=== PATIENT | female | born 1975 | race Caucasian/White ===

== ENCOUNTER 2017-07-09 20:46 | Emergency (ER) | payer SELFPAY ==
--- NOTE | 2017-07-09 23:39 | ER ---
Nurse's Notes [facility] Name: Kaylen Benson Age: 42 yrs Sex: Female : 1975 Arrival Date: 07/09/2017 Time: 20:49 Bed 26 Private MD: Diagnosis: Encounter for screening for dental disorders Presentation: 07/09 21:36 Presenting complaint: Patient states: Patient reports she started having pain in her ea upper gums today. States " I have an appointment on the second of next month but it's hurting too bad". Transition of care: patient was not received from another setting of care. Onset of symptoms was July 09, 2017. Care prior to arrival: Medication(s) given: Tylenol, at 3 PM. 21:36 Method Of Arrival: Ambulatory ea 21:36 Acuity: DONNA 5 ea Triage Assessment: 21:41 Pain: Complains of pain in upper gums Pain radiates to head Pain currently is 8 out of ea 10 on a pain scale. Quality of pain is described as aching, throbbing, Pain began this morning. General: Appears in no apparent distress. Behavior is calm, cooperative, appropriate for age. EENT: right upper gums red and inflammed. Neuro: Level of Consciousness is awake, alert, obeys commands, Oriented to person, place, time, situation. Cardiovascular: Patient's skin is warm and dry. Respiratory: Airway is patent Respiratory effort is even, unlabored, Respiratory pattern is regular, symmetrical. 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 - Social history:: Smoking status: Patient uses tobacco products, smokes one-half pack cigarettes per day. Screenin:47 Abuse screen: Denies threats or abuse. Nutritional screening: No deficits noted. ea Tuberculosis screening: No symptoms or risk factors identified. Fall Risk None identified. Assessment: 23:15 General: Appears comfortable, obese, well groomed, well developed, well nourished, tl3 Behavior is calm, cooperative, appropriate for age. Pain: Complains of pain in upper gums on right side Pain currently is 3 out of 10 on a pain scale. Vital Signs: 21:45 BP 122 / 90; Pulse 78; Resp 18 S; Temp 98.5(O); Pulse Ox 100% ; Weight 113.4 kg; Height ea 5 ft. 8 in. (172.72 cm); Pain 7/10; 21:45 Body Mass Index 38.01 (113.40 kg, 172.72 cm) ea ED Course: 20:49 Patient arrived in ED. ds1 21:39 Triage completed. ea 21:47 Arm band placed on right wrist. ea 23:01 Andre Yeung MD is Attending Physician. gs 23:10 Dixie Wisdom, SOLITARIO is Primary Nurse. tl3 23:44 Primary Nurse role handed off by Dixie Wisdom RN gs Administered Medications: No medications were administered Outcome: 23:38 Patient left the ED. tl3 23:46 Discharge ordered by . gs 23:52 Patient left the ED. Signatures: Malgorzata Ohara ds1 Rupa Aguilar RN RN Andre Yeung MD MD Dixie Wisdom RN RN tl3
--- NOTE | 2017-07-09 23:46 | EDPHYS ---
Physician Documentation [facility] Name: Kaylen Benson Age: 42 yrs Sex: Female : 1975 Arrival Date: 07/09/2017 Time: 20:49 Bed 26 Private MD: ED Physician Andre Yeung HPI: 07/09 23:39 This 42 yrs old Female presents to ER via Ambulatory with complaints of Mouth gs Pain. 23:39 The patient presents with broken tooth/teeth, lost tooth/teeth, pain. The problem is gs located in the upper right cuspid and upper right central incisor. Onset: The symptoms/episode began/occurred chronic. Duration: The symptoms are chronic. Modifying factors: the symptoms are aggravated by chewing. Associated signs and symptoms: Pertinent negatives: chills, fever. Severity of symptoms: At their worst the symptoms were moderate, in the emergency department the symptoms are unchanged. The patient has experienced similar episodes in the past, chronically. 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 - Social history:: Smoking status: Patient uses tobacco products, smokes one-half pack cigarettes per day. ROS: 23:39 All other systems are negative. gs Exam: 23:39 Constitutional: The patient appears alert, awake. gs 23:39 ENT: Dental exam: avulsion, complete, diffusely, dental caries, that is severe, diffusely, fractured teeth are noted, diffusely, gum swelling, that is mild, diffusely. Vital Signs: 21:45 BP 122 / 90; Pulse 78; Resp 18 S; Temp 98.5(O); Pulse Ox 100% ; Weight 113.4 kg; Height ea 5 ft. 8 in. (172.72 cm); Pain 7/10; 21:45 Body Mass Index 38.01 (113.40 kg, 172.72 cm) ea MDM: 23:11 Patient medically screened. gs 23:39 Differential diagnosis: dental caries, gingivitis. Data reviewed: vital signs, nurses gs notes. Administered Medications: No medications were administered Disposition: 23:42 dental caries, periodontal disease, no abscess. Disposition: 07/09/17 23:46 Discharged to Home. Impression: Encounter for screening for dental disorders. - Condition is Stable. - Medication Reconciliation Form, Thank You Letter, Antibiotic Education, Prescription Opioid Use form. Signatures: Rupa Aguilar, RN RN Andre Mcqueen MD MD Dixie Wisdom RN RN tl3
== END 2017-07-09 23:52 | disposition home or self-care (01) ==
LOC: ER 20:46
DX: Z13.84 Encounter for screening for dental disorders; Z88.1 Allergy status to other antibiotic agents; Z88.3 Allergy status to other anti-infective agents; S02.5XXA Fracture of tooth (traumatic), initial encounter for closed fracture
CPT/HCPCS: 99281

== ENCOUNTER 2017-08-07 16:22 | Emergency (ER) | payer SELFPAY ==
[2017-08-07] MEDS ORDERED: KETOROLAC 30 MG/ML INJ ONE (17:43)
--- NOTE | 2017-08-07 18:39 | ER ---
Nurse's Notes [facility] Name: Kaylen Benson Age: 42 yrs Sex: Female : 1975 Arrival Date: 08/07/2017 Time: 16:25 Bed 15 Private MD: Diagnosis: Chest pain, unspecified;Costochondritis Presentation: 08/07 16:46 Presenting complaint: Patient states: Anterior chest pain with productive cough that aj started 6 days ago. Patient reports taking Tylenol this AM before going to work. Patient came to ER after work today. Transition of care: patient was not received from another setting of care. Onset of symptoms was August 01, 2017. Initial Sepsis Screen: Does the patient meet any 2 criteria? No. Patient's initial sepsis screen is negative. Does the patient have a suspected source of infection? No. Patient's initial sepsis screen is negative. Care prior to arrival: None. 16:46 Method Of Arrival: Ambulatory aj 16:46 Acuity: DONNA 3 aj Triage Assessment: 16:50 General: Appears in no apparent distress. comfortable, Behavior is calm, cooperative, aj appropriate for age. Pain: Complains of pain in chest Pain currently is 6 out of 10 on a pain scale. Neuro: Level of Consciousness is awake, alert, obeys commands, Oriented to person, place, time, situation. Cardiovascular: Capillary refill < 3 seconds in bilateral fingers Patient's skin is warm and dry. Cardiovascular: Reports chest pain. Respiratory: Reports cough that is pain with cough Airway is patent Respiratory effort is even, unlabored, Respiratory pattern is regular, symmetrical. Derm: Skin is intact, is healthy with good turgor, Skin is pink, warm \T\ dry. normal. 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 - Social history:: Smoking status: Patient uses tobacco products, smokes one-half pack cigarettes per day. Screenin:46 Abuse screen: Denies threats or abuse. Denies injuries from another. Nutritional aj screening: No deficits noted. Tuberculosis screening: No symptoms or risk factors identified. Fall Risk None identified. Assessment: 17:46 Reassessment: see triage. aj 18:45 Reassessment: Patient appears in no apparent distress at this time. No changes from aj previously documented assessment. Patient and/or family updated on plan of care and expected duration. Pain level reassessed. Patient is alert, oriented x 3, equal unlabored respirations, skin warm/dry/pink. Patient states feeling better. Patient states symptoms have improved. 18:49 Pain: Pain does not radiate. Pain began 2-3 days ago. aj Vital Signs: 16:50 BP 118 / 76; Pulse 75; Resp 16; Temp 98.1; Pulse Ox 98% on R/A; Weight 113.4 kg; Height aj 5 ft. 8 in. (172.72 cm); Pain 6/10; 17:46 BP 118 / 60; Pulse 71; Resp 16; Pulse Ox 100% on R/A; aj 16:50 Body Mass Index 38.01 (113.40 kg, 172.72 cm) aj ED Course: 16:25 Patient arrived in ED. sb2 16:45 Jericho Salomon MD is Attending Physician. kdr 16:46 Miri Chávez, RN is Primary Nurse. aj 16:49 Triage completed. aj 16:50 Arm band placed on left wrist. Patient placed in an exam room. EKG completed in triage. aj Results shown to MD. 17:46 Patient has correct armband on for positive identification. Pulse ox on. NIBP on. aj 17:46 No provider procedures requiring assistance completed. Patient maintains SpO2 aj saturation greater than 95% on room air. 17:55 EKG done, by swimming pool service technician. reviewed by Jericho Salomon MD. vh 18:45 Patient did not have IV access during this emergency room visit. aj Administered Medications: 17:53 Drug: TORadol 60 mg Route: IM; Site: right gluteus; aj 18:47 Follow up: Response: Pain is decreased aj Outcome: 18:38 Discharge ordered by . kdr 18:45 Discharged to home ambulatory. aj 18:45 Condition: good 18:45 Discharge instructions given to patient, Instructed on discharge instructions, follow up and referral plans. medication usage, Demonstrated understanding of instructions, follow-up care, medications, Prescriptions given X 1. 18:49 Patient left the ED. aj Signatures: ChávezMiri RN RN aj Rittger, Kevin, MD MD [facility] Andreas, Chantal Beverly See 2
--- NOTE | 2017-08-07 18:39 | EDPHYS ---
Physician Documentation [facility] Name: Kaylen Benson Age: 42 yrs Sex: Female : 1975 Arrival Date: 08/07/2017 Time: 16:25 Bed 15 Private MD: ED Physician Jericho Salomon HPI: 08/07 17:41 This 42 yrs old Female presents to ER via Ambulatory with complaints of Chest kdr Pain. 17:41 The patient or guardian reports chest pain that is located primarily in the substernal kdr area, anterior chest wall, bilaterally. Onset: gradually, 6 day(s) ago. The pain does not radiate. Associated signs and symptoms: The patient has no apparent associated signs or symptoms. The chest pain is described as aching, dull, a heaviness, a pressure. Duration: The patient or guardian reports a single episode, that is still ongoing. Modifying factors: The symptoms are alleviated by nothing. the symptoms are aggravated by breathing, cough, movement, palpation of area, twisting torso. Severity of pain: At its worst the pain was moderate in the emergency department the pain is unchanged. The patient has experienced similar episodes in the past, a few times. 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 - Social history:: Smoking status: Patient uses tobacco products, smokes one-half pack cigarettes per day. ROS: 17:41 Constitutional: Negative for fever, chills, and weight loss, Eyes: Negative for injury, kdr pain, redness, and discharge, ENT: Negative for injury, pain, and discharge, Neck: Negative for injury, pain, and swelling, Respiratory: Negative for shortness of breath, cough, wheezing, and pleuritic chest pain, Abdomen/GI: Negative for abdominal pain, nausea, vomiting, diarrhea, and constipation, Back: Negative for injury and pain, : Negative for injury, bleeding, discharge, and swelling, MS/Extremity: Negative for injury and deformity, Skin: Negative for injury, rash, and discoloration, Neuro: Negative for headache, weakness, numbness, tingling, and seizure activity. 17:41 Cardiovascular: Positive for chest pain, Negative for edema, orthopnea, palpitations, paroxysmal nocturnal dyspnea. Exam: 17:41 Constitutional: This is a well developed, well nourished patient who is awake, alert, kdr and in no acute distress. Head/Face: Normocephalic, atraumatic. Eyes: Pupils equal round and reactive to light, extra-ocular motions intact. Lids and lashes normal. Conjunctiva and sclera are non-icteric and not injected. Cornea within normal limits. Periorbital areas with no swelling, redness, or edema. Neck: Trachea midline, no thyromegaly or masses palpated, and no cervical lymphadenopathy. Supple, full range of motion without nuchal rigidity, or vertebral point tenderness. No Meningismus. Chest/axilla: Normal chest wall appearance and motion. Nontender with no deformity. No lesions are appreciated. Cardiovascular: Regular rate and rhythm with a normal S1 and S2. No gallops, murmurs, or rubs. Normal PMI, no JVD. No pulse deficits. Respiratory: Lungs have equal breath sounds bilaterally, clear to auscultation and percussion. No rales, rhonchi or wheezes noted. No increased work of breathing, no retractions or nasal flaring. Vital Signs: 16:50 BP 118 / 76; Pulse 75; Resp 16; Temp 98.1; Pulse Ox 98% on R/A; Weight 113.4 kg; Height aj 5 ft. 8 in. (172.72 cm); Pain 6/10; 17:46 BP 118 / 60; Pulse 71; Resp 16; Pulse Ox 100% on R/A; aj 16:50 Body Mass Index 38.01 (113.40 kg, 172.72 cm) aj MDM: 18:38 Patient medically screened. kdr 08/07 17:56 Order name: EKG Electrocardiogram EDMS 08/07 17:40 Order name: EKG Strip; Complete Time: 17:47 kdr Administered Medications: 17:53 Drug: TORadol 60 mg Route: IM; Site: right gluteus; aj 18:47 Follow up: Response: Pain is decreased aj Disposition: 08/07/17 18:38 Discharged to Home. Impression: Chest pain, unspecified, Costochondritis. - Condition is Stable. - Discharge Instructions: Costochondritis, [id number], Chest Wall Pain, [id number], Nonspecific Chest Pain, [id number]-[id number]. - Prescriptions for Ibuprofen 800 mg Oral Tablet - take 1 tablet by ORAL route every 8 hours As needed take with food; 30 tablet. - Medication Reconciliation Form, Thank You Letter, Antibiotic Education, Prescription Opioid Use form. - Follow up: Private Physician; When: 2 - 3 days; Reason: If symptoms return, Further diagnostic work-up, Recheck today's complaints, Continuance of care, Re-evaluation by your physician. - Problem is an ongoing problem. - Symptoms have improved. Signatures: Dispatcher [employer] Miri Smith RN RN aj Rittger, Kevin, MD MD kdr
--- NOTE | 2017-08-07 22:11 | EKG ---
Test Date: 2017-08-07 Test Time: 17:46:48 Licensed Mental Health Professional: JACQUELYN MEASUREMENT RESULTS: Intervals: Rate: 68 [place]: 168 QRSD: 80 QT: 422 QTc: 448 [place]: P: 14 [place]: 168 QRS: 12 T: 21 INTERPRETIVE STATEMENTS: Normal sinus rhythm Low voltage QRS Borderline ECG Compared to ECG 08/10/2016 01:09:25 No significant changes Electronically Signed On 08-07-17 22:10:24 CDT by King Zazueta
== END 2017-08-07 18:49 | disposition home or self-care (01) ==
LOC: ER 16:22
DX: M94.0 Chondrocostal junction syndrome [Tietze] (principal); Z88.1 Allergy status to other antibiotic agents; Z88.3 Allergy status to other anti-infective agents
CPT/HCPCS: 93005; 96372; 99284

== ENCOUNTER 2017-10-20 06:33 | Emergency (ER) | payer SELFPAY ==
--- NOTE | 2017-10-20 08:01 | EDPHYS ---
Physician Documentation [facility] Name: Kaylen Benson Age: 42 yrs Sex: Female : 1975 Arrival Date: 10/20/2017 Time: 06:33 Bed 18 Private MD: ED Physician Maximilian Bowman HPI: 10/20 06:46 This 42 yrs old Female presents to ER via Unassigned with complaints of Ankle jmm Injury. 06:46 The patient presents with an injury, pain. Onset: The symptoms/episode began/occurred jmm acutely, 4 day(s) ago. Associated signs and symptoms:. This is a 42 year old female that presents to the ED with left ankle pain for the past 4 days. The patient states she rolled her ankle and states it continues to hurt on weight bearing. Denies other injury. Denies foot pain. 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 - Social history:: Smoking status: Patient uses tobacco products, 2 cigarettes a day. - Ebola Screening: : Patient negative for fever greater than or equal to 101.5 degrees Fahrenheit, and additional compatible Ebola Virus Disease symptoms. ROS: 06:46 Constitutional: Negative for body aches, fever. jmm 06:46 MS/extremity: Positive for pain, swelling. 06:46 All other systems are negative. Exam: 06:46 Head/Face: atraumatic. jmm 06:46 Constitutional: The patient appears in no acute distress, alert, awake. 06:46 Cardiovascular: Rate: normal. 06:46 Respiratory: the patient does not display signs of respiratory distress, Respirations: normal. 06:46 Musculoskeletal/extremity: ROM: intact in all extremities, left lateral malleolus tender to palpation. no pain on palpation of the 5th metatarsal, full dorsalis pulse, NVI. 06:46 Skin: Appearance: Color: normal in color. 06:46 Neuro: Orientation: is normal, Mentation: is normal, Memory: is normal. 06:46 Psych: Behavior/mood is pleasant, cooperative. Vital Signs: 06:51 BP 116 / 83; Pulse 92; Resp 17 S; Temp 98.2(O); Pulse Ox 96% on R/A; Weight 127.01 kg jd3 (R); Height 5 ft. 7 in. (170.18 cm) (R); Pain 6/10; 08:12 BP 105 / 82; Pulse 74; Resp 18; Temp 98.3; Pulse Ox 99% on R/A; Pain 4/10; ch 06:51 Body Mass Index 43.85 (127.01 kg, 170.18 cm) jd3 MDM: 06:42 Patient medically screened. [facility] 07:59 Data reviewed: vital signs, nurses notes, radiologic studies, plain films. Counseling: [facility] I had a detailed discussion with the patient and/or guardian regarding: the historical points, exam findings, and any diagnostic results supporting the discharge/admit diagnosis, radiology results, the need for outpatient follow up, to return to the emergency department if symptoms worsen or persist or if there are any questions or concerns that arise at home. 10/20 06:42 Order name: Ankle Left 3 View XRAY [facility] 10/20 07:46 Order name: Zack wrap-joint; Complete Time: 08:11 [facility] 10/20 08:17 Order name: Crutches; Complete Time: 08:17 ch Administered Medications: No medications were administered Disposition: 10/21 01:17 Co-signature as Attending Physician, Maximilian Bowman MD. I agree with the assessment tw4 and plan of care. Disposition: 10/20/17 08:00 Discharged to Home. Impression: Sprain of ankle. - Condition is Stable. - Discharge Instructions: Ankle Sprain. - Prescriptions for Ibuprofen 800 mg Oral Tablet - take 1 tablet by ORAL route every 8 hours As needed take with food; 30 tablet. - Work release form, Medication Reconciliation Form, Thank You Letter, Antibiotic Education, Prescription Opioid Use form. - Follow up: Jerome Canada MD; When: 2 - 3 days; Reason: Continuance of care. - Notes: Please follow up with orthopedics for further evaluation of your ankle pain. Please return to the ED if you develop increased pain, numbness, swelling, fever, or any other concerning symptoms. Signatures: Dispatcher [employer] Jazzy Hayden RN RN ch Mickail, Joel, PA PA jmm Davies, Jonathon, RN RN jd3 Wadley, Terrence, MD MD tw4 Corrections: (The following items were deleted from the chart) 10/20 08:18 08:00 10/20/2017 08:00 Discharged to Home. Impression: Sprain of ankle. Condition is ch Stable. Forms are Medication Reconciliation Form, Thank You Letter, Antibiotic Education, Prescription Opioid Use. Follow up: Jerome Canada; When: 2 - 3 days; Reason: Continuance of care. judy
--- NOTE | 2017-10-20 08:01 | ER ---
Nurse's Notes [facility] Name: Kaylen Benson Age: 42 yrs Sex: Female : 1975 Arrival Date: 10/20/2017 Time: 06:33 Bed 18 Private MD: Diagnosis: Sprain of ankle Presentation: 10/20 06:49 Presenting complaint: Patient states: "I fell down some stairs last V[place] and twisted jd3 my ankle. It has not gotten better and I figured it would have by now if nothing was wrong.". Transition of care: patient was not received from another setting of care. Onset of symptoms was October 16, 2017. Risk Assessment: Do you want to hurt yourself or someone else? Patient reports no desire to harm self or others. Initial Sepsis Screen: Does the patient meet any 2 criteria? No. Patient's initial sepsis screen is negative. Does the patient have a suspected source of infection? No. Patient's initial sepsis screen is negative. Care prior to arrival: None. 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 - Social history:: Smoking status: Patient uses tobacco products, 2 cigarettes a day. - Ebola Screening: : Patient negative for fever greater than or equal to 101.5 degrees Fahrenheit, and additional compatible Ebola Virus Disease symptoms. Screenin:56 Abuse screen: Denies threats or abuse. Nutritional screening: No deficits noted. jd3 Tuberculosis screening: No symptoms or risk factors identified. Fall Risk Fall in past 12 months (25 points). No IV (0 pts). Ambulatory Aid- Crutches/Cane/Walker (15 pts). Gait- Weak (10 pts.). Mental Status- Oriented to own ability (0 pts). Total Le Fall Scale indicates. Assessment: 06:52 General: Appears in no apparent distress. uncomfortable, Behavior is cooperative, jd3 anxious. Pain: Complains of pain in left ankle Pain currently is 6 out of 10 on a pain scale. Quality of pain is described as aching, sharp, Pain began 2-3 days ago. Is continuous, Aggravated by weight bearing. Neuro: Level of Consciousness is awake, alert, obeys commands, Oriented to person, place, time, situation. Cardiovascular: Capillary refill < 3 seconds Patient's skin is warm and dry. Respiratory: Airway is patent Respiratory effort is even, unlabored, Respiratory pattern is regular, symmetrical. GI: No signs and/or symptoms were reported involving the gastrointestinal system. : No signs and/or symptoms were reported regarding the genitourinary system. EENT: No signs and/or symptoms were reported regarding the EENT system. Derm: Skin is intact, Skin is dry, Skin is normal, Skin temperature is warm. Musculoskeletal: Circulation, motion, and sensation intact. Range of motion: limited in left ankle Swelling present in left ankle. Injury Description: pt states "I fell down stairs and twisted my ankle.". 08:12 Reassessment: Patient appears in no apparent distress at this time. No changes from previously documented assessment. Patient and/or family updated on plan of care and expected duration. Pain level reassessed. Patient is alert, oriented x 3, equal unlabored respirations, skin warm/dry/pink. Vital Signs: 06:51 BP 116 / 83; Pulse 92; Resp 17 S; Temp 98.2(O); Pulse Ox 96% on R/A; Weight 127.01 kg j (R); Height 5 ft. 7 in. (170.18 cm) (R); Pain 6/10; 08:12 BP 105 / 82; Pulse 74; Resp 18; Temp 98.3; Pulse Ox 99% on R/A; Pain 4/10; ch 06:51 Body Mass Index 43.85 (127.01 kg, 170.18 cm) [facility] ED Course: 06:33 Patient arrived in ED. ds1 06:36 Jace Alcaraz PA is PHCP. jmm 06:36 Maximilian Bomwan MD is Attending Physician. [facility] 06:49 Geoffrey Ruiz RN is Primary Nurse. jd3 06:51 Triage completed. jd3 06:52 Arm band placed on. jd3 06:57 Patient has correct armband on for positive identification. Bed in low position. Call j light in reach. Side rails up X 1. 07:02 X-ray completed. Portable x-ray completed in exam room. Patient tolerated procedure kw well. 07:03 Ankle Left 3 View XRAY In Process Unspecified. EDMS 08:00 Jerome Canada MD is Referral Physician. [facility] 08:12 No apparent distress. Resting quietly. 08:12 No provider procedures requiring assistance completed. Patient did not have IV access ch during this emergency room visit. Zack wrap to left ankle. 08:12 Crutch training done. Administered Medications: No medications were administered Outcome: 08:00 Discharge ordered by . [facility] 08:12 Discharged to home ambulatory, with crutches. 08:12 Condition: stable 08:12 Discharge instructions given to patient, Instructed on discharge instructions, follow up and referral plans. medication usage, Demonstrated understanding of instructions, follow-up care, medications, Prescriptions given X 1. 08:18 Patient left the ED. Signatures: Dispatcher [employer] EDPR Jazzy Watson, RN RN Jace Silverman PA PA [facility] Malgorzata Ohara ds1 Doris Rivera Jonathon, RN RN china
--- NOTE | 2017-10-20 09:04 | RAD REPORT ---
EXAM DESCRIPTION: RAD - Ankle Left 3 View -10/20/2017 7:03 am CLINICAL HISTORY: Left ankle pain status post injury FINDINGS: No fracture or dislocation is seen.
== END 2017-10-20 08:18 | disposition home or self-care (01) ==
LOC: ER 06:33
DX: S93.402A Sprain of unspecified ligament of left ankle, initial encounter (principal); I95.9 Hypotension, unspecified; J44.9 Chronic obstructive pulmonary disease, unspecified; F17.210 Nicotine dependence, cigarettes, uncomplicated; X50.1XXA Overexertion from prolonged static or awkward postures, initial encounter; Y93.9 Activity, unspecified; Y92.9 Unspecified place or not applicable; Y99.9 Unspecified external cause status; Z88.1 Allergy status to other antibiotic agents
CPT/HCPCS: 99283

== ENCOUNTER 2017-12-11 22:27 | Emergency (ER) | payer SELFPAY ==
[2017-12-11] MEDS ORDERED: ASPIRIN 81 MG CHEWABLE TABLET ONE (22:56)
[2017-12-11 23:23] LABS: Absolute Lymphocytes (CBC) 1.7 K/uL (0.7-4.9); Absolute Monocytes 0.3 K/uL (0.1-1.3); Absolute Neutrophil 3.9 K/uL (1.8-8.0); Basophils % 0.5 % (0-1.3); Hematocrit 38.2 % (36.0-45.0); Lymphocytes % 28.3 % (15.3-44.8); MCH 30.6 pg (27.0-35.0); MCV 89.7 fL (80-100); MPV 8.6 fL (7.6-11.3); Monocytes % 4.9 % (3.3-12.3); RBC Red Blood Cell Count 4.26 M/uL (3.86-4.86)
[2017-12-11] MEDS ORDERED: ACETAMINOPHEN 500 MG TAB ONE ×2 (23:28→23:30)
[2017-12-11 23:45] LABS: ALT/SGPT 18 U/L (12-78); AST/SGOT 15 U/L (15-37); Albumin 3.3 g/dL (3.4-5.0); Alkaline Phosphatase 78 U/L (45-117); BUN Blood Urea Nitrogen 10 mg/dL (7-18); Bicarbonate 25 mmol/L (21-32); Bilirubin Direct 0.2 mg/dL (0-0.2); Bilirubin Total 0.4 mg/dL (0.2-1.0); CKMB Creatine Kinase MB < 1.0 ng/mL (0.3-3.6); Creatine Phosphokinase 61 U/L (26-192); Glucose Level 86 mg/dL (74-106); Magnesium 1.8 mg/dL (1.8-2.4); NT PRO-BNP 88 pg/mL (<125); Potassium 3.7 mmol/L (3.5-5.1); Sodium Level 141 mmol/L (136-145)
[2017-12-11 23:54] LABS: Protime INR 1.07
[2017-12-12] MEDS ORDERED: METOCLOPRAMIDE 10 MG/2mL INJ ONE (00:08)
[2017-12-12] MEDS ORDERED: NA CHLORIDE 0.9% 1,000 ML ONE (00:08)
[2017-12-12] MEDS ORDERED: DIPHENHYDRAMINE 50 MG/ML VIAL ONE (00:08)
[2017-12-12] MEDS ORDERED: KETOROLAC 30 MG/ML INJ ONE (00:08)
--- NOTE | 2017-12-12 02:30 | EDPHYS ---
Physician Documentation [facility] Name: Kaylen Benson Age: 42 yrs Sex: Female : 1975 Arrival Date: 12/11/2017 Time: 22:30 Bed 13 Private MD: ED Physician Jose Cantrell HPI: 12/11 23:00 This 42 yrs old Female presents to ER via Ambulatory with complaints of Chest cp Pain. 23:00 The patient or guardian reports chest pain that is located primarily in the anterior cp chest wall. 23:00 Onset: 2 day(s) ago. The pain does not radiate. Associated signs and symptoms: cp Pertinent positives: headache, Pertinent negatives: abdominal pain, cough, diaphoresis, dizziness, lower extremity pain, lower extremity swelling, recent travel, syncope. The chest pain is described as a pressure. Duration: The patient or guardian reports multiple episodes, that wax and wane. Modifying factors: the symptoms are aggravated by deep breath. APPLIED RESEARCHER: 22:30 LMP 12/07/2017 fc Historical: - Allergies: 22:48 Amoxicillin; fc 22:48 Clindamycin; fc - Home Meds: 22:48 None [Active]; fc - PMHx: 22:48 Anxiety; COPD; hypotension; Thyroid problem; Vertigo; Migraines; fc - PSHx: 22:48 ; fc - Immunization history:: Last tetanus immunization: unknown. - Social history:: Smoking status: . - Ebola Screening: : Patient negative for fever greater than or equal to 101.5 degrees Fahrenheit, and additional compatible Ebola Virus Disease symptoms Patient denies exposure to infectious person Patient denies travel to an Ebola-affected area in the 21 days before illness onset. ROS: 23:07 Constitutional: Negative for body aches, chills, fever, poor PO intake. cp 23:07 Eyes: Negative for injury, pain, redness, and discharge. cp 23:07 ENT: Negative for drainage from ear(s), ear pain, sore throat, difficulty swallowing, difficulty handling secretions. 23:07 Cardiovascular: Positive for chest pain, Negative for edema, palpitations. 23:07 Respiratory: Negative for cough, shortness of breath, wheezing. 23:07 Abdomen/GI: Negative for abdominal pain, nausea, vomiting, and diarrhea, black/tarry stool, rectal bleeding. 23:07 Back: Negative for pain at rest, pain with movement, radiated pain. 23:07 : Negative for urinary symptoms. 23:07 MS/extremity: Negative for injury or acute deformity, swelling, tenderness. 23:07 Skin: Negative for cellulitis, rash. 23:07 Neuro: Positive for headache, Negative for altered mental status, syncope, near syncope, weakness. 23:07 All other systems are negative. Exam: 23:13 Constitutional: The patient appears in no acute distress, alert, awake, cp non-diaphoretic, non-toxic, well developed, well nourished, obese. 23:13 Head/Face: Normocephalic, atraumatic. Eyes: Pupils equal round and reactive to light, cp extra-ocular motions intact. Lids and lashes normal. Conjunctiva and sclera are non-icteric and not injected. Cornea within normal limits. Periorbital areas with no swelling, redness, or edema. ENT: Nares patent. No nasal discharge, no septal abnormalities noted. Tympanic membranes are normal and external auditory canals are clear. Oropharynx with no redness, swelling, or masses, exudates, or evidence of obstruction, uvula midline. Mucous membranes moist. Neck: Trachea midline, no thyromegaly or masses palpated, and no cervical lymphadenopathy. Supple, full range of motion without nuchal rigidity, or vertebral point tenderness. No Meningismus. 23:13 Chest/axilla: Inspection: normal, Palpation: is normal, no crepitus, no tenderness. 23:13 Cardiovascular: Rate: tachycardic, Rhythm: regular, Pulses: Pulses are 2+ in right radial artery and left radial artery. Edema: is not appreciated, JVD: is not appreciated. 23:13 Respiratory: the patient does not display signs of respiratory distress, Respirations: normal, no use of accessory muscles, no retractions, no splinting, no tachypnea, labored breathing, is not present, Breath sounds: are clear throughout, no decreased breath sounds, no stridor, no wheezing. 23:13 Abdomen/GI: Inspection: obese Bowel sounds: active, all quadrants, Palpation: abdomen is soft and non-tender, in all quadrants, rebound tenderness, is not appreciated, voluntary guarding, is not appreciated, involuntary guarding, is not appreciated. 23:13 Back: pain, is absent, ROM is normal. 23:13 Musculoskeletal/extremity: Exam is negative for calf tenderness, decreased range of motion, deformity, injury. 23:13 Skin: cellulitis, is not appreciated, no rash present. 23:13 Neuro: Orientation: to person, place \T\ time. Mentation: lucid, able to follow commands, Cerebellar function: is grossly normal, Motor: moves all fours, strength is normal, Sensation: no obvious gross deficits. 23:20 ECG was reviewed by the Attending Physician. cp 12/12 01:45 ECG was reviewed by the Attending Physician. cp Vital Signs: 12/11 22:30 BP 131 / 89; Pulse 103; Resp 18; Temp 98.9(O); Pulse Ox 99% on R/A; Weight 122.47 kg fc (R); Height 5 ft. 8 in. (172.72 cm) (R); Pain 7/10; 23:52 BP 122 / 68; Pulse 79; Resp 19; Pulse Ox 98% ; Pain 0/10; ao 12/12 00:05 BP 120 / 78; Pulse 53; Resp 17; Pulse Ox 100% ; Pain 0/10; ao 01:05 BP 114 / 63; Pulse 68; Resp 16; Pulse Ox 99% on R/A; Pain 0/10; ao 02:22 BP 103 / 66; Pulse 75; Resp 17; Pulse Ox 98% on R/A; ao 12/11 22:30 Body Mass Index 41.05 (122.47 kg, 172.72 cm) fc MDM: 12/11 22:47 Patient medically screened. cp 12/12 02:28 The patient was given aspirin in the Emergency Department. cp 02:28 Differential diagnosis: abnormal EKG, acute myocardial infarction, acute pericarditis, cp chest wall pain, gastroesophageal reflux disease (GERD), pericarditis, pleurisy, pneumonia, pneumothorax, pulmonary embolus, stable angina, unstable angina. Data reviewed: vital signs, nurses notes, lab test result(s), EKG, radiologic studies, plain films. Test interpretation: by ED physician or midlevel provider: ECG, plain radiologic studies. Special discussion: Based on the patient's history, exam, and Dx evaluation, there is no indication for emergent intervention or inpatient Tx. It is understood by the patient/guardian that if the Sx's persist or worsen they need to return immediately for re-evaluation. 12/11 22:47 Order name: Basic Metabolic Panel; Complete Time: 23:57 cp 12/11 23:57 Interpretation: Normal except: CL 109; GFR 69. cp 12/11 22:47 Order name: CBC with Diff; Complete Time: 23:57 cp 12/11 22:47 Order name: Ckmb; Complete Time: 23:57 cp 12/11 22:47 Order name: CPK; Complete Time: 23:57 cp 12/11 22:47 Order name: LFT's; Complete Time: 23:57 cp 12/11 22:47 Order name: Magnesium; Complete Time: 23:57 cp 12/11 22:47 Order name: NT PRO-BNP; Complete Time: 23:57 cp 12/11 22:47 Order name: PT-INR; Complete Time: 23:57 cp 12/11 22:47 Order name: Ptt, Activated; Complete Time: 23:57 cp 12/11 22:47 Order name: Troponin (emerg Dept Use Only); Complete Time: 23:57 cp 12/11 22:47 Order name: XRAY Chest (1 view) cp 12/12 01:17 Order name: Troponin (emerg Dept Use Only); Complete Time: 02:28 cp 12/12 02:28 Interpretation: Within normal limits: TROPED < 0.02. cp 12/11 22:47 Order name: EKG; Complete Time: 22:47 cp 12/11 22:47 Order name: Cardiac monitoring; Complete Time: 02:39 cp 12/11 22:47 Order name: EKG - Nurse/Tech; Complete Time: 23:34 cp 12/11 22:47 Order name: IV Saline Lock; Complete Time: 23:34 cp 12/11 22:47 Order name: Labs collected and sent; Complete Time: 23:34 cp 12/11 22:47 Order name: O2 Per Protocol; Complete Time: 22:53 cp 12/11 22:47 Order name: O2 Sat Monitoring; Complete Time: 22:53 cp 12/12 01:17 Order name: EKG; Complete Time: 01:18 cp 12/12 01:17 Order name: EKG - Nurse/Tech; Complete Time: 02:03 cp 12/12 01:17 Order name: Repeat Cardiac Enzymes at: 0145; Complete Time: 02:03 cp EC/24 23:20 Rate is 91 beats/min. Rhythm is regular. NH interval is normal. QRS interval is normal. cp QT interval is normal. Interpreted by me. Reviewed by me. 12/12 01:45 Rate is 75 beats/min. Rhythm is regular. NH interval is normal. QRS interval is normal. cp QT interval is normal. Interpreted by me. Reviewed by me. Administered Medications: 12/11 23:00 Drug: Aspirin Chewable Tablet 324 mg Route: PO; ao 12/12 01:34 Follow up: Response: No adverse reaction ao 12/11 23:34 Drug: Tylenol 1000 mg Route: PO; ao 12/12 01:34 Follow up: Response: No adverse reaction ao 00:13 Drug: NS 0.9% 1000 ml Route: IV; Rate: 1 bolus; Site: right antecubital; ao 01:34 Follow up: IV Status: Completed infusion; IV Intake: 1000ml ao 00:13 Drug: TORadol 30 mg Route: IVP; Site: right antecubital; ao 01:35 Follow up: Response: No adverse reaction ao 00:13 Drug: Reglan 10 mg Route: IVP; Site: right antecubital; ao 01:35 Follow up: Response: No adverse reaction ao 00:13 Drug: Benadryl 25 mg Route: IVP; Site: right antecubital; ao 01:35 Follow up: Response: No adverse reaction ao Disposition: 12/12/17 02:29 Discharged to Home. Impression: Chest pain, unspecified, Headache. - Condition is Stable. - Discharge Instructions: Nonspecific Chest Pain, General Headache Without Cause, Aspirin and Your Heart. - Prescriptions for Ibuprofen 800 mg Oral Tablet - take 1 tablet by ORAL route every 8 hours As needed take with food; 30 tablet. - Medication Reconciliation Form, Thank You Letter, Antibiotic Education, Prescription Opioid Use form. - Follow up: Private Physician; When: 2 - 3 days; Reason: Recheck today's complaints. - Problem is new. - Symptoms have improved. Addendum: 12/14/2017 06:30 Co-signature as Attending Physician, Jose Cantrell MD I agree with the assessment and c rivera plan of care. Signatures: Dispatcher [employer] EDJose Hirsch MD MD cha Chretien, Felicia RN RN Jose García PA PA cp Ortiz, Alex RN RN ao Corrections: (The following items were deleted from the chart) 12/12 02:38 12/11 22:47 Urine Test ordered. ko pham 12/12 02:38 12/11 22:47 Urine Dipstick-Ancillary ordered. ko pham 12/12 02:43 02:29 12/12/2017 02:29 Discharged to Home. Impression: Chest pain, unspecified; ao Headache. Condition is Stable. Forms are Medication Reconciliation Form, Thank You Letter, Antibiotic Education, Prescription Opioid Use. Follow up: Private Physician; When: 2 - 3 days; Reason: Recheck today's complaints. Problem is new. Symptoms have improved. cp
--- NOTE | 2017-12-12 02:30 | ER ---
Nurse's Notes [facility] Name: Kaylen Benson Age: 42 yrs Sex: Female : 1975 Arrival Date: 12/11/2017 Time: 22:30 Bed 13 Private MD: Diagnosis: Chest pain, unspecified;Headache Presentation: 12/11 22:30 Presenting complaint: Patient states: that she is having chest pain with deep fc breathing. Also has congestion but no cough. Started 2 days ago. Does have headache over entire head which is like her normal migraines. Denies any nausea or vomiting. Transition of care: patient was not received from another setting of care. Onset of symptoms was December 09, 2017. Risk Assessment: Do you want to hurt yourself or someone else? Patient reports no desire to harm self or others. Initial Sepsis Screen: Does the patient meet any 2 criteria? HR > 90 bpm. Yes Does the patient have a suspected source of infection? No. Patient's initial sepsis screen is negative. Care prior to arrival: None. 22:30 Method Of Arrival: Ambulatory 22:30 Acuity: DONNA 3 fc CONTACT OFFICER: 22:30 LMP 12/07/2017 fc Historical: - Allergies: 22:48 Amoxicillin; fc 22:48 Clindamycin; fc - Home Meds: 22:48 None [Active]; fc - PMHx: 22:48 Anxiety; COPD; hypotension; Thyroid problem; Vertigo; Migraines; fc - PSHx: 22:48 ; fc - Immunization history:: Last tetanus immunization: unknown. - Social history:: Smoking status: . - Ebola Screening: : Patient negative for fever greater than or equal to 101.5 degrees Fahrenheit, and additional compatible Ebola Virus Disease symptoms Patient denies exposure to infectious person Patient denies travel to an Ebola-affected area in the 21 days before illness onset. Screenin:51 Abuse screen: Denies threats or abuse. Nutritional screening: No deficits noted. fc Tuberculosis screening: No symptoms or risk factors identified. Fall Risk None identified. Assessment: 23:00 General: Appears in no apparent distress. comfortable, Behavior is calm, cooperative, ao appropriate for age. Pain: Complains of pain in chest Pain does not radiate. Pain currently is 0 out of 10 on a pain scale. Pain began 1 day ago. Neuro: Level of Consciousness is awake, alert, obeys commands, Oriented to person, place, time, situation, Appropriate for age Moves all extremities. Full function Speech is normal, Facial symmetry appears normal, Pupils are PERRLA. Cardiovascular: Capillary refill < 3 seconds Patient's skin is warm and dry. Respiratory: Airway is patent Respiratory effort is even, unlabored, Respiratory pattern is regular, symmetrical. GI: Abdomen is non-distended. : No signs and/or symptoms were reported regarding the genitourinary system. EENT: No signs and/or symptoms were reported regarding the EENT system. Derm: Skin is intact, Skin is pink, warm \T\ dry. normal, Skin temperature is warm. Musculoskeletal: Circulation, motion, and sensation intact. Range of motion:. 12/12 00:05 Reassessment: Patient appears in no apparent distress at this time. Patient and/or ao family updated on plan of care and expected duration. Pain level reassessed. Patient is alert, oriented x 3, equal unlabored respirations, skin warm/dry/pink. Waiting on lab work. 01:04 Reassessment: Patient appears in no apparent distress at this time. Patient and/or ao family updated on plan of care and expected duration. Pain level reassessed. Patient is alert, oriented x 3, equal unlabored respirations, skin warm/dry/pink. Waiting on dispo orders. General:. 02:21 Reassessment: Patient appears in no apparent distress at this time. Patient and/or ao family updated on plan of care and expected duration. Pain level reassessed. Patient is alert, oriented x 3, equal unlabored respirations, skin warm/dry/pink. Repeated cardiac enzymes had being sent. Vital Signs: 12/11 22:30 BP 131 / 89; Pulse 103; Resp 18; Temp 98.9(O); Pulse Ox 99% on R/A; Weight 122.47 kg fc (R); Height 5 ft. 8 in. (172.72 cm) (R); Pain 7/10; 23:52 BP 122 / 68; Pulse 79; Resp 19; Pulse Ox 98% ; Pain 0/10; ao 12/12 00:05 BP 120 / 78; Pulse 53; Resp 17; Pulse Ox 100% ; Pain 0/10; ao 01:05 BP 114 / 63; Pulse 68; Resp 16; Pulse Ox 99% on R/A; Pain 0/10; ao 02:22 BP 103 / 66; Pulse 75; Resp 17; Pulse Ox 98% on R/A; ao 12/11 22:30 Body Mass Index 41.05 (122.47 kg, 172.72 cm) fc ED Course: 12/11 22:30 Patient arrived in ED. es 22:30 Arm band placed on Patient placed in an exam room, on a stretcher. fc 22:44 Michael Ely RN is Primary Nurse. ao 22:46 Jose García PA is PHCP. cp 22:46 Jose Cantrell MD is Attending Physician. cp 22:47 Triage completed. fc 22:51 Patient has correct armband on for positive identification. Placed in gown. Bed in low fc position. Call light in reach. 22:51 No provider procedures requiring assistance completed. Patient maintains SpO2 fc saturation greater than 95% on room air. 22:54 XRAY Chest (1 view) In Process Unspecified. EDMS 23:15 Pulse ox on. NIBP on. ao 23:20 Inserted saline lock: 20 gauge in right forearm, using aseptic technique. Blood ao collected. 12/12 02:39 IV discontinued. ao Administered Medications: 12/11 23:00 Drug: Aspirin Chewable Tablet 324 mg Route: PO; ao 12/12 01:34 Follow up: Response: No adverse reaction ao 12/11 23:34 Drug: Tylenol 1000 mg Route: PO; ao 12/12 01:34 Follow up: Response: No adverse reaction ao 00:13 Drug: NS 0.9% 1000 ml Route: IV; Rate: 1 bolus; Site: right antecubital; ao 01:34 Follow up: IV Status: Completed infusion; IV Intake: 1000ml ao 00:13 Drug: TORadol 30 mg Route: IVP; Site: right antecubital; ao 01:35 Follow up: Response: No adverse reaction ao 00:13 Drug: Reglan 10 mg Route: IVP; Site: right antecubital; ao 01:35 Follow up: Response: No adverse reaction ao 00:13 Drug: Benadryl 25 mg Route: IVP; Site: right antecubital; ao 01:35 Follow up: Response: No adverse reaction ao Intake: 01:34 IV: 1000ml; Total: 1000ml. ao Outcome: 02:29 Discharge ordered by . cp 02:39 Discharged to home ambulatory. ao 02:39 Condition: stable 02:39 Discharge instructions given to patient, Instructed on discharge instructions, follow up and referral plans. Demonstrated understanding of instructions, follow-up care, medications, Prescriptions given X 1. 02:43 Patient left the ED. ao Signatures: Dispatcher [employer] Fifi Perrin Felicia, RN RN Jose Hernandez PA PA cp Ortiz, Alex RN RN ao
--- NOTE | 2017-12-12 08:30 | EKG ---
Test Date: 2017-12-12 Test Time: 01:38:56 Commercial Retoucher: ROS MEASUREMENT RESULTS: Intervals: Rate: 75 DE: 134 QRSD: 76 QT: 414 QTc: 462 [place]: P: 47 DE: 134 QRS: -4 T: 37 INTERPRETIVE STATEMENTS: Normal sinus rhythm Low voltage QRS Borderline ECG Compared to ECG 12/11/2017 23:11:29 No significant changes Electronically Signed On 12-12-17 08:29:24 CDT by King Zazueta
--- NOTE | 2017-12-12 08:30 | EKG ---
Test Date: 2017-12-11 Test Time: 23:11:29 High [employer] English Teacher: NAREN MEASUREMENT RESULTS: Intervals: Rate: 91 CT: 150 QRSD: 84 QT: 376 QTc: 462 [place]: P: 37 CT: 150 QRS: -7 T: 51 INTERPRETIVE STATEMENTS: Normal sinus rhythm Low voltage QRS Borderline ECG Compared to ECG 08/07/2017 17:46:48 No significant changes Electronically Signed On 12-12-17 08:29:54 CDT by King Zazueta
--- NOTE | 2017-12-12 09:50 | RAD REPORT ---
EXAM DESCRIPTION: Leslie Single View12/11/2017 10:56 pm CLINICAL HISTORY: Chest pain COMPARISON: July 2016 FINDINGS: The lungs appear clear of acute infiltrate. A calcified granuloma is present within the r ight lung base. The heart is normal size IMPRESSION: No acute abnormalities displayed
== END 2017-12-12 02:43 | disposition home or self-care (01) ==
LOC: ER 22:27
DX: R07.9 Chest pain, unspecified (principal); R51 Headache; Z88.1 Allergy status to other antibiotic agents; J44.9 Chronic obstructive pulmonary disease, unspecified
CPT/HCPCS: 36415; 71045; 80048; 80076; 82550; 82553; 83735; 83880; 84484; 85025; 85610; 85730; 93005; 96361; 96374; 96375; 99284; J2765; J7030

== ENCOUNTER 2017-12-17 04:02 | Emergency (ER) | payer SELFPAY ==
[2017-12-17] MEDS ORDERED: KETOROLAC 30 MG/ML INJ ONE (04:34)
[2017-12-17] MEDS ORDERED: ONDANSETRON 4 MG (ODT) TAB ONE (04:34)
--- NOTE | 2017-12-17 06:14 | EDPHYS ---
Physician Documentation [facility] Name: Kaylen Benosn Age: 42 yrs Sex: Female : 1975 Arrival Date: 12/17/2017 Time: 04:05 Bed 20 Private MD: ED Physician Maximilian Bowman JEWELRY FACER: 12/17 04:19 LMP 12/17/2017 lp1 Historical: - Allergies: 04:21 Amoxicillin; lp1 04:21 Clindamycin; lp1 - Home Meds: 04:21 None [Active]; lp1 - PMHx: 04:21 Anxiety; COPD; hypotension; Migraines; Thyroid problem; Vertigo; lp1 - PSHx: 04:21 x3; lp1 - Immunization history:: Adult Immunizations up to date. - Social history:: Smoking status: Patient uses tobacco products, smokes one-half pack cigarettes per day. - Ebola Screening: : No symptoms or risks identified at this time. Vital Signs: 04:19 BP 143 / 86; Pulse 72; Resp 18; Temp 98.6(O); Pulse Ox 98% on R/A; Weight 122.47 kg; lp1 Height 5 ft. 7 in. (170.18 cm); Pain 10/10; 06:28 BP 137 / 77; Pulse 77; Resp 18; Pulse Ox 98% on R/A; Pain 2/10; lp1 04:19 Body Mass Index 42.29 (122.47 kg, 170.18 cm) lp1 MDM: 04:08 Patient medically screened. tw4 12/17 04:20 Order name: CT Head Brain wo Cont tw4 Administered Medications: 04:34 Drug: Zofran 4 mg Route: PO; lp1 05:33 Follow up: Response: Marked relief of symptoms lp1 04:34 Drug: TORadol 60 mg Route: IM; Site: right deltoid; lp1 05:33 Follow up: Response: Marked relief of symptoms lp1 Disposition: 12/17/17 06:13 Discharged to Home. Impression: Headache. - Condition is Stable. - Discharge Instructions: Migraine Headache. - Prescriptions for Fiorinal 50- 325-40 mg Oral Capsule - take 1 capsule by ORAL route every 4 hours As needed - not to exceed 6 capsules per day; 20 capsule. - Medication Reconciliation Form, Thank You Letter, Antibiotic Education, Prescription Opioid Use form. - Follow up: Private Physician; When: Upon discharge from the Emergency Department; Reason: Further diagnostic work-up, Recheck today's complaints, Continuance of care. - Problem is new. - Symptoms have improved. Addendum: 01/05/2018 06:26 Addendum: HPI: Pt is a 42 year old female that presents with headache for one day. Pt t w4 states that the pain radiates to her neck. Pt also complains of photophobia. Denies fever chills or abdominal pain. Addendum: ROS: Constitutional:L negative for fever chills malaise ENT: negative for sore throat dental pain CV: negative for chest pain, palpitations Resp: negative for SOB,VALENTE Ext: negative for injury edema Neuro: positive for headache, negative for numbnes, weakness. Addendum: PE: General: well developed well nourished female in NAD HEENT: PERRLA, EOMI Neck: supple, no meningismus CV:RRR, nl S1, S2 Resp: CTAB, no wheezes Abdomen: soft ND/NT Ext: no edema Neuro: alert and oriented times 3, CN grossly intact. gait normal. Signatures: Dispatcher [employer] EDMS Fouzia Reyes RN RN lp1 Maximilian Bowman MD MD tw4 Corrections: (The following items were deleted from the chart) 12/17 06:29 06:13 12/17/2017 06:13 Discharged to Home. Impression: Headache. Condition is Stable. lp1 Forms are Medication Reconciliation Form, Thank You Letter, Antibiotic Education, Prescription Opioid Use. Follow up: Private Physician; When: Upon discharge from the Emergency Department; Reason: Further diagnostic work-up, Recheck today's complaints, Continuance of care. Problem is new. Symptoms have improved. tw4
--- NOTE | 2017-12-17 06:14 | ER ---
Nurse's Notes [facility] Name: Kaylen Benson Age: 42 yrs Sex: Female : 1975 Arrival Date: 12/17/2017 Time: 04:05 Bed 20 Private MD: Diagnosis: Headache Presentation: 12/17 04:14 Presenting complaint: Patient states: headache that has increased throughout the night, lp1 radiates down back, sensitivity to light; Took Tylenol at 2000 with no relief. Transition of care: patient was not received from another setting of care. Onset of symptoms was December 16, 2017 at 20:00. Risk Assessment: Do you want to hurt yourself or someone else? Patient reports no desire to harm self or others. Initial Sepsis Screen: Does the patient meet any 2 criteria? No. Patient's initial sepsis screen is negative. Does the patient have a suspected source of infection? No. Patient's initial sepsis screen is negative. Care prior to arrival: None. 04:14 Method Of Arrival: Ambulatory lp1 04:14 Acuity: DONNA 3 lp1 Triage Assessment: 04:27 Headache History: The patient has had previous headaches and this one is more severe lp1 than previous episodes. 04:27 Pain: Also complains of nausea, photophobia. 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 - Social history:: Smoking status: Patient uses tobacco products, smokes one-half pack cigarettes per day. - Ebola Screening: : No symptoms or risks identified at this time. Screenin:26 Abuse screen: Denies threats or abuse. Denies injuries from another. Nutritional lp1 screening: No deficits noted. Tuberculosis screening: No symptoms or risk factors identified. Fall Risk None identified. Assessment: 04:23 General: Appears uncomfortable, Behavior is appropriate for age. Pain: Complains of lp1 pain in head Pain radiates to back Pain currently is 10 out of 10 on a pain scale. Quality of pain is described as pressure, radiating, Pain began 1999. Neuro: Level of Consciousness is awake, alert, obeys commands, Oriented to person, place, time, situation, Mine Safety Engineer are equal bilaterally Moves all extremities. Full function Gait is steady, Speech is normal, Facial symmetry appears normal, Pupils are PERRLA, Intact Reports dizziness, headache photophobia. Cardiovascular: Patient's skin is warm and dry. Respiratory: Respiratory effort is even, unlabored. GI: Reports nausea. : No signs and/or symptoms were reported regarding the genitourinary system. EENT: No signs and/or symptoms were reported regarding the EENT system. Derm: Skin is pink, warm \T\ dry. Musculoskeletal: Circulation, motion, and sensation intact. 05:34 Reassessment: Patient and/or family updated on plan of care and expected duration. Pain lp1 level reassessed. Patient resting, eyes closed, respirations unlabored. Vital Signs: 04:19 BP 143 / 86; Pulse 72; Resp 18; Temp 98.6(O); Pulse Ox 98% on R/A; Weight 122.47 kg; lp1 Height 5 ft. 7 in. (170.18 cm); Pain 10/10; 06:28 BP 137 / 77; Pulse 77; Resp 18; Pulse Ox 98% on R/A; Pain 2/10; lp1 04:19 Body Mass Index 42.29 (122.47 kg, 170.18 cm) lp1 ED Course: 04:05 Patient arrived in ED. al2 04:08 Maximilian Bowman MD is Attending Physician. tw4 04:10 Nayely Ann, SOLITARIO is Primary Nurse. bs1 04:14 Fouzia Reyes, SOLITARIO is Primary Nurse. lp1 04:17 Triage completed. lp1 04:20 Arm band placed on left wrist. lp1 04:27 Patient has correct armband on for positive identification. Pulse ox on. NIBP on. lp1 04:[address] via wheelchair. lp1 05:07 CT completed. Patient tolerated procedure well. Patient moved back from CT. eh 05:56 CT Head Brain wo Cont In Process Unspecified. EDMS 06:28 No provider procedures requiring assistance completed. Patient did not have IV access lp1 during this emergency room visit. Administered Medications: 04:34 Drug: Zofran 4 mg Route: PO; lp1 05:33 Follow up: Response: Marked relief of symptoms lp1 04:34 Drug: TORadol 60 mg Route: IM; Site: right deltoid; lp1 05:33 Follow up: Response: Marked relief of symptoms lp1 Outcome: 06:13 Discharge ordered by . tw4 06:28 Discharged to home ambulatory. lp1 06:28 Condition: good 06:28 Discharge instructions given to patient, Instructed on discharge instructions, follow up and referral plans. medication usage, Demonstrated understanding of instructions, follow-up care, medications, Prescriptions given X 1. 06:29 Patient left the ED. lp1 Signatures: Dispatcher [employer] EDMS Gilberto Turner Laura RN RN lp1 Nayely Ann RN RN bs1 Rayne Obrien alMaximilian Nielsen MD MD tw4
--- NOTE | 2017-12-17 08:43 | RAD REPORT ---
EXAM DESCRIPTION: CT - Head Brain Wo Cont - 12/17/2017 7:08 am CLINICAL HISTORY: Headache since last night COMPARISON: July 2016 TECHNIQUE: Computed axial tomography of the head was obtained. IV contrast was not requested. Prelim inary report was generated by [employer] and reviewed prior to this dictation All CT scans are performed using dose optimization technique as appropriate and may include automated exposure control or mA/KV adjustment according to patient size. FINDINGS: An intracranial bleed is not seen . The ventricles are normal in caliber. No extra-axial fluid collection is noted. Fluid within the sinuses/ mastoids is not seen. IMPRESSION: No acute intracranial abnormality is seen. If patient's symptoms persist MRI of the bra in would be recommended.
== END 2017-12-17 06:29 | disposition home or self-care (01) ==
LOC: ER 04:02
DX: R51 Headache (principal); F17.210 Nicotine dependence, cigarettes, uncomplicated; Z88.1 Allergy status to other antibiotic agents; Z88.3 Allergy status to other anti-infective agents
CPT/HCPCS: 70450; 96372; 99284

== ENCOUNTER 2018-04-03 16:34 | Emergency (ER) | payer SELFPAY ==
--- NOTE | 2018-04-03 17:37 | RAD REPORT ---
EXAM DESCRIPTION: Leslie Osuna (2 Views)04/03/2018 5:09 pm CLINICAL HISTORY: Cough COMPARISON: November 2017 FINDINGS: The lungs appear clear of acute infiltrate. The heart is normal size IMPRESSION: No acute abnormalities displayed
[2018-04-03 18:38] LABS: Troponin (Emerg Dept Use Only) < 0.02 ng/mL (0.0-0.045)
[2018-04-03] MEDS ORDERED: KETOROLAC 30 MG/ML INJ ONE (19:44)
--- NOTE | 2018-04-03 19:48 | ER ---
Nurse's Notes [facility] Name: Kaylen Benson Age: 42 yrs Sex: Female : 1975 Arrival Date: 04/03/2018 Time: 16:36 Bed 27 Private MD: Diagnosis: Chest pain, unspecified;Radiculopathy, cervical region Presentation: 04/03 16:38 Presenting complaint: Patient states: "I was at work and all the sudden I had this pain aj1 shoot up the right side of my arm and then the left side of my chest started hurting." Patient states that her left arm still hurts, but she is not having chest pain anymore Patient also reports headache, dizziness. Denies palpitations, SOB. Transition of care: patient was not received from another setting of care. Onset of symptoms was April 03, 2018 at 16:30. Risk Assessment: Do you want to hurt yourself or someone else? Patient reports no desire to harm self or others. Initial Sepsis Screen: Does the patient meet any 2 criteria? No. Patient's initial sepsis screen is negative. Does the patient have a suspected source of infection? No. Patient's initial sepsis screen is negative. Care prior to arrival: None. 16:38 Method Of Arrival: Ambulatory aj1 16:38 Acuity: DONNA 3 aj1 Triage Assessment: 16:41 General: Appears in no apparent distress. comfortable, Behavior is calm, cooperative, aj1 appropriate for age. Pain: Complains of pain in anterior aspect of left upper chest and right arm Pain currently is 4 out of 10 on a pain scale. 16:41 Neuro: Level of Consciousness is awake, alert, obeys commands. Cardiovascular: aj1 Patient's skin is warm and dry. Respiratory: Airway is patent Respiratory effort is even, unlabored, Respiratory pattern is regular, symmetrical. 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 - Social history:: Smoking status: Patient uses tobacco products, 3-4 cigarettes per day. - Ebola Screening: : Patient denies travel to an Ebola-affected area in the 21 days before illness onset. Screenin:47 Abuse screen: Denies threats or abuse. Denies injuries from another. Nutritional rv screening: No deficits noted. Tuberculosis screening: No symptoms or risk factors identified. Fall Risk None identified. Assessment: 17:00 General: Appears in no apparent distress. comfortable. rv 17:00 Pain: Pain radiates to right arm Pain began suddenly, 1 hour ago. Neuro: Level of rv Consciousness is awake, alert, obeys commands, Oriented to person, place, time, situation. Cardiovascular: Capillary refill < 3 seconds. Respiratory: Airway is patent Breath sounds are clear bilaterally. GI: No signs and/or symptoms were reported involving the gastrointestinal system. : No signs and/or symptoms were reported regarding the genitourinary system. EENT: No signs and/or symptoms were reported regarding the EENT system. Derm: Skin is intact. Musculoskeletal: No signs and/or symptoms reported regarding the musculoskeletal system. 17:53 Reassessment: Patient appears in no apparent distress at this time. Patient is alert, rv oriented x 3, equal unlabored respirations, skin warm/dry/pink. Vital Signs: 16:41 BP 120 / 78; Pulse 90; Resp 18; Temp 96.9; Pulse Ox 97% on R/A; Weight 122.47 kg (R); aj1 Height 5 ft. 8 in. (172.72 cm) (R); Pain 4/10; 17:00 BP 107 / 75; Pulse 82 MON; Resp 18 S; Pulse Ox 97% on R/A; rv 17:53 BP 125 / 81; Pulse 68 MON; Resp 22 S; Pulse Ox 99% on R/A; rv 19:57 BP 120 / 73; Pulse 66 MON; Resp 18 S; Pulse Ox 100% on R/A; rv 16:41 Body Mass Index 41.05 (122.47 kg, 172.72 cm) aj1 ED Course: 16:36 Patient arrived in ED. as 16:40 Triage completed. aj1 16:41 Arm band placed on Patient placed in an exam room. aj1 16:45 Eri Trivedi FNP-C is [facility]. snw 16:45 Andre Yeung MD is Attending Physician. snw 17:07 Chest Pa And Lat (2 Views) XRAY In Process Unspecified. EDMS 17:40 Inserted saline lock: 22 gauge in left forearm, using aseptic technique. Blood rv collected. Patient maintains SpO2 saturation greater than 95% on room air. 17:40 Initial lab(s) drawn, by me, sent to lab. rv 17:45 TSH Sent. rv 17:45 Troponin (emerg Dept Use Only) Sent. rv 17:48 Patient has correct armband on for positive identification. Placed in gown. Bed in low rv position. Call light in reach. Side rails up X 1. clinical research monitor on. Pulse ox on. NIBP on. 19:57 No provider procedures requiring assistance completed. IV discontinued, bleeding rv controlled, No redness/swelling at site. Pressure dressing applied. Administered Medications: 19:56 Not Given (Patient Refused): TORadol 60 mg IM once rv Outcome: 19:47 Discharge ordered by MD. snw 19:57 Discharged to home ambulatory. rv 19:57 Condition: good 19:57 Discharge instructions given to patient, Instructed on discharge instructions, follow up and referral plans. Demonstrated understanding of instructions, follow-up care. 19:57 Patient left the ED. rv Signatures: Dispatcher [employer] EDAngeline Titus RN RN aj1 rEi Trivedi, CARTON MAKING MACHINIST-C CARTON MAKING MACHINIST-Amanda Patel Ronaldo, RN RN rv Corrections: (The following items were deleted from the chart) 16:42 16:38 Presenting complaint: Patient states: "I was at work and all the sudden I had aj1 this pain shoot up the right side of my arm and then the left side of my chest started hurting." Patient also reports headache, dizziness. Denies palpitations, SOB aj1
--- NOTE | 2018-04-03 19:48 | EDPHYS ---
Physician Documentation [facility] Name: Kaylen Benson Age: 42 yrs Sex: Female : 1975 Arrival Date: 04/03/2018 Time: 16:36 Bed 27 Private MD: ED Physician Andre Yeung HPI: 04/03 17:06 This 42 yrs old Female presents to ER via Ambulatory with complaints of Chest snw Pain, Arm Pain. 17:06 Onset: The symptoms/episode began/occurred suddenly, just prior to arrival. Associated snw signs and symptoms: The patient has no apparent associated signs or symptoms. The patient has not experienced similar symptoms in the past. The patient has not recently seen a physician. no PCP, no medications, states she was dx with hypothyroidism several months ago but hasn't been on any medications. 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 - Social history:: Smoking status: Patient uses tobacco products, 3-4 cigarettes per day. - Ebola Screening: : Patient denies travel to an Ebola-affected area in the 21 days before illness onset. ROS: 17:05 Constitutional: Negative for fever, chills, and weight loss, Eyes: Negative for injury, snw pain, redness, and discharge, ENT: Negative for injury, pain, and discharge, Neck: Negative for injury, pain, and swelling, Respiratory: Negative for shortness of breath, cough, wheezing, and pleuritic chest pain, Abdomen/GI: Negative for abdominal pain, nausea, vomiting, diarrhea, and constipation, Back: Negative for injury and pain, : Negative for injury, bleeding, discharge, and swelling, MS/Extremity: Negative for injury and deformity, Skin: Negative for injury, rash, and discoloration, Neuro: Negative for headache, weakness, numbness, tingling, and seizure. 17:05 Cardiovascular: Positive for chest pain, of the right arm and anterior aspect of left upper chest. Exam: 17:05 Constitutional: This is a well developed, well nourished patient who is awake, alert, snw and in no acute distress. Head/Face: Normocephalic, atraumatic. Eyes: Pupils equal round and reactive to light, extra-ocular motions intact. Lids and lashes normal. Conjunctiva and sclera are non-icteric and not injected. Cornea within normal limits. Periorbital areas with no swelling, redness, or edema. ENT: Nares patent. No nasal discharge, no septal abnormalities noted. Tympanic membranes are normal and external auditory canals are clear. Oropharynx with no redness, swelling, or masses, exudates, or evidence of obstruction, uvula midline. Mucous membranes moist. Neck: Trachea midline, no thyromegaly or masses palpated, and no cervical lymphadenopathy. Supple, full range of motion without nuchal rigidity, or vertebral point tenderness. No Meningismus. Chest/axilla: Normal chest wall appearance and motion. Nontender with no deformity. No lesions are appreciated. Cardiovascular: Regular rate and rhythm with a normal S1 and S2. No gallops, murmurs, or rubs. Normal PMI, no JVD. No pulse deficits. Respiratory: Lungs have equal breath sounds bilaterally, clear to auscultation and percussion. No rales, rhonchi or wheezes noted. No increased work of breathing, no retractions or nasal flaring. Abdomen/GI: Soft, non-tender, with normal bowel sounds. No distension or tympany. No guarding or rebound. No evidence of tenderness throughout. Back: No spinal tenderness. No costovertebral tenderness. Full range of motion. Skin: Warm, dry with normal turgor. Normal color with no rashes, no lesions, and no evidence of cellulitis. MS/ Extremity: Pulses equal, no cyanosis. Neurovascular intact. Full, normal range of motion. Neuro: Awake and alert, GCS 15, oriented to person, place, time, and situation. Cranial nerves II-XII grossly intact. Motor strength 5/5 in all extremities. Sensory grossly intact. Cerebellar exam normal. Normal gait. Psych: Awake, alert, with orientation to person, place and time. Behavior, mood, and affect are within normal limits. Vital Signs: 16:41 BP 120 / 78; Pulse 90; Resp 18; Temp 96.9; Pulse Ox 97% on R/A; Weight 122.47 kg (R); aj1 Height 5 ft. 8 in. (172.72 cm) (R); Pain 4/10; 17:00 BP 107 / 75; Pulse 82 MON; Resp 18 S; Pulse Ox 97% on R/A; rv 17:53 BP 125 / 81; Pulse 68 MON; Resp 22 S; Pulse Ox 99% on R/A; rv 19:57 BP 120 / 73; Pulse 66 MON; Resp 18 S; Pulse Ox 100% on R/A; rv 16:41 Body Mass Index 41.05 (122.47 kg, 172.72 cm) aj1 MDM: 16:45 Patient medically screened. snw 19:46 Data reviewed: vital signs, nurses notes. Data interpreted: Pulse oximetry: on room air snw is 99 %. Interpretation: normal. Counseling: I had a detailed discussion with the patient and/or guardian regarding: the historical points, exam findings, and any diagnostic results supporting the discharge/admit diagnosis, the presence of at least one elevated blood pressure reading (>120/80) during this emergency department visit, lab results, radiology results, the need for outpatient follow up, to return to the emergency department if symptoms worsen or persist or if there are any questions or concerns that arise at home. Response to treatment: pt declined Toradol and states she has no pain.. Special discussion: Based on the patient's history, exam, and Dx evaluation, there is no indication for emergent intervention or inpatient Tx. It is understood by the patient/guardian that if the Sx's persist or worsen they need to return immediately for re-evaluation. I have referred the patient to see his PCP for further evaluation of high blood pressure. Based on the history and exam findings, there is no indication for further emergent testing or inpatient evaluation. I discussed with the patient/guardian the need to see the primary care provider for further evaluation of the symptoms. 04/03 17:05 Order name: Troponin (emerg Dept Use Only); Complete Time: 18:59 snw 04/03 17:05 Order name: TSH; Complete Time: 18:59 snw 04/03 16:46 Order name: EKG; Complete Time: 16:47 snw 04/03 16:46 Order name: Chest Pa And Lat (2 Views) XRAY; Complete Time: 17:43 snw 04/03 18:44 Order name: T4 Free; Complete Time: 18:59 EDMS 04/03 16:46 Order name: EKG - Nurse/Tech; Complete Time: 16:57 snw Administered Medications: 19:56 Not Given (Patient Refused): TORadol 60 mg IM once rv Disposition: 04/04 07:44 Co-signature as Attending Physician, Andre Yeung MD. Disposition: 04/03/18 19:47 Discharged to Home. Impression: Chest pain, unspecified, Radiculopathy, cervical region. - Condition is Stable. - Discharge Instructions: Cervical Radiculopathy, Nonspecific Chest Pain, Hypertension. - Work release form, Medication Reconciliation Form, Thank You Letter, Antibiotic Education, Prescription Opioid Use form. - Follow up: Private Physician; When: 2 - 3 days; Reason: Recheck today's complaints, Continuance of care, Re-evaluation by your physician. Follow up: Emergency Department; When: As needed; Reason: Worsening of condition. Signatures: Dispatcher [employer] EDMD Angeline Cameron RN RN aj1 Eri Trivedi, COMPOSITION BOARD PRESS OPERATOR-C COMPOSITION BOARD PRESS OPERATOR-Csnw Andre Yeung MD MD Salty Friend RN RN rv Corrections: (The following items were deleted from the chart) 04/03 19:57 19:48 04/03/2018 19:47 Discharged to Home. Impression: Chest pain, unspecified; rv Radiculopathy, cervical region. Condition is Stable. Forms are Medication Reconciliation Form, Thank You Letter, Antibiotic Education, Prescription Opioid Use. Follow up: Private Physician; When: 2 - 3 days; Reason: Recheck today's complaints, Continuance of care, Re-evaluation by your physician. Follow up: Emergency Department; When: As needed; Reason: Worsening of condition. snw
--- NOTE | 2018-04-04 06:07 | EKG ---
Test Date: 2018-04-03 Test Time: 16:55:26 [employer] Player: MEASUREMENT RESULTS: Intervals: Rate: 80 SD: 152 QRSD: 80 QT: 400 QTc: 461 [place]: P: 42 SD: 152 QRS: -33 T: 66 INTERPRETIVE STATEMENTS: Normal sinus rhythm Left axis deviation Abnormal ECG Compared to ECG 12/12/2017 01:38:56 Left-axis deviation now present Electronically Signed On 04-04-18 06:07:07 BARREL CHARRER HELPER by King Zazueta
== END 2018-04-03 19:57 | disposition home or self-care (01) ==
LOC: ER 16:34
DX: M54.12 Radiculopathy, cervical region (principal); F17.210 Nicotine dependence, cigarettes, uncomplicated; Z88.1 Allergy status to other antibiotic agents
CPT/HCPCS: 36415; 71046; 84439; 84443; 84484; 93005; 99285

== ENCOUNTER 2018-05-10 16:28 | Emergency (ER) | payer SELFPAY ==
--- NOTE | 2018-05-10 17:29 | ER ---
Nurse's Notes [facility] Name: Kaylen Benson Age: 42 yrs Sex: Female : 1975 Arrival Date: 05/10/2018 Time: 16:31 Bed Waiting Private MD: Diagnosis: Presentation: 05/10 16:37 Presenting complaint: Patient states: rectal bleeding with clots started today. Pt sv reports having anal sex last night. Transition of care: patient was not received from another setting of care. Onset of symptoms was May 10, 2018. Care prior to arrival: None. 16:37 Method Of Arrival: Ambulatory sv 16:37 Acuity: DONNA 4 sv 17:26 Note Pt stated that she is going to leave and get some hemorrhoid cream and try that. sv If her symptoms worsen she will come back. Triage Assessment: 16:39 General: Appears in no apparent distress. comfortable, Behavior is calm, cooperative, sv appropriate for age. Pain: Denies pain. Neuro: Level of Consciousness is awake, alert, obeys commands, Oriented to person, place, time, situation, Moves all extremities. Full function Gait is steady. Respiratory: Respiratory effort is even, unlabored, Respiratory pattern is regular, symmetrical. Historical: - Allergies: 16:38 Amoxicillin; sv 16:38 Clindamycin; sv - PMHx: 16:38 Anxiety; COPD; hypotension; Migraines; Thyroid problem; Vertigo; sv Vital Signs: 16:38 BP 119 / 79; Pulse 95; Resp 16; Temp 97.8; Pulse Ox 100% ; Weight 124.74 kg; Height 5 sv ft. 7 in. (170.18 cm); Pain 0/10; 16:38 Body Mass Index 43.07 (124.74 kg, 170.18 cm) sv ED Course: 16:31 Patient arrived in ED. as 16:38 Triage completed. sv 16:39 Arm band placed on. sv 17:06 Naveed Miles MD is Attending Physician. ma2 17:15 Patient's name was called from ER lobby. No response. sv Administered Medications: No medications were administered Outcome: 17:27 Patient left the ED. sv Signatures: Lacy Pacheco RN RN sv Amanda Park Mohammad, MD MD ma2 Corrections: (The following items were deleted from the chart) 16:40 16:38 Pulse 95bpm; Resp 16bpm; Pulse Ox 100%; Temp 97.8F; 124.74 kg; Height 5 ft. 7 sv in.; BMI: 43.0; Pain 0/10; sv
== END 2018-05-10 17:27 | disposition left against medical advice (07) ==
LOC: ER 16:28
DX: Z02.9 Encounter for administrative examinations, unspecified (principal)
CPT/HCPCS: 99281

== ENCOUNTER 2018-07-28 21:06 | Emergency (ER) | payer SELFPAY ==
[2018-07-28] MEDS ORDERED: MORPHINE 4 MG/ML SYR ONE (21:57)
[2018-07-28] MEDS ORDERED: NA CHLORIDE 0.9% 500 ML ONE (21:58)
[2018-07-28] MEDS ORDERED: KETOROLAC 30 MG/ML INJ ONE (21:58)
[2018-07-28] MEDS ORDERED: ONDANSETRON 4 MG/2 ML VIAL ONE (21:58)
[2018-07-28 22:18] LABS: Absolute Lymphocytes (CBC) 2.1 K/uL (0.7-4.9); Absolute Monocytes 0.4 K/uL (0.1-1.3); Basophils % 1.3 % (0-1.3); Eosinophils % 2.4 % (0-4.4); Hematocrit 41.6 % (36.0-45.0); Lymphocytes % 36.9 % (15.3-44.8); MPV 8.7 fL (7.6-11.3); Monocytes % 6.2 % (3.3-12.3); RBC Red Blood Cell Count 4.57 M/uL (3.86-4.86)
[2018-07-28 22:27] LABS: Protime INR 0.98
[2018-07-28 22:28] LABS: Urine Blood 1+ (NEG); Urine Glucose NEGATIVE (NEG); Urine Protein TRACE (NEG); Urine Specific Gravity 1.025 (1.005-1.030); Urine pH 6.5 (5.0-7.0)
[2018-07-28 22:40] LABS: ALT/SGPT 19 U/L (12-78); AST/SGOT 19 U/L (15-37); Albumin 3.4 g/dL (3.4-5.0); Alkaline Phosphatase 99 U/L (45-117); BUN Blood Urea Nitrogen 16 mg/dL (7-18); Bicarbonate 25 mmol/L (21-32); Bilirubin Direct < 0.1 mg/dL (0-0.2); Bilirubin Total 0.3 mg/dL (0.2-1.0); Glucose Level 97 mg/dL (74-106); Magnesium 2.2 mg/dL (1.8-2.4); Protein, Total 8.1 g/dL (6.4-8.2); Sodium Level 141 mmol/L (136-145); Troponin (Emerg Dept Use Only) < 0.02 ng/mL (0.0-0.045)
--- NOTE | 2018-07-29 00:13 | ER ---
Nurse's Notes [facility] Name: Kaylen Benson Age: 43 yrs Sex: Female : 1975 Arrival Date: 07/28/2018 Time: 21:06 Bed 19 Private MD: Diagnosis: Headache Presentation: 07/28 21:12 Presenting complaint: Patient states: Headache for about 2-3 weeks, seem to be getting lp1 worse; Complaint of nausea; Similar to previous headaches but nausea is new. Transition of care: patient was not received from another setting of care. Onset of symptoms. Risk Assessment: Do you want to hurt yourself or someone else? Patient reports no desire to harm self or others. Initial Sepsis Screen: Does the patient meet any 2 criteria? No. Patient's initial sepsis screen is negative. Does the patient have a suspected source of infection? No. Patient's initial sepsis screen is negative. Care prior to arrival: None. 21:12 Method Of Arrival: Ambulatory lp1 21:12 Acuity: DONNA 3 lp1 Triage Assessment: 21:18 Headache History: The patient has had previous headaches and this one is more severe cc3 than previous episodes. General: Appears in no apparent distress. uncomfortable, Behavior is calm, cooperative, appropriate for age. Pain: Complains of pain in right base of the skull and right occipital area and right temporal area and right side of the back of head and left base of the skull and left occipital area and left temporal area and left side of the back of head and left scientologist and right scientologist and forehead Pain currently is 10 out of 10 on a pain scale. Pain began intermittent since weeks ago Also complains of no other associated symptoms. EENT: No signs and/or symptoms were reported regarding the EENT system. Neuro: Level of Consciousness is awake, alert, obeys commands, Oriented to person, place, time, situation, Appropriate for age. Cardiovascular: Patient's skin is warm and dry. Respiratory: Airway is patent Respiratory effort is even, unlabored, Respiratory pattern is regular, symmetrical. GI: Abdomen is round non-distended. : No signs and/or symptoms were reported regarding the genitourinary system. Derm: No signs and/or symptoms reported regarding the dermatologic system. Musculoskeletal: Circulation, motion, and sensation intact. Range of motion: intact in all extremities. 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 - Social history:: Smoking status: Patient uses tobacco products, smokes one-half pack cigarettes per day. - Ebola Screening: : No symptoms or risks identified at this time. - Family history:: not pertinent. Screenin:18 Abuse screen: Denies threats or abuse. Denies injuries from another. Nutritional cc3 screening: No deficits noted. Tuberculosis screening: No symptoms or risk factors identified. Fall Risk Ambulatory Aid- None/Bed Rest/Nurse Assist (0 pts). Gait- Normal/Bed Rest/Wheelchair (0 pts) Mental Status- Oriented to own ability (0 pts). Assessment: 21:18 General: see triage assessment. cc3 22:25 Reassessment: Patient appears in no apparent distress at this time. Patient and/or cc3 family updated on plan of care and expected duration. Pain level reassessed. Patient is alert, oriented x 3, equal unlabored respirations, skin warm/dry/pink. 23:40 Reassessment: Patient appears in no apparent distress at this time. Patient and/or cc3 family updated on plan of care and expected duration. Pain level reassessed. Patient is alert, oriented x 3, equal unlabored respirations, skin warm/dry/pink. Patient came back from CT scan department, awaiting result. 07/29 00:30 Reassessment: Patient appears in no apparent distress at this time. Patient and/or cc3 family updated on plan of care and expected duration. Pain level reassessed. Patient is alert, oriented x 3, equal unlabored respirations, skin warm/dry/pink. Dr. Cantrell discharged the patient home with prescription given. IV cannula removed and patient left ER vitally stable and ambulatory. Patient states feeling better. Patient states symptoms have improved. Vital Signs: 07/28 21:14 BP 124 / 87; Pulse 85; Resp 18; Temp 98.6(O); Pulse Ox 97% on R/A; Weight 125.19 kg; lp1 Height 5 ft. 7 in. (170.18 cm); Pain 8/10; 22:30 BP 105 / 66; Pulse 79; Resp 16 S; Pulse Ox 96% on R/A; cc3 23:43 BP 132 / 85; Pulse 67; Resp 18 S; Pulse Ox 100% on R/A; cc3 07/29 00:01 BP 122 / 86; Pulse 64; Resp 17 S; Pulse Ox 100% on R/A; cc3 07/28 21:14 Body Mass Index 43.23 (125.19 kg, 170.18 cm) lp1 ED Course: 07/28 21:06 Patient arrived in ED. do 21:13 Triage completed. lp1 21:13 Arm band placed on left wrist. lp1 21:18 Deedee Xiong is Primary Nurse. cc3 21:18 Patient has correct armband on for positive identification. Placed in gown. Bed in low cc3 position. Call light in reach. Side rails up X2. non ferrous material handler on. Pulse ox on. NIBP on. 21:21 Jose Cantrell MD is Attending Physician. monica 21:39 XRAY Chest (1 view) In Process Unspecified. EDMS 22:10 Inserted saline lock: 22 gauge in left antecubital area, using aseptic technique. Blood cc3 collected. inserted by SOLITARIO Leigh. 22:14 Radiology exam delayed due to lab results not completed at this time. (BUN/Creatinine). vm2 23:05 IV discontinued, intact, bleeding controlled, No redness/swelling at site. Pressure cc3 dressing applied. 23:10 Inserted saline lock: 20 gauge in right antecubital area, using aseptic technique. cc3 inserted by SOLITARIO Leigh. 23:33 CT completed. Patient tolerated procedure well. Patient moved to CT via stretcher. Patient moved back from CT. 23:41 CT Head Angio In Process Unspecified. EDMS 07/29 00:12 Prashant Velasquez MD is Referral Physician. monica 00:30 No provider procedures requiring assistance completed. IV discontinued, intact, cc3 bleeding controlled, No redness/swelling at site. Pressure dressing applied. Administered Medications: 07/28 22:15 Drug: NS 0.9% 500 ml Route: IV; Rate: bolus; Site: left antecubital; cc3 23:15 Follow up: Response: No adverse reaction; IV Status: Completed infusion; IV Intake: cc3 500ml 22:15 Drug: TORadol 30 mg Route: IVP; Site: left antecubital; cc3 22:30 Follow up: Response: No adverse reaction; Pain is decreased cc3 22:20 Drug: Zofran 4 mg Route: IVP; Site: left antecubital; cc3 22:35 Follow up: Response: No adverse reaction; Nausea is decreased cc3 22:27 Not Given (Patient Refused): morphine 4 mg IVP once cc3 Intake: 23:15 IV: 500ml; Total: 500ml. cc3 Outcome: 07/29 00:13 Discharge ordered by MD. anderson 00:30 Discharged to home ambulatory. cc3 00:30 Condition: stable 00:30 Discharge instructions given to patient, Instructed on discharge instructions, follow up and referral plans. medication usage, Demonstrated understanding of instructions, follow-up care, medications, Prescriptions given X 2. 00:32 Patient left the ED. cc3 Signatures: Dispatcher [employer] Jose Mcgraw MD MD cha Hagler, Fouzia Pitts RN RN lp1 Kailey Mosqueda Victoria vm2 Cordel, Charlene cc3
--- NOTE | 2018-07-29 00:14 | EDPHYS ---
Physician Documentation [facility] Name: Kaylen Benson Age: 43 yrs Sex: Female : 1975 Arrival Date: 07/28/2018 Time: 21:06 Bed 19 Private MD: ED Physician Jose Cantrell HPI: 07/28 21:28 This 43 yrs old Female presents to ER via Ambulatory with complaints of monica Headache, Worst Ever. 21:28 The patient complains of pain to the forehead, right islam, left islam, left side of monica the back of head, left temporal area, left occipital area, left base of the skull, right side of the back of head, right temporal area, right occipital area and right base of the skull. The patient describes the headache as constant. Onset: The symptoms/episode began/occurred 2 week(s) ago. Associated signs and symptoms: Pertinent positives: nausea, Photophobia. Severity of symptoms: At its worst the pain was moderate, severe, in the emergency department the pain is unchanged. Headache History: The patient has had previous headaches. The patient has not experienced similar symptoms in the past. 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 - Social history:: Smoking status: Patient uses tobacco products, smokes one-half pack cigarettes per day. - Ebola Screening: : No symptoms or risks identified at this time. - Family history:: not pertinent. ROS: 21:28 Constitutional: Negative for fever, chills, and weight loss, Eyes: Negative for injury, monica pain, redness, and discharge, ENT: Negative for injury, pain, and discharge, Neck: Negative for injury, pain, and swelling, Cardiovascular: Negative for chest pain, palpitations, and edema, Respiratory: Negative for shortness of breath, cough, wheezing, and pleuritic chest pain, Abdomen/GI: Negative for abdominal pain, nausea, vomiting, diarrhea, and constipation, Back: Negative for injury and pain, : Negative for injury, bleeding, discharge, and swelling, MS/Extremity: Negative for injury and deformity, Skin: Negative for injury, rash, and discoloration, Psych: Negative for depression, anxiety, suicide ideation, homicidal ideation, and hallucinations, Allergy/Immunology: Negative for hives, rash, and allergies, Endocrine: Negative for neck swelling, polydipsia, polyuria, polyphagia, and marked weight changes, Hematologic/Lymphatic: Negative for swollen nodes, abnormal bleeding, and unusual bruising. 21:28 Neuro: Positive for headache. Exam: 21:28 Constitutional: This is a well developed, well nourished patient who is awake, alert, monica and in no acute distress. Head/Face: Normocephalic, atraumatic. Eyes: Pupils equal round and reactive to light, extra-ocular motions intact. Lids and lashes normal. Conjunctiva and sclera are non-icteric and not injected. Cornea within normal limits. Periorbital areas with no swelling, redness, or edema. ENT: Nares patent. No nasal discharge, no septal abnormalities noted. Tympanic membranes are normal and external auditory canals are clear. Oropharynx with no redness, swelling, or masses, exudates, or evidence of obstruction, uvula midline. Mucous membranes moist. Neck: Trachea midline, no thyromegaly or masses palpated, and no cervical lymphadenopathy. Supple, full range of motion without nuchal rigidity, or vertebral point tenderness. No Meningismus. Chest/axilla: Normal chest wall appearance and motion. Nontender with no deformity. No lesions are appreciated. Cardiovascular: Regular rate and rhythm with a normal S1 and S2. No gallops, murmurs, or rubs. Normal PMI, no JVD. No pulse deficits. Respiratory: Lungs have equal breath sounds bilaterally, clear to auscultation and percussion. No rales, rhonchi or wheezes noted. No increased work of breathing, no retractions or nasal flaring. Abdomen/GI: Soft, non-tender, with normal bowel sounds. No distension or tympany. No guarding or rebound. No evidence of tenderness throughout. Back: No spinal tenderness. No costovertebral tenderness. Full range of motion. Skin: Warm, dry with normal turgor. Normal color with no rashes, no lesions, and no evidence of cellulitis. MS/ Extremity: Pulses equal, no cyanosis. Neurovascular intact. Full, normal range of motion. Neuro: Awake and alert, GCS 15, oriented to person, place, time, and situation. Cranial nerves II-XII grossly intact. Motor strength 5/5 in all extremities. Sensory grossly intact. Cerebellar exam normal. Normal gait. Psych: Awake, alert, with orientation to person, place and time. Behavior, mood, and affect are within normal limits. 21:31 Neck: ROM/movement: no acute changes, pain, is not appreciated, limited range of monica motion, is not appreciated, Meningeal signs: are not present, Kernig's sign is negative, Brudzinski's sign is negative. Vital Signs: 21:14 BP 124 / 87; Pulse 85; Resp 18; Temp 98.6(O); Pulse Ox 97% on R/A; Weight 125.19 kg; lp1 Height 5 ft. 7 in. (170.18 cm); Pain 8/10; 22:30 BP 105 / 66; Pulse 79; Resp 16 S; Pulse Ox 96% on R/A; cc3 23:43 BP 132 / 85; Pulse 67; Resp 18 S; Pulse Ox 100% on R/A; cc3 07/29 00:01 BP 122 / 86; Pulse 64; Resp 17 S; Pulse Ox 100% on R/A; cc3 07/28 21:14 Body Mass Index 43.23 (125.19 kg, 170.18 cm) lp1 MDM: 07/28 21:21 Patient medically screened. [facility] 21:30 Data reviewed: vital signs, nurses notes, lab test result(s), radiologic studies. [facility] 07/28 21:27 Order name: Basic Metabolic Panel [facility] 07/28 20:27 Order name: CBC with Diff; Complete Time: 23:22 [facility] 07/28 21:27 Order name: LFT's [facility] 07/28 20:27 Order name: Magnesium; Complete Time: 23:22 [facility] 07/28 20:27 Order name: PT-INR; Complete Time: 23:22 [facility] 07/28 20:27 Order name: Troponin (emerg Dept Use Only); Complete Time: 23:22 [facility] 07/28 21:27 Order name: XRAY Chest (1 view) [facility] 07/28 21:27 Order name: CT Head Angio [facility] 07/28 21:27 Order name: Urine Culture [facility] 07/28 21:28 Order name: Basic Metabolic Panel; Complete Time: 23:22 [facility] 07/28 21:28 Order name: Liver (Hepatic) Function; Complete Time: 23:22 [facility] 07/28 22:24 Order name: Urine Dipstick--Ancillary (enter results); Complete Time: 23:22 [facility] 07/28 22:24 Order name: Urine --Ancillary (enter results); Complete Time: 23:22 [facility] 07/28 21:27 Order name: EKG; Complete Time: 21:28 [facility] 07/28 21:27 Order name: Cardiac monitoring; Complete Time: 21:36 [facility] 07/28 21: Order name: EKG - Nurse/Tech; Complete Time: 22:28 [facility] 07/28 21:27 Order name: IV Saline Lock; Complete Time: 22:28 [facility] 07/28 21:27 Order name: Labs collected and sent; Complete Time: :28 [facility] 07/28 21:27 Order name: O2 Per Protocol; Complete Time: 21:36 [facility] 07/28 21:27 Order name: O2 Sat Monitoring; Complete Time: 21:36 [facility] 07/28 21:27 Order name: Urine Dipstick-Ancillary (obtain specimen); Complete Time: :28 [facility] Administered Medications: 22:15 Drug: NS 0.9% 500 ml Route: IV; Rate: bolus; Site: left antecubital; cc3 23:15 Follow up: Response: No adverse reaction; IV Status: Completed infusion; IV Intake: cc3 500ml 22:15 Drug: TORadol 30 mg Route: IVP; Site: left antecubital; cc3 22:30 Follow up: Response: No adverse reaction; Pain is decreased cc3 22:20 Drug: Zofran 4 mg Route: IVP; Site: left antecubital; cc3 22:35 Follow up: Response: No adverse reaction; Nausea is decreased cc3 22:27 Not Given (Patient Refused): morphine 4 mg IVP once cc3 Disposition: 07/29/18 00:13 Discharged to Home. Impression: Headache. - Condition is Stable. - Discharge Instructions: General Headache Without Cause, General Headache Without Cause, Eism-ea-[id number]. - Prescriptions for Fioricet with Codeine 50- 325-40-30 mg Oral capsule - take 1 capsule by ORAL route every 4 hours as needed not to exceed 6 capsules per 24hrs; 26 capsule. Zofran 4 mg Oral Tablet - take 1 tablet by ORAL route every 12 hours As needed; 20 tablet. - Medication Reconciliation Form, Thank You Letter, Antibiotic Education, Prescription Opioid Use form. - Follow up: Private Physician; When: 2 - 3 days; Reason: Recheck today's complaints, Continuance of care, Re-evaluation by your physician. Follow up: Prashant Velasquez; When: 2 - 3 days; Reason: Recheck today's complaints, Re-evaluation by your physician. - Problem is new. - Symptoms have improved. Signatures: Dispatcher [employer] EDMS Jose Cantrell MD MD cha Pena, Laura RN RN lp1 Deedee Xiong cc3 Corrections: (The following items were deleted from the chart) 07/29 00:32 00:13 07/29/2018 00:13 Discharged to Home. Impression: Headache. Condition is Stable. cc3 Discharge Instructions: General Headache Without Cause, General Headache Without Cause, [id number]. Prescriptions for Fioricet with Codeine [id number] mg Oral capsule - take 1 capsule by ORAL route every 4 hours as needed not to exceed 6 capsules per 24hrs; 26 capsule, Zofran 4 mg Oral Tablet - take 1 tablet by ORAL route every 12 hours As needed; 20 tablet. and Forms are Medication Reconciliation Form, Thank You Letter, Antibiotic Education, Prescription Opioid Use. Follow up: Private Physician; When: 2 - 3 days; Reason: Recheck today's complaints, Continuance of care, Re-evaluation by your physician. Follow up: Prashant Velasquez; When: 2 - 3 days; Reason: Recheck today's complaints, Re-evaluation by your physician. Problem is new. Symptoms have improved. monica
--- NOTE | 2018-07-29 08:18 | EKG ---
Test Date: 2018-07-28 Test Time: 22:07:24 Maintainer Operator: AROLDO MEASUREMENT RESULTS: Intervals: Rate: 83 DC: 158 QRSD: 78 QT: 396 QTc: 465 [place]: P: 32 DC: 158 QRS: -16 T: 45 INTERPRETIVE STATEMENTS: Normal sinus rhythm Normal ECG Compared to ECG 04/03/2018 16:55:26 Left-axis deviation no longer present Electronically Signed On 07-29-18 07:51:02 CDT by King Zazueta
--- NOTE | 2018-07-29 08:29 | RAD REPORT ---
EXAM DESCRIPTION: RAD - Chest Single View - 07/28/2018 9:39 pm CLINICAL HISTORY: COUGH Chest pain. COMPARISON: Chest Pa And Lat (2 Views) dated 04/03/2018; Chest Single View dated 12/11/2017; Chest Si ngle View dated 08/10/2016; Chest Single View dated 07/26/2016 FINDINGS: Portable technique limits examination quality. The lungs are grossly clear. The heart is normal in size. No displaced fractures. IMPRESSION: No acute intrathoracic process suspected.
--- NOTE | 2018-07-29 12:24 | RAD REPORT ---
EXAM DESCRIPTION: JOHNNA ESCUDERO [id number] - Head angio CLINICAL HISTORY: HEADACHE COMPARISON: None. TECHNIQUE: CT HEAD ANGIOGRAPHY WITH IV CONTRAST on 07/28/2018 9:27 PM CDT This exam was performed according to our departmental dose-optimization program, which includes autom ated exposure control, adjustment of the mA and/or kV according to patient size and/or use of iterati ve reconstruction technique. MIP reconstructions were generated. Stenoses are calculated by NASCET criteria. FINDINGS: There is no acute hemorrhage, mass effect or midline shift. Egan-white differentiation is preserved. There is no hydrocephalus. There is no significant volume loss for age. The calvarium is intact. Orbits and globes are unremarkable. The paranasal sinuses are clear. Mastoid air cells are clear. The vertebral basilar system is unremarkable. There is a small posterior left communicating artery. P osterior cerebral arteries are patent. The distal internal carotid arteries are unremarkable. Bilater al anterior and middle cerebral arteries are patent. IMPRESSION: Unremarkable study. No evidence of hemorrhage or large area of ischemia. No aneurysm, ve ssel occlusion or intracranial stenosis. Electronically signed by: Pavel Dubon MD 07/28/2018 11:45 PM CDT Due to temporary technical issues with the PACS/Fluency reporting system, reports are being signed by the in house radiologist as a courtesy to ensure prompt reporting. The interpreting radiologist is f ully responsible for the content of the report.
== END 2018-07-29 00:32 | disposition home or self-care (01) ==
LOC: ER 21:06
DX: R51 Headache (principal); F41.9 Anxiety disorder, unspecified; J44.9 Chronic obstructive pulmonary disease, unspecified; Z88.1 Allergy status to other antibiotic agents; Z88.0 Allergy status to penicillin; F17.210 Nicotine dependence, cigarettes, uncomplicated
CPT/HCPCS: 36415; 70496; 71045; 80048; 80076; 81003; 81025; 83735; 84484; 85025; 85610; 87086; 87088; 93005; 96361; 96374; 96375; 99285; J2405; Q9967

== ENCOUNTER 2019-11-08 18:46 | Emergency (ER) | payer SELFPAY ==
--- OUTSIDE RECORDS SUMMARY | 2019-11-08 18:48 | XMS REPORT | Continuity of Care Document ---
:1975 Author Organization [facility] t Address [address] [place] [address] [address] [place] [address] Care Team Providers Name Role Phone Hortencia Vegas Attending Clinician Problems This patient has no known problems. Allergies, Adverse Reactions, Alerts This patient has no known allergies or adverse reactions. Medications This patient has no known medications. Procedures This patient has no known procedures. Encounters Start End Encounter Admission Attending Care Care Encounter Source Date/Time Date/Time Type Type Clinicians Facility Department ID 2018-12-29 2018-12-29 [facility] [id number] 07:06:35 23:59:00 Encounter [facility] [id number] CARE [id number] CENTER AT [id number] [address] Results This patient has no known results.
[2019-11-08] MEDS ORDERED: NA CHLORIDE 0.9% 1,000 ML ONE (19:36)
[2019-11-08] MEDS ORDERED: KETOROLAC 30 MG/ML INJ ONE (19:59)
[2019-11-08] MEDS ORDERED: ONDANSETRON 4 MG/2 ML VIAL ONE (19:59)
[2019-11-08 20:06] LABS: Basophils % 0.6 % (0-1.3); Hematocrit 39.6 % (36.0-45.0); Lymphocytes % 28.2 % (15.3-44.8); MPV 8.9 fL (7.6-11.3); RBC Red Blood Cell Count 4.22 M/uL (3.86-4.86)
[2019-11-08 20:33] LABS: ALT/SGPT 21 U/L (12-78); AST/SGOT 26 U/L (15-37); Albumin 3.1 g/dL (3.4-5.0); Alkaline Phosphatase 80 U/L (45-117); BUN Blood Urea Nitrogen 14 mg/dL (7-18); Bicarbonate 20 mmol/L (21-32); Bilirubin Direct < 0.1 mg/dL (0-0.2); Bilirubin Total 0.2 mg/dL (0.2-1.0); Glucose Level 115 mg/dL (74-106); Lipase 111 U/L (73-393); Potassium 4.1 mmol/L (3.5-5.1); Protein, Total 7.7 g/dL (6.4-8.2); Sodium Level 140 mmol/L (136-145)
--- NOTE | 2019-11-08 20:42 | RAD REPORT ---
EXAM DESCRIPTION: US - Abdomen Exam Limited - 11/08/2019 7:53 pm CLINICAL HISTORY: ABD PAIN COMPARISON: No comparisons FINDINGS: The gallbladder demonstrates multiple shadowing gallstones. No pericholecystic fluid or ga llbladder wall thickening. The common bile duct is normal measuring 3 mm. The liver demonstrates no findings of intrahepatic biliary dilatation. IMPRESSION: Cholelithiasis.
--- NOTE | 2019-11-08 21:07 | ER ---
Nurse's Notes [facility] Name: Kaylen Benson Age: 44 yrs Sex: Female : 1975 Arrival Date: 11/08/2019 Time: 18:53 Bed 6 Private MD: Diagnosis: Cholelithiasis Presentation: 11/07 19:04 Chief complaint: Patient states: Mid upper abdl pain since yesterday. Reports N/V/D. ca1 Coronavirus screen: Patient denies a cough. Patient denies shortness of breath or difficulty breathing. Patient denies measured and/or subjective temperature greater than 100.4F prior to today's visit. Patient denies travel on a cruise ship or to a country the [facility] currently lists as an affected area. Patient denies contact with known and/or suspected case of COVID-19. Proceed with normal triage. Ebola Screen: Patient negative for fever greater than or equal to 101.5 degrees Fahrenheit, and additional compatible Ebola Virus Disease symptoms Patient denies exposure to infectious person. Patient denies travel to an Ebola-affected area in the 21 days before illness onset. No symptoms or risks identified at this time. Initial Sepsis Screen: Does the patient meet any 2 criteria? No. Patient's initial sepsis screen is negative. Does the patient have a suspected source of infection? No. Patient's initial sepsis screen is negative. Risk Assessment: Do you want to hurt yourself or someone else? Patient reports no desire to harm self or others. Onset of symptoms was November 08, 2019. 19:04 Method Of Arrival: Ambulatory ca1 19:04 Acuity: DONNA 3 ca1 Triage Assessment: 19:42 General: Appears in no apparent distress. comfortable. 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 - Social history:: Smoking status: Patient reports the use of cigarette tobacco products, smokes one-half pack cigarettes per day. Screenin:42 Abuse screen: Denies threats or abuse. Denies injuries from another. Nutritional mg2 screening: No deficits noted. Tuberculosis screening: No symptoms or risk factors identified. Fall Risk IV access (20 points). Assessment: 19:41 General: Behavior is calm, cooperative. Pain: Complains of pain in left upper quadrant mg2 and right upper quadrant. Neuro: Level of Consciousness is awake, alert, obeys commands, Oriented to person, place, time, situation. Cardiovascular: Capillary refill < 3 seconds Patient's skin is warm and dry. Respiratory: Airway is patent Respiratory effort is even, unlabored, Respiratory pattern is regular, symmetrical. GI: Bowel sounds present X 4 quads. Abd is soft and non tender Reports lower abdominal pain, upper abdominal pain, nausea. : No signs and/or symptoms were reported regarding the genitourinary system. EENT: No signs and/or symptoms were reported regarding the EENT system. Derm: Skin is intact, is healthy with good turgor, Skin is pink, warm \T\ dry. normal. Musculoskeletal: Circulation, motion, and sensation intact. Capillary refill < 3 seconds. 20:54 Reassessment: Patient appears in no apparent distress at this time. Patient and/or mg2 family updated on plan of care and expected duration. Pain level reassessed. Patient is alert, oriented x 3, equal unlabored respirations, skin warm/dry/pink. Vital Signs: 19:04 BP 122 / 85; Pulse 89; Resp 15 S; Temp 97.1(TE); Pulse Ox 100% on R/A; Weight 122.47 kg ca1 (R); Height 5 ft. 7 in. (170.18 cm) (R); Pain 6/10; 21:14 BP 120 / 80; Pulse 80; Resp 18; Temp 98; Pulse Ox 100% on R/A; mg2 19:04 Body Mass Index 42.29 (122.47 kg, 170.18 cm) ca1 ED Course: 18:53 Patient arrived in ED. mr 19:05 Triage completed. ca1 19:06 Arm band placed on right wrist. ca1 19:12 Osmar Ceballos MD is Attending Physician. pkl 19:18 Bk Jones, RN is Primary Nurse. mg2 19:40 No provider procedures requiring assistance completed. Inserted saline lock: 22 gauge mg2 in left upper arm, using aseptic technique. Blood collected. 19:42 Patient has correct armband on for positive identification. Door closed. Warm blanket mg2 given. 19:53 US Abdomen Limited In Process Unspecified. EDMS 21:06 Inder Snyder MD is Referral Physician. pkl 21:15 IV discontinued, intact, bleeding controlled, No redness/swelling at site. Pressure mg2 dressing applied. Administered Medications: Discontinued: NS 0.9% 1000 ml IV at 125 ml/hr continuous 19:40 Drug: NS 0.9% 1000 ml Route: IV; Rate: 125 ml/hr; Site: left upper arm; mg2 20:00 Drug: TORadol 30 mg Route: IVP; Site: left upper arm; mg2 20:53 Follow up: Response: No adverse reaction mg2 20:01 Drug: Zofran (Ondansetron) 4 mg Route: IVP; Site: left upper arm; mg2 20:53 Follow up: Response: No adverse reaction mg2 Outcome: 21:07 Discharge ordered by . pkl 21:15 Discharged to home ambulatory. mg2 21:15 Condition: stable 21:15 Discharge instructions given to patient, Instructed on discharge instructions, follow up and referral plans. medication usage, Demonstrated understanding of instructions, follow-up care, medications, Prescriptions given X 2. 21:20 Patient left the ED. mg2 Signatures: Dispatcher [employer] EDID Osmar Ceballos MD MD pkl Rivera, Mary Bk Jones RN RN mg2 Erika Clinton RN RN ca1
--- NOTE | 2019-11-08 21:08 | EDPHYS ---
Physician Documentation [facility] Name: Kaylen Benson Age: 44 yrs Sex: Female : 1975 Arrival Date: 11/08/2019 Time: 18:53 Bed 6 Private MD: ED Physician Osmar Ceballos HPI: 11/07 19:25 This 44 yrs old Female presents to ER via Ambulatory with complaints of pkl Abdominal Pain. 19:25 The patient presents with abdominal pain in the upper abdomen. Onset: The pkl symptoms/episode began/occurred 2 day(s) ago. The symptoms do not radiate. Associated signs and symptoms: Pertinent positives: nausea. The patient has not experienced similar symptoms in the past. 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 - Social history:: Smoking status: Patient reports the use of cigarette tobacco products, smokes one-half pack cigarettes per day. ROS: 19:25 Eyes: Negative for injury, pain, redness, and discharge, ENT: Negative for injury, pkl pain, and discharge, Neck: Negative for injury, pain, and swelling, Cardiovascular: Negative for chest pain, palpitations, and edema, Respiratory: Negative for shortness of breath, cough, wheezing, and pleuritic chest pain. 19:25 Abdomen/GI: Positive for abdominal pain, nausea, of the right upper quadrant and left upper quadrant. 19:25 Back: Negative for acute changes. 19:25 : Negative for urinary symptoms. 19:25 MS/extremity: Negative for acute changes. 19:25 Skin: Negative for rash. 19:25 Neuro: Negative for altered mental status. Exam: 19:25 Head/Face: Normocephalic, atraumatic. Eyes: Pupils equal round and reactive to light, pkl extra-ocular motions intact. Lids and lashes normal. Conjunctiva and sclera are non-icteric and not injected. Cornea within normal limits. Periorbital areas with no swelling, redness, or edema. ENT: Nares patent. No nasal discharge, no septal abnormalities noted. Tympanic membranes are normal and external auditory canals are clear. Oropharynx with no redness, swelling, or masses, exudates, or evidence of obstruction, uvula midline. Mucous membranes moist. Neck: Trachea midline, no thyromegaly or masses palpated, and no cervical lymphadenopathy. Supple, full range of motion without nuchal rigidity, or vertebral point tenderness. No Meningismus. Chest/axilla: Normal chest wall appearance and motion. Nontender with no deformity. No lesions are appreciated. Cardiovascular: Regular rate and rhythm with a normal S1 and S2. No gallops, murmurs, or rubs. Normal PMI, no JVD. No pulse deficits. Respiratory: Lungs have equal breath sounds bilaterally, clear to auscultation and percussion. No rales, rhonchi or wheezes noted. No increased work of breathing, no retractions or nasal flaring. 19:25 Abdomen/GI: Bowel sounds: normal, Palpation: soft, mild abdominal tenderness, in the right upper quadrant and left upper quadrant. 19:25 Back: Exam negative for acute changes. 19:25 : Exam negative for acute changes. 19:25 Musculoskeletal/extremity: Exam is negative for acute changes. 19:25 Skin: Exam negative for rash. 19:25 Neuro: Orientation: is normal, Mentation: is normal, Cranial nerves: grossly normal, Motor: is normal. Vital Signs: 19:04 BP 122 / 85; Pulse 89; Resp 15 S; Temp 97.1(TE); Pulse Ox 100% on R/A; Weight 122.47 kg ca1 (R); Height 5 ft. 7 in. (170.18 cm) (R); Pain 6/10; 21:14 BP 120 / 80; Pulse 80; Resp 18; Temp 98; Pulse Ox 100% on R/A; mg2 19:04 Body Mass Index 42.29 (122.47 kg, 170.18 cm) ca1 MDM: 19:12 Patient medically screened. pkl 21:02 Data reviewed: vital signs, nurses notes, lab test result(s), radiologic studies, pkl ultrasound. ED course: Patient feeling better. Pain resolved. Discussed lab. and US results with patient. Advised to follow up with Dr. Snyder ( Surgeon ) if pain recur and if she decide to have surgery. Patient understood instruction. 11/07 19:19 Order name: Basic Metabolic Panel mg2 11/07 19:19 Order name: CBC with Diff mg2 11/07 19:19 Order name: Hepatic Function mg2 11/07 19:19 Order name: Lipase mg2 11/07 19:19 Order name: Basic Metabolic Panel; Complete Time: 20:57 EDMS 11/07 19:19 Order name: CBC with Automated Diff; Complete Time: 20:11 EDMS 11/07 19:19 Order name: IV Saline Lock; Complete Time: 19:40 mg2 11/07 19:19 Order name: Labs collected and sent; Complete Time: 19:40 mg2 11/07 19:19 Order name: Liver (Hepatic) Function; Complete Time: 20:57 EDMS 11/07 19:19 Order name: Lipase; Complete Time: 20:57 EDMS 11/07 19:22 Order name: US Abdomen Limited; Complete Time: 20:57 pkl Administered Medications: Discontinued: NS 0.9% 1000 ml IV at 125 ml/hr continuous 19:40 Drug: NS 0.9% 1000 ml Route: IV; Rate: 125 ml/hr; Site: left upper arm; mg2 20:00 Drug: TORadol 30 mg Route: IVP; Site: left upper arm; mg2 20:53 Follow up: Response: No adverse reaction mg2 20:01 Drug: Zofran (Ondansetron) 4 mg Route: IVP; Site: left upper arm; mg2 20:53 Follow up: Response: No adverse reaction mg2 Disposition: 11/08/19 21:07 Discharged to Home. Impression: Cholelithiasis. - Condition is Stable. - Prescriptions for Ultram 50 mg Oral Tablet - take 1 tablet by ORAL route every 8 hours As needed; 12 tablet. Cipro 500 mg Oral Tablet - take 1 tablet by ORAL route every 12 hours for 7 days; 14 tablet. - Medication Reconciliation Form, Thank You Letter, Antibiotic Education, Prescription Opioid Use, Work release form form. - Follow up: Inder Snyder MD; When: 2 - 3 days; Reason: Re-evaluation by your physician. - Problem is new. - Symptoms are resolved. Signatures: Dispatcher [employer] [facility] Osmar Ceballos MD MD pkl Bk oJnes RN RN mg2 Acob, Erika, RN RN ca1 Corrections: (The following items were deleted from the chart) 21:20 21:07 11/08/2019 21:07 Discharged to Home. Impression: Cholelithiasis. Condition is mg2 Stable. Forms are Medication Reconciliation Form, Thank You Letter, Antibiotic Education, Prescription Opioid Use. Follow up: Inder Snyder; When: 2 - 3 days; Reason: Re-evaluation by your physician. Problem is new. Symptoms are resolved. pkl
[2019-11-09 11:54] VITALS: O2SAT 100
[2019-11-09 12:00] VITALS: BP 120/80; TEMP 98
== END 2019-11-08 21:20 | disposition home or self-care (01) ==
LOC: ER 18:46
DX: K80.20 Calculus of gallbladder without cholecystitis without obstruction (principal); F17.210 Nicotine dependence, cigarettes, uncomplicated; Z88.1 Allergy status to other antibiotic agents; Z88.3 Allergy status to other anti-infective agents
CPT/HCPCS: 36415; 76705; 80048; 80076; 83690; 85025; 96374; 96375; 99284; J2405; J7030

== ENCOUNTER 2019-11-30 00:13 | Emergency (ER) | payer OTHER, SELFPAY ==
--- OUTSIDE RECORDS SUMMARY | 2019-11-30 00:15 | XMS REPORT | Continuity of Care Document ---
:1975 Author Organization [facility] t Address [address] [place] [address] [address] [place] [address] Care Team Providers Name Role Phone Hortencia [...] Type Clinicians Facility Department ID 2018-12-29 2018-12-29 [facility] [id number] 07:06:35 23:59:00 Encounter [facility] [id number] CARE [id number] CENTER AT [phone] [address] Results This patient has no known results.
[2019-11-30] MEDS ORDERED: KETOROLAC 30 MG/ML INJ ONE (00:53)
[2019-11-30 01:22] LABS: Absolute Lymphocytes (CBC) 1.9 K/uL (0.7-4.9); Basophils % 1.1 % (0-1.3); Hematocrit 37.2 % (36.0-45.0); Lymphocytes % 27.9 % (15.3-44.8); MPV 8.8 fL (7.6-11.3); RBC Red Blood Cell Count 3.98 M/uL (3.86-4.86)
[2019-11-30 01:36] LABS: ALT/SGPT 23 U/L (12-78); AST/SGOT 18 U/L (15-37); Albumin 3.3 g/dL (3.4-5.0); Alkaline Phosphatase 91 U/L (45-117); BUN Blood Urea Nitrogen 17 mg/dL (7-18); Bicarbonate 26 mmol/L (21-32); Bilirubin Direct < 0.1 mg/dL (0-0.2); Bilirubin Total 0.2 mg/dL (0.2-1.0); Glucose Level 86 mg/dL (74-106); Lipase 130 U/L (73-393); Potassium 3.9 mmol/L (3.5-5.1); Protein, Total 8.1 g/dL (6.4-8.2); Sodium Level 144 mmol/L (136-145)
--- NOTE | 2019-11-30 02:00 | EDPHYS ---
Physician Documentation [facility] Name: Kaylen Benson Age: 44 yrs Sex: Female : 1975 Arrival Date: 11/30/2019 Time: 00:14 Bed 4 Private MD: ED Physician Maximilian Bowman HPI: 11/29 00:45 This 44 yrs old Female presents to ER via Ambulatory with complaints of Back cp Pain. 00:45 The patient complains of pain in the right mid back and right low back. Onset: The cp symptoms/episode began/occurred yesterday. 00:45 Associated signs and symptoms: Pertinent negatives: dysuria, fever, pain radiating to cp the lower extremities, numbness/tingling. 00:45 Severity of pain: in the emergency department the pain is unchanged despite home cp interventions. Patient reports she started having mild pain after using floor buffer while working 2 days ago. Pain has become worse today. 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 - Social history:: Smoking status: Patient reports the use of cigarette tobacco products, smokes one-half pack cigarettes per day. ROS: 00:50 Constitutional: Negative for body aches, chills, fever, poor PO intake. cp 00:50 Eyes: Negative for injury, pain, redness, and discharge. cp Exam: 01:00 Constitutional: The patient appears in no acute distress, alert, awake, non-toxic, well cp developed, well nourished, obese. 01:00 Head/Face: Normocephalic, atraumatic. cp 01:00 Eyes: Periorbital structures: appear normal, Conjunctiva: normal, no exudate, no injection, Sclera: no appreciated abnormality, Lids and lashes: appear normal, bilaterally. 01:00 ENT: External ear(s): are unremarkable, Nose: is normal, Mouth: Lips: moist, Oral mucosa: moist, Posterior pharynx: Airway: no evidence of obstruction, patent. 01:00 Neck: ROM/movement: is normal, is supple, without pain, no range of motions limitations, no nuchal rigidity. 01:00 Chest/axilla: Inspection: normal, Palpation: is normal, no crepitus, no tenderness. 01:00 Cardiovascular: Rate: normal, Rhythm: regular. 01:00 Respiratory: the patient does not display signs of respiratory distress, Respirations: normal, no use of accessory muscles, no retractions, no splinting, no tachypnea, labored breathing, is not present, Breath sounds: are clear throughout, no decreased breath sounds. 01:00 Abdomen/GI: Inspection: obese Palpation: abdomen is soft and non-tender, in all quadrants. 01:00 Back: pain, that is moderate, of the right mid back and right low back, ROM is painful, vertebral tenderness, is not appreciated, muscle spasm, is not present, Straight leg raises: of both lower extremities does not illicit pain. 01:00 Musculoskeletal/extremity: Exam is negative for decreased range of motion, deformity, injury. 01:00 Skin: no rash present. 01:00 Neuro: Orientation: to person, place \\T\\ time. Mentation: is normal, Motor: moves all fours, strength is normal, Gait: is steady. Vital Signs: 00:26 BP 144 / 89; Pulse 86; Resp 18; Temp 98.7(O); Pulse Ox 97% on R/A; Weight 131.54 kg lp1 (R); Height 5 ft. 8 in. (172.72 cm); Pain 10/10; 01:50 BP 141 / 85; Pulse 80; Resp 17; Pulse Ox 100% ; rr5 02:30 BP 134 / 80; Pulse 79; Resp 16; Pulse Ox 98% on R/A; rr5 03:32 BP 125 / 70; Pulse 75; Resp 16; Pulse Ox 99% ; rr5 00:26 Body Mass Index 44.09 (131.54 kg, 172.72 cm) lp1 MDM: 00:31 Patient medically screened. cp 01:00 Differential diagnosis: nephrolithiasis, pyelonephritis, UTI, muscle spasm, muscle cp strain. 02:58 ED course: review of patient profile on website for [place] prescription monitoring cp program shows no active prescriptions for narcotics. 03:00 Data reviewed: vital signs, nurses notes, lab test result(s), radiologic studies, CT cp scan. 03:00 Counseling: I had a detailed discussion with the patient and/or guardian regarding: the cp historical points, exam findings, and any diagnostic results supporting the discharge/admit diagnosis, lab results, radiology results, to return to the emergency department if symptoms worsen or persist or if there are any questions or concerns that arise at home. Response to treatment: the patient's symptoms have markedly improved after treatment. ED course: VSS. Pain improved with meds. Will treat for musculoskeletal pain and discharge to home for continued monitoring. 11/29 00:40 Order name: Basic Metabolic Panel; Complete Time: 02:30 cp 11/29 02:30 Interpretation: Normal except: CL 109; GFR 56. cp 11/29 00:40 Order name: CBC with Diff; Complete Time: 02:30 cp 11/29 00:40 Order name: Hepatic Function; Complete Time: 02:30 cp 11/29 02:30 Interpretation: Normal except: ALB 3.3; GLOB 4.8; A/G 0.7. cp 11/29 00:40 Order name: Lipase; Complete Time: 02:30 cp 11/29 00:40 Order name: Urine Microscopic Only; Complete Time: 03:03 cp 11/29 02:16 Order name: Urine --Ancillary (enter results) tt3 11/29 00:40 Order name: IV Saline Lock; Complete Time: 01:06 cp 11/29 00:40 Order name: Labs collected and sent; Complete Time: 01:06 cp 11/29 00:40 Order name: CT Stone Protocol 11/29 02:16 Order name: Urine Dipstick--Ancillary (enter results) tt3 11/29 02:17 Order name: Urine --Ancillary; Complete Time: 03:03 EDMS 11/29 02:17 Order name: Urine Dipstick-Ancillary; Complete Time: 03:03 EDMS 11/29 02:45 Order name: Urine Culture EDMS 11/29 00:40 Order name: Urine Dipstick-Ancillary (obtain specimen); Complete Time: 02:15 cp 11/29 00:40 Order name: Urine Test (obtain specimen); Complete Time: 02:15 cp Administered Medications: 01:06 Drug: TORadol - Ketorolac 15 mg Route: IVP; Site: right forearm; rr5 03:33 Follow up: Response: No adverse reaction rr5 Disposition: 06:11 Co-signature as Attending Physician, Maximilian Bowman MD I agree with the assessment and tw4 plan of care. Disposition: 11/30/19 03:01 Discharged to Home. Impression: Low back pain, Other ovarian cysts - left ovary. - Condition is Stable. - Discharge Instructions: Back Pain, Adult, Ovarian Cyst, Heat Therapy, Back Exercises. - Prescriptions for Lidoderm 5 % Topical adhesive patch,medicated - apply 1 patch by TRANSDERMAL route once daily; 1 box. Cyclobenzaprine 10 mg Oral Tablet - take 1 tablet by ORAL route every 8 hours As needed no driving while taking medication; 20 tablet. Diclofenac Sodium 75 mg Oral Tablet, Delayed Release (E.C.) - take 1 tablet by ORAL route 2 times per day; 20 tablet. - Medication Reconciliation Form, Thank You Letter, Antibiotic Education, Prescription Opioid Use form. - Work release form (11/30/19 03:35). bb - Follow up: Private Physician; When: 1 week; Reason: Recheck today's complaints. - Problem is new. - Symptoms have improved. Signatures: Dispatcher [employer] EDFouzia Son RN RN lp1 Jose García PA PA cp Wadley, Terrence, MD MD tw4 Reese Kelly RN RN rr5 Filomena Gonzalez RN bb Corrections: (The following items were deleted from the chart) 02:01 01:59 11/30/2019 01:59 Discharged to Home. Impression: Encounter for examination and cp observation for other specified reasons - possible acetaminophen overdose. Condition is Stable. Forms are Medication Reconciliation Form, Thank You Letter, Antibiotic Education, Prescription Opioid Use. Follow up: Emergency Department; When: As needed; Reason: Worsening of condition. Problem is new. Symptoms have improved. cp 03:33 03:01 11/30/2019 03:01 Discharged to Home. Impression: Low back pain; Other ovarian rr5 cysts - left ovary. Condition is Stable. Forms are Medication Reconciliation Form, Thank You Letter, Antibiotic Education, Prescription Opioid Use. Follow up: Private Physician; When: 1 week; Reason: Recheck today's complaints. Problem is new. Symptoms have improved. cp
--- NOTE | 2019-11-30 02:00 | ER ---
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 Coronavirus screen: Client denies travel out of the [place] in the last 14 days. At this time, the client does not indicate any symptoms associated with coronavirus-19. Ebola Screen: No symptoms or risks identified at this time. Initial Sepsis Screen: Does the patient meet any 2 criteria? No. Patient's initial sepsis screen is negative. Does the patient have a suspected source of infection? No. Patient's initial sepsis screen is negative. Risk Assessment: Do you want to hurt yourself or someone else? Patient reports no desire to harm self or others. Onset of symptoms was November 29, 2019. 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 - Social history:: Smoking status: Patient reports the use of cigarette tobacco products, smokes one-half pack cigarettes per day. Screenin:29 Abuse screen: Denies threats or abuse. Denies injuries from another. Nutritional lp1 screening: No deficits noted. Tuberculosis screening: No symptoms or risk factors identified. Fall Risk None identified. Assessment: 00:29 General: Appears uncomfortable, Behavior is appropriate for age. Pain: Complains of lp1 pain in right mid back Pain currently is 10 out of 10 on a pain scale. Aggravated by increased activity, repositioning. Neuro: Level of Consciousness is awake, alert, obeys commands, Oriented to person, place, time, situation, Gait is steady. Cardiovascular: Patient's skin is warm and dry. Respiratory: No deficits noted. GI: No signs and/or symptoms were reported involving the gastrointestinal system. : No signs and/or symptoms were reported regarding the genitourinary system. EENT: No signs and/or symptoms were reported regarding the EENT system. Derm: Skin is pink, warm \\T\\ dry. Musculoskeletal: Circulation, motion, and sensation intact. 01:30 Reassessment: Patient appears in no apparent distress at this time. Patient is alert, rr5 oriented x 3, equal unlabored respirations, skin warm/dry/pink. Patient states symptoms have improved. 01:50 Reassessment: Patient appears in no apparent distress at this time. awaiting for urine rr5 sample. 02:15 Reassessment: Patient appears in no apparent distress at this time. send for CT stone rr5 protocol. 03:31 Reassessment: Patient appears in no apparent distress at this time. Patient is alert, rr5 oriented x 3, equal unlabored respirations, skin warm/dry/pink. discharge instruction given and explained without complaints made. Vital Signs: 00:26 BP 144 / 89; Pulse 86; Resp 18; Temp 98.7(O); Pulse Ox 97% on R/A; Weight 131.54 kg lp1 (R); Height 5 ft. 8 in. (172.72 cm); Pain 10/10; 01:50 BP 141 / 85; Pulse 80; Resp 17; Pulse Ox 100% ; rr5 02:30 BP 134 / 80; Pulse 79; Resp 16; Pulse Ox 98% on R/A; rr5 03:32 BP 125 / 70; Pulse 75; Resp 16; Pulse Ox 99% ; rr5 00:26 Body Mass Index 44.09 (131.54 kg, 172.72 cm) lp1 ED Course: 00:14 Patient arrived in ED. cl3 00:27 Jose García PA is PHCP. cp 00:27 Maximilian Bowman MD is Attending Physician. cp 00:28 Triage completed. lp1 00:28 Arm band placed on. lp1 00:30 Patient has correct armband on for positive identification. lp1 00:33 Reese Kelly, RN is Primary Nurse. rr5 01:00 Inserted saline lock: 20 gauge in right forearm, using aseptic technique. Blood rr5 collected. 01:04 Reese Kelly RN is Primary Nurse. rr5 02:15 Urine collected: clean catch specimen, clear. rr5 02:32 CT Stone Protocol In Process Unspecified. EDMS 03:32 No provider procedures requiring assistance completed. IV discontinued, intact, rr5 bleeding controlled, No redness/swelling at site. Pressure dressing applied. Administered Medications: 01:06 Drug: TORadol - Ketorolac 15 mg Route: IVP; Site: right forearm; rr5 03:33 Follow up: Response: No adverse reaction rr5 Outcome: 01:59 Discharge ordered by MD. cp 03:01 Discharge ordered by MD. cp 03:32 Discharged to home ambulatory. rr5 03:32 Condition: stable 03:32 Discharge instructions given to patient, Instructed on discharge instructions, follow up and referral plans. medication usage, Demonstrated understanding of instructions, follow-up care, medications, Prescriptions given X 3. 03:33 Patient left the ED. rr5 Signatures: Dispatcher [employer] EDMS Fouzia Reyes RN RN lp1 Jose García PA PA cp Reese Kelly, RN RN rr5 Amarjit Decker cl3
[2019-11-30 02:42] LABS: Urine Blood TRACE (NEG); Urine Glucose NEGATIVE (NEG); Urine Protein 1+ (NEG); Urine Specific Gravity >1.030 (1.005-1.030)
[2019-11-30 02:43] LABS: Urine Culture Reflex Order REFLEXED
[2019-11-30 02:44] LABS: Urine Bacteria 20-50 /HPF (<20); Urine Mucus 1+ /HPF (NONE SEEN)
[2019-11-30 03:38] VITALS: TEMP 98.7
[2019-11-30 03:41] VITALS: BP 125/70; O2SAT 99
--- NOTE | 2019-11-30 10:10 | RAD REPORT ---
EXAM DESCRIPTION: CT - Stone Protocol - 11/30/2019 6:38 am CLINICAL HISTORY: Right flank pain TECHNIQUE: Contiguous axial images obtained through the abdomen and pelvis without IV contrast. Moise nal and sagittal reformatted images were provided. This exam was performed according to our departmental dose-optimization program, which includes autom ated exposure control, adjustment of the mA and/or kV according to patient size and/or use of iterati ve reconstruction technique. COMPARISON: None available for comparison. FINDINGS: Lung bases: Right middle lobe calcified granuloma. 5 mm right lower lobe nodule (series 20 1 image 14). Liver: Grossly unremarkable Gallbladder and biliary system: The gallbladder is contracted. Pancreas: Grossly unremarkable Spleen: Grossly unremarkable Adrenals: Unremarkable Kidneys: No calculi. No hydronephrosis. Bowel: Intramural fat within portions of the large bowel which can be seen in the setting of prior in flammation. No obstruction. No appreciable mucosal thickening. Appendix: Normal caliber appendix. No findings to suggest acute appendicitis. Urinary bladder: Unremarkable Reproductive: 4.5 x 3 x 4.5 cm left ovarian cyst. The uterus and right ovary are unremarkable as visu alized. Lymph nodes: No pathologically enlarged lymph nodes. Peritoneum: No focal fluid collection. No free air. Vessels: No abdominal aortic aneurysm. Abdominal wall: Unremarkable Bones: Mild multilevel spondylosis. No acute fracture. IMPRESSION: 1. No renal, ureteral or bladder calculi. No evidence for renal obstruction. 2. 4.5 cm probably benign left ovarian cyst. Recommend pelvic US f/u in 6-12 wks. Reference: US rec ommendations based on Radiology 2010 Sep;256(3):943-54; CT/MR recommendations based on J Am Ramonita Radi ol 2013;10:675-681. 3. 5.0 mm solid pulmonary nodule detected on incomplete chest CT. No routine follow-up imaging is r ecommended. These guidelines do not apply to immunocompromised patients and patients with cancer. Fol low up in patients with significant comorbidities as clinically warranted. For lung cancer screening, adhere to Lung-RADS guidelines. Reference: Radiology. 2017; 284(1):228-43. 4. Other findings as above. Electronically signed by: Tegan Do MD 11/30/2019 2:47 AM CDT Due to temporary technical issues with the PACS/Fluency reporting system, reports are being signed by the in house radiologist without review as a courtesy to ensure prompt reporting. The interpreting r adiologist is fully responsible for the content of the report.
== END 2019-11-30 03:33 | disposition home or self-care (01) ==
LOC: ER 00:13
DX: N83.292 Other ovarian cyst, left side (principal); F17.210 Nicotine dependence, cigarettes, uncomplicated; Z88.1 Allergy status to other antibiotic agents; Z88.6 Allergy status to analgesic agent
CPT/HCPCS: 36415; 74176; 76377; 80048; 80076; 81003; 81015; 81025; 83690; 85025; 87086; 87088; 96374; 99284

== ENCOUNTER 2019-12-27 00:24 | Emergency (ER) | payer SELFPAY ==
--- OUTSIDE RECORDS SUMMARY | 2019-12-27 00:26 | XMS REPORT | Continuity of Care Document ---
:1975 Author Organization [facility] t Address [address] [place] [address] Dr. W[address] [place] [address] Care Team Providers Name Role Phone Hortencia [...] Type Clinicians Facility Department ID 2018-12-29 2018-12-29 [facility] [id number] 07:06:35 23:59:00 Encounter [facility] [id number] CARE [id number] CENTER AT [id number] [address] Results This patient has no known results.
[2019-12-27 01:17] LABS: Absolute Lymphocytes (CBC) 1.9 K/uL (0.7-4.9); Basophils % 0.7 % (0-1.3); Hematocrit 37.5 % (36.0-45.0); Lymphocytes % 35.5 % (15.3-44.8); MPV 8.4 fL (7.6-11.3); RBC Red Blood Cell Count 4.03 M/uL (3.86-4.86)
[2019-12-27 01:18] LABS: Protime INR 0.93
[2019-12-27 01:31] LABS: ALT/SGPT 18 U/L (12-78); AST/SGOT 13 U/L (15-37); Albumin 3.4 g/dL (3.4-5.0); Alkaline Phosphatase 81 U/L (45-117); BUN Blood Urea Nitrogen 13 mg/dL (7-18); Bicarbonate 27 mmol/L (21-32); Bilirubin Direct < 0.1 mg/dL (0-0.2); Bilirubin Total 0.2 mg/dL (0.2-1.0); Glucose Level 84 mg/dL (74-106); NT PRO-BNP 126 pg/mL (<125); Potassium 3.9 mmol/L (3.5-5.1); Protein, Total 7.9 g/dL (6.4-8.2); Sodium Level 141 mmol/L (136-145); Troponin (Emerg Dept Use Only) < 0.02 ng/mL (0.0-0.045)
--- NOTE | 2019-12-27 02:42 | EDPHYS ---
Physician Documentation [facility] Name: Kaylen Benson Age: 44 yrs Sex: Female : 1975 Arrival Date: 12/27/2019 Time: 00:27 Bed 5 Private MD: ED Physician Maximilian Bowman HPI: 12/26 01:28 This 44 yrs old Female presents to ER via Ambulatory with complaints of Chest tw4 Pain. 01:28 The patient or guardian reports chest pain that is located primarily in the substernal tw4 area. Onset: today. The pain does not radiate. Associated signs and symptoms: The patient has no apparent associated signs or symptoms. The chest pain is described as dull. Duration: The patient or guardian reports a single episode, that is now resolved. Modifying factors: The symptoms are alleviated by nothing. the symptoms are aggravated by nothing. Severity of pain: At its worst the pain was moderate in the emergency department the pain is unchanged. 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 - Social history:: Smoking status: Patient reports the use of cigarette tobacco products, smokes one-half pack cigarettes per day, Patient uses alcohol, occasionally. Patient/guardian denies using street drugs. ROS: 01:28 Constitutional: Negative for fever, chills, and weight loss, Eyes: Negative for injury, tw4 pain, redness, and discharge, Cardiovascular: Negative for chest pain, palpitations, and edema, Respiratory: Negative for shortness of breath, cough, wheezing, and pleuritic chest pain, Abdomen/GI: Negative for abdominal pain, nausea, vomiting, diarrhea, and constipation, MS/Extremity: Negative for injury and deformity, Skin: Negative for injury, rash, and discoloration, Neuro: Negative for headache, weakness, numbness, tingling, and seizure. Exam: 01:28 Constitutional: This is a well developed, well nourished patient who is awake, alert, tw4 and in no acute distress. Head/Face: Normocephalic, atraumatic. Cardiovascular: Regular rate and rhythm with a normal S1 and S2. No gallops, murmurs, or rubs. Normal PMI, no JVD. No pulse deficits. Respiratory: Lungs have equal breath sounds bilaterally, clear to auscultation and percussion. No rales, rhonchi or wheezes noted. No increased work of breathing, no retractions or nasal flaring. Abdomen/GI: Soft, non-tender, with normal bowel sounds. No distension or tympany. No guarding or rebound. No evidence of tenderness throughout. Back: No spinal tenderness. No costovertebral tenderness. Full range of motion. MS/ Extremity: Pulses equal, no cyanosis. Neurovascular intact. Full, normal range of motion. Neuro: Awake and alert, GCS 15, oriented to person, place, time, and situation. Cranial nerves II-XII grossly intact. Motor strength 5/5 in all extremities. Sensory grossly intact. Cerebellar exam normal. Normal gait. Vital Signs: 00:37 BP 134 / 79; Pulse 75; Resp 20; Temp 98; Pulse Ox 99% ; Weight 127.01 kg; Height 5 ft. rr5 7 in. (170.18 cm); Pain 7/10; 02:05 BP 140 / 81; Pulse 70; Resp 16; Pulse Ox 99% ; rr5 02:54 BP 130 / 83; Pulse 63; Resp 16; Pulse Ox 100% ; Pain 0/10; mt2 00:37 Body Mass Index 43.85 (127.01 kg, 170.18 cm) rr5 MDM: 00:35 Patient medically screened. tw4 01:28 Data reviewed: vital signs, nurses notes. tw4 02:40 HEART Score: History: Slightly Suspicious (0), ECG: Normal (0), Age: < or = 45 years tw4 (0), Risk Factors: No Risk Factors Known (0), Troponin: < or = 1 x Normal Limit (0), Total Score = 0. Data interpreted: Pulse oximetry: Interpretation: normal. Counseling: I had a detailed discussion with the patient and/or guardian regarding: the historical points, exam findings, and any diagnostic results supporting the discharge/admit diagnosis, lab results, radiology results. Special discussion: I discussed with the patient/guardian in detail that at this point there is no indication for admission to the hospital. It is understood, however, that if the symptoms persist or worsen the patient needs to return immediately for re-evaluation. 12/26 00:32 Order name: Basic Metabolic Panel; Complete Time: 01:50 12/26 01:50 Interpretation: Normal except: CL 109; GFR 63. 12/26 00:32 Order name: CBC with Diff; Complete Time: 01:50 12/26 01:50 Interpretation: Within normal limits. 12/26 00:32 Order name: LFT's; Complete Time: 01:50 12/26 01:50 Interpretation: Normal except: AST 13; GLOB 4.5; A/G 0.8. 12/26 00:32 Order name: Magnesium; Complete Time: 01:50 12/26 01:50 Interpretation: Within normal limits: MG 2.0. 12/26 00:32 Order name: NT PRO-BNP; Complete Time: 01:50 12/26 01:50 Interpretation: Normal except: NT PRO-BNP 126. 12/26 00:32 Order name: PT-INR; Complete Time: 01:50 12/26 01:50 Interpretation: Within normal limits: PT 11.0. 12/26 00:32 Order name: Troponin (emerg Dept Use Only); Complete Time: 01:50 12/26 01:50 Interpretation: Within normal limits: TROPED < 0.02. 12/26 00:32 Order name: XRAY Chest (1 view) 12/26 00:32 Order name: EKG; Complete Time: 00:33 12/26 00:32 Order name: Cardiac monitoring; Complete Time: 00:42 12/26 00:32 Order name: EKG - Nurse/Tech; Complete Time: 00:42 12/26 00:32 Order name: IV Saline Lock; Complete Time: 00:42 12/26 01:56 Order name: Troponin (emerg Dept Use Only); Complete Time: 02:40 12/26 02:40 Interpretation: Within normal limits: TROPED < 0.02. 12/26 00:32 Order name: Labs collected and sent; Complete Time: 00:42 4 12/26 00:32 Order name: O2 Per Protocol; Complete Time: 00:42 4 12/26 00:32 Order name: O2 Sat Monitoring; Complete Time: : EC:28 Rate is 70 beats/min. Rhythm is regular. QRS [place] is Normal. SC interval is normal. QRS tw4 interval is normal. QT interval is normal. No Q waves. T waves are Normal. No ST changes noted. Clinical impression: Normal ECG. Interpreted by me. Reviewed by me. Administered Medications: 02:50 Drug: TORadol 30 mg Route: IVP; Site: right antecubital; rr5 02:56 Follow up: Response: Medication administered at discharge. mt2 Disposition: 12/27/19 02:41 Discharged to Home. Impression: Other chest pain. - Condition is Stable. - Discharge Instructions: Nonspecific Chest Pain. - Prescriptions for Ibuprofen 600 mg Oral Tablet - take 1 tablet by ORAL route every 6 hours As needed take with food; 30 tablet. - Medication Reconciliation Form, Thank You Letter, Antibiotic Education, Prescription Opioid Use form. - Follow up: Private Physician; When: Upon discharge from the Emergency Department; Reason: Recheck today's complaints, Continuance of care, Re-evaluation by your physician. - Problem is new. - Symptoms have improved. Signatures: Dispatcher [employer] EDMaximilian Mcnair MD MD tw4 Reese Kelly, RN RN rr5 Filomena Ram RN RN mt2 Corrections: (The following items were deleted from the chart) 02:56 02:41 12/27/2019 02:41 Discharged to Home. Impression: Other chest pain. Condition is mt2 Stable. Forms are Medication Reconciliation Form, Thank You Letter, Antibiotic Education, Prescription Opioid Use. Follow up: Private Physician; When: Upon discharge from the Emergency Department; Reason: Recheck today's complaints, Continuance of care, Re-evaluation by your physician. Problem is new. Symptoms have improved. tw4
--- NOTE | 2019-12-27 02:42 | ER ---
Nurse's Notes [facility] Name: Kaylen Benson Age: 44 yrs Sex: Female : 1975 Arrival Date: 12/27/2019 Time: 00:27 Bed 5 Private MD: Diagnosis: Other chest pain Presentation: 12/26 00:37 Chief complaint: Patient states: chest pain and difficulty of breathing started 10 am rr5 radiating to my right arm and neck. Coronavirus screen: Client denies travel out of the [place] in the last 14 days. At this time, the client does not indicate any symptoms associated with coronavirus-19. Ebola Screen: Patient negative for fever greater than or equal to 101.5 degrees Fahrenheit, and additional compatible Ebola Virus Disease symptoms Patient denies exposure to infectious person. Patient denies travel to an Ebola-affected area in the 21 days before illness onset. Initial Sepsis Screen: Does the patient meet any 2 criteria? No. Patient's initial sepsis screen is negative. Does the patient have a suspected source of infection? No. Patient's initial sepsis screen is negative. Risk Assessment: Do you want to hurt yourself or someone else? Patient reports no desire to harm self or others. Onset of symptoms was December 26, 2019 at 10:00. 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 - Social history:: Smoking status: Patient reports the use of cigarette tobacco products, smokes one-half pack cigarettes per day, Patient uses alcohol, occasionally. Patient/guardian denies using street drugs. Screenin:41 Abuse screen: Denies threats or abuse. Denies injuries from another. Nutritional rr5 screening: No deficits noted. Tuberculosis screening: No symptoms or risk factors identified. Fall Risk IV access (20 points). Total Le Fall Scale indicates No Risk (0-24 pts). Assessment: 00:40 General: Appears in no apparent distress. uncomfortable, Behavior is calm, cooperative, rr5 appropriate for age. Pain: Complains of pain in chest Pain radiates to right arm and neck Pain currently is 7 out of 10 on a pain scale. Quality of pain is described as heavy, pressure, Pain began gradually, Is continuous. Neuro: Level of Consciousness is awake, alert, obeys commands, Oriented to person, place, time, situation. Cardiovascular: Capillary refill < 3 seconds Patient's skin is warm and dry. Respiratory: Airway is patent Respiratory effort is even, unlabored, Respiratory pattern is regular, symmetrical. GI: Abdomen is round obese. : No signs and/or symptoms were reported regarding the genitourinary system. EENT: No signs and/or symptoms were reported regarding the EENT system. Derm: Skin is intact, is healthy with good turgor, Skin temperature is warm. Musculoskeletal: Circulation, motion, and sensation intact. Capillary refill < 3 seconds. 02:05 Reassessment: Patient appears in no apparent distress at this time. Patient is alert, rr5 oriented x 3, equal unlabored respirations, skin warm/dry/pink. repeat troponin extracted and sent. 02:54 Reassessment: Patient and/or family updated on plan of care and expected duration. Pain mt2 level reassessed. Patient is alert, oriented x 3, equal unlabored respirations, skin warm/dry/pink. General: Appears comfortable, Behavior is cooperative. Pain: Denies pain. Vital Signs: 00:37 BP 134 / 79; Pulse 75; Resp 20; Temp 98; Pulse Ox 99% ; Weight 127.01 kg; Height 5 ft. rr5 7 in. (170.18 cm); Pain 7/10; 02:05 BP 140 / 81; Pulse 70; Resp 16; Pulse Ox 99% ; rr5 02:54 BP 130 / 83; Pulse 63; Resp 16; Pulse Ox 100% ; Pain 0/10; mt2 00:37 Body Mass Index 43.85 (127.01 kg, 170.18 cm) rr5 ED Course: 00:27 Patient arrived in ED. bp1 00:29 Reese Kelly RN is Primary Nurse. rr5 00:35 Maximilian Bowman MD is Attending Physician. tw4 00:39 Triage completed. rr5 00:40 Arm band placed on right wrist. rr5 00:42 Patient has correct armband on for positive identification. Placed in gown. Bed in low rr5 position. Call light in reach. Side rails up X2. panel monitor on. Pulse ox on. NIBP on. 00:55 Inserted saline lock: 20 gauge in right antecubital area, using aseptic technique. oe Blood collected. 01:24 Patient maintains SpO2 saturation greater than 95% on room air. mt2 01:35 XRAY Chest (1 view) In Process Unspecified. EDMS 02:55 No provider procedures requiring assistance completed. IV discontinued, intact, mt2 bleeding controlled, No redness/swelling at site. Pressure dressing applied. Administered Medications: 02:50 Drug: TORadol 30 mg Route: IVP; Site: right antecubital; rr5 02:56 Follow up: Response: Medication administered at discharge. mt2 Outcome: 02:41 Discharge ordered by . tw4 02:55 Discharged to home ambulatory. mt2 02:55 Condition: good 02:55 Discharge instructions given to patient, Instructed on discharge instructions, follow up and referral plans. medication usage, Demonstrated understanding of instructions, follow-up care, medications, Prescriptions given X 1. 02:56 Patient left the ED. mt2 Signatures: Dispatcher [employer] EDNJ Osiel Villarreal Terrence, MD MD tw4 Reese Kelly, RN RN rr5 Nayely Cunningham Marlene, RN RN mt2
[2019-12-27] MEDS ORDERED: KETOROLAC 30 MG/ML INJ ONE (03:00)
--- NOTE | 2019-12-27 05:20 | EKG ---
Test Date: 2019-12-27 Test Time: 00:39:19 Drying Room Operator: MELINA MEASUREMENT RESULTS: Intervals: Rate: 72 LA: QRSD: 76 QT: 408 QTc: 446 [place]: P: LA: QRS: 14 T: 11 INTERPRETIVE STATEMENTS: Accelerated Junctional rhythm Low voltage QRS Abnormal ECG Compared to ECG 07/28/2018 22:07:24 Accelerated junctional rhythm now present Low QRS voltage now present Sinus rhythm no longer present Electronically Signed On 12-27-19 05:20:22 CDT by Diego Reyes
--- NOTE | 2019-12-27 08:34 | RAD REPORT ---
EXAM DESCRIPTION: RAD - Chest Single View - 12/27/2019 1:35 am CLINICAL HISTORY: COUGH Chest pain. COMPARISON: Chest Single View dated 07/28/2018; Chest Pa And Lat (2 Views) dated 04/03/2018; Chest Si ngle View dated 12/11/2017; Chest Single View dated 08/10/2016 FINDINGS: Portable technique limits examination quality. The lungs are mildly emphysematous but grossly clear. The heart is normal in size. No displaced fract ures. IMPRESSION: No acute intrathoracic process suspected.
[2019-12-27 12:25] VITALS: TEMP 98
[2019-12-27 12:27] VITALS: BP 130/83; O2SAT 100
--- NOTE | 2019-12-27 20:01 | EKG ---
Test Date: 2019-12-27 Test Time: 00:40:22 Crew Trainer: MELINA MEASUREMENT RESULTS: Intervals: Rate: 70 MO: 130 QRSD: 78 QT: 418 QTc: 451 [place]: P: 32 MO: 130 QRS: 13 T: 26 INTERPRETIVE STATEMENTS: Normal sinus rhythm Low voltage QRS Borderline ECG Compared to ECG 12/27/2019 00:39:19 Accelerated junctional rhythm no longer present Electronically Signed On 12-27-19 19:59:19 CDT by Diego Reyes
== END 2019-12-27 02:56 | disposition home or self-care (01) ==
LOC: ER 00:24
DX: R07.89 Other chest pain (principal); I95.9 Hypotension, unspecified; F17.210 Nicotine dependence, cigarettes, uncomplicated; Z88.1 Allergy status to other antibiotic agents; Z88.6 Allergy status to analgesic agent
CPT/HCPCS: 36415; 71045; 80048; 80076; 83735; 83880; 84484; 85025; 85610; 93005; 96374; 99285

== ENCOUNTER 2020-05-14 08:26 | Emergency (ER) | payer SELFPAY ==
--- OUTSIDE RECORDS SUMMARY | 2020-05-14 08:32 | XMS REPORT | Continuity of Care Document ---
:1975 Author Organization [facility] t Address [address] [place] [address] [address]. [address] [place] [address] Care Team Providers Name Role Phone Nannette Blackwell MD Attending Clinician Hortencia Vegas Attending Clinician Problems This patient has no known problems. Allergies, Adverse Reactions, Alerts This patient has no known allergies or adverse reactions. Medications This patient has no known medications. Procedures This patient has no known procedures. Encounters Start End Encounter Admission Attending Care Care Encounter Source Date/Time Date/Time Type Type Clinicians Facility Department ID 2020-01-02 2020-01-02 Emergency [facility] [id number] 21:35:00 23:25:00 Eb Gordon [id number] [place] [id number] [place] [id number] 2018-12-29 2018-12-29 [facility] [id number] 07:06:35 23:59:00 Encounter [facility] [id number] [facility] [id number] CENTER AT [id number] [place] [address] [place] [address] Results This patient has no known results.
[2020-05-14] MEDS ORDERED: MEPERIDINE HCL 50 MG/ML ONE (09:03)
--- NOTE | 2020-05-14 09:12 | RAD REPORT ---
EXAM DESCRIPTION: RAD - Chest Single View - 05/14/2020 8:57 am CLINICAL HISTORY: right sided pain Chest pain. COMPARISON: Chest Single View dated 12/27/2019; Chest Single View dated 07/28/2018; Chest Pa And Lat (2 Views) dated 04/03/2018; Chest Single View dated 12/11/2017 FINDINGS: Portable technique limits examination quality. The lungs are grossly clear. The heart is normal in size. No displaced fractures. IMPRESSION: No acute intrathoracic process suspected.
[2020-05-14 09:14] LABS: Absolute Lymphocytes (CBC) 1.9 K/uL (0.7-4.9); Lymphocytes % 35.3 % (15.3-44.8); MPV 9.1 fL (7.6-11.3); RBC Red Blood Cell Count 4.17 M/uL (3.86-4.86)
[2020-05-14 09:32] LABS: ALT/SGPT 14 U/L (12-78); AST/SGOT 15 U/L (15-37); Albumin 3.2 g/dL (3.4-5.0); Alkaline Phosphatase 83 U/L (45-117); BUN Blood Urea Nitrogen 17 mg/dL (7-18); Bicarbonate 27 mmol/L (21-32); Bilirubin Direct 0.1 mg/dL (0-0.2); Bilirubin Total 0.4 mg/dL (0.2-1.0); Glucose Level 78 mg/dL (74-106); Lipase 89 U/L (73-393); Protein, Total 7.8 g/dL (6.4-8.2); Sodium Level 140 mmol/L (136-145); Troponin (Emerg Dept Use Only) < 0.02 ng/mL (0.0-0.045)
--- NOTE | 2020-05-14 09:39 | RAD REPORT ---
EXAM DESCRIPTION: US - Abdomen Exam Limited - 05/14/2020 9:28 am CLINICAL HISTORY: RUQ pain Abdominal pain COMPARISON: Abdomen Exam Limited dated 11/08/2019 FINDINGS: The gallbladder demonstrates small adherent gallstones versus small polyps. These appear u nchanged since comparative study. No pericholecystic fluid or gallbladder wall thickening. The common bile duct is normal measuring 3 mm. The liver demonstrates no findings of intrahepatic biliary dilatation. IMPRESSION: Small gallbladder polyps versus adherent gallstones. No significant change is seen since comparative study. No evidence of acute cholecystitis.
--- NOTE | 2020-05-14 10:25 | ER ---
Nurse's Notes [facility] Name: Kaylen Benson Age: 44 yrs Sex: Female : 1975 Arrival Date: 05/14/2020 Time: 08:29 Bed 19 Private MD: Diagnosis: Cholelithiasis Presentation: 05/14 08:35 Chief complaint: Patient states: i have been having LOWER right abdomen pain that tw2 radiates to my chest that has been going on for about 3 days. Coronavirus screen: At this time, the client does not indicate any symptoms associated with coronavirus-19. Ebola Screen: Patient denies travel to an Ebola-affected area in the 21 days before illness onset. Initial Sepsis Screen: Does the patient meet any 2 criteria? HR > 90 bpm. No. Patient's initial sepsis screen is negative. Does the patient have a suspected source of infection? No. Patient's initial sepsis screen is negative. Risk Assessment: Do you want to hurt yourself or someone else? Patient reports no desire to harm self or others. Onset of symptoms. 08:35 Method Of Arrival: Ambulatory tw2 08:35 Acuity: DONNA 3 tw2 Triage Assessment: 08:37 General: Appears in no apparent distress. obese, well groomed, Behavior is calm, tw2 cooperative, appropriate for age. Pain: Complains of pain in right lower quadrant Pain radiates to chest. EENT: No signs and/or symptoms were reported regarding the EENT system. Neuro: Level of Consciousness is awake, alert, obeys commands, Oriented to person, place, time, situation. Cardiovascular: Capillary refill < 3 seconds Patient's skin is warm and dry. Respiratory: Airway is patent Respiratory effort is even, unlabored, Respiratory pattern is regular, symmetrical. GI: Reports lower abdominal pain, Patient currently denies diarrhea, nausea, vomiting. : No signs and/or symptoms were reported regarding the genitourinary system. Derm: Skin is intact, is healthy with good turgor. Musculoskeletal: Range of motion: intact in all extremities. 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 - Social history:: Smoking status: . - Family history:: not pertinent. - Hospitalizations: : No recent hospitalization is reported. Screenin:39 Abuse screen: Denies threats or abuse. Nutritional screening: No deficits noted. tw2 Tuberculosis screening: No symptoms or risk factors identified. Fall Risk None identified. Assessment: 08:38 Reassessment: see triage assessment. tw2 08:40 Pain: Pain began 2-3 days ago. tw2 10:03 Reassessment: Patient appears in no apparent distress at this time. No changes from tw2 previously documented assessment. Patient and/or family updated on plan of care and expected duration. Pain level reassessed. Patient is alert, oriented x 3, equal unlabored respirations, skin warm/dry/pink. 10:35 Reassessment: Patient appears in no apparent distress at this time. No changes from tw2 previously documented assessment. Patient and/or family updated on plan of care and expected duration. Pain level reassessed. Patient is alert, oriented x 3, equal unlabored respirations, skin warm/dry/pink. Vital Signs: 08:35 BP 126 / 85; Pulse 95; Resp 18; Pulse Ox 100% on R/A; tw2 08:42 Temp 97.9; Weight 124.74 kg (R); Height 5 ft. 8 in. (172.72 cm); Pain 7/10; tw2 10:03 BP 129 / 79; Pulse 61; Resp 18; Pulse Ox 100% on R/A; tw2 08:42 Body Mass Index 41.81 (124.74 kg, 172.72 cm) tw2 ED Course: 08:29 Patient arrived in ED. ds1 08:32 Dayana Raymundo, SOLITARIO is Primary Nurse. tw2 08:32 Placed in gown. Bed in low position. Call light in reach. residential monitor on. Pulse ox tw2 on. NIBP on. 08:36 Triage completed. tw2 08:37 David Wiley MD is Attending Physician. rn 08:37 David Wiley MD is Attending Physician. rn 08:38 Patient maintains SpO2 saturation greater than 95% on room air. tw2 08:39 Arm band placed on. tw2 09:00 Inserted saline lock: 22 gauge in left hand, using aseptic technique. Blood collected. tw2 09:02 Note: US delay from er (bloodwork, pain meds, xray). lc3 10:24 Saul Glass MD is Referral Physician. rn 10:34 No provider procedures requiring assistance completed. IV discontinued, intact, tw2 bleeding controlled, No redness/swelling at site. Pressure dressing applied. Administered Medications: 09:02 Drug: Demerol - Meperidine 12.5 mg {Note: RASS 0.} Route: IVP; Site: left hand; tw2 Outcome: 10:24 Discharge ordered by MD. rn 10:34 Discharged to home ambulatory. tw2 10:34 Condition: stable 10:34 Discharge instructions given to patient, Instructed on discharge instructions, follow up and referral plans. Demonstrated understanding of instructions, follow-up care. 10:40 Patient left the ED. tw2 Signatures: Malgorzata Ohara ds1 David Wiley MD MD rn Cunningham, Laulita lc3 Wise, Tara, RN RN tw2 Corrections: (The following items were deleted from the chart) 08:39 08:35 Chief complaint: Patient states: i have been having LOWER right abdomen pain that tw2 radiates to my chest tw2
--- NOTE | 2020-05-14 10:25 | EDPHYS ---
Physician Documentation [facility] Name: Kaylen Benson Age: 44 yrs Sex: Female : 1975 Arrival Date: 05/14/2020 Time: 08:29 Bed 19 Private MD: ED Physician David Wiley HPI: 05/14 09:20 This 44 yrs old Female presents to ER via Ambulatory with complaints of Side rn Pain, Chest Pain. 09:20 This 44 yrs old Female presents to ER via Ambulatory with complaints of abd rn pain, Chest Pain. 09:21 The patient presents with abdominal pain in the right upper quadrant. rn 09:21 Onset: The symptoms/episode began/occurred 3 day(s) ago. The symptoms radiate to right rn chest/shoulder. Associated signs and symptoms: Pertinent positives: nausea, Pertinent negatives: anorexia, blood in stools, constipation, diarrhea, dysuria, fever, shortness of breath, vomiting, vomiting blood. The symptoms are described as crampy, intermittent. Modifying factors: The symptoms are alleviated by nothing, the symptoms are aggravated by nothing. Severity of pain: At its worst the pain was moderate in the emergency department the pain has improved. The patient has not experienced similar symptoms in the past. The patient has not recently seen a physician. Reports 3 days of RUQ pain, radiates to right chest and shoulder, doesn't feel related to eating, no trauma, no cough or sob. Unknown to patient if has gallbladder problems in past. No vomiting/diarrhea/blood in stool. Pain intermittent. . 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 - Social history:: Smoking status: . - Family history:: not pertinent. - Hospitalizations: : No recent hospitalization is reported. ROS: 09:21 Constitutional: Negative for fever, chills, and weight loss, Eyes: Negative for injury, rn pain, redness, and discharge, Neck: Negative for injury, pain, and swelling, Cardiovascular: Negative for palpitations, and edema, Respiratory: Negative for shortness of breath, cough, wheezing, and pleuritic chest pain, Abdomen/GI: + RUQ abd pain Back: Negative for injury and pain, MS/Extremity: Negative for injury and deformity, Skin: Negative for injury, rash, and discoloration, Neuro: Negative for headache, weakness, numbness, tingling, and seizure. Exam: 09:21 Constitutional: This is a well developed, well nourished patient who is awake, alert, rn and in no acute distress. Head/Face: Normocephalic, atraumatic. Cardiovascular: Regular rate and rhythm. No pulse deficits. Respiratory: Speaking full sentences. No increased work of breathing, no retractions or nasal flaring. Abdomen/GI: soft, mild RUQ tenderness, no peritoneal signs Skin: Warm, dry MS/ Extremity: Pulses equal, no cyanosis. Neuro: Awake and alert, GCS 15 Vital Signs: 08:35 BP 126 / 85; Pulse 95; Resp 18; Pulse Ox 100% on R/A; tw2 08:42 Temp 97.9; Weight 124.74 kg (R); Height 5 ft. 8 in. (172.72 cm); Pain 7/10; tw2 10:03 BP 129 / 79; Pulse 61; Resp 18; Pulse Ox 100% on R/A; tw2 08:42 Body Mass Index 41.81 (124.74 kg, 172.72 cm) tw2 MDM: 08:37 Patient medically screened. rn 10:23 Differential diagnosis: cholecystitis, Cholelithiasis, gastritis, gastroesophageal rn reflux disease, Peptic Ulcer Disease. Data reviewed: vital signs, nurses notes, lab test result(s), radiologic studies, ultrasound, and as a result, I will discharge patient. Counseling: I had a detailed discussion with the patient and/or guardian regarding: the historical points, exam findings, and any diagnostic results supporting the discharge/admit diagnosis, lab results, radiology results, the need for outpatient follow up, to return to the emergency department if symptoms worsen or persist or if there are any questions or concerns that arise at home. Response to treatment: the patient's symptoms have markedly improved after treatment, and as a result, I will discharge patient. Special discussion: I discussed with the patient/guardian in detail that at this point there is no indication for admission to the hospital. It is understood, however, that if the symptoms persist or worsen the patient needs to return immediately for re-evaluation. Based on the history and exam findings, there is no indication for further emergent testing or inpatient evaluation. I discussed with the patient/guardian the need to see the general surgeon for further evaluation of the symptoms. ED course: NO signs of acute cholecystitis or choledocholithiasis, improved pain, will dc home with gen surg f/u for cholelithiasis. . 05/14 08:43 Order name: Basic Metabolic Panel rn 05/14 08:43 Order name: CBC with Diff rn 05/14 08:43 Order name: Hepatic Function rn 05/14 08:43 Order name: Lipase rn 05/14 08:43 Order name: Troponin (emerg Dept Use Only) rn 05/14 09:15 Order name: CBC with Automated Diff; Complete Time: 10:17 EDMS 05/14 08:43 Order name: US Abdomen Limited rn 05/14 08:43 Order name: XRAY Chest (1 view) rn 05/14 09:13 Order name: RAD; Complete Time: 10:17 EDMS 05/14 09:32 Order name: Basic Metabolic Panel; Complete Time: 10:17 EDMS 05/14 09:32 Order name: Liver (Hepatic) Function; Complete Time: 10:17 EDTX 05/14 09:32 Order name: Troponin (Emerg Dept Use Only); Complete Time: 10:17 EDMS 05/14 09:32 Order name: Lipase; Complete Time: 10:17 EDTX 05/14 09:39 Order name: US; Complete Time: 10:17 EDTX 05/14 08:43 Order name: IV Saline Lock; Complete Time: 09:05 rn 05/14 08:43 Order name: Labs collected and sent; Complete Time: 09:05 rn 05/14 08:43 Order name: EKG; Complete Time: 08:44 rn 05/14 08:43 Order name: EKG - Nurse/Tech; Complete Time: 09:05 rn Administered Medications: 09:02 Drug: Demerol - Meperidine 12.5 mg {Note: RASS 0.} Route: IVP; Site: left hand; tw2 Disposition: 05/14/20 10:24 Discharged to Home. Impression: Cholelithiasis. - Condition is Stable. - Discharge Instructions: Cholelithiasis. - Medication Reconciliation Form, Thank You Letter, Antibiotic Education, Prescription Opioid Use, Work release form form. - Follow up: Saul Glass MD; When: As needed; Reason: Recheck today's complaints, Re-evaluation by your physician. - Problem is an ongoing problem. - Symptoms have improved. Signatures: Dispatcher [employer] EDMS David Wiley MD MD rn Wise, Tara, RN RN tw2 Corrections: (The following items were deleted from the chart) 10:40 10:24 05/14/2020 10:24 Discharged to Home. Impression: Cholelithiasis. Condition is tw2 Stable. Forms are Work release form, Medication Reconciliation Form, Thank You Letter, Antibiotic Education, Prescription Opioid Use. Follow up: Saul Glass; When: As needed; Reason: Recheck today's complaints, Re-evaluation by your physician. Problem is an ongoing problem. Symptoms have improved. rn
[2020-05-14 10:44] VITALS: O2SAT 100
[2020-05-14 10:45] VITALS: TEMP 97.9
[2020-05-14 10:47] VITALS: BP 129/79
== END 2020-05-14 10:40 | disposition home or self-care (01) ==
LOC: ER 08:26
DX: K80.20 Calculus of gallbladder without cholecystitis without obstruction (principal); J44.9 Chronic obstructive pulmonary disease, unspecified; F41.9 Anxiety disorder, unspecified
CPT/HCPCS: 36415; 71045; 76705; 80048; 80076; 83690; 84484; 85025; 93005; 96374; 99285; J2175

== ENCOUNTER 2020-09-16 10:25 | Emergency (ER) | payer SELFPAY ==
--- OUTSIDE RECORDS SUMMARY | 2020-09-16 10:28 | XMS REPORT | Continuity of Care Document ---
:1975 Author Organization [facility] t Address [address] [place] [address] [address] [place] [address] Care Team Providers Name Role Phone Wanda Venegas Attending Clinician Problems This patient has no known problems. Allergies, Adverse Reactions, Alerts This patient has no known allergies or adverse reactions. Medications This patient has no known medications. Procedures This patient has no known procedures. Encounters Start End Encounter Admission Attending Care Care Encounter Source Date/Time Date/Time Type Type Clinicians Facility Department ID 2020-08-20 2020-08-20 Hospital [facility] [id number] 06:56:46 23:59:00 Encounter Elisa Muñoz SPECIALTY [id number] [facility] [id number] CENTER AT [id number] IRVIN 5 [facility] 2020-07-31 2020-07-31 Office CHIKIS Dial [id number] 15:57:09 16:21:23 Visit Elisa Muñoz LANDCARE FACILITATOR [id number] [facility] [id number] MATERNAL [id number] & CHILD [address] [place] [address] Results This patient has no known results.
--- NOTE | 2020-09-16 13:27 | RAD REPORT ---
EXAM DESCRIPTION: RAD - Lumbar Spine 3 Views - 09/16/2020 1:03 pm CLINICAL HISTORY: fall, back pain COMPARISON: Lumbar July 2015 FINDINGS: A three-view lumbar spine examination was performed. Lumbar bodies are normal in height and alignment. No fracture or acute bony process seen. No disc spa ce narrowing. No other significant findings. No pars defects identified. IMPRESSION: Negative Lumbar Spine examination for acute finding. No significant change from 2016.
--- NOTE | 2020-09-16 14:13 | ER ---
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 Low back ll1 pain since. No urinary symptoms, no fever. Coronavirus screen: Client denies travel out of the [place] in the last 14 days. At this time, the client does not indicate any symptoms associated with coronavirus-19. Ebola Screen: Patient denies travel to an Ebola-affected area in the 21 days before illness onset. Initial Sepsis Screen: Does the patient meet any 2 criteria? No. Patient's initial sepsis screen is negative. Does the patient have a suspected source of infection? Yes: Bone or joint infection. Risk Assessment: Do you want to hurt yourself or someone else? Patient reports no desire to harm self or others. Onset of symptoms was September 14, 2020. 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 Flu vaccine is not up to date. - Social history:: Smoking status: Patient reports the use of cigarette tobacco products, smokes one-half pack cigarettes per day. Screenin:12 Abuse screen: Denies threats or abuse. Denies injuries from another. Nutritional ca1 screening: No deficits noted. Tuberculosis screening: No symptoms or risk factors identified. Fall Risk Fall in past 12 months (25 points). Assessment: 12:12 General: Appears in no apparent distress. comfortable, Behavior is calm, cooperative, ca1 appropriate for age. Pain: Complains of pain in low back area Pain currently is 8 out of 10 on a pain scale. Pain began 2-3 days ago. Is intermittent. Neuro: Level of Consciousness is awake, alert, obeys commands, Oriented to person, place, time, situation. Derm: Skin is intact, is healthy with good turgor, Skin is pink, warm \\T\\ dry. Musculoskeletal: Circulation, motion, and sensation intact. Capillary refill < 3 seconds. 13:48 Reassessment: Patient appears in no apparent distress at this time. Patient and/or ca1 family updated on plan of care and expected duration. Pain level reassessed. Patient is alert, oriented x 3, equal unlabored respirations, skin warm/dry/pink. 14:20 Reassessment: Patient appears in no apparent distress at this time. Patient and/or ca1 family updated on plan of care and expected duration. Pain level reassessed. Patient is alert, oriented x 3, equal unlabored respirations, skin warm/dry/pink. Vital Signs: 10:41 BP 119 / 75; Pulse 82; Resp 17; Temp 97.6; Pulse Ox 97% ; Weight 122.47 kg; Height 5 ll1 ft. 7 in. (170.18 cm); Pain 8/10; 12:28 BP 100 / 51; Pulse 79; Pulse Ox 98% on R/A; mb4 14:20 BP 111 / 61; Pulse 81; Resp 16 S; Pulse Ox 99% on R/A; ca1 10:41 Body Mass Index 42.29 (122.47 kg, 170.18 cm) ll1 ED Course: 10:29 Patient arrived in ED. bp1 10:40 Arm band placed on. ll1 10:43 Triage completed. ll1 12:09 Patient placed in an exam room, on a stretcher. ca1 12:10 Jace Alcaraz PA is PHCP. jmm 12:10 Jose Cantrell MD is Attending Physician. jmm 12:12 Erika Clinton, SOLITARIO is Primary Nurse. ca1 12:12 Patient has correct armband on for positive identification. Bed in low position. Call ca1 light in reach. Side rails up X2. Pulse ox on. NIBP on. Warm blanket given. 13:03 Lumbar Spine (3 Views) XRAY In Process Unspecified. EDMS 14:20 No provider procedures requiring assistance completed. Patient did not have IV access ca1 during this emergency room visit. Administered Medications: No medications were administered Outcome: 14:13 Discharge ordered by MD. kim 14:21 Discharged to home ambulatory. ca1 14:21 Condition: stable 14:21 Discharge instructions given to patient, Instructed on discharge instructions, follow up and referral plans. medication usage, Demonstrated understanding of instructions, follow-up care, medications, Prescriptions given X 1. 14:21 Patient left the ED. ca1 Signatures: Dispatcher [employer] EDMS Jace Alcaraz PA PA jmm Baxter, Mackenzie mb4 Erika Clinton RN RN ca1 Shelby Decker RN RN ll1 Nayely Cunningham [facility]
--- NOTE | 2020-09-16 14:14 | EDPHYS ---
Physician Documentation [facility] Name: Kaylen Benson Age: 45 yrs Sex: Female : 1975 Arrival Date: 09/16/2020 Time: 10:29 Bed 14 Private MD: RIKA Physician Jose Cantrell HPI: 09/16 12:25 This 45 yrs old Female presents to ER via Ambulatory with complaints of Back jmm Pain. 12:25 The patient presents with pain that is acute. Onset: The symptoms/episode jmm began/occurred 2 day(s) ago. The pain does not radiate. Associated signs and symptoms: Pertinent negatives: abdominal pain, dysuria, fever, headache, hematuria, incontinence, nausea, numbness, tingling, urinary retention, vomiting, weakness. Modifying factors: The patient symptoms are alleviated by nothing, the patient symptoms are aggravated by movement. The patient has not experienced similar symptoms in the past. This is a 45 year old female with a history of COPD that presents ot the ED with complaints of lower back pain beginning approx 2 days ago after a fall which occurred after falling down 2 steps. Denies other injury. . 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 Flu vaccine is not up to date. - Social history:: Smoking status: Patient reports the use of cigarette tobacco products, smokes one-half pack cigarettes per day. ROS: 12:25 Constitutional: Negative for fever, chills, and weight loss, Cardiovascular: Negative jmm for chest pain, palpitations, and edema, Respiratory: Negative for shortness of breath, cough, wheezing, and pleuritic chest pain. 12:25 Back: Positive for pain with movement. 12:25 All other systems are negative. Exam: 12:25 Constitutional: This is a well developed, well nourished patient who is awake, alert, jmm and in no acute distress. Head/Face: atraumatic. Eyes: EOMI, no conjunctival erythema appreciated ENT: Moist Mucus Membranes Neck: Trachea midline, Supple Chest/axilla: Normal chest wall appearance and motion. Cardiovascular: Regular rate and rhythm. No edema appreciated Respiratory: Normal respirations, no respiratory distress appreciated Abdomen/GI: Non distended, soft Skin: General appearance color normal 12:25 MS/ Extremity: Moves all extremities, no obvious deformities appreciated, no edema noted to the lower extremities Neuro: Awake and alert, normal gait Psych: Behavior is normal, Mood is normal, Patient is cooperative and pleasant 12:25 Back: vertebral tenderness, is appreciated at T12, L1 and L2. Vital Signs: 10:41 BP 119 / 75; Pulse 82; Resp 17; Temp 97.6; Pulse Ox 97% ; Weight 122.47 kg; Height 5 ll1 ft. 7 in. (170.18 cm); Pain 8/10; 12:28 BP 100 / 51; Pulse 79; Pulse Ox 98% on R/A; mb4 14:20 BP 111 / 61; Pulse 81; Resp 16 S; Pulse Ox 99% on R/A; ca1 10:41 Body Mass Index 42.29 (122.47 kg, 170.18 cm) ll1 MDM: 12:16 Patient medically screened. monica 14:11 Data reviewed: vital signs, nurses notes. Counseling: I had a detailed discussion with judy the patient and/or guardian regarding: the historical points, exam findings, and any diagnostic results supporting the discharge/admit diagnosis, radiology results, the need for outpatient follow up, to return to the emergency department if symptoms worsen or persist or if there are any questions or concerns that arise at home. ED course: Xray negative. Patient is advised to follow up with pcp and otherwise given strict return precautions. I do not suspect cauda equina, cord compression, abscess. . 09/16 12:25 Order name: Lumbar Spine (3 Views) XRAY; Complete Time: 13:35 judy Administered Medications: No medications were administered Disposition: 09/17 07:21 Co-signature as Attending Physician, Jose Cantrell MD I agree with the assessment and monica plan of care. Disposition: 09/16/20 14:13 Discharged to Home. Impression: Strain of muscle, fascia and tendon of lower back. - Condition is Stable. - Discharge Instructions: Back Pain, Adult. - Prescriptions for orphenadrine citrate 100 mg Oral Tablet Sustained Release - take 1 tablet by ORAL route 2 times per day As needed; 20 tablet. - Medication Reconciliation Form, Thank You Letter, Antibiotic Education, Prescription Opioid Use, Work release form form. - Follow up: Private Physician; When: 2 - 3 days; Reason: Recheck today's complaints, Continuance of care, Re-evaluation by your physician. Signatures: Dispatcher [employer] EDMS Jose Cantrell MD MD cha Mickail, Joel, PA PA jmm Acob, Cheryl, RN RN ca1 Shelby Decker RN RN ll1 Corrections: (The following items were deleted from the chart) 09/16 14:21 14:13 09/16/2020 14:13 Discharged to Home. Impression: Strain of muscle, fascia and ca1 tendon of lower back. Condition is Stable. Forms are Work release form, Medication Reconciliation Form, Thank You Letter, Antibiotic Education, Prescription Opioid Use. Follow up: Private Physician; When: 2 - 3 days; Reason: Recheck today's complaints, Continuance of care, Re-evaluation by your physician. judy
[2020-09-16 14:28] VITALS: TEMP 97.6
[2020-09-16 14:31] VITALS: BP 111/61; O2SAT 99
== END 2020-09-16 14:21 | disposition home or self-care (01) ==
LOC: ER 10:25
DX: S39.012A Strain of muscle, fascia and tendon of lower back, initial encounter (principal); W10.9XXA Fall (on) (from) unspecified stairs and steps, initial encounter; J44.9 Chronic obstructive pulmonary disease, unspecified; F17.210 Nicotine dependence, cigarettes, uncomplicated; Z88.1 Allergy status to other antibiotic agents; Z88.3 Allergy status to other anti-infective agents; Z88.6 Allergy status to analgesic agent
CPT/HCPCS: 72100; 99283

== ENCOUNTER 2020-10-23 14:49 | Emergency (ER) | payer SELFPAY ==
--- OUTSIDE RECORDS SUMMARY | 2020-10-23 15:18 | XMS REPORT | Continuity of Care Document ---
:1975 Author Organization [facility] t Address [address] [place] [address] Dr. [address] [place] [address] Care Team Providers Name Role Phone Wanda [...] Facility Department ID 2020-08-20 2020-08-[address] [facility] [id number] 06:56:46 23:59:00 Encounter Elisa Muñoz SPECIALTY [id number] [facility] [id number] CENTER AT [id number] IRVIN 5 [facility] 2020-07-31 2020-07-[address] 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
[2020-10-23 16:57] LABS: Absolute Lymphocytes (CBC) 1.9 K/uL (0.7-4.9); Basophils % 1.1 % (0-1.3); Hematocrit 38.3 % (36.0-45.0); Lymphocytes % 28.2 % (15.3-44.8); MPV 8.2 fL (7.6-11.3); RBC Red Blood Cell Count 4.19 M/uL (3.86-4.86)
[2020-10-23 17:16] LABS: ALT/SGPT 22 U/L (12-78); AST/SGOT 22 U/L (15-37); Albumin 3.2 g/dL (3.4-5.0); Alkaline Phosphatase 93 U/L (45-117); BUN Blood Urea Nitrogen 11 mg/dL (7-18); Bicarbonate 27 mmol/L (21-32); Bilirubin Direct 0.1 mg/dL (0-0.2); Bilirubin Total 0.3 mg/dL (0.2-1.0); Glucose Level 96 mg/dL (74-106); Lipase 106 U/L (73-393); Potassium 4.3 mmol/L (3.5-5.1); Protein, Total 8.1 g/dL (6.4-8.2); Sodium Level 138 mmol/L (136-145)
[2020-10-23 17:51] LABS: Urine Bacteria >50 /HPF (<20)
[2020-10-23 17:53] LABS: Urine Specific Gravity/Preg 1.025 (1.005-1.030)
[2020-10-23] MEDS ORDERED: CEFTRIAXONE/SWI 1gm 1 GM/10 ML SYR ONE (18:16)
[2020-10-23] MEDS ORDERED: ONDANSETRON 4 MG/2 ML VIAL ONE (18:16)
[2020-10-23] MEDS ORDERED: NA CHLORIDE 0.9% 50 ML ONE (18:16)
[2020-10-23] MEDS ORDERED: KETOROLAC 30 MG/ML INJ ONE (18:16)
--- NOTE | 2020-10-23 18:53 | RAD REPORT ---
EXAM DESCRIPTION: CT - CTHCSPWOC - 10/23/2020 6:34 pm CLINICAL HISTORY: PAIN COMPARISON: Head C Spine Mpr Wo Con dated 06/13/2016 TECHNIQUE: Axial 5 mm thick images of the head were obtained. Axial 2 mm thick images of the cervic al spine were obtained with sagittal and coronal reconstruction images generated and reviewed. All CT scans are performed using dose optimization technique as appropriate and may include automated exposure control or mA/KV adjustment according to patient size. FINDINGS: No intracranial hemorrhage, mass, edema or acute intracranial finding. No suspicion for ac [place] infarction. No extra-axial fluid collections. Mastoid air cells and paranasal sinuses are clear. No globe or orbit abnormality seen. Cervical body height and alignment are normal. No disk space narrowing. No fracture or acute bony abn ormality. Central canal detail is inherently limited. No paraspinal mass or hematoma. IMPRESSION: Negative CT head examination for acute or significant finding. Negative CT cervical spine examination for acute or significant finding.
--- NOTE | 2020-10-23 18:59 | RAD REPORT ---
EXAM DESCRIPTION: CT - Abdomen Pelvis Wo Contrast - 10/23/2020 6:34 pm CLINICAL HISTORY: ABD PAIN COMPARISON: Stone Protocol dated 11/30/2019; Head C Spine Mpr Wo Con dated 10/23/2020 TECHNIQUE: Axial [address] imaging of the abdomen and pelvis was performed without IV contrast. Initial IV access was lost and no additional IV access could be obtained. Patient received a trace am ount of contrast during test injection. No oral contrast administered. All CT scans are performed using dose optimization technique as appropriate and may include automated exposure control or mA/KV adjustment according to patient size. FINDINGS: No suspicious findings in the lung bases. The liver, spleen and pancreas show no suspicious findings on non-contrast imaging. Gallbladder is mo stly contracted. No biliary tree dilatation. No hydronephrosis is present. No obstructing calculi see n. Minimal amount of contrast is seen within the nondilated collecting systems due to the test inject ion of contrast. Trace amount of contrast in the contracted urinary bladder. No significant adrenal finding. Isodense renal masses and pyelonephritis cannot be excluded in the a bsence of IV contrast. The urinary bladder is without significant finding. Uterus and ovaries show no suspicious findings. No dilated bowel loops or bowel wall thickening. Appendix is normal. No free air, free fluid or infla mmatory stranding. No hernia, mass or bulky lymphadenopathy. No suspicious bony findings. IMPRESSION: Non-contrast enhanced CT abdomen and pelvis imaging show no acute or emergent finding. Isodense masses and pyelonephritis cannot be excluded on a noncontrast study. Full assessment is limited is the absence of IV contrast.
[2020-10-23] MEDS ORDERED: CEFTRIAXONE 1000 MG/VIAL ONE (19:37)
[2020-10-23] MEDS ORDERED: LIDOCAINE 1% MPF 5 ML VIAL ONE (19:37)
--- NOTE | 2020-10-23 19:51 | EDPHYS ---
Physician Documentation [facility] Name: Kaylen Benson Age: 45 yrs Sex: Female : 1975 Arrival Date: 10/23/2020 Time: 14:51 Bed 14 Private MD: Jose Albert HPI: 10/23 16:39 This 45 yrs old Female presents to ER via Ambulatory with complaints of pm1 Abdominal Pain, Headache. 16:39 The patient presents with abdominal pain in the upper abdomen. Onset: The pm1 symptoms/episode began/occurred 3 week(s) ago. The symptoms do not radiate. Associated signs and symptoms: Pertinent positives: diarrhea, for 3 weeks, Pertinent negatives: nausea and vomiting, dysuria, fever. The symptoms are described as crampy. Modifying factors: The symptoms are alleviated by nothing, the symptoms are aggravated by nothing. The patient has not experienced similar symptoms in the past. The patient has not recently seen a physician. Patient got drunk two days ago and fell while walking up stairs and hit the right side of her head. Since the fall injury she has reported headache and feeling foggy. Negative for LOC, neck pain. Historical: - Allergies: 14:53 "sensitive to pain medications"; sv 14:53 Amoxicillin; sv 14:53 Clindamycin; sv - PMHx: 14:53 Anxiety; COPD; hypotension; Migraines; Thyroid problem; Vertigo; sv - Immunization history:: Client reports having NOT received the Covid vaccine. - Social history:: Smoking status: Patient reports the use of cigarette tobacco products, denies chronic smoking, but will smoke occasionally. ROS: 16:39 Constitutional: Negative for fever, chills, and weight loss, Neck: Negative for injury, pm1 pain, and swelling, Cardiovascular: Negative for chest pain, palpitations, and edema, Respiratory: Negative for shortness of breath, cough, wheezing, and pleuritic chest pain. 16:39 Back: Negative for injury and pain, MS/Extremity: Negative for injury and deformity, Skin: Negative for injury, rash, and discoloration. 16:39 Abdomen/GI: Positive for abdominal pain, nausea, diarrhea, Negative for vomiting. 16:39 All other systems are negative. Exam: 16:39 Constitutional: This is a well developed, well nourished patient who is awake, alert, pm1 and in no acute distress. Head/Face: Normocephalic, atraumatic. 16:39 Back: No spinal tenderness. No costovertebral tenderness. Full range of motion. Skin: Warm, dry with normal turgor. Normal color with no rashes, no lesions, and no evidence of cellulitis. MS/ Extremity: Pulses equal, no cyanosis. Neurovascular intact. Full, normal range of motion. 16:39 Eyes: Pupils equal round and reactive to light, extra-ocular motions intact. Lids and lashes normal. Conjunctiva and sclera are non-icteric and not injected. Cornea within normal limits. Periorbital areas with no swelling, redness, or edema. ENT: Nares patent. No nasal discharge, no septal abnormalities noted. Tympanic membranes are normal and external auditory canals are clear. Oropharynx with no redness, swelling, or masses, exudates, or evidence of obstruction, uvula midline. Mucous membranes moist. Neck: Trachea midline, no thyromegaly or masses palpated, and no cervical lymphadenopathy. Supple, full range of motion without nuchal rigidity, or vertebral point tenderness. No Meningismus. 16:39 Cardiovascular: Exam negative for acute changes, Rate: normal, Rhythm: regular, Pulses: no pulse deficits are appreciated. 16:39 Respiratory: Exam negative for acute changes, respiratory distress, shortness of breath. 16:39 Abdomen/GI: Inspection: abdomen appears normal, Palpation: abdomen is soft and non-tender, in all quadrants. 16:39 Neuro: Exam negative for acute changes, Orientation: is normal, Mentation: is normal, Motor: is normal. Vital Signs: 14:54 BP 134 / 93; Pulse 87; Resp 16; Temp 97.7(T); Pulse Ox 100% on R/A; Weight 122.47 kg; sv Height 5 ft. 7 in. (170.18 cm); Pain 8/10; 17:38 BP 126 / 87; Pulse 68; Resp 18; Pulse Ox 98% on R/A; ph 14:54 Body Mass Index 42.29 (122.47 kg, 170.18 cm) sv MDM: 16:24 Patient medically screened. [facility] 19:30 Data reviewed: vital signs. Data interpreted: Pulse oximetry: on room air is 98 %. pm1 Interpretation: normal. Counseling: I had a detailed discussion with the patient and/or guardian regarding: the historical points, exam findings, and any diagnostic results supporting the discharge/admit diagnosis, lab results, radiology results, the need for outpatient follow up, to return to the emergency department if symptoms worsen or persist or if there are any questions or concerns that arise at home. 10/23 16:34 Order name: Basic Metabolic Panel pm1 10/23 16:34 Order name: CBC with Diff; Complete Time: 17:42 pm1 10/23 16:34 Order name: Hepatic Function; Complete Time: 17:42 pm1 10/23 16:34 Order name: Lipase; Complete Time: 17:42 pm1 10/23 16:34 Order name: Urine Microscopic Only; Complete Time: 18:26 pm1 10/23 16:35 Order name: Basic Metabolic Panel; Complete Time: 17:42 EDMS 10/23 16:34 Order name: CT Head C Spine; Complete Time: 18:57 pm1 10/23 17:38 Order name: Urine --Ancillary (enter results); Complete Time: 18:26 10/23 17:53 Order name: Urine Culture EDAR 10/23 18:32 Order name: Abdomen ; Complete Time: 19:17 EDAR 10/23 16:34 Order name: IV Saline Lock; Complete Time: 16:47 pm1 10/23 16:34 Order name: Labs collected and sent; Complete Time: 16:47 pm1 10/23 16:34 Order name: Urine Dipstick-Ancillary (obtain specimen); Complete Time: 17:34 pm1 10/23 16:34 Order name: Urine Test (obtain specimen); Complete Time: 17:34 pm1 Administered Medications: 18:15 Drug: Zofran (Ondansetron) 4 mg Route: IVP; Site: right antecubital; ph 19:26 Follow up: Response: No adverse reaction ph 18:15 Drug: Ketorolac 15 mg Route: IVP; Site: right antecubital; ph 19:25 Follow up: Response: No adverse reaction ph 19:22 Drug: Rocephin (cefTRIAXone) 1 grams Route: IM; Site: right gluteus; bs2 Disposition: 10/24 09:33 Co-signature as Attending Physician, Jose Cantrell MD I agree with the assessment and monica plan of care. Disposition Summary: 10/23/20 19:50 Discharge Ordered Location: Home pm1 Problem: new pm1 Symptoms: have improved pm1 Condition: Stable pm1 Diagnosis - Unspecified injury of head, initial encounter pm1 - UTI/ Urinary tract infection, site not specified pm1 - Abdominal pain, unspecified pm1 - Diarrhea, unspecified pm1 Followup: pm1 - With: Emergency Department - When: As needed - Reason: Worsening of condition Followup: pm1 - With: Private Physician - When: 2 - 3 days - Reason: Recheck today's complaints, Continuance of care, Re-evaluation by your physician Discharge Instructions: - Discharge Summary Sheet pm1 - Abdominal Pain, Adult pm1 - Concussion, Adult pm1 - Head Injury, Adult pm1 - Food Choices to Help Relieve Diarrhea, Adult pm1 - Diarrhea, Adult pm1 - Urinary Tract Infection, Adult pm1 Forms: - Medication Reconciliation Form pm1 - Thank You Letter pm1 - Antibiotic Education pm1 - Prescription Opioid Use pm1 Prescriptions: - Bactrim DS 800-160 mg Oral Tablet - take 1 tablet by ORAL route every 12 hours for 10 days; 20 tablet; Refills: 0, pm1 Product Selection Permitted - dicyclomine 20 mg Oral Tablet - take 1 tablet by ORAL route every 6 hours As needed; 20 tablet; Refills: 0, pm1 Product Selection Permitted Signatures: Dispatcher [employer] Lacy Edgar, RN Jose Bhatia MD MD cha Hall, Patricia, RN RN ph Marinas, Patrick, SARAH COMPENSATION CONSULTANT pm1 Marquita Mcdowell RN RN bs2 Corrections: (The following items were deleted from the chart) 10/23 18:32 16:35 Abdomen Pelvis W Con+CT.RAD.BRZ ordered. EDMS EDMS
--- NOTE | 2020-10-23 19:51 | ER ---
Nurse's Notes [facility] Name: Kaylen Benson Age: 45 yrs Sex: Female : 1975 Arrival Date: 10/23/2020 Time: 14:51 Bed 14 Private MD: Diagnosis: Unspecified injury of head, initial encounter;UTI/ Urinary tract infection, site not specified;Abdominal pain, unspecified;Diarrhea, unspecified Presentation: 10/23 14:53 Chief complaint: Patient states: dizziness, s/p fall 2 days ago, abd pain, diarrhea sv (couple of weeks). Coronavirus screen: Client denies travel out of the [place] in the last 14 days. At this time, the client does not indicate any symptoms associated with coronavirus-19. Ebola Screen: No symptoms or risks identified at this time. Risk Assessment: Do you want to hurt yourself or someone else? Patient reports no desire to harm self or others. Onset of symptoms is unknown. 14:53 Method Of Arrival: Ambulatory sv 14:53 Acuity: DNONA 3 sv 14:54 Initial Sepsis Screen: Does the patient meet any 2 criteria? No. Patient's initial sv sepsis screen is negative. Does the patient have a suspected source of infection? No. Patient's initial sepsis screen is negative. Triage Assessment: 14:55 General: Appears in no apparent distress. uncomfortable, Behavior is calm, cooperative, sv appropriate for age. Pain: Complains of pain in face, scalp and abdomen. Neuro: Level of Consciousness is awake, alert, obeys commands, Gait is steady. Respiratory: Respiratory effort is even, unlabored. Historical: - Allergies: 14:53 "sensitive to pain medications"; sv 14:53 Amoxicillin; sv 14:53 Clindamycin; sv - PMHx: 14:53 Anxiety; COPD; hypotension; Migraines; Thyroid problem; Vertigo; sv - Immunization history:: Client reports having NOT received the Covid vaccine. - Social history:: Smoking status: Patient reports the use of cigarette tobacco products, denies chronic smoking, but will smoke occasionally. Screenin:37 Abuse screen: Denies threats or abuse. Denies injuries from another. Nutritional ph screening: No deficits noted. Tuberculosis screening: No symptoms or risk factors identified. Fall Risk None identified. Assessment: 17:34 General: Appears in no apparent distress. comfortable, obese, well groomed, Behavior is ph calm, cooperative, appropriate for age. Pain: Complains of pain in abdomen and head. Neuro: Level of Consciousness is awake, alert, obeys commands, Oriented to person, place, time, situation, Reports headache frontal area. Cardiovascular: Capillary refill < 3 seconds in bilateral fingers Patient's skin is warm and dry. Respiratory: Airway is patent Respiratory effort is even, unlabored, Respiratory pattern is regular, symmetrical. GI: Abdomen is non-distended, obese, Reports lower abdominal pain, nausea, Patient currently denies diarrhea, vomiting. : Reports urinary frequency. Derm: Skin is intact, is healthy with good turgor, Skin is pink, warm \\T\\ dry. Musculoskeletal: Circulation, motion, and sensation intact. Range of motion: intact in all extremities. 18:45 Reassessment: Patient appears in no apparent distress at this time. Notified by seed laboratory technician that IV infiltrated during CT, attempted to start another IV x2, unable to gain IV access for CT scan, ERP notified, CT w/out contrast ordered. Vital Signs: 14:54 BP 134 / 93; Pulse 87; Resp 16; Temp 97.7(T); Pulse Ox 100% on R/A; Weight 122.47 kg; sv Height 5 ft. 7 in. (170.18 cm); Pain 8/10; 17:38 BP 126 / 87; Pulse 68; Resp 18; Pulse Ox 98% on R/A; ph 14:54 Body Mass Index 42.29 (122.47 kg, 170.18 cm) sv ED Course: 14:51 Patient arrived in ED. ds1 14:53 Triage completed. sv 14:53 Arm band placed on. sv 16:21 Rosalia Jung, SOLITARIO is Primary Nurse. ph 16:23 Christo Murphy NP is PHCP. pm1 16:23 Jose Cantrell MD is Attending Physician. pm1 17:37 Patient has correct armband on for positive identification. Bed in low position. Call ph light in reach. Side rails up X 1. Pulse ox on. NIBP on. Door closed. Noise minimized. Pillow given. 18:34 CT Head C Spine In Process Unspecified. EDMS 18:34 Abdomen In Process Unspecified. EDMS 18:40 Inserted saline lock: 22 gauge in right antecubital area, using aseptic technique. ph 18:50 No provider procedures requiring assistance completed. Missed attempt(s): 22 gauge in ph right antecubital area. Bleeding controlled, band aid applied, catheter tip intact. Missed attempt(s): 22 gauge in left antecubital area. Bleeding controlled, band aid applied, catheter tip intact. IV discontinued, intact, bleeding controlled, No redness/swelling at site. Pressure dressing applied. 19:15 Primary Nurse role handed off by Rosalia Jung RN mw2 Administered Medications: 18:15 Drug: Zofran (Ondansetron) 4 mg Route: IVP; Site: right antecubital; ph 19:26 Follow up: Response: No adverse reaction ph 18:15 Drug: Ketorolac 15 mg Route: IVP; Site: right antecubital; ph 19:25 Follow up: Response: No adverse reaction ph 19:22 Drug: Rocephin (cefTRIAXone) 1 grams Route: IM; Site: right gluteus; bs2 Outcome: 19:50 Discharge ordered by pm1 20:21 Patient left the ED. bb Addendum: 10/29/2020 08:11 Addendum: Culture Results: Positive urine culture. No further action required. Bacteria s s sensitive to prescribed antibiotic. Signatures: Dispatcher [employer] Lacy Edgar RN RN sv Sanford, Demi ds1 Filomena Gonzalez RN RN bb Charleen Lyn RN RN Rosalia Jung RN RN Christo Murphy, SARAH RESTAURANT ASSISTANT pm1 Maya Richmnod mw2 Marquita Mcdowell RN RN bs2 Corrections: (The following items were deleted from the chart) 10/23 14:56 14:54 Pulse 87bpm; Resp 16bpm; Pulse Ox 100%; Temp 97.7F; 122.47 kg; Height 5 ft. 7 sv in.; BMI: 42.2; Pain 8/10; sv
[2020-10-23 20:28] VITALS: TEMP 97.7
[2020-10-23 20:30] VITALS: BP 126/87; O2SAT 98
== END 2020-10-23 20:21 | disposition home or self-care (01) ==
LOC: ER 14:49
DX: S09.90XA Unspecified injury of head, initial encounter (principal); N39.0 Urinary tract infection, site not specified; R19.7 Diarrhea, unspecified; R10.10 Upper abdominal pain, unspecified; F17.210 Nicotine dependence, cigarettes, uncomplicated; Z88.1 Allergy status to other antibiotic agents
CPT/HCPCS: 36415; 70450; 72125; 74176; 80048; 80076; 81015; 81025; 83690; 85025; 87077; 87086; 87088; 87186; 96372; 96374; 96375; 99284; J0696; J2405

== ENCOUNTER 2020-12-29 12:22 | Emergency (ER) | payer SELFPAY ==
--- OUTSIDE RECORDS SUMMARY | 2020-12-29 12:25 | XMS REPORT | Continuity of Care Document ---
:1975 Author Organization [facility] t Address [address] [place] [address] Dr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
[2020-12-29 12:51] LABS: Urine Blood Trace-intact (Negative); Urine Glucose Negative (Negative); Urine Protein Negative (Negative); Urine Specific Gravity >=1.030 (1.005-1.030)
[2020-12-29 13:46] LABS: Absolute Lymphocytes (CBC) 1.6 K/uL (0.7-4.9); Basophils % 1.4 % (0-1.3); MPV 7.9 fL (7.6-11.3); RBC Red Blood Cell Count 4.28 M/uL (3.86-4.86)
[2020-12-29] MEDS ORDERED: NA CHLORIDE 0.9% 1,000 ML ONE (13:51)
[2020-12-29] MEDS ORDERED: MORPHINE 4 MG/ML SYR ONE (13:51)
[2020-12-29] MEDS ORDERED: ONDANSETRON 4 MG/2 ML VIAL ONE (13:51)
[2020-12-29] MEDS ORDERED: FENTANYL CITR 100 MCG/2 ML ONE (13:55)
[2020-12-29 15:34] LABS: ALT/SGPT 24 U/L (12-78); AST/SGOT 19 U/L (15-37); Albumin 3.3 g/dL (3.4-5.0); Alkaline Phosphatase 96 U/L (45-117); BUN Blood Urea Nitrogen 12 mg/dL (7-18); Bicarbonate 23 mmol/L (21-32); Bilirubin Direct < 0.1 mg/dL (0-0.2); Bilirubin Total 0.2 mg/dL (0.2-1.0); Glucose Level 91 mg/dL (74-106); Lipase 118 U/L (73-393); Sodium Level 140 mmol/L (136-145); Troponin (Emerg Dept Use Only) < 0.02 ng/mL (0.0-0.045)
--- NOTE | 2020-12-29 15:59 | RAD REPORT ---
EXAM DESCRIPTION: CTAbdomen Pelvis W Contrast - 12/29/2020 3:50 pm CLINICAL HISTORY: . ABD PAIN COMPARISON: No comparisons TECHNIQUE: Biphasic CT imaging of the abdomen and pelvis was performed with 100 ml non-ionic IV cont rast. All CT scans are performed using dose optimization technique as appropriate and may include automated exposure control or mA/KV adjustment according to patient size. FINDINGS: Lower chest: No acute abnormality. Liver: No acute abnormality or suspicious lesions. Biliary: No biliary ductal dilatation. Contracted gallbladder. Stomach: No significant focal abnormality. Duodenum: No significant focal abnormality. Pancreas: No significant abnormality. Spleen: No significant abnormality. Adrenal: No suspicious lesions. Kidney/ureter: No hydronephrosis. No renal calculi. Too small to characterize and/or benign appearing renal lesions are noted. Retroperitoneum: No retroperitoneal adenopathy. Vascular: No aneurysm. Bowel: No significant focal abnormality. Peritoneum: No ascites or free air. Bladder: Grossly unremarkable. Reproductive: No adnexal masses. Bilateral adnexal cysts which are likely physiologic. Bones: No acute fracture. Other: n/a IMPRESSION: No acute intra-abdominal or pelvic finding.
--- NOTE | 2020-12-29 16:21 | ER ---
Nurse's Notes [facility] Name: Kaylen Benson Age: 45 yrs Sex: Female : 1975 Arrival Date: 12/29/2020 Time: 12:24 Bed 20 Private MD: Diagnosis: Headache;Chest pain, unspecified;Abdominal pain, unspecified Presentation: 12/29 12:30 Chief complaint: Patient states: Past couple of days has had Left eye pain that feels vg1 like pressure; also states mid sternal chest pain that radiates to the Right arm. C/o nausea and ABD pain. Coronavirus screen: Vaccine status: Patient reports being unvaccinated. Client denies travel out of the [place] in the last 14 days. Ebola Screen: Patient negative for fever greater than or equal to 101.5 degrees Fahrenheit, and additional compatible Ebola Virus Disease symptoms. Mechanism of Injury: No Mechanism of Injury. The patient denies any loss of vision. Initial Sepsis Screen: Does the patient meet any 2 criteria? No. Patient's initial sepsis screen is negative. Does the patient have a suspected source of infection? No. Patient's initial sepsis screen is negative. Risk Assessment: Do you want to hurt yourself or someone else? Patient reports no desire to harm self or others. Onset of symptoms was December 27, 2020. 12:30 Method Of Arrival: Ambulatory vg1 12:30 Acuity: DONNA 3 vg1 Triage Assessment: 12:32 General: Appears in no apparent distress. comfortable, Behavior is calm, cooperative. vg1 Pain: Complains of pain in mid-sternal area and ABD Pain currently is 7 out of 10 on a pain scale. EENT: No signs and/or symptoms were reported regarding the EENT system. 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 - Social history:: Smoking status: Patient reports the use of cigarette tobacco products, smokes one-half pack cigarettes per day. Screenin:54 Abuse screen: Denies threats or abuse. Nutritional screening: No deficits noted. ll1 Tuberculosis screening: No symptoms or risk factors identified. Fall Risk IV access (20 points). Total Le Fall Scale indicates No Risk (0-24 pts). Assessment: 13:30 Reassessment: No changes from previously documented assessment. Patient and/or family ll1 updated on plan of care and expected duration. Pain level reassessed. Patient is alert, oriented x 3, equal unlabored respirations, skin warm/dry/pink. 14:30 Reassessment: No changes from previously documented assessment. Patient and/or family ll1 updated on plan of care and expected duration. Pain level reassessed. Patient is alert, oriented x 3, equal unlabored respirations, skin warm/dry/pink. 15:30 Reassessment: No changes from previously documented assessment. Patient and/or family ll1 updated on plan of care and expected duration. Pain level reassessed. Patient is alert, oriented x 3, equal unlabored respirations, skin warm/dry/pink. 16:30 Reassessment: No changes from previously documented assessment. Patient and/or family ll1 updated on plan of care and expected duration. Pain level reassessed. Patient is alert, oriented x 3, equal unlabored respirations, skin warm/dry/pink. 16:53 Reassessment: No changes from previously documented assessment. Patient and/or family ll1 updated on plan of care and expected duration. Pain level reassessed. Patient is alert, oriented x 3, equal unlabored respirations, skin warm/dry/pink. Patient states feeling better. Patient states symptoms have improved. EENT: Eyes WNL. Sclera/Cornea are clear in outer aspect of conjuctiva of right eye, inner aspect of conjuctiva of right eye, outer aspect of conjuctiva of left eye and inner aspect of conjunctiva of left eye. Vital Signs: 12:30 BP 136 / 89; Pulse 104; Resp 18; Temp 98.9(O); Pulse Ox 100% ; Weight 127.01 kg; Height vg1 5 ft. 8 in. (172.72 cm); Pain 7/10; 16:54 BP 139 / 103; Pulse 87; Resp 17; Pulse Ox 100% ; ll1 12:30 Body Mass Index 42.57 (127.01 kg, 172.72 cm) vg1 Visual Acuity: 16:54 ; not ordered ll1 ED Course: 12:24 Patient arrived in ED. am2 12:32 Triage completed. vg1 12:32 Arm band placed on. EKG completed in triage. Results shown to MD. vg1 12:54 Shelby Decker, RN is Primary Nurse. ll1 12:54 Christo Murphy, SARAH is PHCP. pm1 12:54 David Wiley MD is Attending Physician. pm1 13:30 Inserted saline lock: 22 gauge in left antecubital area, using aseptic technique. Blood 1 collected. 15:24 Basic Metabolic Panel Sent. 5 15:24 Hepatic Function Sent. 5 15:24 Lipase Sent. [facility] 15:25 Urine --Ancillary (enter results) Sent. [facility] 15:50 CT Abd/Pelvis - IV Contrast Only In Process Unspecified. EDMS 16:51 IV discontinued, intact, bleeding controlled, No redness/swelling at site. Pressure 1 dressing applied. 16:54 Patient has correct armband on for positive identification. Bed in low position. Call [facility] light in reach. Side rails up X 1. Cardiac monitoring not applicable on this patient. 16:54 No provider procedures requiring assistance completed. ll1 Administered Medications: 13:29 Not Given (Physician Discretion): morphine 4 mg IVP once; RASS on ADMIN: Combtv4, Very pm1 Agttd3, Agttd2, Rstlss1, AlertClm0, Drwsy-1, Lt Sdtn-2, Mod Sdtn-3, Dp Sdtn-4, UnArsble-5 13:37 Drug: NS 0.9% 1000 ml Route: IV; Rate: 1000 ml; Site: left antecubital; 1 16:27 Follow up: Response: No adverse reaction; IV Status: Completed infusion; IV Intake: 1 1000ml 13:37 Drug: Zofran (Ondansetron) 4 mg Route: IVP; Site: left antecubital; 1 16:28 Follow up: Response: No adverse reaction [facility] 13:37 Drug: fentaNYL (PF) 25 mcg Route: IVP; Site: left antecubital; 1 16:28 Follow up: Response: No adverse reaction [facility] 16:27 Drug: Phenergan (promethazine) 12.5 mg Route: IVP; Site: left antecubital; 1 16:51 Follow up: Response: No adverse reaction; RASS: Alert and Calm (0) 1 Intake: 16:27 IV: 1000ml; Total: 1000ml. 1 Outcome: 16:20 Discharge ordered by . pm1 16:55 Discharged to home ambulatory. ll1 16:55 Condition: stable 16:55 Discharge instructions given to patient, Instructed on discharge instructions, follow up and referral plans. medication usage, Demonstrated understanding of instructions, follow-up care, medications, Prescriptions given X 2. 16:55 Patient left the ED. 1 Signatures: Dispatcher [employer] EDMS Christo Murphy NP CUSTOMER MARKETING MANAGER pm1 [place] 5 Miri Strickland Vicki Hairston, RN RN 1 Shelby Decker RN RN ll1
--- NOTE | 2020-12-29 16:21 | EDPHYS ---
Physician Documentation [facility] Name: Kaylen Benson Age: 45 yrs Sex: Female : 1975 Arrival Date: 12/29/2020 Time: 12:24 Bed 20 Private MD: ED Physician David Wiley HPI: 12/29 13:11 This 45 yrs old Female presents to ER via Ambulatory with complaints of pm1 Abdominal pain. 13:11 The patient presents with abdominal pain in the left upper quadrant. pm1 13:11 Onset: The symptoms/episode began/occurred 4 day(s) ago. The symptoms do not radiate. pm1 Associated signs and symptoms: Pertinent positives: chest pain, nausea, Pertinent negatives: diarrhea, dysuria, fever, shortness of breath, vomiting. The symptoms are described as achy. Modifying factors: The symptoms are alleviated by nothing, the symptoms are aggravated by nothing. Severity of pain: in the emergency department the pain is unchanged. The patient has not experienced similar symptoms in the past. The patient has not recently seen a physician. Patient presents to the ER today with multiple complaints. However her abdominal pain is the pain that she is most most concerned with. Patient reports 4 days ago onset of left upper quadrant pain. Negative for vomiting diarrhea. Positive for nausea. With abdominal pain reports chest pain. Also complaining of headache behind the left eye ongoing for multiple months. 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 - Social history:: Smoking status: Patient reports the use of cigarette tobacco products, smokes one-half pack cigarettes per day. ROS: 13:11 Constitutional: Negative for fever, chills, and weight loss. pm1 13:11 Respiratory: Negative for shortness of breath, cough, wheezing, and pleuritic chest pain. 13:11 Back: Negative for injury and pain, MS/Extremity: Negative for injury and deformity, Skin: Negative for injury, rash, and discoloration. 13:11 Eyes: Negative for pain, vision loss, visual disturbance. 13:11 Cardiovascular: Positive for chest pain, of the mid-sternal area. 13:11 Abdomen/GI: Positive for abdominal pain, nausea, of the left upper quadrant, Negative for vomiting, diarrhea. 13:11 Neuro: Positive for headache. 13:11 All other systems are negative. Exam: 13:11 Constitutional: This is a well developed, well nourished patient who is awake, alert, pm1 and in no acute distress. Head/Face: Normocephalic, atraumatic. 13:11 Back: No spinal tenderness. No costovertebral tenderness. Full range of motion. Skin: Warm, dry with normal turgor. Normal color with no rashes, no lesions, and no evidence of cellulitis. 13:11 Eyes: Exam is negative for acute changes, Periorbital structures: no acute changes, Pupils: no acute changes, Extraocular movements: intact throughout, Conjunctiva: no acute changes, no injection, Sclera: no acute changes, icterus, is not appreciated. 13:11 ENT: Exam is negative for acute changes, Mouth: no acute changes, Lips: normal, moist, Oral mucosa: normal, pink and intact, moist. 13:11 Cardiovascular: Exam negative for acute changes, Rate: normal, Rhythm: regular, Pulses: no pulse deficits are appreciated, Heart sounds: normal, normal S1and S2. 13:11 Respiratory: Exam negative for acute changes, the patient does not display signs of respiratory distress, Respirations: normal, Breath sounds: are clear throughout. 13:11 Abdomen/GI: Inspection: obese Palpation: soft, in all quadrants, mild abdominal tenderness, in the left upper quadrant. 13:11 Neuro: Exam negative for acute changes, Orientation: is normal, Mentation: is normal, Cranial nerves: CN II- XII are normal as tested, Motor: moves all fours, strength is 5/5 in all extremities, Sensation: is normal, no obvious gross deficits, Gait: is steady, at a normal pace, without difficulty. Vital Signs: 12:30 BP 136 / 89; Pulse 104; Resp 18; Temp 98.9(O); Pulse Ox 100% ; Weight 127.01 kg; Height vg1 5 ft. 8 in. (172.72 cm); Pain 7/10; 16:54 BP 139 / 103; Pulse 87; Resp 17; Pulse Ox 100% ; ll1 12:30 Body Mass Index 42.57 (127.01 kg, 172.72 cm) vg1 Visual Acuity: 16:54 ; not ordered ll1 MDM: 12:55 Patient medically screened. pm1 16:18 Data reviewed: vital signs. Data interpreted: Pulse oximetry: on room air is 100 %. pm1 Interpretation: normal. 16:19 Counseling: I had a detailed discussion with the patient and/or guardian regarding: the pm1 historical points, exam findings, and any diagnostic results supporting the discharge/admit diagnosis, lab results, radiology results, the need for outpatient follow up, to return to the emergency department if symptoms worsen or persist or if there are any questions or concerns that arise at home. 12/29 12:51 Order name: Urine Dipstick-Ancillary; Complete Time: 13:10 EDMS 12/29 12:54 Order name: Urine --Ancillary (enter results) eb 12/29 12:55 Order name: Urine --Ancillary; Complete Time: 13:10 EDMS 12/29 13:11 Order name: Basic Metabolic Panel; Complete Time: 15:41 pm1 12/29 13:11 Order name: CBC with Diff; Complete Time: 14:20 pm1 12/29 13:11 Order name: Hepatic Function; Complete Time: 15:41 pm1 12/29 13:11 Order name: Lipase; Complete Time: 15:41 pm1 12/29 13:11 Order name: Troponin (emerg Dept Use Only); Complete Time: 15:41 pm1 12/29 13:38 Order name: CT Abd/Pelvis - IV Contrast Only; Complete Time: 16:03 pm1 12/29 13:11 Order name: IV Saline Lock; Complete Time: 13:15 pm1 12/29 13:11 Order name: Labs collected and sent; Complete Time: 13:15 pm1 12/29 13:11 Order name: EKG; Complete Time: 13:11 pm1 12/29 13:11 Order name: EKG - Nurse/Tech; Complete Time: 13:15 pm1 Administered Medications: 13:29 Not Given (Physician Discretion): morphine 4 mg IVP once; RASS on ADMIN: Combtv4, Very pm1 Agttd3, Agttd2, Rstlss1, AlertClm0, Drwsy-1, Lt Sdtn-2, Mod Sdtn-3, Dp Sdtn-4, UnArsble-5 13:37 Drug: NS 0.9% 1000 ml Route: IV; Rate: 1000 ml; Site: left antecubital; ll1 16:27 Follow up: Response: No adverse reaction; IV Status: Completed infusion; IV Intake: ll1 1000ml 13:37 Drug: Zofran (Ondansetron) 4 mg Route: IVP; Site: left antecubital; ll1 16:28 Follow up: Response: No adverse reaction ll1 13:37 Drug: fentaNYL (PF) 25 mcg Route: IVP; Site: left antecubital; ll1 16:28 Follow up: Response: No adverse reaction ll1 16:27 Drug: Phenergan (promethazine) 12.5 mg Route: IVP; Site: left antecubital; ll1 16:51 Follow up: Response: No adverse reaction; RASS: Alert and Calm (0) ll1 Disposition: 18:18 Co-signature as Attending Physician, David Wiley MD I agree with the assessment and rn plan of care. Attestation: The patient's history, exam findings, diagnostics, and a summary of any interventions or procedures was reviewed in detail with Christo Murphy NP. Disposition Summary: 12/29/20 16:20 Discharge Ordered Location: Home pm1 Problem: new pm1 Symptoms: have improved pm1 Condition: Stable pm1 Diagnosis - Headache pm1 - Chest pain, unspecified pm1 - Abdominal pain, unspecified pm1 Followup: pm1 - With: Emergency Department - When: As needed - Reason: Worsening of condition Followup: pm1 - With: Private Physician - When: 2 - 3 days - Reason: Recheck today's complaints, Continuance of care, Re-evaluation by your physician Discharge Instructions: - Discharge Summary Sheet pm1 - Abdominal Pain, Adult pm1 - Nonspecific Chest Pain, Adult pm1 - General Headache Without Cause pm1 Forms: - Medication Reconciliation Form pm1 - Thank You Letter pm1 - Antibiotic Education pm1 - Prescription Opioid Use pm1 - Work release form ll1 Prescriptions: - ondansetron 8 mg Oral tablet,disintegrating - take 1 tablet by ORAL route every 8 hours As needed; 12 tablet; Refills: 0, pm1 Product Selection Permitted - dicyclomine 20 mg Oral Tablet - take 1 tablet by ORAL route every 6 hours As needed; 20 tablet; Refills: 0, pm1 Product Selection Permitted Signatures: Dispatcher [employer] EDMS David Wiley MD MD rn Marinas, Patrick, NP [employer] pm1 Vicki Benz RN RN vg1 Shelby Decker RN RN ll1 Corrections: (The following items were deleted from the chart) 17:37 13:11 Associated signs and symptoms: Pertinent positives: chest pain, Pertinent pm1 negatives: nausea, vomiting, and diarrhea, dysuria, fever, shortness of breath, pm1 17:37 13:11 Patient presents to the ER today with multiple complaints. However her abdominal pm1 pain is the pain that she is most most concerned with. Patient reports 4 days ago onset of left upper quadrant pain. Negative for nausea vomiting diarrhea. With abdominal pain reports chest pain. Also complaining of headache behind the left eye ongoing for multiple months. pm1
[2020-12-29] MEDS ORDERED: PROMETHAZINE INJ 25 MG/ML AMP ONE (16:44)
[2020-12-29 17:10] VITALS: TEMP 98.9; O2SAT 100
[2020-12-29 17:11] VITALS: BP 139/103
== END 2020-12-29 16:55 | disposition home or self-care (01) ==
LOC: ER 12:22
DX: R10.12 Left upper quadrant pain (principal); R07.9 Chest pain, unspecified; R51.9 Headache, unspecified; F17.210 Nicotine dependence, cigarettes, uncomplicated; Z88.1 Allergy status to other antibiotic agents; Z88.3 Allergy status to other anti-infective agents
CPT/HCPCS: 36415; 74177; 80048; 80076; 81003; 81025; 83690; 84484; 85025; 93005; 96361; 96374; 96375; 99284; J2405; J2550; J3010; J7030; Q9967

== ENCOUNTER 2021-01-27 19:04 | Emergency (ER) | payer SELFPAY ==
[2021-01-27 20:09] LABS: Urine Blood Negative (Negative); Urine Glucose Negative (Negative); Urine Protein Trace (Negative); Urine Specific Gravity >=1.030 (1.005-1.030); Urine pH 5.5 (5.0-7.0)
[2021-01-27 20:11] LABS: Urine Specific Gravity/Preg >1.030 (1.005-1.030)
[2021-01-27] MEDS ORDERED: NA CHLORIDE 0.9% 1,000 ML ONE (20:34)
[2021-01-27 20:38] LABS: Absolute Lymphocytes (CBC) 1.6 K/uL (0.7-4.9); Basophils % 1.2 % (0-1.3); Lymphocytes % 33.7 % (15.3-44.8); MPV 7.9 fL (7.6-11.3); RBC Red Blood Cell Count 4.11 M/uL (3.86-4.86)
--- NOTE | 2021-01-27 20:42 | RAD REPORT ---
EXAM DESCRIPTION: CT - Head Brain Wo Cont - 01/27/2021 8:05 pm CLINICAL HISTORY: HEADACHE COMPARISON: Head 07/28/2018 TECHNIQUE: Axial 5 mm thick images of the head were obtained without IV contrast. All CT scans are performed using dose optimization technique as appropriate and may include automated exposure control or mA/KV adjustment according to patient size. FINDINGS: No intracranial hemorrhage, mass, edema or shift of mid-line structures. No acute infarcti on changes seen. No abnormal extra-axial fluid collections. Ventricles are normal. Mastoid air cells and visualized portions of the paranasal sinuses are clear. No acute bony findings. IMPRESSION: Negative non-contrast CT head examination. No significant change from comparison.
--- NOTE | 2021-01-27 20:45 | RAD REPORT ---
EXAM DESCRIPTION: RAD - Chest Single View - 01/27/2021 8:15 pm CLINICAL HISTORY: COUGH COMPARISON: Portable May 14 TECHNIQUE: AP portable chest image was obtained 01/27/2021 8:15 pm . FINDINGS: Lungs are clear. Heart and vasculature are normal. No measurable pleural effusion and no p neumothorax. No acute bony abnormality seen. No acute aortic findings suspected. IMPRESSION: No acute cardiopulmonary process. No significant change from comparison study.
[2021-01-27 20:48] LABS: Protime INR 0.97
[2021-01-27 20:54] LABS: ALT/SGPT 39 U/L (12-78); AST/SGOT 27 U/L (15-37); Albumin 3.5 g/dL (3.4-5.0); Alkaline Phosphatase 81 U/L (45-117); BUN Blood Urea Nitrogen 12 mg/dL (7-18); Bicarbonate 25 mmol/L (21-32); Bilirubin Direct < 0.1 mg/dL (0-0.2); Bilirubin Total 0.3 mg/dL (0.2-1.0); Glucose Level 90 mg/dL (74-106); NT PRO-BNP 47 pg/mL (<125); Potassium 4.1 mmol/L (3.5-5.1); Protein, Total 7.8 g/dL (6.4-8.2); Sodium Level 139 mmol/L (136-145); Troponin (Emerg Dept Use Only) < 0.02 ng/mL (0.0-0.045)
[2021-01-27 21:15] LABS: Lipase 99 U/L (73-393)
[2021-01-27 21:24] LABS: Barbiturates NEGATIVE (NEGATIVE); Benzodiazepines NEGATIVE (NEGATIVE); Cocaine NEGATIVE (NEGATIVE); METHAMPHETAM NEGATIVE (NEGATIVE); Methadone NEGATIVE (NEGATIVE); Opiates NEGATIVE (NEGATIVE); Phencyclidine NEGATIVE (NEGATIVE); THC Cannibis NEGATIVE (NEGATIVE)
[2021-01-27] MEDS ORDERED: MAGNES/ALUMIN/SIMET 30ML UCUP ONE ×2 (21:36→21:51)
[2021-01-27] MEDS ORDERED: METOPROLOL XL 50 MG TAB PO ONE ×2 (21:36→21:51)
[2021-01-27] MEDS ORDERED: THIAMINE 200 MG/2 ML INJ ONE ×2 (21:36→21:51)
[2021-01-27] MEDS ORDERED: PANTOPRAZOLE 40 MG INJ ONE ×2 (21:36→21:51)
[2021-01-27] MEDS ORDERED: ASPIRIN 81 MG CHEWABLE TABLET ONE ×2 (21:36→21:52)
[2021-01-27] MEDS ORDERED: LIDOCAINE VISCOUS 2% SOLN 15 ML UDC ONE ×2 (21:37→21:51)
--- NOTE | 2021-01-27 22:50 | ER ---
Nurse's Notes [facility] Name: Kaylen Benson Age: 45 yrs Sex: Female : 1975 Arrival Date: 01/27/2021 Time: 19:09 Bed 8 Private MD: Diagnosis: Chest pain, unspecified;Obesity, unspecified;Gastro-esophageal reflux disease without esophagitis;Alcohol abuse, uncomplicated Presentation: 01/27 19:28 Chief complaint: Patient states: Chest pain, headache, nausea, and blurred vision began vg1 about an hour ago. States BP at home was 179/132. States had a couple of alcohol beverages last night and fell but unsure if hit head. Coronavirus screen: Vaccine status: Patient reports being unvaccinated. Ebola Screen: Patient negative for fever greater than or equal to 101.5 degrees Fahrenheit, and additional compatible Ebola Virus Disease symptoms. Initial Sepsis Screen: Does the patient meet any 2 criteria? No. Patient's initial sepsis screen is negative. Does the patient have a suspected source of infection? No. Patient's initial sepsis screen is negative. Risk Assessment: Do you want to hurt yourself or someone else? Patient reports no desire to harm self or others. Onset of symptoms was January 27, 2021. 19:28 Method Of Arrival: Ambulatory vg1 19:28 Acuity: DONNA 3 vg1 Triage Assessment: 19:30 General: Appears in no apparent distress. uncomfortable, Behavior is cooperative, vg1 anxious. Pain: Complains of pain in head and chest. Cardiovascular: Patient's skin is warm and dry. 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 - Social history:: Smoking status: Patient reports the use of cigarette tobacco products, smokes one-half pack cigarettes per day. - Family history:: not pertinent. Screenin:29 Abuse screen: Denies threats or abuse. Denies injuries from another. Nutritional lp1 screening: No deficits noted. Tuberculosis screening: No symptoms or risk factors identified. Fall Risk None identified. Assessment: 20:15 General: Appears in no apparent distress. Behavior is appropriate for age. Pain: lp1 Complains of pain in face, chest Pain radiates to epigastric area Pain currently is 7 out of 10 on a pain scale. Quality of pain is described as pressure, Pain began gradually, Is continuous. Neuro: Level of Consciousness is awake, alert, obeys commands, Oriented to person, place, time, situation, Moves all extremities. Full function Gait is steady, Pupils are PERRLA, Intact. Cardiovascular: Patient's skin is warm and dry. Respiratory: Respiratory effort is even, unlabored, Breath sounds are clear bilaterally. GI: Reports nausea. : No signs and/or symptoms were reported regarding the genitourinary system. EENT: No signs and/or symptoms were reported regarding the EENT system. Derm: Skin is pink, warm \\T\\ dry. Musculoskeletal: No deficits noted. 21:15 Reassessment: Patient appears in no apparent distress at this time. Reports chest lp1 pressure and mild nausea. 22:58 Reassessment: Patient appears in no apparent distress at this time. Patient is alert, lp1 oriented x 3, equal unlabored respirations, skin warm/dry/pink. Patient reports chest pain and nausea relief Patient states feeling better. Patient states symptoms have improved. Vital Signs: 19:28 BP 144 / 97; Pulse 95; Resp 16; Temp 97.7; Pulse Ox 100% ; Weight 126.1 kg; Height 5 vg1 ft. 8 in. (172.72 cm); Pain 6/10; 21:15 BP 149 / 87; Pulse 81; Resp 20; Pulse Ox 98% on R/A; lp1 22:30 BP 139 / 89; Pulse 66; Resp 20; Pulse Ox 98% on R/A; lp1 23:13 BP 148 / 91; Pulse 68; Resp 19; Pulse Ox 98% on R/A; Pain 0/10; lp1 19:28 Body Mass Index 42.27 (126.10 kg, 172.72 cm) vg1 ED Course: 19:09 Patient arrived in ED. cf2 19:30 Triage completed. vg1 19:30 Arm band placed on. vg1 19:34 Fouzia Reyes, SOLITARIO is Primary Nurse. lp1 19:42 Jose Cantrell MD is Attending Physician. monica 20:05 CT Head Brain wo Cont In Process Unspecified. EDMS 20:14 XRAY Chest (1 view) In Process Unspecified. EDMS 20:15 Inserted saline lock: 20 gauge in left antecubital area, using aseptic technique. Blood lp1 collected. 20:15 Patient maintains SpO2 saturation greater than 95% on room air. lp1 20:30 Patient has correct armband on for positive identification. traffic monitor specialist on. Pulse lp1 ox on. NIBP on. 22:50 Diego Reyes MD is Referral Physician. monica 22:58 No provider procedures requiring assistance completed. lp1 23:13 IV discontinued, No redness/swelling at site. Pressure dressing applied. lp1 Administered Medications: 20:15 Drug: NS 0.9% 500 ml Route: IV; Rate: bolus; Site: left antecubital; lp1 20:53 Follow up: IV Status: Completed infusion; IV Intake: 500ml lp1 20:53 Drug: NS 0.9% 1000 ml Route: IV; Rate: 125 ml/hr; Site: left antecubital; lp1 21:15 Drug: Aspirin Chewable Tablet 162 mg Route: PO; lp1 23:01 Follow up: Response: No adverse reaction lp1 21:15 Drug: Thiamine 100 mg Route: IV; Rate: bolus; Site: left antecubital; lp1 21:15 Drug: GI Cocktail without - (Maalox Suspension 30 ml, Lidocaine Liquid 2 % 15 lp1 ml) Route: PO; 23:00 Follow up: Response: Marked relief of symptoms lp1 21:15 Drug: ProTONIX (pantoprazole) 40 mg Route: IVP; Site: left antecubital; lp1 23:00 Follow up: Response: No adverse reaction lp1 21:15 Drug: ToPROL XL (metoprolol SUCCINATE XL) 50 mg Route: PO; lp1 23:00 Follow up: Response: No adverse reaction lp1 Intake: 20:53 IV: 500ml; Total: 500ml. lp1 Outcome: 22:50 Discharge ordered by . monica 23:13 Discharged to home ambulatory. lp1 23:13 Condition: good 23:13 Discharge instructions given to patient, Instructed on discharge instructions, follow up and referral plans. medication usage, Demonstrated understanding of instructions, follow-up care, medications, Prescriptions given X 2. 23:14 Patient left the ED. lp1 Signatures: Dispatcher [employer] Jose Mcgraw MD MD cha Pena, Laura, RN RN lp1 Sancho Zelaya 2 Vicki Benz, RN RN vg1
--- NOTE | 2021-01-27 22:51 | EDPHYS ---
Physician Documentation [facility] Name: Kaylen Benson Age: 45 yrs Sex: Female : 1975 Arrival Date: 01/27/2021 Time: 19:09 Bed 8 Private MD: RIKA Physician Jose Cantrell HPI: 01/27 20:48 This 45 yrs old Female presents to ER via Ambulatory with complaints of Chest monica Pain, Headache, High Blood Pressure. 20:48 The patient or guardian reports chest pain that is located primarily in the substernal monica area. Onset: today. The pain does not radiate. Associated signs and symptoms: Pertinent positives: dizziness, headache, nausea. The chest pain is described as a pressure. Duration: The patient or guardian reports a single episode, that is still ongoing, but improving. Modifying factors: The symptoms are alleviated by nothing. the symptoms are aggravated by nothing. Severity of pain: At its worst the pain was mild in the emergency department the pain is unchanged. The patient has not experienced similar symptoms in the past. 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 - Social history:: Smoking status: Patient reports the use of cigarette tobacco products, smokes one-half pack cigarettes per day. - Family history:: not pertinent. ROS: 20:48 Constitutional: Negative for fever, chills, and weight loss, Eyes: Negative for injury, monica pain, redness, and discharge, ENT: Negative for injury, pain, and discharge, Neck: Negative for injury, pain, and swelling, Respiratory: Negative for shortness of breath, cough, wheezing, and pleuritic chest pain, Abdomen/GI: Negative for abdominal pain, nausea, vomiting, diarrhea, and constipation, Back: Negative for injury and pain, : Negative for injury, bleeding, discharge, and swelling, MS/Extremity: Negative for injury and deformity, Skin: Negative for injury, rash, and discoloration, Neuro: Negative for headache, weakness, numbness, tingling, and seizure, Psych: Negative for depression, anxiety, suicide ideation, homicidal ideation, and hallucinations, Allergy/Immunology: Negative for hives, rash, and allergies, Endocrine: Negative for neck swelling, polydipsia, polyuria, polyphagia, and marked weight changes, Hematologic/Lymphatic: Negative for swollen nodes, abnormal bleeding, and unusual bruising. 20:48 Cardiovascular: Positive for chest pain. 20:48 Abdomen/GI: Positive for 20:48 Abdomen/GI: Positive for nausea, reflux. monica Exam: 20:48 Constitutional: This is a well developed, well nourished patient who is awake, alert, monica and in no acute distress. Head/Face: Normocephalic, atraumatic. Eyes: Pupils equal round and reactive to light, extra-ocular motions intact. Lids and lashes normal. Conjunctiva and sclera are non-icteric and not injected. Cornea within normal limits. Periorbital areas with no swelling, redness, or edema. ENT: Nares patent. No nasal discharge, no septal abnormalities noted. Tympanic membranes are normal and external auditory canals are clear. Oropharynx with no redness, swelling, or masses, exudates, or evidence of obstruction, uvula midline. Mucous membranes moist. Neck: Trachea midline, no thyromegaly or masses palpated, and no cervical lymphadenopathy. Supple, full range of motion without nuchal rigidity, or vertebral point tenderness. No Meningismus. Chest/axilla: Normal chest wall appearance and motion. Nontender with no deformity. No lesions are appreciated. Cardiovascular: Regular rate and rhythm with a normal S1 and S2. No gallops, murmurs, or rubs. Normal PMI, no JVD. No pulse deficits. Respiratory: Lungs have equal breath sounds bilaterally, clear to auscultation and percussion. No rales, rhonchi or wheezes noted. No increased work of breathing, no retractions or nasal flaring. Abdomen/GI: Soft, non-tender, with normal bowel sounds. No distension or tympany. No guarding or rebound. No evidence of tenderness throughout. Back: No spinal tenderness. No costovertebral tenderness. Full range of motion. Skin: Warm, dry with normal turgor. Normal color with no rashes, no lesions, and no evidence of cellulitis. MS/ Extremity: Pulses equal, no cyanosis. Neurovascular intact. Full, normal range of motion. Neuro: Awake and alert, GCS 15, oriented to person, place, time, and situation. Cranial nerves II-XII grossly intact. Motor strength 5/5 in all extremities. Sensory grossly intact. Cerebellar exam normal. Normal gait. Psych: Awake, alert, with orientation to person, place and time. Behavior, mood, and affect are within normal limits. 20:48 Musculoskeletal/extremity: DVT Exam: No signs of deep vein thrombosis. no pain, no swelling, no tenderness, negative Homans' sign noted on exam, no appreciated bluish discoloration, no erythema, no increased warmth. 20:57 ECG was reviewed by the Attending Physician. [facility] Vital Signs: 19:28 BP 144 / 97; Pulse 95; Resp 16; Temp 97.7; Pulse Ox 100% ; Weight 126.1 kg; Height 5 vg1 ft. 8 in. (172.72 cm); Pain 6/10; 21:15 BP 149 / 87; Pulse 81; Resp 20; Pulse Ox 98% on R/A; lp1 22:30 BP 139 / 89; Pulse 66; Resp 20; Pulse Ox 98% on R/A; lp1 23:13 BP 148 / 91; Pulse 68; Resp 19; Pulse Ox 98% on R/A; Pain 0/10; lp1 19:28 Body Mass Index 42.27 (126.10 kg, 172.72 cm) vg1 MDM: 19:42 Patient medically screened. [facility] 20:50 Differential diagnosis: abnormal EKG, acute pericarditis, anxiety, chest wall pain, monica Cholelithiasis herpes zoster, hiatal hernia, pancreatitis, peptic ulcer disease, pneumonia, stable angina, unstable angina. HEART Score: History: Slightly Suspicious (0), ECG: Normal (0), Age: < or = 45 years (0), Risk Factors: 1 or 2 risk factors (1), [Obesity] Troponin: < or = 1 x Normal Limit (0). The patient was given aspirin in the Emergency Department. The patient's deep vein thrombosis risk score was calculated as follows: Total Score: 0. This patient was found to be at low risk for a deep vein thrombosis by using the Well's assessment criteria. The patient's pulmonary embolism risk score was calculated as follows: Total Score: 0-2 points. This patient was found to be at low risk for a pulmonary embolism by using the Well's assessment criteria. REEMA Risk Score: TOTAL SCORE = 0. Data reviewed: vital signs, nurses notes, lab test result(s), EKG, radiologic studies. Data interpreted: motor man: rate is 95 beats/min, rhythm is regular, Pulse oximetry: on room air is 100 %. Test interpretation: by ED physician or midlevel provider: ECG, plain radiologic studies. Counseling: I had a detailed discussion with the patient and/or guardian regarding: the historical points, exam findings, and any diagnostic results supporting the discharge/admit diagnosis, the presence of at least one elevated blood pressure reading (>120/80) during this emergency department visit, lab results, radiology results. 01/27 19:44 Order name: Basic Metabolic Panel [facility] 01/27 19:44 Order name: CBC with Diff [facility] 01/27 19:44 Order name: LFT's; Complete Time: 21:21 [facility] 01/27 19:44 Order name: Magnesium; Complete Time: 21:21 [facility] 01/27 19:44 Order name: NT PRO-BNP; Complete Time: 21:21 [facility] 01/27 19:44 Order name: PT-INR; Complete Time: 21:21 [facility] 01/27 19:44 Order name: Troponin (emerg Dept Use Only); Complete Time: 21:21 [facility] 01/27 19:44 Order name: Urine Culture [facility] 01/27 19:45 Order name: Basic Metabolic Panel; Complete Time: 21:21 [facility] 01/27 19:45 Order name: CBC with Automated Diff; Complete Time: 20:46 [facility] 01/27 20:08 Order name: Urine Dipstick-Ancillary; Complete Time: 20:46 [facility] 01/27 20:09 Order name: Urine --Ancillary (enter results); Complete Time: 20:46 tt3 01/27 20:56 Order name: UDS [facility] 01/27 19:44 Order name: XRAY Chest (1 view); Complete Time: 20:56 [facility] 01/27 19:44 Order name: EKG; Complete Time: 19:46 [facility] 01/27 19:44 Order name: Cardiac monitoring; Complete Time: 19:47 [facility] 01/27 19:44 Order name: CT Head Brain wo Cont; Complete Time: 20:46 [facility] 01/27 20:56 Order name: ETOH Level [facility] 01/27 20:57 Order name: Urine Drug Screen; Complete Time: 21:31 [facility] 01/27 20:57 Order name: Alcohol Serum/Plasma; Complete Time: 21:31 [facility] 01/27 20:57 Order name: Troponin (emerg Dept Use Only): repeat at 10 pm; Complete Time: 22:49 [facility] 01/27 21:09 Order name: Lipase; Complete Time: 21:21 [facility] 01/27 19:44 Order name: EKG - Nurse/Tech; Complete Time: 19:47 [facility] 01/27 19:44 Order name: IV Saline Lock; Complete Time: 20:33 [facility] 01/27 19:44 Order name: Labs collected and sent; Complete Time: 20:33 [facility] 01/27 19:44 Order name: O2 Per Protocol; Complete Time: 19:47 [facility] 01/27 19:44 Order name: O2 Sat Monitoring; Complete Time: 19:47 [facility] 01/27 19:44 Order name: Urine Dipstick-Ancillary (obtain specimen); Complete Time: 20:11 [facility] EC:57 Rate is 84 beats/min. Rhythm is regular. QRS Seco is Normal. ID interval is normal. QRS monica interval is normal. QT interval is normal. T waves are Normal. No ST changes noted. Clinical impression: NSR w/ Non-specific ST/T Changes and No evidence of ischemia. Interpreted by me. Reviewed by me. Administered Medications: 20:15 Drug: NS 0.9% 500 ml Route: IV; Rate: bolus; Site: left antecubital; lp1 20:53 Follow up: IV Status: Completed infusion; IV Intake: 500ml lp1 20:53 Drug: NS 0.9% 1000 ml Route: IV; Rate: 125 ml/hr; Site: left antecubital; lp1 21:15 Drug: Aspirin Chewable Tablet 162 mg Route: PO; lp1 23:01 Follow up: Response: No adverse reaction lp1 21:15 Drug: Thiamine 100 mg Route: IV; Rate: bolus; Site: left antecubital; lp1 21:15 Drug: GI Cocktail without - (Maalox Suspension 30 ml, Lidocaine Liquid 2 % 15 lp1 ml) Route: PO; 23:00 Follow up: Response: Marked relief of symptoms lp1 21:15 Drug: ProTONIX (pantoprazole) 40 mg Route: IVP; Site: left antecubital; lp1 23:00 Follow up: Response: No adverse reaction lp1 21:15 Drug: ToPROL XL (metoprolol SUCCINATE XL) 50 mg Route: PO; lp1 23:00 Follow up: Response: No adverse reaction lp1 Disposition Summary: 01/27/21 22:50 Discharge Ordered Location: Home monica Problem: new monica Symptoms: have improved monica Condition: Stable monica Diagnosis - Chest pain, unspecified monica - Obesity, unspecified monica - Gastro-esophageal reflux disease without esophagitis monica - Alcohol abuse, uncomplicated monica Followup: monica - With: Private Physician - When: 2 - 3 days - Reason: Recheck today's complaints, Continuance of care, Re-evaluation by your physician Followup: monica - With: - When: 2 - 3 days - Reason: Recheck today's complaints, Re-evaluation by your physician Discharge Instructions: - Discharge Summary Sheet monica - Nonspecific Chest Pain, Adult monica - Alcohol Use Disorder monica - Food Choices for Gastroesophageal Reflux Disease, Adult monica - Gastroesophageal Reflux Disease, Adult monica - Nonspecific Chest Pain, Adult, [id number] monica - Aspirin and Your Heart monica Forms: - Medication Reconciliation Form monica - Thank You Letter monica - Antibiotic Education monica - Prescription Opioid Use [facility] - Work release form lp1 Prescriptions: - Pepcid 20 mg Oral Tablet - take 1 tablet by ORAL route every 12 hours for 15 days; 30 tablet; Refills: 0, [facility] Product Selection Permitted - Toprol XL 25 mg Oral Tablet - take 1 tablet by ORAL route once daily; 20 tablet; Refills: 0, Product [facility] Selection Permitted Signatures: Dispatcher [employer] EDJose Hirsch MD MD cha Pena, Laura, RN RN lp1 Vicki Benz RN RN vg1 Corrections: (The following items were deleted from the chart) 21:09 20:51 LIPASE+C.LAB.BRZ ordered. RIKAAK GOPAL
[2021-01-27 23:20] VITALS: TEMP 97.7
[2021-01-27 23:21] VITALS: O2SAT 98
[2021-01-27 23:24] VITALS: BP 148/91
--- NOTE | 2021-01-28 07:05 | EKG ---
Test Date: 2021-01-27 Test Time: 19:41:40 [employer]: JERE MEASUREMENT RESULTS: Intervals: Rate: 84 WI: 164 QRSD: 76 QT: 378 QTc: 446 [place]: P: 67 WI: 164 QRS: -34 T: 25 INTERPRETIVE STATEMENTS: Normal sinus rhythm Left axis deviation Low voltage QRS Abnormal ECG Compared to ECG 12/29/2020 12:39:03 Left-axis deviation now present Low QRS voltage now present Sinus tachycardia no longer present Myocardial infarct finding no longer present Electronically Signed On 01-28-21 07:04:28 CDT by Diego Reyes
== END 2021-01-27 23:14 | disposition home or self-care (01) ==
LOC: ER 19:04
DX: R07.9 Chest pain, unspecified (principal); K21.9 Gastro-esophageal reflux disease without esophagitis; E66.9 Obesity, unspecified; F10.10 Alcohol abuse, uncomplicated; Z88.1 Allergy status to other antibiotic agents; F17.210 Nicotine dependence, cigarettes, uncomplicated
CPT/HCPCS: 36415; 70450; 71045; 80048; 80076; 80307; 80320; 81003; 81025; 83690; 83735; 83880; 84484; 85025; 85610; 87086; 87088; 93005; 96361; 96374; 96375; 99285; C9113; J3411; J7030

== ENCOUNTER 2021-03-24 14:24 | Emergency (ER) | payer SELFPAY ==
--- OUTSIDE RECORDS SUMMARY | 2021-03-24 14:27 | XMS REPORT | Continuity of Care Document ---
:1975 Author Organization [facility] t Address [address] [place] [place] [address] Care Team Providers Name Role Phone Wanda Venegas Attending Clinician Wanda DIAL Attending Clinician Unavailable Renu REBOLLEDO Attending Clinician Unavailable Hortencia SHERIDAN Attending Clinician Unavailable Payers Payer Name Policy Type Policy Number Effective Date Expiration Date S karishma [employer] [place] [id number] 2018 00:00:00 WOMEN Problems This patient has no known problems. Allergies, Adverse Reactions, Alerts Allergy Allergy Status Severity Reaction(s) Onset Inactive Treating Comm ents Source Name Type Date Date Clinician AMOXICIL DRUG Active Hives 2019-0 [facility] JOSUÉ INGREDI 4-13 ity of 00:00: [address] CLINDAMY DRUG Active Hives 2019-0 [facility] KENNETH INGREDI 4-13 ity of 00:00: [address] Medications This patient has no known medications. Procedures This patient has no known procedures. Encounters Start End Encounter Admission Attending Care Care Encounter Source Date/Time Date/Time Type Type Clinicians Facility Department ID 2021-02-17 Emergency [facility] [id number] [facility] 09:49:03 ity [facility] 2021-02-15 Emergency [facility] [id number] [facility] 17:30:01 ity [facility] 2020-08-20 2020-08-20 [facility] [id number] 06:56:46 23:59:00 Encounter Elisa MCCOY [id number] [facility] [id number] [facility] [id number] [facility] [id number] 2020-08-20 2020-08-20 Outpatient Wanda DIAL [facility] [id number] Univers 15:30:00 15:30:00 MARIA LUZDADA [id number] ity o [facility] 2020-08-20 2020-08-20 Outpatient Wanda DIAL [facility] [id number] Univers 00:00:00 00:00:00 MARIA LUZDADA kyle o [facility] 2020-08-20 2020-08-20 Outpatient Wanda DIAL [facility] [id number] Univers 00:00:00 00:00:00 MARIA LUZDADA kyle o [facility] 2020-07-31 2020-07-31 [facility] [id number] 15:57:09 16:21:23 Visit Elisa Muñoz 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 [id number] [facility] [id number] MATERNAL [id number] & CHILD [address] [place] [address] 2020-07-31 2020-07-31 Outpatient Wanda DIAL [facility] [id number] Univers 15:45:00 15:45:00 ELISA lorenzanaeze o [facility] 2020-07-31 2020-07-31 Outpatient Wanda REBOLLEDO [facility] [id number] Univers 14:45:00 14:45:00 JOHNNA [id number] [facility] 2020-07-31 2020-07-31 [facility] [id number] Univers 14:45:00 14:45:00 JOHNNA [facility] 2020-05-29 2020-05-29 Outpatient Wanda DIAL [facility] [id number] Univers 07:45:00 07:45:00 ELISA [id number] eze o [facility] 2020-05-29 2020-05-29 Outpatient Wanda DIAL [facility] [id number] Univers 07:45:00 07:45:00 ELISA kyle o [facility] 2020-05-25 2020-05-25 Outpatient R FATIMAH [facility] [id number] Univers 10:15:00 10:15:00 KRISS [id number] [facility] 2020-05-25 2020-05-25 Outpatient R FATIMAH, [facility] [id number] Univers 10:15:00 10:15:00 KRISS [facility] 2020-01-04 2020-01-04 [facility] [id number] Univers 14:00:00 14:00:00 ELISA [id number] [facility] 2020-01-04 2020-01-04 Outpatient Wanda DIAL [facility] [id number] Univers 14:00:00 14:00:00 ELISA [facility] 2020-01-03 2020-01-03 [facility] [id number] Univers 13:45:00 13:45:00 ELISA [id number] [facility] Results This patient has no known results.
--- NOTE | 2021-03-24 14:51 | ER ---
Nurse's Notes [facility] Name: Kaylen Benson Age: 45 yrs Sex: Female : 1975 Arrival Date: 03/24/2021 Time: 14:28 Bed Waiting Private MD: Diagnosis: Assessment: 03/24 14:37 Reassessment: pt called from [employer], no response. vg1 14:49 Reassessment: pt called from [employer], no response. vg1 ED Course: 14:28 Patient arrived in ED. ds1 Administered Medications: No medications were administered Outcome: 14:50 Patient left the ED. vg1 Signatures: Malgorzata Ohara ds1 Vicki Benz, RN RN vg1
== END 2021-03-24 14:50 | disposition left against medical advice (07) ==
LOC: ER 14:24
DX: Z02.9 Encounter for administrative examinations, unspecified (principal)

== ENCOUNTER 2021-04-02 21:07 | Emergency (ER) | payer SELFPAY ==
--- OUTSIDE RECORDS SUMMARY | 2021-04-02 21:10 | XMS REPORT | Continuity of Care Document ---
:1975 Author Organization [facility] t Address [address] [place] [address] Care Team Providers Name Role Phone Wanda Venegas Attending Clinician Wanda DIAL Attending Clinician Unavailable Renu REBOLLEDO Attending Clinician Unavailable Hortencia SHERIDAN Attending Clinician Unavailable Payers Payer Name Policy Type Policy Number Effective Date Expiration Date S karishma [place] [place] [id number] 2018 00:00:00 WOMEN Problems This patient has no known problems. Allergies, Adverse Reactions, Alerts Allergy Allergy Status Severity Reaction(s) Onset Inactive Treating Comm ents Source Name Type Date Date Clinician AMOXICIL DRUG Active Hives 2019-0 Univers JOSUÉ INGREDI 4-13 ity of 00:00: [address] CLINDAMY DRUG Active Hives 2019-0 Univers KENNETH INGREDI 4-13 ity of 00:00: [address] Medications This patient has no known medications. Procedures This patient has no known procedures. Encounters Start End Encounter Admission Attending Care Care Encounter Source Date/Time Date/Time Type Type Clinicians Facility Department ID 2021-02-17 Emergency [facility] [id number] Univers 09:49:03 ity [facility] 2021-02-15 Emergency [facility] [id number] Univers 17:30:01 ity [facility] 2020-08-20 2020-08-20 [facility] [id number] 06:56:46 23:59:00 Encounter Elisa MCCOY [id number] [facility] [id number] [facility] [id number] [facility] [address] 2020-08-20 2020-08-20 Outpatient Wanda DIAL [facility] [id number] Univers 15:30:00 15:30:00 MARIA LUZDADA [id number] ity o [facility] 2020-08-20 2020-08-20 Outpatient Wanda DIAL [facility] [id number] Univers 00:00:00 00:00:00 MARIA LUZDADA kyle o [facility] 2020-08-20 2020-08-20 Outpatient Wanda DIAL [facility] [id number] Univers 00:00:00 00:00:00 MARIA LUZDADA kyle o 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 2020-07-31 2020-07-31 Outpatient Wanda REBOLLEDO [facility] [id number] Univers 14:45:00 14:45:00 JOHNNA [id number] [facility] 2020-07-31 2020-07-31 [facility] [id number] Univers 14:45:00 14:45:00 JOHNNA [facility] 2020-05-29 2020-05-29 Outpatient Wanda DIAL [facility] [id number] Univers 07:45:00 07:45:00 ELISA [id number] eze o [facility] 2020-05-29 2020-05-29 Outpatient Wanda DIAL [facility] [id number] Univers 07:45:00 07:45:00 ELISA kyle o [facility] 2020-05-25 2020-05-25 Outpatient R FATIMAH [facility] [id number] Univers 10:15:00 10:15:00 KRISS [id number] [facility] 2020-05-25 2020-05-25 Outpatient R FATIMAH, [facility] [id number] Univers 10:15:00 10:15:00 KRISS [facility] 2020-01-04 2020-01-04 [facility] [id number] Univers 14:00:00 14:00:00 ELISA [id number] [facility] 2020-01-04 2020-01-04 Outpatient Wanda DIAL [facility] [id number] Univers 14:00:00 14:00:00 ELISA [facility] 2020-01-03 2020-01-03 [facility] [id number] Univers 13:45:00 13:45:00 ELISA [id number] [facility] Results This patient has no known results.
[2021-04-02 23:36] LABS: Urine Blood Negative (Negative); Urine Glucose Negative (Negative); Urine Protein Trace (Negative); Urine Specific Gravity >=1.030 (1.005-1.030); Urine pH 5.5 (5.0-7.0)
[2021-04-03 00:25] LABS: Urine Specific Gravity/Preg >1.030 (1.005-1.030)
[2021-04-03 00:30] LABS: Urine Mucus 3+ /HPF (NONE SEEN)
--- NOTE | 2021-04-03 00:30 | EDPHYS ---
Physician Documentation [facility] Name: Kaylen Benson Age: 45 yrs Sex: Female : 1975 Arrival Date: 04/02/2021 Time: 21:11 Bed 17 Private MD: ED Physician Jose Cantrell HPI: 04/03 00:29 This 45 yrs old Female presents to ER via Ambulatory with complaints of Abdominal Pain. jr8 00:29 This is a 45-year-old female patient who presented emergency room with lower abdominal jr8 discomfort and dysuria along with clear vaginal discharge. Patient stated that she found that her boyfriend that she has been having intercourse with has had many partners in the past and was worried that she has an STI. Came for further evaluation at this time. Denies any fevers, nausea, vomiting, diarrhea. 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 - Social history:: Smoking status: Patient reports the use of cigarette tobacco products, smokes one-half pack cigarettes per day. ROS: 04/03 00:29 Constitutional: Negative for fever, chills, and weight loss, Cardiovascular: Negative jr8 for chest pain, palpitations, and edema, Respiratory: Negative for shortness of breath, cough, wheezing, and pleuritic chest pain, Back: Negative for injury and pain, MS/Extremity: Negative for injury and deformity, Skin: Negative for injury, rash, and discoloration, Neuro: Negative for headache, weakness, numbness, tingling, and seizure. Abdomen/GI: Positive for abdominal pain, Negative for nausea, vomiting, and diarrhea. : Positive for urinary symptoms. Exam: 00:29 Constitutional: This is a well developed, well nourished patient who is awake, alert, jr8 and in no acute distress. Cardiovascular: Regular rate and rhythm with a normal S1 and S2. No gallops, murmurs, or rubs. Normal PMI, no JVD. No pulse deficits. Respiratory: Lungs have equal breath sounds bilaterally, clear to auscultation and percussion. No rales, rhonchi or wheezes noted. No increased work of breathing, no retractions or nasal flaring. Abdomen/GI: Soft, non-tender, with normal bowel sounds. No distension or tympany. No guarding or rebound. No evidence of tenderness throughout. Back: No spinal tenderness. No costovertebral tenderness. Full range of motion. Skin: Warm, dry with normal turgor. Normal color with no rashes, no lesions, and no evidence of cellulitis. MS/ Extremity: Pulses equal, no cyanosis. Neurovascular intact. Full, normal range of motion. Neuro: Awake and alert, GCS 15, oriented to person, place, time, and situation. Cranial nerves II-XII grossly intact. Motor strength 5/5 in all extremities. Sensory grossly intact. Vital Signs: 04/02 21:23 BP 138 / 85; Pulse 91; Resp 20; Temp 98.3; Pulse Ox 100% on R/A; Weight 122.47 kg; da3 Height 5 ft. 8 in. (172.72 cm); 22:48 BP 151 / 102; Pulse 92; Resp 18; Pulse Ox 97% on R/A; sm5 04/03 00:45 BP 147 / 86; Pulse 89; Resp 18; Pulse Ox 100% on R/A; sm5 04/02 21:23 Body Mass Index 41.05 (122.47 kg, 172.72 cm) da3 MDM: 04/02 23:03 Patient medically screened. jr8 04/03 00:28 Data reviewed: vital signs, nurses notes, lab test result(s), and as a result, I will jr8 discharge patient. Data interpreted: Pulse oximetry: on room air is 97 %. Interpretation: normal. Counseling: I had a detailed discussion with the patient and/or guardian regarding: the historical points, exam findings, and any diagnostic results supporting the discharge/admit diagnosis, lab results, the need for outpatient follow up, a family practitioner, to return to the emergency department if symptoms worsen or persist or if there are any questions or concerns that arise at home. 00:28 ED course: Discussed with patient that there is no signs of acute urinary tract jr8 infection at this time. Because of the unknown discharge we will prophylactically treat her for STD. Culture is also been soft without as well. If she were to worsen or have any new signs symptoms to come back for further evaluation otherwise needs to follow-up with her primary care in the next few days. Patient good with this at this time.. 04/02 23:10 Order name: Urine Microscopic Only; Complete Time: 00:43 8 04/02 23:36 Order name: Urine Dipstick-Ancillary; Complete Time: 23:42 EDME 04/02 23:39 Order name: Urine --Ancillary (enter results); Complete Time: 00:27 2 04/03 00:32 Order name: Urine Culture EDME 04/02 23:10 Order name: Urine Dipstick-Ancillary (obtain specimen); Complete Time: 23:39 jr8 04/02 23:10 Order name: Urine Test (obtain specimen); Complete Time: 23:39 jr8 Administered Medications: 00:45 Drug: Rocephin (cefTRIAXone) 500 mg Route: IM; Site: left gluteus; 5 00:46 Follow up: Response: Medication administered at discharge. 5 00:45 Drug: Zithromax (azithromycin) 1 grams Route: PO; sm5 00:46 Follow up: Response: Medication administered at discharge. 5 Disposition: 07:03 Co-signature as Attending Physician, Jose Cantrell MD I agree with the assessment and monica plan of care. Disposition Summary: 04/03/21 00:29 Discharge Ordered Location: Home jr8 Problem: new jr8 Symptoms: have improved jr8 Condition: Stable jr8 Diagnosis - Dysuria jr8 Followup: jr8 - With: Private Physician - When: 5 - 6 days - Reason: Recheck today's complaints, Continuance of care, Re-evaluation by your physician Discharge Instructions: - Discharge Summary Sheet jr8 - Dysuria jr8 Forms: - Medication Reconciliation Form jr8 - Thank You Letter jr8 - Antibiotic Education jr8 - Prescription Opioid Use jr8 Signatures: Dispatcher [employer] Jose Mcgraw MD MD cha Roszak, Josh, PA PA jr8 Dash Serrano RN RN da3 Amarilis Graves RN RN sm5 Corrections: (The following items were deleted from the chart) 04/02 23:11 23:11 GC Culture+BA.LAB.BRZ ordered. EDME EDME 23:03 IV Saline Lock ordered. jr8 sm5 23:03 Labs collected and sent ordered. jr8 sm5 23:29 GC Culture+BA.LAB.BRZ ordered. EDMS EDMS
--- NOTE | 2021-04-03 00:30 | ER ---
Nurse's Notes [facility] Name: Kaylen Benson Age: 45 yrs Sex: Female : 1975 Arrival Date: 04/02/2021 Time: 21:11 Bed 17 Private MD: Diagnosis: Dysuria Presentation: 04/02 21:23 Chief complaint: Patient states: abdominal pain x 1 day with nausea. Coronavirus da3 screen: Vaccine status: Patient reports being unvaccinated. Ebola Screen: No symptoms or risks identified at this time. Initial Sepsis Screen: Does the patient meet any 2 criteria? No. Patient's initial sepsis screen is negative. Does the patient have a suspected source of infection? No. Patient's initial sepsis screen is negative. Risk Assessment: Do you want to hurt yourself or someone else? Patient reports no desire to harm self or others. Onset of symptoms was April 02, 2021. 21:23 Method Of Arrival: Ambulatory da3 21:23 Acuity: DONNA 3 da3 Triage Assessment: 21:23 General: Appears in no apparent distress. comfortable, Behavior is calm, cooperative. da3 Pain: Complains of pain in abdomen Pain currently is 7 out of 10 on a pain scale. Quality of pain is described as. GI: No deficits noted. 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 - Social history:: Smoking status: Patient reports the use of cigarette tobacco products, smokes one-half pack cigarettes per day. Screenin:29 Abuse screen: Denies threats or abuse. Denies injuries from another. Nutritional sm5 screening: No deficits noted. Tuberculosis screening: No symptoms or risk factors identified. Fall Risk None identified. Assessment: 22:46 General: Appears in no apparent distress. Behavior is calm, cooperative. Pain: sm5 Complains of pain in abdomen. Neuro: Level of Consciousness is awake, alert, Oriented to person, place, time, situation. Cardiovascular: No deficits noted. Capillary refill < 3 seconds Patient's skin is warm and dry. Respiratory: No deficits noted. Airway is patent Trachea midline Respiratory effort is even, unlabored. GI: Abdomen is flat, non-distended, Bowel sounds present X 4 quads. Abd is soft. : Reports burning with urination, discharge. 23:46 Reassessment: No changes from previously documented assessment. 5 Vital Signs: 21:23 BP 138 / 85; Pulse 91; Resp 20; Temp 98.3; Pulse Ox 100% on R/A; Weight 122.47 kg; da3 Height 5 ft. 8 in. (172.72 cm); 22:48 BP 151 / 102; Pulse 92; Resp 18; Pulse Ox 97% on R/A; sm5 04/03 00:45 BP 147 / 86; Pulse 89; Resp 18; Pulse Ox 100% on R/A; sm5 04/02 21:23 Body Mass Index 41.05 (122.47 kg, 172.72 cm) da3 ED Course: 04/02 21:11 Patient arrived in ED. wm 21:23 Arm band placed on right wrist. da3 21:26 Triage completed. da3 21:57 Amarilis Graves, RN is Primary Nurse. sm5 22:30 Patient has correct armband on for positive identification. Bed in low position. Call [facility] light in reach. Side rails up X 1. 23:02 Phil Cabrera PA is PHCP. jr8 23:02 Jose Cantrell MD is Attending Physician. jr8 23:39 Urine Microscopic Only Sent. 5 04/03 00:25 No provider procedures requiring assistance completed. 5 00:46 Patient did not have IV access during this emergency room visit. 5 Administered Medications: 00:45 Drug: Rocephin (cefTRIAXone) 500 mg Route: IM; Site: left gluteus; sm5 00:46 Follow up: Response: Medication administered at discharge. 5 00:45 Drug: Zithromax (azithromycin) 1 grams Route: PO; sm5 00:46 Follow up: Response: Medication administered at discharge. 5 Outcome: 00:29 Discharge ordered by . jr8 00:46 Discharged to home ambulatory, with significant other. sm5 00:46 Condition: good 00:46 Discharge instructions given to patient, Instructed on discharge instructions, follow up and referral plans. Demonstrated understanding of instructions, follow-up care. 00:46 Patient left the ED. sm5 Signatures: Phil Cabrera PA PA jr8 Natasha Albright David, RN RN da3 Amarilis Graves RN RN sm5
[2021-04-03 00:31] LABS: Calcium Oxalate Crystals- Ur FEW (NONE SEEN); Urine Bacteria 20-50 /HPF (<20); Urine RBC <5 /HPF (NONE SEEN)
[2021-04-03] MEDS ORDERED: CEFTRIAXONE 500 MG/VIAL ONE (00:32)
[2021-04-03] MEDS ORDERED: AZITHROMYCIN 250 MG TAB ONE (00:34)
[2021-04-03 01:11] VITALS: TEMP 98.3
[2021-04-03 01:14] VITALS: BP 147/86; O2SAT 100
== END 2021-04-03 00:46 | disposition home or self-care (01) ==
LOC: ER 21:07
DX: R30.0 Dysuria (principal); F41.9 Anxiety disorder, unspecified; J44.9 Chronic obstructive pulmonary disease, unspecified; G43.909 Migraine, unspecified, not intractable, without status migrainosus; F17.210 Nicotine dependence, cigarettes, uncomplicated
CPT/HCPCS: 81003; 81015; 81025; 87077; 87086; 87088; 87186; 96372; 99283; J0696

== ENCOUNTER 2021-07-06 21:39 | Emergency (ER) | payer OTHER ==
--- OUTSIDE RECORDS SUMMARY | 2021-07-06 21:43 | XMS REPORT | Continuity of Care Document ---
:1975 Author Organization [facility] t Address [address] [place] [address] Care Team Providers Name Role Phone PCP, DOES NOT HAVE A Primary Care Physician Unavailable Hortencia SHERIDAN Attending Clinician Unavailable Wanda LAGUNAS Attending Clinician Unavailable Wanda Venegas Attending Clinician Renu REBOLLEDO Attending Clinician Unavailable Wanda LAGUNAS Admitting Clinician Unavailable Payers Payer Name Policy Type Policy Number Effective Date Expiration Date S ource [employer] [place] [id number] 2018 WOMEN 00:00:00 [place] [id number] 2021 00:00:00 Problems This patient has no known problems. Allergies, Adverse Reactions, Alerts Allergy Allergy Status Severity Reaction(s) Onset Inactive Treating Comm ents Source Name Type Date Date Clinician AMOXICIL DRUG Active Hives 2019-0 Univers JOSUÉ INGREDI 4-13 ity of 00:00: [address] CLINDAMY DRUG Active Hives 2019-0 Univers KENNETH INGREDI 4-13 ity of 00:00: [address] Medications This patient has no known medications. Procedures This patient has no known procedures. Encounters Start End Encounter Admission Attending Care Care Encounter Source Date/Time Date/Time Type Type Clinicians Facility Department ID 2021-02-17 Emergency [facility] [id number] Univers 09:49:03 ity [facility] 2021-02-15 Emergency [facility] [id number] [facility] 2021-06-12 2021-06-12 Outpatient R FATIMAH [facility] [id number] Univers 15:00:00 15:00:00 KRISS [id number] ity o [facility] 2021-06-12 2021-06-12 Outpatient R AKINSIPE, [facility] [id number] Univers 15:00:00 15:00:00 KRISS ity o [facility] 2021-05-17 2021-05-17 Outpatient R AKINSIPE, [facility] [id number] Univers 09:15:00 09:15:00 KRISS [id number] ity o [facility] 2021-05-17 2021-05-17 Outpatient R AKINSIPE, [facility] [id number] Univers 09:15:00 09:15:00 KRISS eze o [facility] 2021-05-15 2021-05-15 Outpatient R AKINSIPE, [facility] [id number] Univers 13:15:00 13:15:00 KRISS [id number] [facility] 2020-08-20 2020-08-20 Outpatient R BEBO [facility] [id number] Univers 06:56:46 23:59:00 ELISA [facility] 2020-08-20 2020-08-20 Hospital [facility] [id number] 06:56:46 23:59:00 Encounter Elisa Muñoz SPECIALTY [id number] [facility] [id number] [place] AT [id number] [facility] [address] [place] [address] 2020-08-20 2020-08-20 Outpatient R BEBO [facility] [id number] Univers 15:30:00 15:30:00 NOREENGOKULNDPb [id number] [facility] 2020-08-20 2020-08-20 [facility] [id number] Univers 00:00:00 00:00:00 MARIA LUZNDA iteze o [facility] 2020-07-31 2020-07-31 Office [facility] [id number] 15:57:09 16:21:23 Visit Elisa Muñoz 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 [id number] [facility] [id number] MATERNAL [id number] & CHILD [address] [place] [address] 2020-07-31 2020-07-31 Outpatient Wanda LAGUNAS [facility] [id number] Univers 15:45:00 15:45:00 ROSGOKULNDA iteze o [facility] 2020-07-31 2020-07-31 Outpatient Wanda REBOLLEDO [facility] [id number] Univers 14:45:00 14:45:00 JOHNNA [id number] [facility] 2020-07-31 2020-07-31 Outpatient Wanda REBOLLEDO [facility] [id number] Univers 14:45:00 14:45:00 JOHNNA eze [facility] 2020-05-29 2020-05-29 Outpatient Wanda LAGUNAS [facility] [id number] Univers 07:45:00 07:45:00 ELISA [id number] iteze o [facility] 2020-05-29 2020-05-29 Outpatient Wanda LAGUNAS [facility] [id number] Univers 07:45:00 07:45:00 MARIA LUZNDA iteze o [facility] 2020-05-25 2020-05-25 Outpatient R FATIMAH [facility] [id number] Univers 10:15:00 10:15:00 KRISS [id number] ity o [facility] 2020-05-25 2020-05-25 Outpatient R FATIMAH [facility] [id number] Univers 10:15:00 10:15:00 KRISS ity o [facility] 2020-01-04 2020-01-04 Outpatient Wanda LAGUNAS [facility] [id number] Univers 14:00:00 14:00:00 PIEROA [id number] ity o [facility] 2020-01-04 2020-01-04 Outpatient Wanda LAGUNAS [facility] [id number] Univers 14:00:00 14:00:00 ROSHUNDA ity o [facility] 2020-01-03 2020-01-03 Outpatient Wanda LAGUNAS [facility] [id number] Univers 13:45:00 13:45:00 ELISA [id number] kyle nelson [facility] Results This patient has no known results.
[2021-07-06 23:25] LABS: Absolute Lymphocytes (CBC) 1.9 K/uL (0.7-4.9); Hematocrit 36.1 % (36.0-45.0); Lymphocytes % 36.2 % (15.3-44.8); MPV 7.8 fL (7.6-11.3)
[2021-07-06 23:31] LABS: Potassium 3.7 mmol/L (3.5-5.1); Troponin High Sensitivity 8.9 pg/mL (<58.9)
[2021-07-06] MEDS ORDERED: KETOROLAC 30 MG/ML INJ ONE (23:59)
[2021-07-06] MEDS ORDERED: NA CHLORIDE 0.9% 100 ML IV ONE (23:59)
[2021-07-06] MEDS ORDERED: METOCLOPRAMIDE 10 MG/2mL INJ ONE (23:59)
[2021-07-06] MEDS ORDERED: DIPHENHYDRAMINE 50 MG/ML VIAL ONE (23:59)
--- NOTE | 2021-07-07 01:09 | ER ---
Nurse's Notes [facility] Name: Kaylen Benson Age: 46 yrs Sex: Female : 1975 Arrival Date: 07/06/2021 Time: 21:40 Bed 5 Private MD: Diagnosis: Chest pain, unspecified;Fall on same level, unspecified;Unspecified injury of head, initial encounter Presentation: 07/06 21:50 Chief complaint: Patient states: I think I had too much to drink last night, tripped ld1 over my own feet and fell from standing - hit top of head. Denies LOC. Pt states chest tightness on and off all day today. Pt reports possible anxiety. Coronavirus screen: At this time, the client does not indicate any symptoms associated with coronavirus-19. Ebola Screen: No symptoms or risks identified at this time. 21:50 Method Of Arrival: Ambulatory ld1 21:50 Initial Sepsis Screen: Does the patient meet any 2 criteria? No. Patient's initial ld1 sepsis screen is negative. Does the patient have a suspected source of infection? No. Patient's initial sepsis screen is negative. Risk Assessment: Do you want to hurt yourself or someone else? Patient reports no desire to harm self or others. Onset of symptoms was July 06, 2021. 21:50 Acuity: DONNA 3 ld1 Triage Assessment: 21:52 General: Appears in no apparent distress. comfortable, Behavior is calm, cooperative, ld1 appropriate for age. Pain: Complains of pain in face Pain does not radiate. Pain currently is 8 out of 10 on a pain scale. Quality of pain is described as throbbing, Pain began suddenly, Is continuous. Neuro: Level of Consciousness is awake, alert, obeys commands, Oriented to person, place, time, situation. Cardiovascular: Capillary refill < 3 seconds Patient's skin is warm and dry. Rhythm is regular. Respiratory: Airway is patent Respiratory effort is even, unlabored, Respiratory pattern is regular, symmetrical. 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 - Social history:: Smoking status: Patient reports the use of cigarette tobacco products, smokes one-half pack cigarettes per day, Patient/guardian denies using alcohol. Screenin:56 Abuse screen: Denies threats or abuse. Denies injuries from another. Nutritional tw5 screening: No deficits noted. Tuberculosis screening: No symptoms or risk factors identified. Fall Risk None identified. Assessment: 22:56 General: Reports "I had a mild heart attack in my twenties. So now whenever I feel tw5 tightness or pain in my chest I get anxious. I would rather be safe than sorry.". Pain: Complains of pain in diaphragm Pain radiates to right arm Pain currently is 7 out of 10 on a pain scale. Quality of pain is described as pressure, squeezing. Neuro: Level of Consciousness is awake, alert, obeys commands, Oriented to person, place, time, situation. Cardiovascular: Heart tones S1 S2 Capillary refill < 3 seconds is brisk in left in bilateral. Respiratory: Airway is patent Trachea midline Respiratory effort is even, unlabored, Breath sounds are clear bilaterally. 07/07 00:00 Reassessment: No changes from previously documented assessment. Patient and/or family ll3 updated on plan of care and expected duration. Pain level reassessed. Patient is alert, oriented x 3, equal unlabored respirations, skin warm/dry/pink. Vital Signs: 07/06 21:50 BP 132 / 88; Pulse 104; Resp 18; Temp 98.4(TE); Pulse Ox 99% on R/A; Weight 136.08 kg; ld1 Height 5 ft. 7 in. (170.18 cm); Pain 8/10; 22:56 BP 133 / 93; Pulse 93; Resp 18; Pulse Ox 98% on R/A; Pain 7/10; tw5 07/07 00:00 BP 148 / 90; Pulse 79; Resp 13; Pulse Ox 100% on R/A; ll3 01:15 BP 122 / 95; Pulse 86; Resp 20; Pulse Ox 98% on R/A; ll3 07/06 21:50 Body Mass Index 46.99 (136.08 kg, 170.18 cm) ld1 ED Course: 07/06 21:40 Patient arrived in ED. jj6 21:52 Triage completed. ld1 21:52 Arm band placed on left wrist. ld1 22:12 [facility] pm1 22:12 Alexis Naidu DO is Attending Physician. pm1 22:50 Tiesha Saba is Primary Nurse. tw5 22:56 Patient has correct armband on for positive identification. Placed in gown. Bed in low tw5 position. Call light in reach. Side rails up X 1. quality technician on. Pulse ox on. NIBP on. Door closed. Noise minimized. Moved to private room. Warm blanket given. Verbal reassurance given. 22:56 Initial lab(s) drawn, by me, sent to lab. Inserted saline lock: 20 gauge in right tw5 antecubital area, using aseptic technique. Blood collected. 23:04 Troponin High Sensitivity Sent. tw5 23:04 CBC with Automated Diff Sent. tw5 23:05 Basic Metabolic Panel Sent. tw5 23:05 Basic Metabolic Panel Sent. tw5 23:05 CBC with Diff Sent. tw5 23:05 Troponin HS Sent. tw5 23:12 XRAY Chest (1 view) In Process Unspecified. EDMS 23:48 CT Head C Spine In Process Unspecified. EDMS 07/07 01:22 No provider procedures requiring assistance completed. IV discontinued, intact, ll3 bleeding controlled, No redness/swelling at site. Pressure dressing applied. Administered Medications: 00:05 Drug: Ketorolac 30 mg Route: IVP; Site: right forearm; ll3 00:05 Drug: Reglan (metoCLOPramide) 10 mg Route: IVP; Site: right forearm; ll3 00:05 Drug: Benadryl (diphenhydrAMINE) 25 mg Route: IVP; Site: right forearm; ll3 Outcome: 01:09 Discharge ordered by . pm1 01:22 Discharged to home ambulatory, with family. ll3 01:22 Condition: stable 01:22 Discharge instructions given to patient, Instructed on discharge instructions, follow up and referral plans. Demonstrated understanding of instructions, follow-up care. 01:22 Patient left the ED. ll3 Signatures: Dispatcher [employer] EDKS Christo Murphy NP ROAD MECHANIC pm1 Arabella Gibbons RN RN ld1 Tiesha Saba tw5 Brittany Blankenship jj6 Cris Erazo RN RN ll3
--- NOTE | 2021-07-07 01:09 | EDPHYS ---
Physician Documentation [facility] Name: Kaylen Benson Age: 46 yrs Sex: Female : 1975 Arrival Date: 07/06/2021 Time: 21:40 Bed 5 Private MD: ED Physician Alexis Naidu HPI: 07/06 22:39 This 46 yrs old Female presents to ER via Ambulatory with complaints of Fall Injury, pm1 Head Injury-Adult, Chest Tightness. 22:39 Details of fall: The patient fell from an upright position, while standing. Onset: The pm1 symptoms/episode began/occurred yesterday. Associated injuries: The patient sustained injury to the head, contusion, pain. Severity of symptoms: in the emergency department the symptoms are unchanged. The patient has not experienced similar symptoms in the past. The patient has not recently seen a physician. Patient with complaints of chest pain onset after having a fall injury to the back of her head. Patient reports fall as a result of drinking too much alcohol last night. 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 - Social history:: Smoking status: Patient reports the use of cigarette tobacco products, smokes one-half pack cigarettes per day, Patient/guardian denies using alcohol. ROS: 22:39 Constitutional: Negative for fever, chills, and weight loss. pm1 22:39 Respiratory: Negative for shortness of breath, cough, wheezing, and pleuritic chest pain, Abdomen/GI: Negative for abdominal pain, nausea, vomiting, diarrhea, and constipation, Back: Negative for injury and pain, MS/Extremity: Negative for injury and deformity, Skin: Negative for injury, rash, and discoloration. 22:39 Cardiovascular: Positive for chest pain, Negative for edema. 22:39 Neuro: Positive for headache, Negative for numbness, tingling, weakness. 22:39 All other systems are negative. pm1 Exam: 22:39 Constitutional: This is a well developed, well nourished patient who is awake, alert, pm1 and in no acute distress. Head/Face: Normocephalic, atraumatic. 22:39 Back: No spinal tenderness. No costovertebral tenderness. Full range of motion. Skin: Warm, dry with normal turgor. Normal color with no rashes, no lesions, and no evidence of cellulitis. 22:39 Chest/axilla: Exam negative for acute changes, Inspection: normal, Palpation: is normal. 22:39 Cardiovascular: Rate: normal, Rhythm: regular, Pulses: no pulse deficits are appreciated, Heart sounds: normal. 22:39 Respiratory: Exam negative for acute changes, respiratory distress, shortness of breath, Breath sounds: are clear throughout. 22:39 Abdomen/GI: Inspection: abdomen appears normal, Palpation: abdomen is soft and non-tender, in all quadrants. 22:39 Musculoskeletal/extremity: Exam is negative for acute changes, Extremities: all appear grossly normal, with no appreciated pain with palpation. 22:39 Neuro: Exam negative for acute changes, Orientation: is normal, Mentation: is normal, Motor: is normal, moves all fours. Vital Signs: 21:50 BP 132 / 88; Pulse 104; Resp 18; Temp 98.4(TE); Pulse Ox 99% on R/A; Weight 136.08 kg; ld1 Height 5 ft. 7 in. (170.18 cm); Pain 8/10; 22:56 BP 133 / 93; Pulse 93; Resp 18; Pulse Ox 98% on R/A; Pain 7/10; tw5 07/07 00:00 BP 148 / 90; Pulse 79; Resp 13; Pulse Ox 100% on R/A; ll3 01:15 BP 122 / 95; Pulse 86; Resp 20; Pulse Ox 98% on R/A; ll3 07/06 21:50 Body Mass Index 46.99 (136.08 kg, 170.18 cm) ld1 MDM: 07/06 22:48 Patient medically screened. pm1 07/07 01:08 Data reviewed: vital signs. Data interpreted: Pulse oximetry: on room air is 100 %. pm1 Interpretation: normal. Counseling: I had a detailed discussion with the patient and/or guardian regarding: the historical points, exam findings, and any diagnostic results supporting the discharge/admit diagnosis, lab results, radiology results, the need for outpatient follow up, to return to the emergency department if symptoms worsen or persist or if there are any questions or concerns that arise at home. 07/06 22:37 Order name: Basic Metabolic Panel pm1 07/06 22:37 Order name: CBC with Diff pm1 07/06 22:37 Order name: Troponin HS pm1 07/06 22:38 Order name: Basic Metabolic Panel; Complete Time: 23:45 EDMS 07/06 22:38 Order name: CBC with Automated Diff; Complete Time: 23:45 EDMS 07/06 22:38 Order name: Troponin High Sensitivity; Complete Time: 23:45 EDMS 07/06 22:37 Order name: XRAY Chest (1 view) pm1 07/06 22:37 Order name: EKG; Complete Time: 22:38 pm1 07/06 22:37 Order name: Cardiac monitoring; Complete Time: 23:05 pm1 07/06 22:37 Order name: EKG - Nurse/Tech; Complete Time: 22:50 pm1 07/06 22:37 Order name: CT Head C Spine pm1 07/06 22:37 Order name: IV Saline Lock; Complete Time: 23:05 pm1 07/06 22:37 Order name: Labs collected and sent; Complete Time: 23:05 pm1 07/06 22:37 Order name: O2 Per Protocol; Complete Time: 23:05 pm1 07/06 22:37 Order name: O2 Sat Monitoring; Complete Time: 23:05 pm1 Administered Medications: 00:05 Drug: Ketorolac 30 mg Route: IVP; Site: right forearm; ll3 00:05 Drug: Reglan (metoCLOPramide) 10 mg Route: IVP; Site: right forearm; ll3 00:05 Drug: Benadryl (diphenhydrAMINE) 25 mg Route: IVP; Site: right forearm; ll3 Disposition: 05:31 Co-signature as Attending Physician, Alexis Naidu DO I agree with the assessment and ms3 plan of care. Disposition Summary: 07/07/21 01:09 Discharge Ordered Location: Home pm1 Problem: new pm1 Symptoms: have improved pm1 Condition: Stable pm1 Diagnosis - Chest pain, unspecified pm1 - Fall on same level, unspecified pm1 - Unspecified injury of head, initial encounter pm1 Followup: pm1 - With: Emergency Department - When: As needed - Reason: Worsening of condition Followup: pm1 - With: Private Physician - When: 2 - 3 days - Reason: Recheck today's complaints, Continuance of care, Re-evaluation by your physician Discharge Instructions: - Discharge Summary Sheet pm1 - Nonspecific Chest Pain, Adult pm1 - Head Injury, Adult pm1 Forms: - Medication Reconciliation Form pm1 - Thank You Letter pm1 - Antibiotic Education pm1 - Prescription Opioid Use pm1 Signatures: Dispatcher [employer] EDMS Christo Murphy, SARAH DIAZO TECHNICIAN pm1 Alexis Naidu DO DO ms3 Arabella Gibbons RN RN ld1 Cris Erazo RN RN ll3
[2021-07-07 01:39] VITALS: TEMP 98.4
[2021-07-07 01:43] VITALS: BP 122/95; O2SAT 98
--- NOTE | 2021-07-08 08:22 | EKG ---
Test Date: 2021-07-06 Test Time: 21:56:35 Commercial Painter: THEODORA MEASUREMENT RESULTS: Intervals: Rate: 106 RI: 174 QRSD: 70 QT: 344 QTc: 456 Canby: P: 60 RI: 174 QRS: 22 T: 13 INTERPRETIVE STATEMENTS: Sinus tachycardia with premature ventricular complexes or fusion complexes Low voltage QRS Borderline ECG Compared to ECG 01/27/2021 19:41:40 Fusion complex(es) now present Ventricular premature complex(es) now present Sinus rhythm no longer present Left-axis deviation no longer present Electronically Signed On 07-08-21 08:19:55 CDT by Diego Reyes
--- NOTE | 2021-07-08 11:55 | RAD REPORT ---
EXAM DESCRIPTION: RAD - Chest Single View - 07/06/2021 11:12 pm CLINICAL HISTORY: CHEST PAIN COMPARISON: Portable 01/27/2021 TECHNIQUE: AP portable chest image was obtained 07/06/2021 11:12 pm . FINDINGS: No focal mass or consolidation. Interstitial pattern is mildly prominent but not clearly d ifferent from comparison. Heart and vasculature are normal. No measurable pleural effusion and no pne umothorax. No acute bony abnormality seen. No acute aortic findings suspected. Final report was delayed due to technical malfunction. IMPRESSION: No acute cardiopulmonary process.
--- NOTE | 2021-07-08 12:16 | RAD REPORT ---
EXAM DESCRIPTION: CT - [id number] - 07/07/2021 6:41 am CLINICAL HISTORY: 46 years, Female, PAIN COMPARISON: 01/27/2021 FINDINGS: Multiple transaxial tomograms of the brain were obtained from the base of the skull to the vertex without contrast. 2-D multiplanar reformats and the coronal and sagittal plane were performed and reviewed. This exam was performed according to our departmental dose-optimization protocol, which includes auto mated exposure control, adjustment of the mA and/or kV according to patient size and/or use of iterat olaf reconstruction technique. Brain parenchyma as well as the zazueta and white matter differentiation demonstrate to be unremarkable. There is no midline shift and/or mass effect. There is no evidence for acute hemorrhage. No focal ar eas of hypodensities. Lateral ventricles and cisterns displace normal appearance. No intra or ext ra axial fluid collections were seen. The calvarium is intact with no evidence for fracture. The visu alized portions of the paranasal sinuses and orbits demonstrate to be clear. IMPRESSION: NO ACUTE INTRACRANIAL HEMORRHAGE. UNREMARKABLE CT SCAN OF THE HEAD WITHOUT CONTRAST. Electronically signed by: Leo Haas MD 07/07/2021 12:13 AM CDT Due to temporary technical issues with the PACS/Fluency reporting system, reports are being signed by the in house radiologist without review as a courtesy to ensure prompt reporting. The interpreting r adiologist is fully responsible for the content of the report.
== END 2021-07-07 01:22 | disposition home or self-care (01) ==
LOC: ER 21:39
DX: S09.90XA Unspecified injury of head, initial encounter (principal); R07.9 Chest pain, unspecified; W18.30XA Fall on same level, unspecified, initial encounter; F17.210 Nicotine dependence, cigarettes, uncomplicated; Z88.1 Allergy status to other antibiotic agents; Z88.3 Allergy status to other anti-infective agents; Z88.6 Allergy status to analgesic agent
CPT/HCPCS: 93005; 85025; 80048; 36415; 84484; 70450; 72125; 71045; 96375; 96374; 99284; J2765; J1200

== ENCOUNTER 2021-09-04 07:23 | Emergency (ER) | payer OTHER ==
--- OUTSIDE RECORDS SUMMARY | 2021-09-04 07:27 | XMS REPORT | Continuity of Care Document ---
:1975 Author Organization [facility] t Address [address] [place] [address] [address] [place] [address] Care Team Providers Name Role Phone PCP, DOES NOT HAVE A Primary Care Physician Unavailable Nannette MEADOWS Attending Clinician Unavailable Franny PAC, S Attending Clinician Jayro MARTE, R Attending Clinician Payers Payer Name Policy Type Policy Number Effective Date Expiration Date Nannette schwarz [place] [employer] [id number] 2021 HEALTH 00:00:00 Problems Condition Condition Condition Status Onset Resolution Last Treating Co mments Source Name Details Category Date Date Treatment Clinician Date History of History of Disease Active U nivers bilateral bilateral 4-13 ity of ligation ligation 00:00: [place] of of 00 Medical fallopian fallopian Bran ch tubes tubes BMI BMI Disease Active Univers 45.0-49.9, 45.0-49.9, 4-13 it y of adult adult 00:00: [place] 00 Medical Branch Screening Screening Disease Active Uni vers examinatio examinatio 5-29 it y of n for STD n for STD 00:00: Miri paez (sexually (sexually 00 Medi todd transmitte transmitte Br anch d disease) d disease) Class 3 Class 3 Disease Active 2015-04 Univers severe severe 1-12 ity of obesity obesity 00:00: [place] due to due to 00 Medical excess excess Branch calories calories with body with body mass index mass index (BMI) of (BMI) of 45.0 to 45.0 to 49.9 in 49.9 in adult, adult, unspecifie unspecifie d whether d whether serious serious comorbidit comorbidit y present y present Allergies, Adverse Reactions, Alerts Allergy Allergy Status Severity Reaction(s) Onset Inactive Treating Comm ents Source Name Type Date Date Clinician Clindamy Propensi Active Hives Univer s she ty to 4-13 ity of adverse 00:00: [place] reaction 00 Medical s Branch AMOXICIL DRUG Active Hives Univers STEPHANIE INGREDI 4-13 ity of 00:00: [place] 00 Medical Branch CLINDAMY DRUG Active Hives Univers SHE INGREDI 4-13 ity of 00:00: [place] 00 Medical Branch Amoxicil Propensi Active Hives Univer s stephanie ty to 4-13 ity of adverse 00:00: [place] reaction 00 Medical s Branch Social History Social Habit Start Date Stop Date Quantity Comments Source History of Cigarette Smoker Universi ty of tobacco use [place] [facility] History SDOH University o f Alcohol Frequency [place] [facility] History SDOH University o f Alcohol Std [place] [facility] Drinks [facility] History SDOH University o f Alcohol Binge [place] [facility] Exposure to 2021-08-12 2021-08-22 Not sure University SARS-CoV-2 00:00:00 15:14:00 [facility] (event) Branch Alcohol intake 2020-07-31 2020-07-31 Current drinker Unive rsity of 00:00:00 00:00:00 of alcohol [facility] (finding) Branch Tobacco use and 2018-09-15 2018-09-15 Never used Universit y of exposure 00:00:00 00:00:00 [facility] Alcohol Comment 2018-09-15 2018-09-15 occasional Universit y of 00:00:00 00:00:00 [facility] Tobacco Comment 2018-09-15 2018-09-15 5 cigarettes a Unive rsity of 00:00:00 00:00:00 day [facility] Sex [birth year] Universit y of 00:00:00 00:00:00 [facility] Smoking Status Start Date Stop Date Source Current every day smoker 2018-09-15 00:00:00 Uni versity of [facility] Medications Ordered Filled Start Stop Current Ordering Indication Dosage Frequency Signature Comments Components Source Medication Medication Date Date Medication? Clinician (SIG) Name Name No known No Univers medications 08-22 ity of 15:24: [address] Vital Signs Vital Name Observation Time Observation Value Comments Source Systolic blood 2021-08-22 20:24:00 141 mm[Hg] Univer sity [facility] pressure [facility] Diastolic blood 2021-08-22 20:24:00 85 [facility]Hg[facility] 2021-08-22 20:23:00 85 /min [facility] Body height 2021-08-22 20:23:00 170.2 cm [facility] Body weight 2021-08-22 20:23:00 136.986 kg [facility] BMI 2021-08-22 20:23:00 47.30 kg/m2 [facility] Oxygen saturation 2021-08-22 20:23:00 97 /min [facility] in Arterial blood Medical Br anch by Pulse oximetry Procedures This patient has no known procedures. Encounters Start End Encounter Admission Attending Care Care Encounter Source Date/Time Date/Time Type Type Clinicians Facility Department ID 2021-09-26 2021-09-[address] [facility] [id number] Univers 15:00:00 15:00:00 STAR [id number] [facility] 2021-08-22 2021-08-22 [id number] Univers 15:50:00 23:59:00 [facility] 2021-08-22 2021-08-22 [facility] [id number] Univers 15:00:00 15:30:00 Visit [facility] [id number] it y of [place] [id number] Hever as PEREZ?BLEA [id number] Md gely [address] MEDICAL OFFICE BUILDING 2020-08-20 2020-08-20 Hospital [facility] [id number] 06:56:46 23:59:00 Encounter Elisa Muñoz SPECIALTY [id number] CARE [id number] CENTER AT [id number] IRVIN [address] [place] [address] 2020-07-31 2020-07-31 Office Dial [facility] [id number] 15:57:09 16:21:23 Visit Elisa Muñoz 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
[2021-09-04 08:00] LABS: Urine Blood Trace-intact (Negative); Urine Glucose Negative (Negative); Urine Protein Negative (Negative); Urine Specific Gravity >=1.030 (1.005-1.030)
[2021-09-04 09:51] LABS: Urine Bacteria >50 /HPF (<20); Urine RBC <5 /HPF (NONE SEEN)
--- NOTE | 2021-09-04 10:16 | EDPHYS ---
Physician Documentation [facility] Name: Kaylen Benson Age: 46 yrs Sex: Female : 1975 Arrival Date: 09/04/2021 Time: 07:25 Bed Waiting Private MD: Lobito Ventura ED Physician Alexis Naidu HPI: 09/04 09:29 This 46 yrs old Female presents to ER via Ambulatory with complaints of Flank Pain, ms3 Urinary Problem - foul odor. 09:29 The patient complains of pain in the left mid back. The pain does not radiate. Onset: ms3 The symptoms/episode began/occurred acutely, 2 day(s) ago. Modifying factors: The symptoms are alleviated by nothing. the symptoms are aggravated by nothing. Associated signs and symptoms: Pertinent negatives: fever, urinary frequency. Severity of pain: At its worst the pain was moderate a 5 / 10 in the emergency department the pain is unchanged. 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 - Social history:: Smoking status: Patient reports the use of cigarette tobacco products, smokes one-half pack cigarettes per day. ROS: 09:29 Constitutional: Negative for fever, and chills. ENT: Negative for injury, pain, and ms3 discharge, Neck: Negative for injury, pain, and swelling, Cardiovascular: Negative for chest pain, and palpitations. Respiratory: Negative for shortness of breath, cough, wheezing, and pleuritic chest pain, Abdomen/GI: Negative for abdominal pain, nausea, vomiting, diarrhea, and constipation, Back: Negative for injury and pain, MS/Extremity: Negative for injury and deformity, Skin: Negative for injury, rash, and discoloration. 09:29 : Positive for urinary frequency, foul smelling urine. Exam: 09:29 Constitutional: This is a well developed, well nourished patient who is awake, alert, ms3 and in no acute distress. Head/Face: Normocephalic, atraumatic. Eyes: Pupils equal round and reactive to light, extra-ocular motions intact. Lids and lashes normal. Conjunctiva and sclera are non-icteric and not injected. Periorbital areas with no swelling, redness, or edema. Neck: Trachea midline, no cervical lymphadenopathy. Supple, full range of motion without nuchal rigidity, or vertebral point tenderness. No Meningismus. Chest/axilla: Normal chest wall appearance and motion. Nontender with no deformity. Cardiovascular: Regular rate and rhythm with a normal S1 and S2. No gallops, murmurs, or rubs. Normal PMI, no JVD. No pulse deficits. Respiratory: Lungs have equal breath sounds bilaterally, clear to auscultation and percussion. No rales, rhonchi or wheezes noted. No increased work of breathing, no retractions or nasal flaring. Abdomen/GI: Soft, non-tender, with normal bowel sounds. No distension or tympany. No guarding or rebound. No evidence of tenderness throughout. Back: No spinal tenderness. No costovertebral tenderness. Full range of motion. Skin: Warm, dry with normal turgor. Normal color with no rashes, no lesions, and no evidence of cellulitis. MS/ Extremity: Pulses equal, no cyanosis. Neurovascular intact. Full, normal range of motion. Psych: Awake, alert, with orientation to person, place and time. Behavior, mood, and affect are within normal limits. Vital Signs: 07:34 BP 127 / 97; Pulse 81; Temp 97.2; Pulse Ox 100% ; Weight 136.08 kg; Height 5 ft. 8 in. ap3 (172.72 cm); 07:34 Body Mass Index 45.61 (136.08 kg, 172.72 cm) ap3 MDM: 07:40 Patient medically screened. ms3 09:29 Differential diagnosis: pyelonephritis, UTI. Data reviewed: vital signs, nurses notes, ms3 lab test result(s). 09/04 08:00 Order name: Urine Dipstick-Ancillary; Complete Time: 08:57 EDMS 09/04 07:41 Order name: Urine Dipstick-Ancillary (obtain specimen); Complete Time: 08:38 ms3 09/04 09:33 Order name: Urine Microscopic Only; Complete Time: 10:15 ss 09/04 09:54 Order name: Urine Culture EDMS Administered Medications: No medications were administered Disposition Summary: 09/04/21 10:16 Discharge Ordered Location: Home ms3 Problem: new ms3 Symptoms: are unchanged ms3 Condition: Stable ms3 Diagnosis - UTI/ Urinary tract infection, site not specified ms3 Followup: ms3 - With: Lobito Ventura DO - When: 2 - 3 days - Reason: Recheck today's complaints Discharge Instructions: - Discharge Summary Sheet ms3 - Urinary Tract Infection, Adult ms3 Forms: - Medication Reconciliation Form ms3 - Thank You Letter ms3 - Antibiotic Education ms3 - Prescription Opioid Use ms3 Prescriptions: - cefpodoxime 200 mg Oral Tablet - take 1 tablet by ORAL route every 12 hours with food; 20 tablet; Refills: 0, ms3 Product Selection Permitted Signatures: Dispatcher [employer] Miri Sigala RN RN ap3 Alexis Naidu DO DO ms3
--- NOTE | 2021-09-04 10:16 | ER ---
Nurse's Notes [facility] Name: Kaylen Benson Age: 46 yrs Sex: Female : 1975 Arrival Date: 09/04/2021 Time: 07:25 Bed Waiting Private MD: Lobito Ventura Diagnosis: UTI/ Urinary tract infection, site not specified Presentation: 09/04 07:34 Chief complaint: Patient states: she has been having flank pain, foul smelling,dark ap3 urine and pain with urination for 2-3 days now. patient states when she started noticing the symptoms she increased her water intake and started drinking cranberry juice. She said doing this helped the color of the urine, however it still has a foul odor. Coronavirus screen: At this time, the client does not indicate any symptoms associated with coronavirus-19. Ebola Screen: No symptoms or risks identified at this time. Initial Sepsis Screen: Does the patient meet any 2 criteria? No. Patient's initial sepsis screen is negative. Does the patient have a suspected source of infection? No. Patient's initial sepsis screen is negative. Risk Assessment: Do you want to hurt yourself or someone else? Patient reports no desire to harm self or others. Onset of symptoms was September 02, 2021. 07:34 Method Of Arrival: Ambulatory ap3 07:34 Acuity: DONNA 3 ap3 Triage Assessment: 07:37 General: Appears in no apparent distress. Behavior is calm, cooperative, appropriate ap3 for age. Pain: Complains of pain in low back area. Neuro: Level of Consciousness is awake, alert, obeys commands, Oriented to person, place, time. Cardiovascular: Patient's skin is warm and dry. Respiratory: Airway is patent Respiratory effort is even, unlabored. : Reports burning with urination, pain flank(s), urinary frequency, dark urine with foul odor. RADIOLOGY ORDERLY: 07:39 LMP 08/03/2021 ap3 Historical: - Allergies: 07:36 Clindamycin; ap3 07:36 Amoxicillin; ap3 07:36 "sensitive to pain medications"; ap3 - PMHx: 07:36 Anxiety; COPD; hypotension; Migraines; Thyroid problem; Vertigo; ap3 - PSHx: 07:36 section; ap3 - Immunization history:: Client reports having NOT received the Covid vaccine. - Social history:: Smoking status: Patient reports the use of cigarette tobacco products, smokes one-half pack cigarettes per day. Screenin:38 Abuse screen: Denies threats or abuse. Nutritional screening: No deficits noted. ap3 Tuberculosis screening: No symptoms or risk factors identified. Fall Risk None identified. Assessment: 10:24 General: Appears in no apparent distress. comfortable, Behavior is calm, cooperative. ss Neuro: Level of Consciousness is awake, alert, obeys commands, Oriented to person, place, time, situation. Cardiovascular: Capillary refill < 3 seconds is brisk in bilateral fingers. Respiratory: Airway is patent Respiratory effort is even, unlabored, Respiratory pattern is regular, symmetrical. EENT: Nares are clear. Derm: Skin is intact, is healthy with good turgor, Skin is dry, Skin is pink, warm \\T\\ dry. normal. Musculoskeletal: Circulation, motion, and sensation intact. Range of motion: intact in all extremities, Swelling. Vital Signs: 07:34 BP 127 / 97; Pulse 81; Temp 97.2; Pulse Ox 100% ; Weight 136.08 kg; Height 5 ft. 8 in. ap3 (172.72 cm); 07:34 Body Mass Index 45.61 (136.08 kg, 172.72 cm) ap3 ED Course: 07:25 Patient arrived in ED. as 07:26 Lobito Ventura DO is Private Physician. as 07:36 Triage completed. ap3 07:38 Arm band placed on right wrist. ap3 07:40 Alexis Naidu DO is Attending Physician. ms3 10:15 Lobito Ventura DO is Referral Physician. ms3 10:24 Charleen Lyn, SOLITARIO is Primary Nurse. ss 10:24 Patient has correct armband on for positive identification. ss 10:24 No provider procedures requiring assistance completed. Patient did not have IV access ss during this emergency room visit. Administered Medications: No medications were administered Medication: 07:38 VIS not applicable for this client. ap3 Outcome: 10:16 Discharge ordered by . ms3 10:24 Discharged to home ambulatory. ss 10:24 Condition: good 10:24 Discharge instructions given to patient, family, Instructed on discharge instructions, follow up and referral plans. medication usage, Demonstrated understanding of instructions, follow-up care, medications, Prescriptions given X 1. 10:26 Patient left the ED. ss Signatures: Amanda Park Shelby, RN RN ss Miri Ryder RN RN ap3 Alexis Naidu DO DO ms3
[2021-09-04 10:37] VITALS: BP 127/97; TEMP 97.2; O2SAT 100
== END 2021-09-04 10:26 | disposition home or self-care (01) ==
LOC: ER 07:23
DX: N39.0 Urinary tract infection, site not specified (principal); F17.210 Nicotine dependence, cigarettes, uncomplicated; Z88.1 Allergy status to other antibiotic agents; Z88.3 Allergy status to other anti-infective agents
CPT/HCPCS: 81003; 81015; 87077; 87086; 87088; 87186; 99281

== ENCOUNTER 2021-09-27 06:50 | Emergency (ER) | payer OTHER ==
--- OUTSIDE RECORDS SUMMARY | 2021-09-27 06:52 | XMS REPORT | Continuity of Care Document ---
:1975 Author Organization [facility] t Address [address] [place] [address] Care Team Providers Name Role Phone PCP, DOES NOT HAVE A Primary Care Physician Unavailable Nannette MEADOWS Attending Clinician Unavailable Doctor Unassigned, Name Attending Clinician Unavailable Dori GREY S Attending Clinician Jayro MARTE R Attending Clinician Payers Payer Name Policy Type Policy Number Effective Date Expiration Date Nannette schwarz [place] [employer] [id number] 2021 HEALTH 00:00:00 Problems Condition Condition Condition Status Onset Resolution Last Treating Co mments Source Name Details Category Date Date Treatment Clinician Date History of History of Disease Active U nivers bilateral bilateral 4-13 ity of ligation ligation 00:00: [place] of of 00 Medical fallopian fallopian Bran [...] Date Date Clinician AMOXICIL DRUG Active Hives 2018- Univers STEPHANIE INGREDI 4-13 ity of 00:00: [place] 00 [facility] CLINDAMY DRUG Active Hives Univers SHE INGREDI 4-13 ity of 00:00: [place] 00 [facility] Branch Amoxicil Propensi Active Hives Univer s stephanie ty to 4-13 ity of adverse 00:00: [place] reaction 00 Medical s Branch Clindamy Propensi Active Hives Univer s she ty to 4-13 ity of adverse 00:00: [place] reaction 00 Medical s Branch Social History Social Habit Start Date Stop Date Quantity Comments Source History of Cigarette Smoker Universi ty of tobacco use [place] [facility] History SDOH University o f Alcohol Frequency [facility] edical Branch History SDOH University o f Alcohol Std [place] [facility] Drinks Branch History SDOK University o f Alcohol Binge [place] [facility] Exposure to 2021-08-12 2021-08-22 Not sure University of SARS-CoV-2 00:00:00 15:14:00 [facility] (event) Branch Alcohol intake 2020-07-31 2020-07-31 Current drinker Unive rsity of 00:00:00 00:00:00 of alcohol [place] [facility] (finding) Branch Tobacco use and 2018-09-15 2018-09-15 Never used Universit y of exposure 00:00:00 00:00:00 [facility] Alcohol Comment 2018-09-15 2018-09-15 occasional Universit y of 00:00:00 00:00:00 [facility] Tobacco Comment 2018-09-15 2018-09-15 5 cigarettes a Unive rsity of 00:00:00 00:00:[address] [facility] Sex Assigned At [birth year] Universit y of 00:00:00 00:00:00 [facility] Smoking Status Start Date Stop Date Source Current every day smoker 2018-09-15 00:00:[address] [facility] Medications Ordered Filled Start Stop Current Ordering Indication Dosage Frequency Signature Comments Components Source Medication Medication Date Date Medication? Clinician (SIG) Name Name No known No Univers medications 5-05 ity of 15:24: [address] No known No Univers medications 5-05 ity of 15:24: [address] Vital Signs Vital Name Observation Time Observation Value Comments Source Systolic blood 2021-08-22 20:24:00 141 mm[Hg] Univer sity [facility] pressure [facility] Diastolic blood 2021-08-22 20:24:00 85 [facility]Hg[facility] 2021-08-22 20:23:00 85 [facility] Body height 2021-08-22 20:23:00 170.2 cm [facility] Body weight 2021-08-22 20:23:00 136.986 kg [facility] BMI 2021-08-22 20:23:00 47.30 kg/m2 [facility] Oxygen saturation 2021-08-22 20:23:00 97 /min [facility] in Arterial blood Medical Br anch by Pulse oximetry Procedures Procedure Date / Time Performed Performing Clinician [facility] e EXTERNAL PROVIDER 2021-09-04 05:01:00 Doctor Dago, No [facility] RECORDS Name [facility] Encounters Start End Encounter Admission Attending Care Care Encounter Source Date/Time Date/Time Type Type Clinicians Facility Department ID 2021-10-03 2021-10-03 Outpatient Wanda MEADOWS [facility] [id number] Univers 15:15:00 15:15:00 [id number] 2021-09-26 2021-09-26 Outpatient Wanda MEADOWS [facility] [id number] Univers 15:00:00 15:00:00 STAR [id number] ity [facility] 2021-09-26 2021-09-26 [facility] [id number] Univers 15:00:00 15:00:00 STAR [facility] 2021-09-04 2021-09-04 Orders Doctor YU [id number] Univers 00:00:00 00:00:00 Only UnassignedMELISSA [id number] ity of [place] [facility] [id number] [place] as [id number] [address] 2021-08-22 2021-08-22 Outpatient R DORI [facility] [id number] Univers 15:50:00 23:59:00 STAR wright [facility] 2021-08-22 2021-08-22 Office Dori [facility] [id number] Univers 15:00:00 15:30:00 [facility] [id number] [facility] [id number] Hever as PEREZ?BLEA [id number] [address] MEDICAL OFFICE BUILDING 2020-08-20 2020-08-20 [facility] [id number] 06:56:46 23:59:00 Encounter Elisa Muñoz SPECIALTY [id number] [facility] [id number] CENTER AT [id number] [address] 2020-07-31 2020-07-31 Office Jayro [facility] [id number] 15:57:09 16:21:23 Visit Elisa Muñoz FELLER [facility] [id number] [facility] [id number] MATERNAL [id number] & CHILD [address] [place] [address] [facility] Results This patient has no known results.
[2021-09-27 07:29] LABS: Urine Blood Negative (Negative); Urine Glucose Negative (Negative); Urine Protein Trace (Negative); Urine Specific Gravity >=1.030 (1.005-1.030); Urine pH 5.5 (5.0-7.0)
[2021-09-27 08:07] LABS: Absolute Lymphocytes (CBC) 2.5 K/uL (0.7-4.9); Hematocrit 40.3 % (36.0-45.0); Lymphocytes % 37.6 % (15.3-44.8); RBC Red Blood Cell Count 4.47 M/uL (3.86-4.86)
[2021-09-27] MEDS ORDERED: ONDANSETRON 4 MG (ODT) TAB ONE (08:37)
[2021-09-27] MEDS ORDERED: PANTOPRAZOLE 40MG TABLET PO ONE (08:37)
[2021-09-27 09:17] LABS: Albumin 3.4 g/dL (3.4-5.0); Bilirubin Total 0.2 mg/dL (0.2-1.0); Potassium 3.4 mmol/L (3.5-5.1); Protein, Total 8.6 g/dL (6.4-8.2); Troponin High Sensitivity 7.9 pg/mL (<58.9)
--- NOTE | 2021-09-27 09:22 | ER ---
Nurse's Notes [facility] Name: Kaylen Benson Age: 46 yrs Sex: Female : 1975 Arrival Date: 09/27/2021 Time: 06:51 Bed 23 Private MD: Thang Lazaro Diagnosis: Epigastric abdominal tenderness;Tobacco abuse counseling;Tobacco use;Obesity, unspecified;Bronchitis, not specified as acute or chronic;Hypokalemia Presentation: 09/27 07:06 Chief complaint: Patient states: i have been having some dark yellow mucous for 3 days tw2 now. my daughter told me that she contracted COVID. so i went to get to get tested and i was negative. i have been having stomach pain and burning with urination as well. Coronavirus screen: congestion, headache, nausea, Client presents with at least one sign or symptom that may indicate coronavirus-19. Standard/surgical mask placed on the client. Provider contacted for isolation considerations. Ebola Screen: Patient denies travel to an Ebola-affected area in the 21 days before illness onset. Initial Sepsis Screen: Does the patient meet any 2 criteria? No. Patient's initial sepsis screen is negative. Does the patient have a suspected source of infection? No. Patient's initial sepsis screen is negative. Risk Assessment: Do you want to hurt yourself or someone else? Patient reports no desire to harm self or others. Onset of symptoms was September 27, 2021. 07:06 Method Of Arrival: Ambulatory tw2 07:06 Acuity: DONNA 3 tw2 Triage Assessment: 07:09 General: Appears in no apparent distress. obese, Behavior is calm, cooperative, tw2 appropriate for age. Pain: Complains of pain in abdomen. GI: Reports lower abdominal pain, upper abdominal pain, nausea. : Reports burning with urination. 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 - Social history:: Smoking status: Patient reports the use of cigarette tobacco products, 3-4 cigarettes. - Family history:: not pertinent. Screenin:30 Abuse screen: Denies threats or abuse. Nutritional screening: No deficits noted. tw2 Tuberculosis screening: No symptoms or risk factors identified. Fall Risk None identified. Assessment: 07:45 General: Appears in no apparent distress. comfortable, Behavior is cooperative. Pain: ww Denies pain. Neuro: Level of Consciousness is awake, alert, obeys commands, Oriented to person, place, time, situation, Moves all extremities. Gait is steady, Speech is normal. Cardiovascular: Capillary refill < 3 seconds Patient's skin is warm and dry. Respiratory: Airway is patent Respiratory effort is even, unlabored, Respiratory pattern is regular, symmetrical. GI: No signs and/or symptoms were reported involving the gastrointestinal system. Abdomen is obese, Abd is soft and non tender. : Urine is clear, Reports burning with urination. EENT: Reports nasal discharge. Derm: Skin is intact, is healthy with good turgor. 08:30 Reassessment: Patient appears in no apparent distress at this time. No changes from previously documented assessment. Patient and/or family updated on plan of care and expected duration. Pain level reassessed. Patient is alert, oriented x 3, equal unlabored respirations, skin warm/dry/pink. 09:24 Reassessment: Patient appears in no apparent distress at this time. No changes from previously documented assessment. Patient and/or family updated on plan of care and expected duration. Pain level reassessed. Patient is alert, oriented x 3, equal unlabored respirations, skin warm/dry/pink. 10:06 Reassessment: Patient appears in no apparent distress at this time. No changes from previously documented assessment. Patient and/or family updated on plan of care and expected duration. Pain level reassessed. Patient is alert, oriented x 3, equal unlabored respirations, skin warm/dry/pink. Vital Signs: 07:06 BP 150 / 86; Pulse 86; Resp 17; Temp 97.9; Pulse Ox 100% on R/A; Weight 113.4 kg; tw2 Height 5 ft. 8 in. (172.72 cm); Pain 7/10; 07:06 Body Mass Index 38.01 (113.40 kg, 172.72 cm) tw2 ED Course: 06:51 Patient arrived in ED. as 06:54 Thang Lazaro MD is Private Physician. as 07:06 Arm band placed on. tw2 07:09 Triage completed. tw2 07:10 Bed in low position. Call light in reach. Pulse ox on. NIBP on. tw2 07:14 Jose Cantrell MD is Attending Physician. monica 07:36 Influenza Screen (a \\T\\ B) Sent. ww 07:36 COVID-19 (Coronavirus) Document "Date of Onset" if Symptomatic Sent. ww 07:45 EKG done, by ED staff, reviewed by Jose Cantrell MD. em1 08:07 Chest Pa And Lat (2 Views) XRAY In Process Unspecified. EDKS 08:29 Mary Saba, RN is Primary Nurse. ww 09:22 Thang Lazaro MD is Referral Physician. monica 09:22 Darryn Paulson MD is Referral Physician. monica 10:06 No provider procedures requiring assistance completed. Patient did not have IV access ww during this emergency room visit. Administered Medications: 08:33 Drug: ProTONIX (pantoprazole) 40 mg Route: PO; ww 08:33 Drug: Zofran (Ondansetron) 4 mg Route: PO; ww 08:52 Not Given (No IV): NS 0.9% 1000 ml IV at 1 bolus Per protocol; 1000 mL bolus ww 10:04 Drug: Potassium Effervescent Tablet 25 mEq Route: PO; ww Medication: 07:30 VIS not applicable for this client. tw2 Outcome: 09:22 Discharge ordered by . monica 10:06 Discharged to home ambulatory. ww 10:06 Condition: stable 10:06 Discharge instructions given to patient, Instructed on discharge instructions, follow up and referral plans. medication usage, Demonstrated understanding of instructions, follow-up care, medications, Prescriptions given X 4. 10:07 Patient left the ED. ww Signatures: Dispatcher [employer] EDMS Jose Cantrell MD MD cha Martinez, Amelia as Martinez, Eric em1 Dayana Raymundo RN RN tw2 Mary Saba RN RN ww
--- NOTE | 2021-09-27 09:23 | EDPHYS ---
Physician Documentation [facility] Name: Kaylen Benson Age: 46 yrs Sex: Female : 1975 Arrival Date: 09/27/2021 Time: 06:51 Bed 23 Private MD: Thang Lazaro ED Physician Jose Cantrell HPI: 09/27 08:25 This 46 yrs old Female presents to ER via Ambulatory with complaints of Chest monica Congestion, Abdominal Problem. 08:25 The patient presents with abdominal pain in the epigastric area, in the upper abdomen. monica Onset: The symptoms/episode began/occurred 3 day(s) ago. The patient or guardian reports cough, described as mild, difficulty breathing. Onset: The symptoms/episode began/occurred 3 day(s) ago. Severity of symptoms: At their worst the symptoms were mild, in the emergency department the symptoms are unchanged. Modifying factors: The symptoms are alleviated by nothing, the symptoms are aggravated by nothing. The symptoms do not radiate. Associated signs and symptoms: none. Severity of pain: At its worst the pain was mild in the emergency department the pain is unchanged. The patient has experienced similar episodes in the past, several times. 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 - Social history:: Smoking status: Patient reports the use of cigarette tobacco products, 3-4 cigarettes. - Family history:: not pertinent. ROS: 08:25 Constitutional: Negative for fever, chills, and weight loss, Eyes: Negative for injury, monica pain, redness, and discharge, ENT: Negative for injury, pain, and discharge, Neck: Negative for injury, pain, and swelling, Cardiovascular: Negative for chest pain, palpitations, and edema, Back: Negative for injury and pain, : Negative for injury, bleeding, discharge, and swelling, MS/Extremity: Negative for injury and deformity, Skin: Negative for injury, rash, and discoloration, Neuro: Negative for headache, weakness, numbness, tingling, and seizure, Psych: Negative for depression, anxiety, suicide ideation, homicidal ideation, and hallucinations, Allergy/Immunology: Negative for hives, rash, and allergies, Endocrine: Negative for neck swelling, polydipsia, polyuria, polyphagia, and marked weight changes, Hematologic/Lymphatic: Negative for swollen nodes, abnormal bleeding, and unusual bruising. 08:25 Respiratory: Positive for cough, with green sputum. 08:25 Abdomen/GI: Positive for abdominal pain, nausea. Exam: 08:25 Constitutional: This is a well developed, well nourished patient who is awake, alert, monica and in no acute distress. Head/Face: Normocephalic, atraumatic. Eyes: Pupils equal round and reactive to light, extra-ocular motions intact. Lids and lashes normal. Conjunctiva and sclera are non-icteric and not injected. Cornea within normal limits. Periorbital areas with no swelling, redness, or edema. ENT: Nares patent. No nasal discharge, no septal abnormalities noted. Tympanic membranes are normal and external auditory canals are clear. Oropharynx with no redness, swelling, or masses, exudates, or evidence of obstruction, uvula midline. Mucous membranes moist. Neck: Trachea midline, no thyromegaly or masses palpated, and no cervical lymphadenopathy. Supple, full range of motion without nuchal rigidity, or vertebral point tenderness. No Meningismus. Chest/axilla: Normal chest wall appearance and motion. Nontender with no deformity. No lesions are appreciated. Cardiovascular: Regular rate and rhythm with a normal S1 and S2. No gallops, murmurs, or rubs. Normal PMI, no JVD. No pulse deficits. Respiratory: Lungs have equal breath sounds bilaterally, clear to auscultation and percussion. No rales, rhonchi or wheezes noted. No increased work of breathing, no retractions or nasal flaring. Back: No spinal tenderness. No costovertebral tenderness. Full range of motion. Skin: Warm, dry with normal turgor. Normal color with no rashes, no lesions, and no evidence of cellulitis. MS/ Extremity: Pulses equal, no cyanosis. Neurovascular intact. Full, normal range of motion. Neuro: Awake and alert, GCS 15, oriented to person, place, time, and situation. Cranial nerves II-XII grossly intact. Motor strength 5/5 in all extremities. Sensory grossly intact. Cerebellar exam normal. Normal gait. Psych: Awake, alert, with orientation to person, place and time. Behavior, mood, and affect are within normal limits. 08:25 ECG was reviewed by the Attending Physician. 08:25 Abdomen/GI: Inspection: distension, is not seen, Bowel sounds: active, all quadrants, Palpation: mild abdominal tenderness, in the right upper quadrant and left upper quadrant, Liver: no appreciated palpable abnormalities, Hernia: not appreciated. Vital Signs: 07:06 BP 150 / 86; Pulse 86; Resp 17; Temp 97.9; Pulse Ox 100% on R/A; Weight 113.4 kg; tw2 Height 5 ft. 8 in. (172.72 cm); Pain 7/10; 07:06 Body Mass Index 38.01 (113.40 kg, 172.72 cm) tw2 MDM: 07:14 Patient medically screened. [facility] 08:25 Differential Diagnosis: Bronchitis Upper Respiratory Infection. Differential diagnosis: monica Cholelithiasis, gastritis, gastroesophageal reflux disease, Hepatitis, non-specific abd pain, pancreatitis, Peptic Ulcer Disease, urinary tract infection. Data reviewed: vital signs, nurses notes, lab test result(s), EKG. Data interpreted: hall monitor: not applicable for this patient encounter. rate is 86 beats/min, Pulse oximetry: on room air is 100 %. Test interpretation: by ED physician or midlevel provider: ECG, plain radiologic studies. Counseling: I had a detailed discussion with the patient and/or guardian regarding: the historical points, exam findings, and any diagnostic results supporting the discharge/admit diagnosis, lab results, radiology results, the need for outpatient follow up, for definitive care, a family practitioner, a security administrator. 09/27 07:20 Order name: CBC with Diff; Complete Time: 08:24 [facility] 09/27 07:20 Order name: Comprehensive Metabolic Panel; Complete Time: : [facility] 09/27 07:20 Order name: SARS-COV-2 RT PCR (Document "Date of Onset" if Symptomatic); Complete Time: [facility] 09:09/27 07:20 Order name: Lipase; Complete Time: : [facility] 09/27 07:20 Order name: Urine Culture [facility] 09/27 07:20 Order name: Troponin High Sensitivity; Complete Time: 09:21 [facility] 09/27 07:20 Order name: Chest Pa And Lat (2 Views) XRAY [facility] 09/27 07:23 Order name: COVID-19 (Coronavirus) Document "Date of Onset" if Symptomatic 09/27 07:23 Order name: Influenza Screen (a \\T\\ B); Complete Time: 08:24 ww 09/27 07:29 Order name: Urine Dipstick-Ancillary; Complete Time: 08:24 EDMS 09/27 07:47 Order name: Urine --Ancillary (enter results); Complete Time: 08:24 eb 09/27 07:20 Order name: Urine Dipstick-Ancillary (obtain specimen); Complete Time: 07:36 [facility] 09/27 07:20 Order name: Urine Test (obtain specimen); Complete Time: 07:40 [facility] 09/27 07:20 Order name: EKG; Complete Time: 07:20 [facility] 09/27 07:20 Order name: EKG - Nurse/Tech; Complete Time: 07:44 [facility] 09/27 08:15 Order name: Labs - recollect needed: recollect green top/ inside lab notified; Complete eb Time: 08:52 EC:25 Rate is 75 beats/min. Rhythm is regular. QRS [place] is Normal. [place] interval is normal. QRS monica interval is normal. QT interval is normal. No Q waves. T waves are Normal. No ST changes noted. Clinical impression: NSR w/ Non-specific ST/T Changes and No evidence of ischemia. Interpreted by me. Reviewed by me. Administered Medications: 08:33 Drug: ProTONIX (pantoprazole) 40 mg Route: PO; ww 08:33 Drug: Zofran (Ondansetron) 4 mg Route: PO; ww 08:52 Not Given (No IV): NS 0.9% 1000 ml IV at 1 bolus Per protocol; 1000 mL bolus ww 10:04 Drug: Potassium Effervescent Tablet 25 mEq Route: PO; ww Disposition Summary: 09/27/21 09:22 Discharge Ordered Location: Home monica Problem: new monica Symptoms: have improved monica Condition: Fair monica Diagnosis - Epigastric abdominal tenderness monica - Tobacco abuse counseling monica - Tobacco use monica - Obesity, unspecified monica - Bronchitis, not specified as acute or chronic monica - Hypokalemia monica Followup: monica - With: - When: 2 - 3 days - Reason: Recheck today's complaints, Continuance of care, Re-evaluation by your physician Followup: monica - With: - When: 2 - 3 days - Reason: Recheck today's complaints, Re-evaluation by your physician Discharge Instructions: - Abdominal Pain, Adult monica - Acute Bronchitis, Adult monica - Obesity, Adult monica - Steps to Quit Smoking monica - Upper Respiratory Infection, Adult monica - Potassium Content of Foods moniac - Discharge Summary Sheet tw2 - Upper Respiratory Infection, Adult, [id number] monica - Steps to Quit Smoking, [id number] monica - Hypokalemia [facility] Forms: - Work release form tw2 - Medication Reconciliation Form [facility] - Thank You Letter [facility] - Antibiotic Education [facility] - Prescription Opioid Use [facility] Prescriptions: - Protonix 40 mg Oral Tablet - take 1 tablet by ORAL route once daily; 30 tablet; Refills: 0, Product monica Selection Permitted - Zithromax Z-Lemuel 250 mg Oral Tablet - take 1 tablet by ORAL route as directed for 5 days Day 1 - take two (2) tablets monica one time. Day 2, 3, 4 , 5 take one (1) tablet once daily.; 6 tablet; Refills: 0, Product Selection Permitted - Bromfed DM 2-30-10 mg/5 mL Oral syrup - take 10 milliliter by ORAL route every 6 hours; 160 milliliter; Refills: 0, monica Product Selection Permitted - albuterol sulfate 90 mcg/actuation Inhalation HFA aerosol inhaler - inhale 2 puff by INHALATION route every 6 hours; 1 Pump; Refills: 0, Product monica Selection Permitted Signatures: Dispatcher [employer] Jose Mcgraw MD MD cha Wise, Tara, RN RN tw2 Lisa Keyes Whitney, RN RN ww
--- NOTE | 2021-09-27 09:56 | RAD REPORT ---
EXAM DESCRIPTION: Leslie Wolfe And Arun (2 Views)09/27/2021 8:05 am CLINICAL HISTORY: Cough COMPARISON: June 2021 FINDINGS: The lungs appear clear of acute infiltrate. The heart is normal size IMPRESSION: No acute abnormalities displayed
[2021-09-27] MEDS ORDERED: POTASSIUM 25 MEQ EFFERV TAB ONE (10:04)
[2021-09-27 10:26] VITALS: BP 150/86; TEMP 97.9; O2SAT 100
--- NOTE | 2021-09-28 09:13 | EKG ---
Test Date: 2021-09-27 Test Time: 07:38:14 Rv Body Mechanic: TANA MEASUREMENT RESULTS: Intervals: Rate: 75 FL: 168 QRSD: 84 QT: 394 QTc: 439 [place]: P: 46 FL: 168 QRS: -11 T: 46 INTERPRETIVE STATEMENTS: Normal sinus rhythm Low voltage QRS Borderline ECG Compared to ECG 07/06/2021 21:56:35 Sinus tachycardia no longer present Fusion complex(es) no longer present Ventricular premature complex(es) no longer present Electronically Signed On 09-28-21 09:10:51 CDT by Diego Reyes
== END 2021-09-27 10:07 | disposition home or self-care (01) ==
LOC: ER 06:50
DX: J40 Bronchitis, not specified as acute or chronic (principal); R10.816 Epigastric abdominal tenderness; E87.6 Hypokalemia; Z68.38 Body mass index [BMI] 38.0-38.9, adult; E66.9 Obesity, unspecified; Z20.822 Contact with and (suspected) exposure to COVID-19; Z88.6 Allergy status to analgesic agent; Z88.1 Allergy status to other antibiotic agents; Z88.3 Allergy status to other anti-infective agents; Z71.6 Tobacco abuse counseling; Z72.0 Tobacco use
CPT/HCPCS: 93005; 87088; 85025; 87086; 36415; 81025; 81003; 84484; 83690; 80053; 87804 ×2; 71046; 99284; U0003; Q0162

== ENCOUNTER 2021-12-08 17:10 | Emergency (ER) | payer OTHER ==
--- OUTSIDE RECORDS SUMMARY | 2021-12-08 17:13 | XMS REPORT | Continuity of Care Document ---
:1975 Author Organization [facility] t Address [address] [place] [address] Care Team Providers Name Role Phone PCP, PATIENT DOES NOT HAVE A Primary Care Physician Unavaila STAR Peoples Attending Clinician Unavailable Doctor Unassigned, [place] Attending Clinician Unavailable Star Burgos Attending Clinician Elisa Venegas Attending Clinician Payers Payer Name Policy Type Policy Number Effective Date Expiration Date Nannette [employer] [id number] 2021 HEALTH 00:00:00 Problems Condition Condition Condition [...] Date Date Clinician AMOXICIL DRUG Active Hives [facility] STEPHANIE INGREDI [...] Cigarette Smoker Universi ty of tobacco use [facility] History SDOH University o f Alcohol Frequency [facility] edical Branch History SDCT University o f Alcohol Std [facility] History [facility] University o f Alcohol Binge [facility] Exposure to 2021-08-12 2021-08-22 Not sure University of SARS-CoV-2 00:00:00 15:14:00 [facility] (event) Branch Alcohol intake 2020-07-31 2020-07-31 Current drinker Unive rsity of 00:00:00 00:00:00 of alcohol [facility] (finding) Branch Tobacco use and 2018-09-15 2018-09-15 Never used Universit y of exposure 00:00:00 00:00:00 [facility] Alcohol Comment 2018-09-15 2018-09-15 occasional Universit y of 00:00:00 00:00:00 [facility] Tobacco Comment 2018-09-15 2018-09-15 5 cigarettes a Unive rsity of 00:00:00 00:00:00 day [facility] Sex Ass[birth year] Universit y of 00:00:00 00:00:00 [facility] Smoking Status Start Date Stop Date Source Current every day smoker 2018-09-15 00:00:00 Uni versity of [facility] Medications Ordered Filled Start Stop Current Ordering Indication Dosage Frequency Signature Comments Components Source Medication Medication Date Date Medication? Clinician (SIG) Name Name No known No Univers medications 5-05 ity of 15:24: [address] No known No Univers medications 5-05 ity of 15:24: [address] Vital Signs Vital Name Observation Time Observation Value Comments Source Systolic blood 2021-08-22 20:24:00 141 mm[Hg] Univer sity [facility] pressure [facility] Diastolic blood 2021-08-22 20:24:00 85 mm[Hg] Unive rsity [facility] Heart rate 2021-08-22 20:23:00 85 /min [facility] Body height 2021-08-22 20:23:00 170.2 cm [facility] Body weight 2021-08-22 20:23:00 136.986 kg [facility] BMI 2021-08-22 20:23:00 47.30 kg/m2 [facility] Oxygen saturation 2021-08-22 20:23:00 97 /min [facility] in Arterial blood Medical Br anch by Pulse oximetry Procedures Procedure Date / Time Performed Performing Clinician [facility] e EXTERNAL PROVIDER 2021-09-04 05:01:00 Doctor Unassigned, No [facility] RECORDS Name [facility] Branch Encounters Start End Encounter Admission Attending Care Care Encounter Source Date/Time Date/Time Type Type Clinicians Facility Department ID 2021-10-15 2021-10-15 Outpatient Wanda MEADOWS [facility] [id number] Univers 15:00:00 15:00:00 STAR [id number] [facility] 2021-10-15 2021-10-15 Outpatient Wanda MEADOWS [facility] [id number] Univers 15:00:00 [facility]:00:[facility] 2021-10-03 Outpatient Wanda MEADOWS [facility] [id number] Univers 15:15:00 15:15:00 STAR [id number] [facility] 2021-10-03 2021-10-03 Outpatient Wanda MEADOWS [facility] [id number] Univers 15:15:00 15:15:00 STAR [facility] 2021-09-26 2021-09-26 [facility] [id number] Univers 15:00:00 15:00:00 STAR [id number] ity [facility] 2021-09-26 2021-09-26 [facility] [id number] Univers [facility]:00[facility]00 [facility]-09-04 2021-09-04 Orders Doctor AIMEE [id number] Univers 00:00:00 00:00:00 Only Unassigned, MELISSA [id number] ity of [place] [facility] [id number] Hever as [id number] [address] 2021-08-22 2021-08-22 [facility] [id number] Univers 15:50:00 23:59:00 STAR [facility] 2021-08-22 2021-08-22 [facility] [id number] Univers 15:00:00 15:30:00 Visit [facility] [id number] y of [place] [id number] Hever as PEREZ?BLEA [id number] [address] MEDICAL OFFICE BUILDING 2020-08-20 2020-08-20 [facility] [id number] 06:56:46 23:59:00 Encounter Elisa Muñoz SPECIALTY [id number] CARE [id number] CENTER AT [id number] IRVIN [address] [facility] 2020-07-31 2020-07-31 Office [facility] [id number] 15:57:09 16:21:23 Visit Elisa Muñoz MACHINE SETTER SUPERVISOR [id number] [facility] [id number] MATERNAL [id number] & CHILD [address] [place] [address] Results This patient has no known results.
[2021-12-08] MEDS ORDERED: IBUPROFEN 400 MG TAB ONE (19:11)
--- NOTE | 2021-12-08 19:11 | RAD REPORT ---
EXAM DESCRIPTION: RAD - Ankle Left 3 View - 12/08/2021 6:56 pm CLINICAL HISTORY: PAIN, twisting injury COMPARISON: Ankle Left 3 View dated 10/20/2017 FINDINGS: No fracture, dislocation or periosteal reaction. No joint effusion seen. No joint space na rrowing. Soft tissues appear edematous, slightly increased from 2018. Small plantar spur is present. IMPRESSION: No acute bone or joint finding identified. Soft tissue swelling is evident.
--- NOTE | 2021-12-08 19:21 | EDPHYS ---
Physician Documentation [facility] Name: Kaylen Benson Age: 46 yrs Sex: Female : 1975 Arrival Date: 12/08/2021 Time: 17:13 Bed 11 Private MD: ED Physician Lacy Martinez HPI: 12/08 23:43 This 46 yrs old Female presents to ER via EMS with complaints of Ankle Injury. kb 23:43 The patient presents with decreased range of motion, pain, swelling, tenderness. The kb complaints affect the left ankle. Onset: The symptoms/episode began/occurred yesterday. Context: The problem was sustained at home, resulted from the patient falling, The patient is unable to bear weight. The patient is not able to ambulate. Associated signs and symptoms: Pertinent positives: swelling, Pertinent negatives: calf tenderness, fever, nausea, numbness, rash, tingling, vomiting, warmth, weakness. Modifying factors: The symptoms are alleviated by nothing, the symptoms are aggravated by weight bearing, movement. Severity of symptoms: At their worst the symptoms were moderate, in the emergency department the symptoms are unchanged. The patient has not experienced similar symptoms in the past. The patient has not recently seen a physician. 23:45 Patient reports she rolled her ankle last night and fell. Reports hearing a pop in left kb ankle. Now has pain to anterior left ankle and is unable to bear weight.. 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 - Social history:: Smoking status: Patient reports the use of cigarette tobacco products. ROS: 23:44 Constitutional: Negative for fever, chills, and weight loss. kb 23:44 MS/extremity: Positive for pain, swelling, tenderness, of the anterior aspect of left ankle. 23:44 All other systems are negative. Exam: 23:44 Constitutional: This is a well developed, well nourished patient who is awake, alert, kb and in no acute distress. Head/Face: Normocephalic, atraumatic. ENT: Moist Mucous membranes Cardiovascular: Regular rate and rhythm with a normal S1 and S2. No gallops, murmurs, or rubs. No pulse deficits. Respiratory: Respirations even and unlabored. No increased work of breathing. Talking in full sentences Skin: Warm, dry with normal turgor. Normal color. Neuro: Awake and alert, GCS 15, oriented to person, place, time, and situation. Moves all extremities. Normal gait. Psych: Awake, alert, with orientation to person, place and time. Behavior, mood, and affect are within normal limits. 23:44 Musculoskeletal/extremity: Extremities: grossly normal except: noted in the anterior aspect of left ankle: pain, tenderness, ROM: limited active range of motion due to pain, in the anterior aspect of left ankle, Circulation is intact in all extremities. Sensation intact. Weight bearing: is unable to bear weight. Vital Signs: 17:44 BP 138 / 88; Pulse 80; Resp 16; Temp 97.8; Pulse Ox 100% on R/A; Weight 127.01 kg; hb Height 5 ft. 7 in. (170.18 cm); Pain 8/10; 17:44 Body Mass Index 43.85 (127.01 kg, 170.18 cm) hb MDM: 17:13 Patient medically screened. kb 23:45 Data reviewed: vital signs, nurses notes. Data interpreted: Pulse oximetry: on room air kb is 100 %. Interpretation: normal. Counseling: I had a detailed discussion with the patient and/or guardian regarding: the historical points, exam findings, and any diagnostic results supporting the discharge/admit diagnosis, radiology results, the need for outpatient follow up, a orthopedic surgeon, to return to the emergency department if symptoms worsen or persist or if there are any questions or concerns that arise at home. 12/08 17:14 Order name: Ankle Left 3 View XRAY; Complete Time: 19:17 kb 12/08 19:53 Order name: Zakc Wrap; Complete Time: 20:23 kb 12/08 19:53 Order name: Crutches; Complete Time: 20:23 kb Administered Medications: 19:03 Drug: Ibuprofen 800 mg Route: PO; hb Disposition Summary: 12/08/21 19:20 Discharge Ordered Location: Home kb Condition: Stable kb Diagnosis - Sprain of ankle kb Followup: kb - With: Emergency Department - When: As needed - Reason: Worsening of condition Followup: kb - With: Private Physician - When: 2 - 3 days - Reason: Recheck today's complaints, Continuance of care, Re-evaluation by your physician Discharge Instructions: - Discharge Summary Sheet kb - Ankle Sprain, [id number] kb Forms: - Medication Reconciliation Form kb - Thank You Letter kb - Antibiotic Education kb - Prescription Opioid Use kb - Work release form iw Prescriptions: - Diclofenac Sodium 75 mg Oral tablet,delayed release (DR/EC) - take 1 tablet by ORAL route 2 times per day As needed; 30 tablet; Refills: 0, kb Product Selection Permitted Signatures: Dispatcher [employer] Sera Santos, BLOW MOLDER-C BLOW MOLDER-Rhona Lopez, RN RN hb
--- NOTE | 2021-12-08 19:21 | ER ---
Nurse's Notes [facility] Name: Kaylen Benson Age: 46 yrs Sex: Female : 1975 Arrival Date: 12/08/2021 Time: 17:13 Bed 11 Private MD: Diagnosis: Sprain of ankle Presentation: 12/08 17:17 Chief complaint: EMS states: rolled her left ankle last night , now has swelling and iw pain, no deformity. Coronavirus screen: At this time, the client does not indicate any symptoms associated with coronavirus-19. Ebola Screen: Patient negative for fever greater than or equal to 101.5 degrees Fahrenheit, and additional compatible Ebola Virus Disease symptoms Patient denies exposure to infectious person. Patient denies travel to an Ebola-affected area in the 21 days before illness onset. No symptoms or risks identified at this time. Initial Sepsis Screen: Does the patient meet any 2 criteria? No. Patient's initial sepsis screen is negative. Does the patient have a suspected source of infection? No. Patient's initial sepsis screen is negative. Risk Assessment: Do you want to hurt yourself or someone else? Patient reports no desire to harm self or others. Onset of symptoms was December 08, 2021. 17:17 Method Of Arrival: EMS: [facility] iw 17:17 Acuity: DONNA 4 iw 17:18 Care prior to arrival: Medication(s) given: fentanyl 100 mcg IVP IV initiated. 20 GA, iw in the left hand. Triage Assessment: 17:44 General: Appears in no apparent distress. Behavior is calm, cooperative. Pain: Pain hb currently is 8 out of 10 on a pain scale. Neuro: Level of Consciousness is awake, alert, obeys commands, Oriented to person, place, time, situation. Cardiovascular: Patient's skin is warm and dry. Respiratory: Respiratory effort is even, unlabored, Respiratory pattern is regular, symmetrical. 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 - Social history:: Smoking status: Patient reports the use of cigarette tobacco products. Screenin:46 Abuse screen: Denies threats or abuse. Denies injuries from another. Nutritional hb screening: No deficits noted. Tuberculosis screening: No symptoms or risk factors identified. Fall Risk None identified. Assessment: 17:45 General: see triage assessment. hb 18:45 Reassessment: Patient appears in no apparent distress at this time. Patient and/or hb family updated on plan of care and expected duration. Pain level reassessed. Patient is alert, oriented x 3, equal unlabored respirations, skin warm/dry/pink. 19:42 Reassessment: Patient appears in no apparent distress at this time. Patient and/or iw family updated on plan of care and expected duration. Pain level reassessed. Patient is alert, oriented x 3, equal unlabored respirations, skin warm/dry/pink. pt is still working on finding a ride home, will call nurse when ride is here Patient states feeling better. Patient states symptoms have improved. Vital Signs: 17:44 BP 138 / 88; Pulse 80; Resp 16; Temp 97.8; Pulse Ox 100% on R/A; Weight 127.01 kg; hb Height 5 ft. 7 in. (170.18 cm); Pain 8/10; 17:44 Body Mass Index 43.85 (127.01 kg, 170.18 cm) hb ED Course: 17:13 Patient arrived in ED. eb 17:13 Sera Beltre FNP-C is PSYCHIATRICP. kb 17:13 Lacy Martinez MD is Attending Physician. kb 17:18 Triage completed. iw 17:18 Arm band placed on. iw 17:44 Rhona Waddell, RN is Primary Nurse. hb 17:46 Patient has correct armband on for positive identification. hb 18:57 Ankle Left 3 View XRAY In Process Unspecified. EDMS 19:43 No provider procedures requiring assistance completed. IV discontinued, intact, iw bleeding controlled, No redness/swelling at site. Pressure dressing applied. Administered Medications: 19:03 Drug: Ibuprofen 800 mg Route: PO; hb Medication: 17:46 VIS not applicable for this client. hb Outcome: 19:20 Discharge ordered by . kb 19:44 Discharged to iw 19:44 Discharge instructions given to patient, Instructed on discharge instructions, follow up and referral plans. medication usage, Demonstrated understanding of instructions, follow-up care, medications, Prescriptions given X 1. 19:44 Condition: good iw 20:24 Patient left the ED. vc1 Signatures: Dispatcher [employer] EDMS Sera Beltre, FILM NUMBERER-C FILM NUMBERER-Yamile Gray, RN Rhona Bo, RN Lisa Ambrosio Vanessa, RN RN vc1
[2021-12-08 22:38] VITALS: BP 138/88; TEMP 97.8; O2SAT 100
== END 2021-12-08 20:24 | disposition home or self-care (01) ==
LOC: ER 17:10
DX: S93.402A Sprain of unspecified ligament of left ankle, initial encounter (principal); Z72.0 Tobacco use; Z88.1 Allergy status to other antibiotic agents; Z88.6 Allergy status to analgesic agent
CPT/HCPCS: 99284

== ENCOUNTER 2021-12-15 07:04 | Emergency (ER) | payer OTHER ==
--- OUTSIDE RECORDS SUMMARY | 2021-12-15 07:08 | XMS REPORT | Continuity of Care Document ---
:1975 Author Organization [facility] t Address [address] [place] [address] Care Team Providers Name Role Phone PCP, PATIENT DOES NOT HAVE A Primary Care Physician Unavaila STAR Peoples Attending Clinician Unavailable Doctor Unassigned, [place] Attending Clinician Unavailable Star Burgos Attending Clinician Elisa Venegas Attending Clinician Payers Payer Name Policy Type Policy Number Effective Date Expiration Date Nannette [employer] [facility] [id number] 2021 HEALTH 00:00:00 Problems Condition Condition Condition [...] Cigarette Smoker Universi ty of tobacco use [facility] History SDOH University o f Alcohol Frequency [facility] edical Branch History SDAK University o f Alcohol Std [place] [facility] History [facility] University o f Alcohol Binge [place] [facility] Exposure to 2021-08-12 2021-08-22 Not sure University of SARS-CoV-2 00:00:00 15:14:00 [facility] (event) Branch Alcohol intake 2020-07-31 2020-07-31 Current drinker Unive rsity of 00:00:00 00:00:00 of alcohol [facility] (finding) Branch Tobacco use and 2018-09-15 2018-09-15 Never used Universit y of exposure 00:00:00 00:00:00 [facility] Alcohol Comment 2018-09-15 2018-09-15 occasional Universit y of 00:00:00 00:00:00 [facility] Tobacco Comment 2018-09-15 2018-09-15 5 cigarettes a Unive rsity of 00:00:00 00:00:00 day [facility] Sex Assigned At [birth year] Universit y of 00:00:00 00:00:00 [facility] Smoking Status Start Date Stop Date Source Current every day smoker 2018-09-15 00:00:00 Uni versity of [facility] Medications Ordered Filled Start Stop Current Ordering Indication Dosage Frequency Signature Comments Components Source Medication Medication Date Date Medication? Clinician (SIG) Name Name No known No Univers medications 5-05 ity of 15:24: [address] No known No Univers medications 5-05 ity of 15:24: [address] Vital Signs Vital Name Observation Time Observation Value Comments Source Systolic blood 2021-08-22 20:24:00 141 mm[Hg] Univer sity [facility] pressure [facility] Diastolic blood 2021-08-22 20:24:00 85 mm[Hg] Unive rsity [facility] Heart rate 2021-08-22 20:23:00 85 /min [facility] Body height 2021-08-22 20:23:00 170.2 cm [facility] Body weight 2021-08-22 20:23:00 136.986 kg [facility] BMI 2021-08-22 20:23:00 47.30 kg/m2 [facility] Oxygen saturation 2021-08-22 20:23:00 97 /min [facility] in Arterial blood Medical Br anch by Pulse oximetry Procedures Procedure Date / Time Performed Performing Clinician [facility] e EXTERNAL PROVIDER 2021-09-04 05:01:00 Doctor Unassigned, No Univ [facility] RECORDS Name [facility] Branch Encounters Start End Encounter Admission Attending Care Care Encounter Source Date/Time Date/Time Type Type Clinicians Facility Department ID 2021-10-15 2021-10-15 Outpatient Wanda MEADOWS [facility] [id number] Univers 15:00:00 15:00:00 STAR [id number] [facility] 2021-10-15 2021-10-15 Outpatient Wanda MEADOWS [facility] [id number] Univers 15:00:00 15:00:00 [facility] 2021-10-03 2021-10-03 Outpatient Wanda MEADOWS [facility] [id number] Univers 15:15:00 15:15:00 STAR [id number] [facility] 2021-10-03 2021-10-03 Outpatient Wanda MEADOWS [facility] [id number] Univers 15:15:00 15:15:00 STAR [facility] 2021-09-26 2021-09-26 [facility] [id number] Univers 15:00:00 15:00:00 STAR [id number] ity [facility] 2021-09-26 2021-09-26 [facility] [id number] Univers 15:00[facility]00 [facility] 2021-09-04 2021-09-04 Orders Doctor AIMEE [id number] Univers 00:00:00 00:00:00 Only Unassigned, MELISSA [id number] ity of [place] [facility] [id number] Hever as [id number] [address] 2021-08-22 2021-08-22 [facility] [id number] Univers 15:50:00 23:59:00 STAR [facility] 2021-08-22 2021-08-22 [facility] [id number] Univers 15:00:00 15:30:00 Visit [facility] [id number] y of [place] [id number] Hever as PEREZ?BLEA [phone] [address] MEDICAL OFFICE BUILDING 2020-08-20 2020-08-20 [facility] [id number] 06:56:46 23:59:00 Encounter Elisa Muñoz SPECIALTY [id number] CARE [id number] CENTER AT [id number] IRVIN [address] [facility] 2020-07-31 2020-07-31 Office [facility] [id number] 15:57:09 16:21:23 Visit Elisa Muñoz FUR JOINER [id number] [facility] [id number] MATERNAL [id number] & CHILD [address] [place] [address] Results This patient has no known results.
--- NOTE | 2021-12-15 08:37 | RAD REPORT ---
EXAM DESCRIPTION: RAD - Ankle Left 3 View - 12/15/2021 8:27 am CLINICAL HISTORY: PAIN COMPARISON: Ankle Left 3 View dated 12/08/2021 FINDINGS/IMPRESSION: No acute fracture. No malalignment. No significant focal degenerative changes.
--- NOTE | 2021-12-15 08:37 | RAD REPORT ---
EXAM DESCRIPTION: RAD - Foot Left 3 View - 12/15/2021 8:27 am CLINICAL HISTORY: PAIN COMPARISON: No comparisons FINDINGS/IMPRESSION: Fractures present at the second, third, and fourth metatarsals at the proximal metaphyses. The fractures are nondisplaced.
--- NOTE | 2021-12-15 09:08 | EDPHYS ---
Physician Documentation [facility] Name: Kaylen Benson Age: 46 yrs Sex: Female : 1975 Arrival Date: 12/15/2021 Time: 07:09 Bed 5 Private MD: ED Physician David Wiley HPI: 12/15 08:00 This 46 yrs old Female presents to ER via Wheelchair with complaints of foot injury. rn 08:00 The patient presents with pain, that is acute. The complaints affect the left foot. rn Onset: The symptoms/episode began/occurred just prior to arrival. Modifying factors: The symptoms are alleviated by nothing, the symptoms are aggravated by weight bearing, movement. Associated signs and symptoms: Pertinent positives: swelling, Pertinent negatives: fever, weakness. Severity of symptoms: At their worst the symptoms were moderate, in the emergency department the symptoms are unchanged. The patient has experienced similar episodes in the past. The patient has been recently seen at the [facility] Emergency Department. Pt reports mis-step going down stairs, injured left foot and ankle, has had this happen multiple times in past. No fall or other injury noted. . 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 - Social history:: Smoking status: unknown. - Family history:: not pertinent. - Hospitalizations: : No recent hospitalization is reported. ROS: 08:00 Constitutional: Negative for fever, chills, and weight loss, MS/Extremity: + left foot rn injury and pain Skin: Negative for injury, rash, and discoloration. Exam: 08:00 Constitutional: This is a well developed, well nourished patient who is awake, alert, rn and in no acute distress. Head/Face: Normocephalic, atraumatic. Skin: Warm, dry, no open wounds MS/ Extremity: Pulses equal, no cyanosis. Neurovascular intact. + mild tenderness dorsum and lateral left foot, no proximal tib/fib tenderness, no deformity of toes. Vital Signs: 07:16 BP 111 / 75; Pulse 66; Resp 16; Pulse Ox 98% on R/A; ss 07:30 Temp 98.2(TE); ss [place] Coma Score: 07:15 Eye Response: spontaneous(4). Verbal Response: oriented(5). Motor Response: obeys ss commands(6). Total: 15. Trauma Score (Adult): 07:15 Eye Response: spontaneous(1); Verbal Response: oriented(1); Motor Response: obeys ss commands(2); Systolic BP: > 89 mm Hg(4); Respiratory Rate: 10 to 29 per min(4); [place] Score: 15; Trauma Score: 12 MDM: 07:12 Patient medically screened. rn 09:06 Differential diagnosis: fracture, sprain. Data reviewed: vital signs, nurses notes, rn radiologic studies, plain films, and as a result, I will discharge patient. Counseling: I had a detailed discussion with the patient and/or guardian regarding: the historical points, exam findings, and any diagnostic results supporting the discharge/admit diagnosis, radiology results, the need for outpatient follow up, to return to the emergency department if symptoms worsen or persist or if there are any questions or concerns that arise at home. Response to treatment: the patient's symptoms have mildly improved after treatment, and as a result, I will discharge patient. Special discussion: I discussed with the patient/guardian in detail that at this point there is no indication for admission to the hospital. It is understood, however, that if the symptoms persist or worsen the patient needs to return immediately for re-evaluation. 12/15 07:17 Order name: XRAY Foot LEFT 3 View; Complete Time: 08:46 rn 12/15 07:17 Order name: XRAY Ankle LEFT 3 view; Complete Time: 08:46 rn 12/15 08:23 Order name: Orthopedic shoe; Complete Time: 09:46 rn Administered Medications: 09:35 Drug: [place] (HYDROcodone-acetaminophen) 10 mg-325 mg 1 tabs Route: PO; ph 09:45 Follow up: Response: No adverse reaction ph Disposition Summary: 12/15/21 09:07 Discharge Ordered Location: Home rn Problem: new rn Symptoms: have improved rn Condition: Stable rn Diagnosis - Fracture of fourth metatarsal bone - left foot, nondisplaced rn - Nondisplaced fracture of second metatarsal bone, left foot rn - Nondisplaced fracture of third metatarsal bone, left foot rn Followup: rn - With: Miguel Chaparro MD - When: 2 - 3 days - Reason: Recheck today's complaints, Re-evaluation by your physician Discharge Instructions: - Discharge Summary Sheet rn - Metatarsal Fracture rn Forms: - Medication Reconciliation Form rn - Thank You Letter rn - Antibiotic employee benefits attorney - Prescription Opioid Use rn - Work release form eb Prescriptions: - Tramadol 50 mg Oral Tablet - take 1 tablet by ORAL route every 8 hours as needed; 12 tablet; Refills: 0, rn Product Selection Permitted Signatures: Dispatcher MedHost EDDavid Cardenas MD MD rn Smirch, Shelby, RN RN ss Rosalia Jung RN RN ph
--- NOTE | 2021-12-15 09:08 | ER ---
Nurse's Notes [facility] Name: Kaylen Benson Age: 46 yrs Sex: Female : 1975 Arrival Date: 12/15/2021 Time: 07:09 Bed 5 Private MD: Diagnosis: Fracture of fourth metatarsal bone-left foot, nondisplaced;Nondisplaced fracture of second metatarsal bone, left foot;Nondisplaced fracture of third metatarsal bone, left foot Presentation: 12/15 07:16 Chief complaint: Patient states: L foot pain after falling from standing yesterday. ss Coronavirus screen: Client denies travel out of the [place] in the last 14 days. Ebola Screen: Patient denies exposure to infectious person. Patient denies travel to an Ebola-affected area in the 21 days before illness onset. Initial Sepsis Screen: Does the patient meet any 2 criteria? No. Patient's initial sepsis screen is negative. Does the patient have a suspected source of infection? No. Patient's initial sepsis screen is negative. Risk Assessment: Do you want to hurt yourself or someone else? Patient reports no desire to harm self or others. Onset of symptoms was December 14, 2021. 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 - Social history:: Smoking status: unknown. - Family history:: not pertinent. - Hospitalizations: : No recent hospitalization is reported. Screenin:51 Abuse screen: Denies threats or abuse. Denies injuries from another. Nutritional ph screening: No deficits noted. Tuberculosis screening: No symptoms or risk factors identified. Fall Risk None identified. Assessment: 07:20 General: Appears in no apparent distress. Behavior is calm, cooperative. jh6 08:00 General: Appears in no apparent distress. Behavior is calm, cooperative, appropriate ph for age. Pain: Complains of pain in left foot. Neuro: Level of Consciousness is awake, alert, obeys commands, Oriented to person, place, time, situation. Derm: Skin is healthy with good turgor, Skin is pink, warm \T\ dry. Bruising that is dark purple, L foot. Musculoskeletal: Circulation, motion, and sensation intact. Swelling present in left foot. Vital Signs: 07:16 BP 111 / 75; Pulse 66; Resp 16; Pulse Ox 98% on R/A; ss 07:30 Temp 98.2(TE); ss [place] Coma Score: 07:15 Eye Response: spontaneous(4). Verbal Response: oriented(5). Motor Response: obeys ss commands(6). Total: 15. Trauma Score (Adult): 07:15 Eye Response: spontaneous(1); Verbal Response: oriented(1); Motor Response: obeys ss commands(2); Systolic BP: > 89 mm Hg(4); Respiratory Rate: 10 to 29 per min(4); [place] Score: 15; Trauma Score: 12 ED Course: 07:09 Patient arrived in ED. ja 07:12 David Wiley MD is Attending Physician. rn 07:18 Triage completed. ss 07:43 Rosalia Jung, RN is Primary Nurse. ph 07:51 Arm band placed on. ph 07:51 Patient has correct armband on for positive identification. Bed in low position. Call ph light in reach. Side rails up X 1. Door closed. Noise minimized. 08:29 XRAY Foot LEFT 3 View In Process Unspecified. EDMS 08:29 XRAY Ankle LEFT 3 view In Process Unspecified. EDMS 09:07 Miguel Chaparro MD is Referral Physician. rn 09:30 No provider procedures requiring assistance completed. Patient did not have IV access ph during this emergency room visit. 09:35 Ortho shoe applied to left foot. ph Administered Medications: 09:35 Drug: [place] (HYDROcodone-acetaminophen) 10 mg-325 mg 1 tabs Route: PO; ph 09:45 Follow up: Response: No adverse reaction ph Medication: 07:51 VIS not applicable for this client. ph Outcome: 09:07 Discharge ordered by . rn 09:45 Discharged to home ambulatory. ph 09:45 Condition: good 09:45 Discharge instructions given to patient, Instructed on discharge instructions, follow up and referral plans. medication usage, Demonstrated understanding of instructions, follow-up care, medications, Prescriptions given X 1. 09:46 Patient left the ED. ph Signatures: Dispatcher [employer] EDMS David Wiley MD MD rn Smirch, Shelby, RN RN Rosalia Bowling RN RN Nandini Chaney Jennifer RN RN jh6
[2021-12-15] MEDS ORDERED: HYDROCODONE/APAP 10/325 TAB ONE (09:24)
[2021-12-15 10:07] VITALS: TEMP 98.2
[2021-12-15 10:14] VITALS: BP 111/75; O2SAT 98
== END 2021-12-15 09:46 | disposition home or self-care (01) ==
LOC: ER 07:04
DX: S92.345A Nondisplaced fracture of fourth metatarsal bone, left foot, initial encounter for closed fracture (principal); S92.325A Nondisplaced fracture of second metatarsal bone, left foot, initial encounter for closed fracture; S92.335A Nondisplaced fracture of third metatarsal bone, left foot, initial encounter for closed fracture; Z88.1 Allergy status to other antibiotic agents; Z88.3 Allergy status to other anti-infective agents
CPT/HCPCS: 99284

== ENCOUNTER 2022-01-13 06:46 | Emergency (ER) | payer OTHER ==
--- OUTSIDE RECORDS SUMMARY | 2022-01-13 06:50 | XMS REPORT | Continuity of Care Document ---
:1975 Author Organization [facility] t Address [address] [place] [address] Care Team Providers Name Role Phone PCP, PATIENT DOES NOT HAVE A Primary Care Physician UnavailSTAR Perry Attending Clinician Unavailable Star Burgos Attending Clinician Elisa Venegas Attending Clinician Payers Payer Name Policy Type Policy Number Effective Date Expiration Date S karishma [facility] [id number] 2021 HEALTH 00:00:00 Problems Condition Condition Condition [...] Active Hives Univer s stephanie ty to 413 ity of adverse 00:00: [place] reaction 00 [facility] s [facility] Clindamy Propensi Active Hives Univer s she ty to 413 ity of adverse 00:00: [place] reaction 00 Medical s Branch Social History Social Habit Start Date Stop Date Quantity Comments Source History of Cigarette Smoker Universi ty of tobacco use [facility] History SDOH University o f Alcohol Frequency [facility] edical Branch History SDOH University o f Alcohol Std [place] [facility] History [facility] University o f Alcohol Binge [place] [facility] Exposure to 2021-12-17 2021-12-27 Not sure University of SARS-CoV-2 00:00:00 09:54:00 [facility] (event) Branch Alcohol intake 2021-12-27 2021-12-27 Current drinker Unive rsity of 00:00:00 00:00:00 of alcohol [facility] (finding) Branch Tobacco use and 2021-12-20 2021-12-20 Smokeless tobacco Un iversity of exposure 00:00:00 00:00:00 non-user [facility] Tobacco Comment 2021-12-20 2021-12-20 5 cigarettes a Unive rsity of 00:00:00 00:00:00 day [facility] Alcohol Comment 2018-09-15 2018-09-15 occasional Universit y of 00:00:00 00:00:00 [facility] Sex Assigned At [birth year] Universit y of 00:00:00 00:00:00 [facility] Smoking Status Start Date Stop Date Source Smokes tobacco daily 2021-12-20 00:00:00 [facility] Medications Ordered Filled Start Stop Current Ordering Indication Dosage Frequency Signature Comments Components Source Medication Medication Date Date Medication? Clinician (SIG) Name Name No known No No known Unive rs medications 12-27 medication it y of 10:00: s [address] Vital Signs Vital Name Observation Time Observation Value Comments Source Systolic blood 2021-12-27 14:59:00 132 mm[Hg] Univer sity [facility] Diastolic blood 2021-12-27 14:59:00 85 mm[Hg] Unive rsity [facility] Heart rate 2021-12-27 14:59:00 92 /min [facility] Body height 2021-12-27 14:59:00 170.2 cm [facility] Body weight 2021-12-27 14:59:00 137.44 kg [facility] BMI 2021-12-27 14:59:00 47.46 kg/m2 [facility] Procedures This patient has no known procedures. Encounters Start End Encounter Admission Attending Care Care Encounter Source Date/Time Date/Time Type Type Clinicians Facility Department ID 2022-01-27 2022-01-27 [id number] Univers 15:00:00 15:00:00 STAR [id number] [facility] 2022-01-27 2022-01-27 [facility] [id number] Univers 15:00:00 15:00:00 [facility] 2021-12-27 2021-12-27 [facility] [id number] Univers 10:02:59 23:59:00 [facility] 2021-12-27 2021-12-27 [facility] [id number] Univers 10:00:00 10:15:00 Visit Star 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
[2022-01-13] MEDS ORDERED: ONDANSETRON 4 MG/2 ML VIAL ONE (07:38)
[2022-01-13] MEDS ORDERED: FAMOTIDINE 20 MG/2 ML VIAL IV ONE (07:38)
[2022-01-13] MEDS ORDERED: NA CHLORIDE 0.9% 1,000 ML ONE (07:38)
[2022-01-13 08:03] LABS: Urine Blood Negative (Negative); Urine Glucose Negative (Negative); Urine Protein Negative (Negative); Urine Specific Gravity >=1.030 (1.005-1.030)
[2022-01-13 08:24] LABS: Absolute Lymphocytes (CBC) 3.2 K/uL (0.7-4.9); Hematocrit 38.2 % (36.0-45.0); Lymphocytes % 39.6 % (15.3-44.8); MCV 90.6 fL (80-100); MPV 8.3 fL (7.6-11.3); RBC Red Blood Cell Count 4.22 M/uL (3.86-4.86)
[2022-01-13 08:26] LABS: Urine Mucus Slight /HPF (None Seen)
[2022-01-13 08:36] LABS: Albumin 3.4 g/dL (3.4-5.0); Bilirubin Total 0.2 mg/dL (0.2-1.0); Potassium 3.7 mmol/L (3.5-5.1); Protein, Total 8.5 g/dL (6.4-8.2)
--- NOTE | 2022-01-13 09:28 | RAD REPORT ---
EXAM DESCRIPTION: CT - Abdomen Pelvis Wo Contrast - 01/13/2022 9:19 am CLINICAL HISTORY: Abdominal pain COMPARISON: 2020 TECHNIQUE: Computed axial tomography of the abdomen and pelvis was obtained. IV and oral contrast we re not requested. All CT scans are performed using dose optimization technique as appropriate and may include automated exposure control or mA/KV adjustment according to patient size. FINDINGS: The evaluation of solid organs, vessels and bowel is limited secondary to the lack of con trast administration. Calcified granuloma right lung. Tiny right lower lobe nodule unchanged from 2019 likely benign. Tiny left lower lobe nodule unchanged likely benign The liver, spleen, pancreas, adrenals and right kidney appear grossly normal. Small left renal cyst Gallstone. Gallbladder wall does not appear thickened. The appendix is normal. There is no evidence of diverticulitis. No adnexal mass IMPRESSION: Cholelithiasis
[2022-01-13] MEDS ORDERED: PROMETHAZINE INJ 25 MG/ML AMP ONE (09:37)
--- NOTE | 2022-01-13 10:52 | EDPHYS ---
Physician Documentation [facility] Name: Kaylen Benson Age: 46 yrs Sex: Female : 1975 Arrival Date: 01/13/2022 Time: 06:50 Bed 14 Private MD: ED Physician Alexis Naidu HPI: 01/13 07:15 This 46 yrs old Female presents to ER via Unassigned with complaints of Abdominal Pain, ms3 Headache, Nausea. 07:15 46-year-old female with no past medical history presents for upper abdominal pain that ms3 began at 11 PM. Patient states the pain was initially an 8/10 and sharp. Patient states the pain is improved and is now a 6/10. Patient endorses nausea, chills. Patient states the pain does not radiate. Patient denies vomiting, diarrhea, fevers.. 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 - Social history:: Smoking status: Patient reports the use of cigarette tobacco products. ROS: 07:15 Constitutional: Negative for fever, and chills. Neck: Negative for injury, pain, and ms3 swelling, Cardiovascular: Negative for chest pain, and palpitations. Respiratory: Negative for shortness of breath, cough, wheezing, and pleuritic chest pain, MS/Extremity: Negative for injury and deformity, Skin: Negative for injury, rash, and discoloration, Neuro: Negative for headache, weakness, numbness, tingling. 07:15 All other systems are negative. Exam: 07:15 Constitutional: This is a well developed, well nourished patient who is awake, alert, ms3 and in no acute distress. Head/Face: Normocephalic, atraumatic. Neck: Trachea midline, no cervical lymphadenopathy. Supple, full range of motion without nuchal rigidity, or vertebral point tenderness. No Meningismus. Chest/axilla: Normal chest wall appearance and motion. Nontender with no deformity. Cardiovascular: Regular rate and rhythm with a normal S1 and S2. No gallops, murmurs, or rubs. Normal PMI, no JVD. No pulse deficits. Respiratory: Lungs have equal breath sounds bilaterally, clear to auscultation and percussion. No rales, rhonchi or wheezes noted. No increased work of breathing, no retractions or nasal flaring. Skin: Warm, dry with normal turgor. Normal color with no rashes, no lesions, and no evidence of cellulitis. MS/ Extremity: Pulses equal, no cyanosis. Neurovascular intact. Full, normal range of motion. Psych: Awake, alert, with orientation to person, place and time. Behavior, mood, and affect are within normal limits. 07:15 Abdomen/GI: Inspection: abdomen appears normal, Bowel sounds: normal, Palpation: moderate abdominal tenderness, in the epigastric area. Vital Signs: 07:14 Pulse 89; Resp 17; Temp 99.2; Pulse Ox 100% ; Weight 97.52 kg; Height 5 ft. 7 in. jl7 (170.18 cm); Pain 8/10; 07:18 BP 139 / 98; Pulse 87; Resp 18; Pulse Ox 100% ; db 07:14 Body Mass Index 33.67 (97.52 kg, 170.18 cm) jl7 MDM: 07:12 Patient medically screened. ms3 07:15 Differential diagnosis: bowel obstruction, cholecystitis, Cholelithiasis, gastritis, ms3 non-specific abd pain, pancreatitis. 10:51 Data reviewed: vital signs, nurses notes, lab test result(s), radiologic studies, and ms3 as a result, I will discharge patient. Counseling: I had a detailed discussion with the patient and/or guardian regarding: the historical points, exam findings, and any diagnostic results supporting the discharge/admit diagnosis, lab results, radiology results, the need for outpatient follow up, to return to the emergency department if symptoms worsen or persist or if there are any questions or concerns that arise at home. Special discussion: I discussed with the patient/guardian in detail that at this point there is no indication for admission to the hospital. It is understood, however, that if the symptoms persist or worsen the patient needs to return immediately for re-evaluation. ED course: Discussed labs and CT scan with patient. Patient to follow-up with general surgery for cholelithiasis and primary care for generalized abdominal pain. Patient understands and agrees with plan. All questions were answered. Return precautions discussed include worsening symptoms, or any other concerns. On reevaluation patient is alert and oriented x4, in no apparent distress, nontoxic-appearing, ambulatory in the emergency department. Patient states her symptoms have improved since arriving to the emergency department.. 01/13 07:14 Order name: CBC with Diff; Complete Time: 09:08 ms3 01/13 07:14 Order name: CMP; Complete Time: 09:08 ms3 01/13 07:14 Order name: Lipase; Complete Time: 09:08 ms3 01/13 07:14 Order name: Urine Microscopic Only; Complete Time: 09:08 ms3 01/13 08:03 Order name: Urine Dipstick-Ancillary; Complete Time: 09:08 EDMS 01/13 07:15 Order name: IV Saline Lock; Complete Time: 08:02 ms3 01/13 08:55 Order name: Urine Culture EDMS 01/13 09:10 Order name: CT Abd/Pelvis - Without Contrast; Complete Time: 09:29 ms3 01/13 07:15 Order name: Labs collected and sent; Complete Time: 08:02 ms3 01/13 07:15 Order name: Urine Dipstick-Ancillary (obtain specimen); Complete Time: 08:04 ms3 01/13 07:15 Order name: Urine Test (obtain specimen); Complete Time: 08:04 ms3 Administered Medications: 07:45 Drug: NS 0.9% 1000 ml Route: IV; Rate: 1 bolus; Site: left hand; db 09:16 Follow up: Response: No adverse reaction; IV Status: Completed infusion; IV Intake: db 1000ml 07:45 Drug: Pepcid (famotidine) 20 mg Route: IVP; Site: left hand; db 09:17 Follow up: Response: No adverse reaction db 07:45 Drug: Zofran (Ondansetron) 4 mg Route: IVP; Site: left hand; db 09:17 Follow up: Response: No adverse reaction db 09:34 Drug: Phenergan (promethazine) 12.5 mg Route: IM; Site: right deltoid; ph 09:34 Follow up: Response: No adverse reaction ph Disposition Summary: 01/13/22 10:51 Discharge Ordered Location: Home ms3 Condition: Stable ms3 Diagnosis - Other cholelithiasis without obstruction ms3 - Abdominal pain, unspecified ms3 - Nausea ms3 Followup: ms3 - With: Donovan Zuniga DO - When: 2 - 3 days - Reason: Recheck today's complaints Followup: ms3 - With: Inder Snyder MD - When: 2 - 3 days - Reason: Recheck today's complaints Discharge Instructions: - Discharge Summary Sheet ms3 - Abdominal Pain, Adult ms3 - Cholelithiasis ms3 Forms: - Medication Reconciliation Form ms3 - Thank You Letter ms3 - Work release form iw - Antibiotic Education ms3 - Prescription Opioid Use ms3 Signatures: Dispatcher [employer] EDMS Rosalia Jung, RN RN Kayleigh Martinez RN RN jl7 Alexis Naidu DO DO ms3 Kailey Bowen, RN RN db Corrections: (The following items were deleted from the chart) 09:19 07:16 Abdomen Pelvis W Con+CT.RAD.BRZ ordered. EDMS EDMS
--- NOTE | 2022-01-13 10:52 | ER ---
Nurse's Notes [facility] Name: Kaylen Benson Age: 46 yrs Sex: Female : 1975 Arrival Date: 01/13/2022 Time: 06:50 Bed 14 Private MD: Diagnosis: Other cholelithiasis without obstruction;Abdominal pain, unspecified;Nausea Presentation: 01/13 07:14 Chief complaint: Patient states: Upper abdominal pain since 2300 last night, nausea, jl7 denies vomiting and diarrhea, reports chills, no fever. Coronavirus screen: Vaccine status: Patient reports being unvaccinated. chills, Client presents with at least one sign or symptom that may indicate coronavirus-19. Standard/surgical mask placed on the client. Provider contacted for isolation considerations. Ebola Screen: No symptoms or risks identified at this time. Initial Sepsis Screen: Does the patient meet any 2 criteria? No. Patient's initial sepsis screen is negative. Does the patient have a suspected source of infection? No. Patient's initial sepsis screen is negative. Risk Assessment: Do you want to hurt yourself or someone else? Patient reports no desire to harm self or others. Onset of symptoms was January 12, 2022 at 23:00. 07:14 Method Of Arrival: Ambulatory [facility] 07:14 Acuity: DONNA 3 jl7 Triage Assessment: 07:16 General: Appears in no apparent distress. uncomfortable, Behavior is calm, cooperative, jl7 appropriate for age. Pain: Complains of pain in abdomen Pain currently is 6 out of 10 on a pain scale. at worst was 8 out of 10 on a pain scale. GI: Abdomen is round. 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 - Social history:: Smoking status: Patient reports the use of cigarette tobacco products. Screenin:19 Abuse screen: Denies threats or abuse. Denies injuries from another. Nutritional db screening: No deficits noted. Tuberculosis screening: No symptoms or risk factors identified. Fall Risk None identified. Assessment: 07:19 Reassessment: Patient appears in no apparent distress at this time. Patient is alert, db oriented x 3, equal unlabored respirations, skin warm/dry/pink. General: Appears in no apparent distress. comfortable, Behavior is calm, cooperative, quiet. Pain: Complains of pain in abdomen Pain began suddenly, last night. Neuro: No deficits noted. Cardiovascular: No deficits noted. Respiratory: No deficits noted. GI: Bowel sounds present X 4 quads. Abd is soft X 4 quads. : No deficits noted. EENT: No deficits noted. Derm: No deficits noted. Musculoskeletal: No deficits noted. 08:23 GI: Reports diarrhea, nausea, vomiting, since started this AM. db Vital Signs: 07:14 Pulse 89; Resp 17; Temp 99.2; Pulse Ox 100% ; Weight 97.52 kg; Height 5 ft. 7 in. jl7 (170.18 cm); Pain 8/10; 07:18 BP 139 / 98; Pulse 87; Resp 18; Pulse Ox 100% ; db 07:14 Body Mass Index 33.67 (97.52 kg, 170.18 cm) jl7 ED Course: 06:50 Patient arrived in ED. ja2 06:59 Alexis Naidu DO is Attending Physician. ms3 07:16 Triage completed. jl7 07:16 Arm band placed on right wrist. jl7 07:19 Patient has correct armband on for positive identification. Bed in low position. Call db light in reach. Side rails up X 1. 07:19 No provider procedures requiring assistance completed. db 07:35 Missed attempt(s): 20 gauge in left antecubital area. db 07:45 Inserted saline lock: 22 gauge in left hand, using aseptic technique. Blood collected. db 08:02 CBC with Diff Sent. kc6 08:02 CMP Sent. kc6 08:02 Lipase Sent. kc6 08:02 Inserted saline lock: 22 gauge in left hand, using aseptic technique. Blood collected. kc6 08:04 Urine Microscopic Only Sent. kc6 09:21 CT Abd/Pelvis - Without Contrast In Process Unspecified. EDMS 10:51 Donovan Zuniga DO is Referral Physician. ms3 10:51 Inder Snyder MD is Referral Physician. ms3 11:01 Yamile Santizo, RN is Primary Nurse. iw 11:08 IV discontinued, intact, bleeding controlled, No redness/swelling at site. Pressure ph dressing applied. Administered Medications: 07:45 Drug: NS 0.9% 1000 ml Route: IV; Rate: 1 bolus; Site: left hand; db 09:16 Follow up: Response: No adverse reaction; IV Status: Completed infusion; IV Intake: db 1000ml 07:45 Drug: Pepcid (famotidine) 20 mg Route: IVP; Site: left hand; db 09:17 Follow up: Response: No adverse reaction db 07:45 Drug: Zofran (Ondansetron) 4 mg Route: IVP; Site: left hand; db 09:17 Follow up: Response: No adverse reaction db 09:34 Drug: Phenergan (promethazine) 12.5 mg Route: IM; Site: right deltoid; ph 09:34 Follow up: Response: No adverse reaction ph Medication: 07:19 VIS not applicable for this client. db Intake: 09:16 IV: 1000ml; Total: 1000ml. db Outcome: 10:51 Discharge ordered by . ms3 11:08 Discharged to home ambulatory. ph 11:08 Condition: good 11:08 Discharge instructions given to patient, Instructed on discharge instructions, follow up and referral plans. Demonstrated understanding of instructions, follow-up care. 11:09 Patient left the ED. ph Signatures: Dispatcher [employer] EDMS Yamile Santizo, RN SOLITARIO iw Rosalia Jung RN RN Kayleigh Martinez RN RN jl7 Sims, Marcus, DO DO ms3 Nandini Chaney Kaitlyn 6 Kailey Bowen RN RN db
[2022-01-15 12:43] VITALS: BP 139/98; O2SAT 100
[2022-01-15 12:49] VITALS: TEMP 99.2
== END 2022-01-13 11:09 | disposition home or self-care (01) ==
LOC: ER 06:46
DX: K80.80 Other cholelithiasis without obstruction (principal); R11.0 Nausea; Z72.0 Tobacco use; Z88.1 Allergy status to other antibiotic agents; Z88.6 Allergy status to analgesic agent
CPT/HCPCS: 87088; 85025; 87086; 36415; 83690; 80053; 74176; J2550; J7030; J2405; 81003; 81015; 96361; 96372; 96374; 96375; 99284

== ENCOUNTER 2022-03-02 18:10 | Emergency (ER) | payer OTHER ==
--- OUTSIDE RECORDS SUMMARY | 2022-03-02 18:14 | XMS REPORT | Continuity of Care Document ---
:1975 Author Organization [facility] t Address [address] [place] [place] [address] Care Team Providers Name Role Phone Pcp, Patient Does Not Have A Primary Care Physician [id number] Star Burgos Attending Clinician STAR MEADOWS Attending Clinician Unavailable Tayla Schmidt MD Attending Clinician TAYLA SCHMIDT Attending Clinician Unavailable JAYLEEN HOWARD Attending Clinician Unavailable Jayleen Whitehead Attending Clinician Doctor Unassigned, [place] Attending Clinician Unavailable KRISS SHERIDAN Attending Clinician Unavailable Elisa Venegas Attending Clinician ELISA LAGUNAS Attending Clinician Unavailable JOHNNA REBOLLEDO Attending Clinician Unavailable JAYLEEN HOWARD Admitting Clinician Unavailable ELISA LAGUNAS Admitting Clinician Unavailable Payers Payer Name Policy Type Policy Number Effective Date Expiration Date S ource [place] [id number] 2018 WOMEN 00:00:00 [place] [id number] 2021 00:00:00 Problems Condition Condition Condition Status Onset [...] n for STD n for STD [place] ([place] (sexually 00 Medi todd transmitte transmitte Br anch d disease) d disease) Class 3 Class 3 Disease Active 2015-04 Univers severe severe -12 ity of obesity obesity 00:00: [place] due [...] Cigarette Smoker Universi ty of tobacco use [facility] History [facility] University o f Alcohol Frequency [place] [facility] History [facility] University o f Alcohol Std [place] [facility] History [facility] o f Alcohol Binge [place] [facility] Exposure to 2022-01-17 2022-01-27 Not sure University of SARS-CoV-2 00:00:00 14:37:00 [facility] (event) Branch Alcohol intake 2021-12-27 2021-12-27 Current drinker Unive rsity of 00:00:00 00:00:00 of alcohol [place] [facility] (finding) [facility] Tobacco use and 2021-12-20 2021-12-20 Smokeless tobacco Un iversity of exposure 00:00:00 00:00:00 non-user [facility] Tobacco Comment 2021-12-20 2021-12-20 5 cigarettes a Unive rsity of 00:00:00 00:00:00 day [facility] Alcohol Comment 2018-09-15 2018-09-15 occasional Universit y of 00:00:00 00:00:00 [facility] Sex Ass[birth year] Universit y of 00:00:00 00:00:00 [facility] Smoking Status Start Date Stop Date Source Smokes tobacco daily 2021-12-20 00:00:00 Univers ity of [facility] Medications Ordered Filled Start Stop Current Ordering Indication Dosage Frequency Signature Comments Components Source Medication Medication Date Date Medication? Clinician (SIG) Name Name levothyroxi Yes Reggie paez ne 175 mcg 9-30 ity of tablet 00:00: [place] [facility] levothyroxi Yes Reggie paez ne 175 mcg 9-30 ity of tablet 00:00: [place] [facility] levothyroxi Yes Reggie s ne 175 mcg 9-30 ity of tablet 00:00: [place] [facility] No known No No known Unive rs medications 12-27 medication it y of 10:00: s [address] buPROPion Yes Univers SR 150 mg 9-02 ity of SR tablet 00:00: [place] [facility] buPROPion Yes Univers SR 150 mg 9-02 ity of SR tablet 00:00: [place] [facility] Branch buPROPion Yes Univers SR 150 mg 9-02 ity of SR tablet 00:00: [place] [facility] ibuprofen 2021-0 Yes 800mg Take 800 Uni vers 800 mg 8-02 mg by ity of tablet 00:00: mouth [place] [address] every 6 Medical (six) Branch hours as needed. ibuprofen 2021-0 Yes 800mg Take 800 Uni vers 800 mg 8-02 mg by ity of tablet 00:00: mouth [place] [address] every 6 Medical (six) Branch hours as needed. ibuprofen 2021-0 Yes 800mg Take 800 Uni vers 800 mg 8-02 mg by ity of tablet 00:00: mouth [place] 00 every 6 Medical (six) Branch hours as needed. Vital Signs Vital Name Observation Time Observation Value Comments Source Body height 2022-01-27 19:50:00 170.2 cm Universi ty [facility] Body weight 2022-01-27 19:50:[address] [facility] BMI 2022-01-27 19:50:00 47.46 kg/m2 Universi ty [facility] Systolic blood 2021-12-27 14:59:00 132 mm[Hg] Univer [facility]ity [facility] Diastolic blood 2021-12-27 14:59:00 85 mm[Hg] [facility] 2021-12-27 14:59:00 92 /min [facility] Body height 2021-12-27 14:59:00 170.2 [facility] Body weight 2021-12-27 14:59:00 137.44 kg [facility] BMI 2021-12-27 14:59:00 47.46 kg/m2 [facility] Procedures This patient has no known procedures. Encounters Start End Encounter Admission Attending Care Care Encounter Source Date/Time Date/Time Type Type Clinicians Facility Department ID 2021-02-17 Emergency [facility] [id number] Univers 09:49:03 ity [facility] 2021-02-15 Emergency [facility] [id number] Univers 17:30:01 [place] [facility] 2022-01-29 2022-01-29 [facility] [id number] Univers 00:00:00 00:00:00 [facility] [id number] it y of [place] [id number] [place] as PEREZ?BLEA [id number] Id novabernardo [address] MEDICAL OFFICE BUILDING 2022-01-27 2022-01-27 Office [facility] [id number] Univers 15:00:00 15:15:00 Visit [facility] [id number] it y of [place] [id number] Hever as PEREZ?BLEA [id number] [address] MEDICAL OFFICE BUILDING 2022-01-27 2022-01-27 [facility] [id number] Univers 14:50:00 15:09:00 STAR wright [facility] 2021-12-27 2021-12-27 Outpatient [facility] [id number] Univers 10:02:59 23:59:00 STAR eze [facility] 2021-12-27 2021-12-27 Office [facility] [id number] Univers 10:00:00 10:15:00 Visit [facility] [id number] it y [facility] [id number] [place] as PEREZ?BLEA [id number] Id gely ALMEIDA [address] [place] [address] 2021-12-27 2021-12-27 Outpatient [facility] [id number] Univers 10:02:59 10:02:59 STARYING wright [facility] 2021-12-20 2021-12-20 Office [place] [facility] [id number] Univers 10:15:00 10:30:00 Visit [facility] [id number] ity of [facility] [id number] [place] PEREZ?BLEA [id number] Id gely [address] 2021-12-20 2021-12-20 [facility] [id number] Univers 10:15:00 10:15:00 TAYLA iteze [facility] 2021-12-16 2021-12-16 Emergency X [facility] ERT [id number] Univers 18:20:00 20:24:00 JAYLEEN ity [facility] 2021-12-16 2021-12-16 Emergency [place], TRAUMA [id number] Univers 18:20:00 20:24:00 [facility] [id number] [id number] [id number] [address] 2021-12-16 2021-12-16 Emergency [facility] E[facility] [id number] Univers 18:20:00 20:24:00 JAYLEEN iteze [facility] 2021-10-15 2021-10-15 Outpatient [facility] [id number] Univers 15:00:00 15:00:00 [facility] 2021-10-03 2021-10-03 Outpatient [facility] [id number] Univers 15:15:00 15:15:00 [facility] 2021-09-26 2021-09-26 Outpatient [facility] [id number] Univers 15:00:00 15:00:00 [facility] 2021-09-04 2021-09-04 Orders Doctor AIMEE [id number] Univers 00:00:00 00:00:00 Only Unassigned, MELISSA [id number] ity of [place] [facility] [id number] [place] as [id number] [address] 2021-08-22 2021-08-22 Outpatient [facility] [id number] Univers 15:50:00 23:59:00 [facility] 2021-08-22 2021-08-22 Office [facility] [id number] Univers 15:00:00 15:30:00 Visit [facility] [id number] it y of [place] [id number] [place] as PEREZ?BLEA [id number] Id nova[address] MEDICAL OFFICE BUILDING 2021-08-22 2021-08-22 Outpatient [facility] [id number] Univers 15:00:00 15:00:00 [facility] 2021-08-22 2021-08-22 Orders Doctor YU [id number] Univers 00:00:00 00:00:00 Only Unassigned, MELISSA [id number] ity of [place] [facility] [id number] [place] as [id number] [address] 2021-06-12 2021-06-12 Outpatient R FATIMAH [facility] [id number] Univers 15:00:00 15:00:00 KRISS huertas [facility] 2021-05-17 2021-05-17 Outpatient R FATIMAH [facility] [id number] Univers 09:15:00 09:15:00 KRISS huertas [facility] 2020-08-20 2020-08-20 [facility] [id number] 06:56:46 23:59:00 Encounter Elisa Muñoz SPECIALTY [id number] [facility] [id number] CENTER AT [id number] [facility] [address] [place] [address] 2020-08-20 2020-08-20 [facility] [id number] Univers 06:56:46 23:59:00 ELISA huertas [facility] 2020-08-20 2020-08-20 Outpatient Wanda LAGUNAS [facility] [id number] Univers 00:00:00 00:00:00 ELISA huertas [facility] 2020-07-31 2020-07-31 Office [facility] [id number] 15:57:09 16:21:23 Visit Elisa Muñoz REPORT MANAGER [id number] [facility] [id number] MATERNAL [id number] & CHILD [address] [place] [address] 2020-07-31 2020-07-31 [facility] [id number] Univers 15:45:00 15:45:00 ELISA huertas [facility] 2020-07-31 2020-07-31 Outpatient Wanda REBOLLEDO [facility] [id number] Univers 14:45:00 14:45:00 JOHNNA wright [facility] 2020-05-29 2020-05-29 Outpatient Wanda LAGUNAS [facility] [id number] Univers 07:45:00 07:45:00 MARIA LUZDARBYPb huertas [facility] 2020-05-25 2020-05-25 Outpatient R FATIMAH [facility] [id number] Univers 10:15:00 10:15:00 KRISS nelson [facility] 2020-01-04 2020-01-04 Outpatient R BEBO [facility] [id number] [facility] 14:00:00 14:00:00 ELISA nelson [facility] Results This patient has no known results.
[2022-03-02] MEDS ORDERED: ONDANSETRON 4 MG (ODT) TAB ONE (18:32)
[2022-03-02] MEDS ORDERED: IBUPROFEN 400 MG TAB ONE (18:32)
--- NOTE | 2022-03-02 18:57 | RAD REPORT ---
EXAM DESCRIPTION: CT - CTHCSPWOC - 03/02/2022 6:43 pm CLINICAL HISTORY: Trauma, head and neck injury. head trauma COMPARISON: Head C Spine Mpr Wo Con dated 07/06/2021; Head C Spine Mpr Wo Con dated 10/23/2020; Head C Spine Mpr Wo Con dated 06/13/2016 TECHNIQUE: Axial 5 mm thick images of the head were obtained. Axial 2 mm thick images of the cervical spine were obtained with sagittal and coronal reconstruction images generated and reviewed. All CT scans are performed using dose optimization technique as appropriate and may include automated exposure control or mA/KV adjustment according to patient size. FINDINGS: CT HEAD WITHOUT CONTRAST: No acute hemorrhage, hydrocephalus or extra-axial collection is identified.No areas of brain edema or midline shift. Mucosal thickening in left sphenoid sinus.The calvarium is intact. CT CERVICAL SPINE WITHOUT CONTRAST: No fracture or subluxation.No prevertebral soft tissues swelling is identified. Diffusely enlarged th yroid. IMPRESSION: No acute intracranial or cervical spine findings. Goiter.
--- NOTE | 2022-03-02 19:03 | ER ---
Nurse's Notes [facility] Name: Kaylen Benson Age: 46 yrs Sex: Female : 1975 Arrival Date: 03/02/2022 Time: 18:13 Bed 8 Private MD: Diagnosis: Acute post-traumatic headache Presentation: 03/02 18:19 Chief complaint: Patient states: "fell out of my car and hit my head" incident occurred vg1 two days ago, stated hit head on car door, denies LOC. Nausea and vomiting yesterday with dizziness. Pt states h/a rating pain 7/10. Coronavirus screen: Vaccine status: Patient reports being unvaccinated. Client denies travel out of the [place] in the last 14 days. Ebola Screen: Patient negative for fever greater than or equal to 101.5 degrees Fahrenheit, and additional compatible Ebola Virus Disease symptoms. Mechanism of Injury:. Initial Sepsis Screen: Does the patient meet any 2 criteria? No. Patient's initial sepsis screen is negative. Does the patient have a suspected source of infection? No. Patient's initial sepsis screen is negative. Risk Assessment: Do you want to hurt yourself or someone else? Patient reports no desire to harm self or others. Onset of symptoms was February 28, 2022. 18:19 Method Of Arrival: Ambulatory vg1 18:19 Acuity: DONNA 3 vg1 18:37 Mechanism of Injury: resulted from a fall. ll1 Triage Assessment: 18:23 General: Appears uncomfortable, Behavior is cooperative, anxious. Pain: Complains of vg1 pain in head Pain currently is 7 out of 10 on a pain scale. Neuro: Level of Consciousness is awake, alert, obeys commands, Oriented to person, place, time, situation, Reports dizziness, headache photophobia Denies blurred vision. 18:23 GI: Reports nausea, vomiting. 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 - Social history:: Smoking status: Patient reports the use of cigarette tobacco products, smokes one-half pack cigarettes per day. Screenin:37 Abuse screen: Denies threats or abuse. Nutritional screening: No deficits noted. ll1 Tuberculosis screening: No symptoms or risk factors identified. Fall Risk Total Le Fall Scale indicates No Risk (0-24 pts). Assessment: 18:37 Reassessment: No changes from previously documented assessment. Patient and/or family ll1 updated on plan of care and expected duration. Pain level reassessed. Patient is alert, oriented x 3, equal unlabored respirations, skin warm/dry/pink. 19:21 Reassessment: No changes from previously documented assessment. Patient and/or family jl7 updated on plan of care and expected duration. Pain level reassessed. Patient is alert, oriented x 3, equal unlabored respirations, skin warm/dry/pink. Vital Signs: 18:19 BP 137 / 87; Pulse 79; Resp 16; Temp 98.6(O); Pulse Ox 100% on R/A; Weight 124.74 kg; vg1 Height 5 ft. 8 in. (172.72 cm); Pain 7/10; 18:19 Body Mass Index 41.81 (124.74 kg, 172.72 cm) vg1 Piedad Coma Score: 18:19 Eye Response: spontaneous(4). Verbal Response: oriented(5). Motor Response: obeys vg1 commands(6). Total: 15. 18:27 Eye Response: spontaneous(4). Verbal Response: oriented(5). Motor Response: obeys jl9 commands(6). Total: 15. ED Course: 18:13 Patient arrived in ED. as 18:23 Triage completed. vg1 18:23 Arm band placed on. vg1 18:24 Leo Vasquez is PHCP. jl9 18:24 Jose Cantrell MD is Attending Physician. jl9 18:33 Shelby Decker, SOLITARIO is Primary Nurse. ll1 18:37 Patient has correct armband on for positive identification. Bed in low position. Call ll1 light in reach. Side rails up X 1. Cardiac monitoring not applicable on this patient. 18:37 COVID-19/FLU A+B/RSV (Document "Date of Onset" if Symptomatic) Sent. ll1 18:45 CT Head C Spine In Process Unspecified. EDMS 19:20 No provider procedures requiring assistance completed. Patient did not have IV access jl7 during this emergency room visit. Administered Medications: 18:37 Drug: Ibuprofen 800 mg Route: PO; ll1 18:37 Drug: Ondansetron 4 mg Route: PO; ll1 Medication: 18:37 VIS not applicable for this client. ll1 Outcome: 19:02 Discharge ordered by MD. jl9 19:21 Discharged to home ambulatory. jl7 19:21 Condition: good 19:21 Discharge instructions given to patient, Instructed on discharge instructions, follow up and referral plans. medication usage, Demonstrated understanding of instructions, follow-up care, medications, Prescriptions given X 1. 19:21 Patient left the ED. jl7 Signatures: Dispatcher [employer] EDMS Amanda Park Jahala, RN RN jl7 Vicki Benz, RN RN vg1 Shelby Decker, RN RN ll1 Leo Vasquez jl9
--- NOTE | 2022-03-02 19:03 | EDPHYS ---
Physician Documentation [facility] Name: Kaylen Benson Age: 46 yrs Sex: Female : 1975 Arrival Date: 03/02/2022 Time: 18:13 Bed 8 Private MD: ED Physician Jose Cantrell HPI: 03/02 18:27 This 46 yrs old Female presents to ER via Ambulatory with complaints of jl9 headache. Patient reports tripping and hitting her right parietal area on her car door 2 nights ago. No LOC. Patient also requesting a COVID test due to a mild cough the last few days. . 18:27 The patient or guardian reports pain. The complaints affect the top of head, forehead jl9 and right religion. Context of injury: resulted from a direct blow. Onset: The symptoms/episode began/occurred 2 day(s) ago. Associated signs and symptoms: The patient has no apparent associated signs or symptoms. Severity of symptoms: in the emergency department the symptoms a " 6" out of "10". 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 - Social history:: Smoking status: Patient reports the use of cigarette tobacco products, smokes one-half pack cigarettes per day. ROS: 18:28 Constitutional: Negative for fever, chills, and weight loss, Eyes: Negative for injury, jl9 pain, redness, and discharge, ENT: Negative for injury, pain, and discharge, Neck: Negative for injury, pain, and swelling, Cardiovascular: Negative for chest pain, palpitations, and edema, Respiratory: Negative for shortness of breath, cough, wheezing, and pleuritic chest pain, Abdomen/GI: Negative for abdominal pain, nausea, vomiting, diarrhea, and constipation, Back: Negative for injury and pain, : Negative for injury, bleeding, discharge, and swelling, MS/Extremity: Negative for injury and deformity, Skin: Negative for injury, rash, and discoloration. 18:28 Psych: Negative for depression, anxiety, suicide ideation, homicidal ideation, and hallucinations, Allergy/Immunology: Negative for hives, rash, and allergies, Endocrine: Negative for neck swelling, polydipsia, polyuria, polyphagia, and marked weight changes, Hematologic/Lymphatic: Negative for swollen nodes, abnormal bleeding, and unusual bruising. 18:28 Neuro: Positive for headache. Exam: 18:28 Constitutional: This is a well developed, well nourished patient who is awake, alert, jl9 and in no acute distress. 18:28 Eyes: Pupils equal round and reactive to light, extra-ocular motions intact. Lids and lashes normal. Conjunctiva and sclera are non-icteric and not injected. Cornea within normal limits. Periorbital areas with no swelling, redness, or edema. ENT: Mucous membranes moist. Neck: Trachea midline, no thyromegaly or masses palpated, and no cervical lymphadenopathy. Supple, full range of motion without nuchal rigidity, or vertebral point tenderness. No Meningismus. Chest/axilla: Normal chest wall appearance and motion. Nontender with no deformity. No lesions are appreciated. Cardiovascular: Regular rate and rhythm with a normal S1 and S2. No gallops, murmurs, or rubs. Normal PMI, no JVD. No pulse deficits. Respiratory: Lungs have equal breath sounds bilaterally, clear to auscultation and percussion. No rales, rhonchi or wheezes noted. No increased work of breathing, no retractions or nasal flaring. Abdomen/GI: Soft, non-tender, with normal bowel sounds. No distension or tympany. No guarding or rebound. No evidence of tenderness throughout. Back: No spinal tenderness. No costovertebral tenderness. Full range of motion. Skin: Warm, dry with normal turgor. Normal color with no rashes, no lesions, and no evidence of cellulitis. MS/ Extremity: Pulses equal, no cyanosis. Neurovascular intact. Full, normal range of motion. Neuro: Awake and alert, GCS 15, oriented to person, place, time, and situation. Cranial nerves II-XII grossly intact. Motor strength 5/5 in all extremities. Sensory grossly intact. Cerebellar exam normal. Normal gait. Psych: Awake, alert, with orientation to person, place and time. Behavior, mood, and affect are within normal limits. 18:28 Head/face: Noted is tenderness, that is mild, of the right religion. Vital Signs: 18:19 BP 137 / 87; Pulse 79; Resp 16; Temp 98.6(O); Pulse Ox 100% on R/A; Weight 124.74 kg; vg1 Height 5 ft. 8 in. (172.72 cm); Pain 7/10; 18:19 Body Mass Index 41.81 (124.74 kg, 172.72 cm) vg1 Piedad Coma Score: 18:19 Eye Response: spontaneous(4). Verbal Response: oriented(5). Motor Response: obeys vg1 commands(6). Total: 15. 18:27 Eye Response: spontaneous(4). Verbal Response: oriented(5). Motor Response: obeys jl9 commands(6). Total: 15. MDM: 18:28 Differential diagnosis: Contusion of Hematoma on Concussion. Data reviewed: vital jl9 signs, nurses notes. 18:30 Patient medically screened. jl9 19:02 Counseling: I had a detailed discussion with the patient and/or guardian regarding: the 9 historical points, exam findings, and any diagnostic results supporting the discharge/admit diagnosis, radiology results, the need for outpatient follow up, to return to the emergency department if symptoms worsen or persist or if there are any questions or concerns that arise at home. Response to treatment: the patient's symptoms have markedly improved after treatment. 03/02 18:24 Order name: COVID-19/FLU A+B/RSV (Document "Date of Onset" if Symptomatic) 9 03/02 18:25 Order name: CT Head C Spine; Complete Time: 18:59 jl9 Administered Medications: 18:37 Drug: Ibuprofen 800 mg Route: PO; ll1 18:37 Drug: Ondansetron 4 mg Route: PO; ll1 Disposition Summary: 03/02/22 19:02 Discharge Ordered Location: Home jl9 Condition: Stable jl9 Diagnosis - Acute post-traumatic headache jl9 Followup: jl9 - With: Private Physician - When: 1 - 2 days - Reason: Recheck today's complaints, Continuance of care, Re-evaluation by your physician Discharge Instructions: - Discharge Summary Sheet jl9 - Contusion, Eyor-dm-Disf jl9 - Head Injury, Adult, Ulej-dh-Gdzp jl9 Forms: - Medication Reconciliation Form jl9 - Thank You Letter jl9 - Antibiotic Education jl9 - Prescription Opioid Use jl9 Prescriptions: - Ibuprofen 800 mg Oral Tablet - take 1 tablet by ORAL route every 8 hours As needed take with food; 30 tablet; jl9 Refills: 0, Product Selection Permitted Addendum: 03/06/2022 09:34 Co-signature as Attending Physician, Jose Cantrell MD I agree with the assessment and c rivera plan of care. Signatures: Dispatcher [employer] EDJose Hirsch MD MD cha Garcia, Victoria, RN RN vg1 Shelby Decker RN RN ll1 Leo Vasquez jl9 Corrections: (The following items were deleted from the chart) 03/02 19:09 18:27 This 46 yrs old Female presents to ER via Ambulatory with complaints of jl9 headache. Patient reports tripping and hitting her right parietal area on her car door 2 nights ago. No LOC. . jl9
[2022-03-02 19:32] VITALS: BP 137/87; TEMP 98.6; O2SAT 100
[2022-03-02 19:33] LABS: SARS-COV-2 RT PCR NEGATIVE (NEGATIVE)
== END 2022-03-02 19:21 | disposition home or self-care (01) ==
LOC: ER 18:10
DX: G44.319 Acute post-traumatic headache, not intractable (principal); R05.9 Cough, unspecified; Z20.822 Contact with and (suspected) exposure to COVID-19
CPT/HCPCS: 0241U; 70450; 72125; 99284; Q0162

== ENCOUNTER 2022-04-18 07:09 | Emergency (ER) | payer OTHER ==
--- OUTSIDE RECORDS SUMMARY | 2022-04-18 07:12 | XMS REPORT | Continuity of Care Document ---
:1975 Author Organization [facility] t Address [address] [place]. [phone] Care Team Providers Name Role Phone Pcp, Patient Does Not Have A Primary Care Physician [id number] Star Burgos Attending Clinician STAR MEADOWS Attending Clinician Unavailable Tayla Schmidt MD Attending Clinician TAYLA SCHMIDT Attending Clinician Unavailable JAYLEEN HOWARD Attending Clinician Unavailable Jayleen Whitehead Attending Clinician Doctor Unassigned, [place] Attending Clinician Unavailable KRISS SHERIDAN Attending Clinician Unavailable Elisa Venegas Attending Clinician ELISA LAGUNAS Attending Clinician Unavailable JOHNNA REBOLLEDO Attending Clinician Unavailable JAYLEEN HOWARD Admitting Clinician Unavailable ELISA LAGUNAS Admitting Clinician Unavailable Payers Payer Name Policy Type Policy Number Effective Date Expiration Date S ource [place] [id number] 2018 WOMEN 00:00:00 [place] [id number] 2021 00:00:00 Problems Condition Condition Condition Status [...] of tobacco use [place] [facility] History [facility] University o f Alcohol Frequency [place] [facility] University o f Alcohol Std [place] [facility] Dr[facility] History [facility] o f Alcohol Binge [place] [facility] Exposure to 2022-01-17 2022-01-27 Not sure University of SARS-CoV-2 00:00:00 14:37:00 [facility] (event) Branch Alcohol intake 2021-12-27 2021-12-27 Current drinker Unive rsity of 00:00:00 00:00:00 of alcohol [place] [facility] (finding) Branch Tobacco use and 2021-12-20 2021-12-20 Smokeless tobacco Un iversity of exposure 00:00:00 00:00:00 non-user [facility] Tobacco Comment 2021-12-20 2021-12-20 5 cigarettes a Unive rsity of 00:00:00 00:00:00 day [facility] Alcohol Comment 2018-09-15 2018-09-15 occasional Universit y of 00:00:00 00:00:00 [facility] Sex Ass[birth year] Universit y of 00:00:00 00:00:00 [facility] Smoking Status Start Date Stop Date Source Smokes tobacco daily 2021-12-20 00:00:00 Univers ity of [facility] Medications Ordered Filled Start Stop Current Ordering Indication Dosage Frequency Signature Comments Components Source Medication Medication Date Date Medication? Clinician (SIG) Name Name levothyroxi Yes Reggie paez ne 175 mcg 9-30 ity of tablet 00:00: [place] [facility] levothyroxi Yes Reggie paez ne 175 mcg 9-30 ity of tablet 00:00: [place] [facility] levothyroxi Yes Reggie s ne 175 mcg 9-30 ity of tablet 00:00: [place] [facility] No known No No known Unive rs medications 12-27 medication it y of 10:00: s [address] buPROPion Yes Univers SR 150 mg 9-02 ity of SR tablet 00:00: [place] [facility] buPROPion Yes Univers SR 150 mg 9-02 ity of SR tablet 00:00: [place] [facility] Branch buPROPion Yes Univers SR 150 mg 9-02 ity of SR tablet 00:00: [place] [facility] ibuprofen 2021-0 Yes 800mg Take 800 Uni vers 800 mg 8-02 mg by ity of tablet 00:00: mouth [place] [address] every 6 Medical (six) Branch hours as needed. ibuprofen 2021-0 Yes 800mg Take 800 Uni vers 800 mg 8-02 mg by ity of tablet 00:00: mouth [place] [address] every 6 Medical (six) Branch hours as needed. ibuprofen 2021-0 Yes 800mg Take 800 Uni vers 800 mg 8-02 mg by ity of tablet 00:00: mouth [place] 00 every 6 Medical (six) Branch hours as needed. Vital Signs Vital Name Observation Time Observation Value Comments Source Body height 2022-01-27 19:50:00 170.2 cm Universi ty [facility] Body weight 2022-01-27 19:50:00 137.44 kg Universi [facility] BMI 2022-01-27 19:50:00 47.46 kg/m2 Universi ty [facility] Systolic blood 2021-12-27 14:59:00 132 mm[Hg] Univer sity of [place] [facility] Diastolic blood 2021-12-27 14:59:00 85 mm[Hg] [facility] Heart rate 2021-12-27 14:59:00 92 /min [facility] Body height 2021-12-27 14:59:00 170.2 cm [facility] Body weight 2021-12-27 14:59:00 137.44 kg [facility] BMI 2021-12-27 14:59:00 47.46 kg/m2 [facility] Procedures This patient has no known procedures. Encounters Start End Encounter Admission Attending Care Care Encounter Source Date/Time Date/Time Type Type Clinicians Facility Department ID 2021-02-17 Emergency [facility] [id number] Univers 09:49:03 ity [facility] 2021-02-15 Emergency [facility] [id number] Univers 17:30:01 [facility] 2022-01-29 2022-01-29 [facility] [id number] Univers 00:00:00 00:00:00 [facility] [id number] it y of [place] [id number] Hever as PEREZ?BLEA [id number] Md novabernardo [address] MEDICAL OFFICE BUILDING 2022-01-27 2022-01-27 Office [facility] [id number] Univers 15:00:00 15:15:00 Visit [facility] [id number] it y of [place] [id number] Hever as PEREZ?BLEA [id number] [address] MEDICAL OFFICE BUILDING 2022-01-27 2022-01-27 [facility] [id number] Univers 14:50:00 15:09:00 STAR wright [facility] 2021-12-27 2021-12-27 Outpatient [facility] [id number] Univers 10:02:59 23:59:00 STAR eze [facility] 2021-12-27 2021-12-27 [facility] [id number] Univers 10:00:00 10:15:00 Visit [facility] [id number] it y [facility] [id number] Hever as PEREZ?BLEA [id number] Md gely ALMEIDA [address] [place] [address] 2021-12-27 2021-12-27 Outpatient [facility] [id number] Univers 10:02:59 10:02:59 STARYING wright [facility] 2021-12-20 2021-12-20 Office Star Meadows [facility] [id number] Univers 10:15:00 10:30:00 Visit Brayan [facility] [id number] ity [facility] [id number] [place] as PEREZ?BLEA [id number] Md gely [address] 2021-12-20 2021-12-20 Out[facility] [id number] Univers 10:15:00 10:15:00 TAYLA iteze [facility] 2021-12-16 2021-12-16 Emergency X [facility] ERT [id number] Univers 18:20:00 20:24:00 JAYLEEN ity [facility] 2021-12-16 2021-12-16 Emergency Chaoman, TRAUMA [id number] Univers 18:20:00 20:24:00 [facility] [id number] [id number] [id number] [address] 2021-12-16 2021-12-16 Emergency [facility] [id number] Univers 18:20:00 20:24:00 JAYLEEN iteze [facility] 2021-10-15 2021-10-15 Outpatient [facility] [id number] Univers 15:00:00 15:00:00 [facility] 2021-10-03 2021-10-03 Outpatient [facility] [id number] Univers 15:15:00 15:15:00 [facility] 2021-09-26 2021-09-26 Outpatient [facility] [id number] Univers 15:00:00 15:00:00 [facility] 2021-09-04 2021-09-04 Orders Doctor AIMEE [id number] Univers 00:00:00 00:00:00 Only Unassigned, MELISSA [id number] ity of [place] [facility] [id number] He[place] as [id number] [address] 2021-08-22 2021-08-22 Outpatient [facility] [id number] Univers 15:50:00 23:59:00 [facility] 2021-08-22 2021-08-22 Office [facility] [id number] Univers 15:00:00 15:30:00 Visit [facility] [id number] it y of [place] [id number] Hever as PEREZ?BLEA [id number] Md nova[address] MEDICAL OFFICE BUILDING 2021-08-22 2021-08-22 Outpatient [facility] [id number] Univers 15:00:00 15:00:00 [facility] 2021-08-22 2021-08-22 Orders Doctor YU [id number] Univers 00:00:00 00:00:00 Only Unassigned, MELISSA [id number] ity of [place] [facility] [id number] [place] as [id number] [address] 2021-06-12 2021-06-12 Outpatient R FATIMAH [facility] [id number] Univers 15:00:00 15:00:00 KRISS huertas [facility] 2021-05-17 2021-05-17 Outpatient R FATIMAH [facility] [id number] Univers 09:15:00 09:15:00 KRISS huertas [facility] 2020-08-20 2020-08-20 [facility] [id number] 06:56:46 23:59:00 Encounter Elisa Muñoz SPECIALTY [id number] [facility] [id number] CENTER AT [id number] [facility] [address] [place] [address] 2020-08-20 2020-08-20 [facility] [id number] Univers 06:56:46 23:59:00 ELISA huertas [facility] 2020-08-20 2020-08-20 Outpatient Wanda LAGUNAS [facility] [id number] Univers 00:00:00 00:00:00 ELISA huertas [facility] 2020-07-31 2020-07-31 Office [facility] [id number] 15:57:09 16:21:23 Visit Elisa Muñoz [facility] [id number] [facility] [id number] MATERNAL [id number] & CHILD [address] [place] [address] 2020-07-31 2020-07-31 [facility] [id number] Univers 15:45:00 15:45:00 ELISA huertas [facility] 2020-07-31 2020-07-31 Outpatient Wanda REBOLLEDO [facility] [id number] Univers 14:45:00 14:45:00 OJHNNA wright [facility] 2020-05-29 2020-05-29 Outpatient Wanda LAGUNAS [facility] [id number] Univers 07:45:00 07:45:00 MARIA LUZDARBYPb huertas [facility] 2020-05-25 2020-05-25 Outpatient R FATIMAH [facility] [id number] Univers 10:15:00 10:15:00 KRISS nelson [facility] 2020-01-04 2020-01-04 Outpatient R BEBO [facility] [id number] [facility] 14:00:00 14:00:00 ELISA nelson [facility] Results This patient has no known results.
--- NOTE | 2022-04-18 08:07 | ER ---
Nurse's Notes [facility] [place] Name: Kaylen Benson Age: 46 yrs Sex: Female : 1975 Arrival Date: 04/18/2022 Time: 07:12 Bed 10 Private MD: Diagnosis: Insect bite (nonvenomous) of lower back and pelvis Presentation: 04/18 07:45 Chief complaint: Patient states: something bit her at work , felt a stinging sensation, iw she just wants to know what it is. Ebola Screen: Patient negative for fever greater than or equal to 101.5 degrees Fahrenheit, and additional compatible Ebola Virus Disease symptoms Patient denies exposure to infectious person. Patient denies travel to an Ebola-affected area in the 21 days before illness onset. No symptoms or risks identified at this time. 07:45 Method Of Arrival: Ambulatory iw 07:45 Acuity: DONNA 5 iw 08:00 Coronavirus screen: At this time, the client does not indicate any symptoms associated iw with coronavirus-19. Initial Sepsis Screen: Does the patient meet any 2 criteria? No. Patient's initial sepsis screen is negative. Does the patient have a suspected source of infection? No. Patient's initial sepsis screen is negative. Risk Assessment: Do you want to hurt yourself or someone else? Patient reports no desire to harm self or others. Onset of symptoms was April 18, 2022. Triage Assessment: 08:00 Bite description: bite sustained to back by animal information: vaccination(s) is not iw applicable. General: Appears in no apparent distress. Behavior is calm, cooperative. Historical: - Allergies: 07:46 "sensitive to pain medications"; iw 07:46 Amoxicillin; iw 07:46 Clindamycin; iw - PMHx: 07:46 Anxiety; COPD; hypotension; Migraines; Thyroid problem; Vertigo; iw - PSHx: 07:46 section; iw - Family history:: not pertinent. - Social history:: Smoking status: Patient reports the use of cigarette tobacco products. - Hospitalizations: : No recent hospitalization is reported. Screenin:09 [facility] ED Fall Risk Assessment (Adult) History of falling in the last 3 months, iw including since admission No falls in past 3 months (0 pts). Abuse screen: Denies threats or abuse. Denies injuries from another. Nutritional screening: No deficits noted. Tuberculosis screening: No symptoms or risk factors identified. Assessment: 07:50 General: Appears in no apparent distress. Behavior is calm, cooperative. Pain: Denies iw pain. Derm: Skin is intact, is healthy with good turgor, Skin is pink, warm \\T\\ dry. normal. Vital Signs: 07:46 BP 138 / 95; Pulse 79; Resp 16; Temp 97.5; Pulse Ox 100% ; iw ED Course: 07:12 Patient arrived in ED. rg4 07:13 David Wilye MD is Attending Physician. rn 07:46 Triage completed. iw 07:50 Arm band placed on. iw 07:51 Patient has correct armband on for positive identification. iw 08:09 No provider procedures requiring assistance completed. Patient did not have IV access iw during this emergency room visit. 08:11 Yamile Santizo, RN is Primary Nurse. iw Administered Medications: No medications were administered Medication: 07:50 VIS not applicable for this client. iw Outcome: 08:06 Discharge ordered by . rn 08:10 Discharged to home ambulatory. iw 08:10 Condition: good 08:10 Discharge instructions given to patient, Instructed on discharge instructions, follow up and referral plans. Demonstrated understanding of instructions, follow-up care. 08:11 Patient left the ED. iw Signatures: Yamile Santizo RN RN David Wiley MD MD rn Garcia, Rubi rg4
--- NOTE | 2022-04-18 08:07 | EDPHYS ---
Physician Documentation [facility] Name: Kaylen Benson Age: 46 yrs Sex: Female : 1975 Arrival Date: 04/18/2022 Time: 07:12 Bed 10 Private MD: ED Physician David Wiley HPI: 04/18 08:01 This 46 yrs old Female presents to ER via Ambulatory with complaints of Insect Bite. rn 08:01 The patient was bitten on the back, by unknown insect. Onset: The symptoms/episode rn began/occurred this morning. Secondary to the bite the patient reports pain. Associated signs and symptoms: Pertinent negatives: erythema at site, fever, fluctuance, suspected foreign body, swelling at site. Severity of symptoms: At their worst the symptoms were very mild, in the emergency department the symptoms are unchanged. The patient has not experienced similar symptoms in the past. The patient has not recently seen a physician. Reports possible insect bite to lower back while at work, felt a little pain, looked red initially on picture, no longer red or painful. Has had to get incision and drainage before for spider bite so came in for eval. No systemic symptoms.. Historical: - Allergies: 07:46 "sensitive to pain medications"; iw 07:46 Amoxicillin; iw 07:46 Clindamycin; iw - PMHx: 07:46 Anxiety; COPD; hypotension; Migraines; Thyroid problem; Vertigo; iw - PSHx: 07:46 section; iw - Family history:: not pertinent. - Social history:: Smoking status: Patient reports the use of cigarette tobacco products. - Hospitalizations: : No recent hospitalization is reported. ROS: 08:01 Constitutional: Negative for fever, chills, and weight loss, Cardiovascular: Negative rn for chest pain, palpitations, and edema, Respiratory: Negative for shortness of breath, cough, wheezing, and pleuritic chest pain, Abdomen/GI: Negative for abdominal pain, nausea, vomiting, diarrhea, and constipation, Skin: + possible insect bite to lower back Neuro: Negative for headache, weakness, numbness, tingling, and seizure. Exam: 08:01 Constitutional: This is a well developed, well nourished patient who is awake, alert, rn and in no acute distress. Back: No spinal tenderness. No fluctuance. No erythema. Small irregular raised macule left mid back without erythema/warmth. Skin: Warm, dry with normal turgor. Normal color with no rashes and no evidence of cellulitis. Vital Signs: 07:46 BP 138 / 95; Pulse 79; Resp 16; Temp 97.5; Pulse Ox 100% ; iw MDM: 07:14 Patient medically screened. rn 08:01 Differential diagnosis: insect bite. Data reviewed: vital signs, nurses notes, and as a rn result, I will discharge patient. Counseling: I had a detailed discussion with the patient and/or guardian regarding: the historical points, exam findings, and any diagnostic results supporting the discharge/admit diagnosis, the need for outpatient follow up, to return to the emergency department if symptoms worsen or persist or if there are any questions or concerns that arise at home. Special discussion: I discussed with the patient/guardian in detail that at this point there is no indication for admission to the hospital. It is understood, however, that if the symptoms persist or worsen the patient needs to return immediately for re-evaluation. Administered Medications: No medications were administered Disposition Summary: 04/18/22 08:06 Discharge Ordered Location: Home rn Problem: new rn Symptoms: have improved rn Condition: Stable rn Diagnosis - Insect bite (nonvenomous) of lower back and pelvis rn Followup: rn - With: Private Physician - When: As needed - Reason: Recheck today's complaints, Re-evaluation by your physician Discharge Instructions: - Discharge Summary Sheet rn - Insect Bite, Adult rn Forms: - Medication Reconciliation Form rn - Thank You Letter rn - Antibiotic wooden furniture polisher - Prescription Opioid Use rn Signatures: Yamile Santizo RN RN David Wiley MD MD procedure rn: (The following items were deleted from the chart) 08:04 08:01 Constitutional: Negative for fever, chills, and weight loss, Cardiovascular: rn Negative for chest pain, palpitations, and edema, Respiratory: Negative for shortness of breath, cough, wheezing, and pleuritic chest pain, Abdomen/GI: Negative for abdominal pain, nausea, vomiting, diarrhea, and constipation, Skin: + possible insect bite to lower back rn
[2022-04-18 08:14] VITALS: BP 138/95; TEMP 97.5; O2SAT 100
== END 2022-04-18 08:11 | disposition home or self-care (01) ==
LOC: ER 07:09
DX: S30.860A Insect bite (nonvenomous) of lower back and pelvis, initial encounter (principal); Z72.0 Tobacco use; Z88.1 Allergy status to other antibiotic agents; Z88.3 Allergy status to other anti-infective agents
CPT/HCPCS: 99281

== ENCOUNTER 2022-04-22 21:38 | Emergency (ER) | payer OTHER ==
--- OUTSIDE RECORDS SUMMARY | 2022-04-22 21:42 | XMS REPORT | Continuity of Care Document ---
:[address] [facility] t Address [address] [place] [place] [address] Care Team Providers Name Role Phone Pcp, Patient Does Not Have A Primary Care Physician [id number] Star Burgos Attending Clinician STAR MEADOWS Attending Clinician Unavailable Tayla Schmidt MD Attending Clinician TAYLA SCHMIDT Attending Clinician Unavailable JAYLEEN HOWARD Attending Clinician Unavailable Jayleen Whitehead Attending Clinician Doctor Unassigned, [place] Attending Clinician Unavailable KRISS SHERIDAN Attending Clinician Unavailable Elisa Venegas Attending Clinician ELISA LAGUNAS Attending Clinician Unavailable JOHNNA REBOLLEDO Attending Clinician Unavailable JAYLEEN HOWARD Admitting Clinician Unavailable ELISA LAGUNAS Admitting Clinician Unavailable Payers Payer Name Policy Type Policy Number Effective Date Expiration Date S ource [employer] [place] [id number] 2018 WOMEN 00:00:00 [place] [id number] 2021 00:00:00 Problems Condition Condition Condition Status [...] Cigarette Smoker Universi ty of tobacco use [facility] History [facility] University o f Alcohol Frequency [place] [facility] History [facility] University o f Alcohol Std [place] [facility] History [facility] o f Alcohol Binge [place] [facility] Exposure to 2022-01-17 2022-01-27 Not sure University of SARS-CoV-2 00:00:00 14:37:00 [facility] (event) Branch Alcohol intake 2021-12-27 2021-12-27 Current drinker Unive rsity of 00:00:00 00:00:00 of alcohol [place] [facility] (finding) [facility] Tobacco use and 2021-12-20 2021-12-20 Smokeless tobacco Un iversity of exposure 00:00:00 00:00:00 non-user [facility] Tobacco Comment 2021-12-20 2021-12-20 5 cigarettes a Unive rsity of 00:00:00 00:00:00 day [facility] Alcohol Comment 2018-09-15 2018-09-15 occasional Universit y of 00:00:00 00:00:00 [facility] Sex Ass[birth year] Universit y of 00:00:00 00:00:00 [facility] Smoking Status Start Date Stop Date Source Smokes tobacco daily 2021-12-20 00:00:00 Univers ity of [facility] Medications Ordered Filled Start Stop Current Ordering Indication Dosage Frequency Signature Comments Components Source Medication Medication Date Date Medication? Clinician (SIG) Name Name levothyroxi Yes Reggie paez ne 175 mcg 9-30 ity of tablet 00:00: [place] [facility] levothyroxi Yes Reggie paez ne 175 mcg 9-30 ity of tablet 00:00: [place] [facility] levothyroxi Yes Reggie s ne 175 mcg 9-30 ity of tablet 00:00: [place] [facility] No known No No known Unive rs medications 12-27 medication it y of 10:00: s [address] buPROPion Yes Univers SR 150 mg 9-02 ity of SR tablet 00:00: [place] [facility] buPROPion Yes Univers SR 150 mg 9-02 ity of SR tablet 00:00: [place] [facility] Branch buPROPion Yes Univers SR 150 mg 9-02 ity of SR tablet 00:00: [place] [facility] ibuprofen 2021-0 Yes 800mg Take 800 Uni vers 800 mg 8-02 mg by ity of tablet 00:00: mouth [place] [address] every 6 Medical (six) Branch hours as needed. ibuprofen 2021-0 Yes 800mg Take 800 Uni vers 800 mg 8-02 mg by ity of tablet 00:00: mouth [place] [address] every 6 Medical (six) Branch hours as needed. ibuprofen 2021-0 Yes 800mg Take 800 Uni vers 800 mg 8-02 mg by ity of tablet 00:00: mouth [place] 00 every 6 Medical (six) Branch hours as needed. Vital Signs Vital Name Observation Time Observation Value Comments Source Body height 2022-01-27 19:50:00 170.2 cm Universi ty [facility] Body weight 2022-01-27 19:50:00 137.44 kg Universi [facility] BMI 2022-01-27 19:50:00 47.46 kg/m2 Universi ty [facility] Systolic blood 2021-12-27 14:59:00 132 mm[Hg] Univer sity of [facility] Diastolic blood 2021-12-27 14:59:00 85 mm[Hg] [facility] 2021-12-27 14:59:00 92 /min [facility] Body height 2021-12-27 14:59:00 170.2 cm [facility] Body weight 2021-12-27 14:59:00 137.44 kg [facility] BMI 2021-12-27 14:59:00 47.46 kg/m2 [facility] Procedures This patient has no known procedures. Encounters Start End Encounter Admission Attending Care Care Encounter Source Date/Time Date/Time Type Type Clinicians Facility Department ID 2021-02-17 Emergency [facility] [id number] Univers 09:49:03 ity [facility] 2021-02-15 Emergency [facility] [id number] Univers 17:30:01 [facility] 2022-01-29 2022-01-29 [facility] [id number] Univers 00:00:00 00:00:00 [facility] [id number] it y of [place] [id number] Hever as PEREZ?BLEA [id number] Ks novabernardo [address] MEDICAL OFFICE BUILDING 2022-01-27 2022-01-27 Office [facility] [id number] Univers 15:00:00 15:15:00 Visit [facility] [id number] it y of [place] [id number] Hever as PEREZ?BLEA [id number] [address] MEDICAL OFFICE BUILDING 2022-01-27 2022-01-27 [facility] [id number] Univers 14:50:00 15:09:00 STAR wright [facility] 2021-12-27 2021-12-27 [facility] [id number] Univers 10:02:59 23:59:00 STAR eze [facility] 2021-12-27 2021-12-27 [facility] [id number] Univers 10:00:00 10:15:00 Visit [facility] [id number] [facility] [id number] [place] as PEREZ?BLEA [id number] [place] gely ALMEIDA [address] [place] [address] 2021-12-27 2021-12-27 [facility] [id number] Univers 10:02:59 10:02:59 STARYING wright [facility] 2021-12-20 2021-12-20 Office [place] [facility] [id number] Univers 10:15:00 10:30:00 Visit Brayan [facility] [id number] [facility] [id number] He[place] as PEREZ?BLEA [id number] Ks gely [address] 2021-12-20 2021-12-20 Outpatient R [facility] [id number] Univers 10:15:00 10:15:00 TAYLA iteze [facility] 2021-12-16 2021-12-16 Emergency X [facility] ERT [id number] Univers 18:20:00 20:24:00 JAYLEEN ity [facility] 2021-12-16 2021-12-16 Emergency Chaoman, TRAUMA [id number] Univers 18:20:00 20:24:00 [facility] [id number] [id number] [id number] [address] 2021-12-16 2021-12-16 Emergency [facility] [id number] Univers 18:20:00 20:24:00 JAYLEEN iteze [facility] 2021-10-15 2021-10-15 [facility] [id number] Univers 15:00:00 [facility]:00:[facility] 2021-10-03 2021-10-03 [facility] [id number] Univers 15:15:00 15:15:00 [facility] 2021-09-26 2021-09-26 [facility] [id number] Univers 15:00:00 15:00:00 [facility] 2021-09-04 2021-09-04 Orders Doctor AIMEE [id number] Univers 00:00:00 00:00:00 Only Unassigned, MELISSA [id number] ity of [place] [facility] [id number] Hever as [id number] [address] 2021-08-22 2021-08-22 Outpatient [facility]anda [facility] [id number] Univers 15:50:00 23:59:00 [facility] 2021-08-22 2021-08-22 [facility] [id number] Univers 15:00:00 15:30:00 Visit [facility] [id number] it y of [place] [id number] Hever as PEREZ?BLEA [id number] Ks nova[address] MEDICAL OFFICE BUILDING 2021-08-22 2021-08-22 Outpatient [facility] [id number] Univers 15:00:00 15:00:00 [facility] 2021-08-22 2021-08-22 Orders Doctor YU [id number] Univers 00:00:00 00:00:00 Only Unassigned, MELISSA [id number] ity of [place] [facility] [id number] Hever as [id number] [address] 2021-06-12 2021-06-12 Outpatient R FATIMAH [facility] [id number] Univers 15:00:00 15:00:00 KRISS huertas [facility] 2021-05-17 2021-05-17 Outpatient R FATIMAH [facility] [id number] Univers 09:15:00 09:15:00 KRISS huertas [facility] 2020-08-20 2020-08-20 [facility] [id number] 06:56:46 23:59:00 Encounter Elisa Muñoz SPECIALTY [id number] [facility] [id number] CENTER AT [phone] [facility] [address] [place] [address] 2020-08-20 2020-08-20 [facility] [id number] Univers 06:56:46 23:59:00 ELISA huertas [facility] 2020-08-20 2020-08-20 Outpatient Wanda LAGUNAS [facility] [id number] Univers 00:00:00 00:00:00 ELISA huertas [facility] 2020-07-31 2020-07-31 Office [facility] [id number] 15:57:09 16:21:23 Visit Elisa Muñoz HOG BU[employer]ER [id number] [facility] [id number] MATERNAL [id number] & CHILD [address] [place] [address] 2020-07-31 2020-07-31 [facility] [id number] Univers 15:45:00 15:45:00 ELISA huertas [facility] 2020-07-31 2020-07-31 Outpatient Wanda REBOLLEDO [facility] [id number] Univers 14:45:00 14:45:00 JOHNNA wright [facility] 2020-05-29 2020-05-29 Outpatient Wanda LAGUNAS [facility] [id number] Univers 07:45:00 07:45:00 MARIA LUZDARBYPb huertas [facility] 2020-05-25 2020-05-25 Outpatient R FATIMAH [facility] [id number] Univers 10:15:00 10:15:00 KRISS nelson [facility] 2020-01-04 2020-01-04 Outpatient R BEBO [facility] [id number] [facility] 14:00:00 14:00:00 ELISA nelson [facility] Results This patient has no known results.
[2022-04-22 22:44] LABS: Urine Blood Negative (Negative); Urine Glucose Negative (Negative); Urine Protein Negative (Negative); Urine Specific Gravity >=1.030 (1.005-1.030)
[2022-04-22 22:51] LABS: Urine Specific Gravity/Preg >1.030 (1.005-1.030)
[2022-04-22] MEDS ORDERED: NA CHLORIDE 0.9% 1,000 ML ONE (22:59)
[2022-04-22] MEDS ORDERED: ONDANSETRON 4 MG/2 ML VIAL ONE (22:59)
[2022-04-22] MEDS ORDERED: MORPHINE 4 MG/ML SYR ONE (22:59)
[2022-04-22 23:00] LABS: Urine Bacteria <20 /HPF (<20); Urine Mucus Slight /HPF (None Seen); Urine RBC <5 /HPF (None Seen)
--- NOTE | 2022-04-22 23:12 | RAD REPORT ---
EXAM DESCRIPTION: CTStone Protocol - 04/22/2022 10:58 pm CLINICAL HISTORY: left flank pain COMPARISON: <Comparisons> TECHNIQUE: CT of the abdomen and pelvis was performed without IV contrast. All CT scans are performed using dose optimization technique as appropriate and may include automated exposure control or mA/KV adjustment according to patient size. FINDINGS: Lower chest: Small subpleural nodules in the lower lungs likely perifissural lymph nodes. Liver: No acute abnormality or suspicious lesions. Biliary: Cholelithiasis Stomach: No significant focal abnormality. Duodenum: No significant focal abnormality. Pancreas: No significant abnormality. Spleen: No significant abnormality. Adrenal: No suspicious lesions. Kidney/ureter: No hydronephrosis. No renal calculi. Retroperitoneum: No retroperitoneal adenopathy. Vascular: No aneurysm. Bowel: Normal appendix. No bowel obstruction.. Peritoneum: No ascites or free air. Bladder: Grossly unremarkable. Reproductive: No adnexal masses. Bones: No acute fracture. Other: n/a IMPRESSION: No acute intra-abdominal or pelvic finding. Normal appendix. No urinary tract calculi.
[2022-04-22 23:13] LABS: Absolute Lymphocytes (CBC) 1.9 K/uL (0.7-4.9); Hematocrit 35.1 % (36.0-45.0); MCV 89.2 fL (80-100); MPV 8.1 fL (7.6-11.3); RBC Red Blood Cell Count 3.94 M/uL (3.86-4.86)
[2022-04-22 23:21] LABS: Albumin 3.1 g/dL (3.4-5.0); Bilirubin Total 0.1 mg/dL (0.2-1.0); Potassium 4.2 mmol/L (3.5-5.1); Protein, Total 7.7 g/dL (6.4-8.2)
[2022-04-23] MEDS ORDERED: KETOROLAC 30 MG/ML INJ ONE (01:13)
--- NOTE | 2022-04-23 01:17 | EDPHYS ---
Physician Documentation [facility] Name: Kaylen Benson Age: 46 yrs Sex: Female : 1975 Arrival Date: 04/22/2022 Time: 21:43 Bed 26 Private MD: ED Physician Reji Zuniga HPI: 04/22 22:40 This 46 yrs old Female presents to ER via Ambulatory with complaints of Leg Pain, Flank cp Pain. 22:40 The patient presents with pain, that is acute. The complaints affect the back of left cp and right legs. Onset: The symptoms/episode began/occurred 2 day(s) ago. Associated signs and symptoms: Pertinent positives: chronic low back pain and left abdomen/flank pain, Pertinent negatives fever, warmth, weakness, incontinence. Severity of symptoms: in the emergency department the symptoms are unchanged, pain described as feeling like "Raad horse". CLOTH WINDER: 22:16 tube ligation em6 Historical: - Allergies: 22:16 "sensitive to pain medications"; em6 22:16 Amoxicillin; em6 22:16 Clindamycin; em6 - PMHx: 22:16 Anxiety; COPD; hypotension; Migraines; Thyroid problem; Vertigo; em6 - PSHx: 22:16 section; em6 - Immunization history:: Adult Immunizations up to date. - Social history:: Smoking status: Patient reports the use of cigarette tobacco products. ROS: 22:45 Constitutional: Negative for body aches, chills, fever, poor PO intake. cp 22:45 Eyes: Negative for injury, pain, redness, and discharge. cp 22:45 ENT: Negative for drainage from ear(s), ear pain, sore throat, difficulty swallowing, difficulty handling secretions. 22:45 Cardiovascular: Negative for chest pain, edema, palpitations. 22:45 Respiratory: Negative for cough, shortness of breath, wheezing. 22:45 Abdomen/GI: Positive for left side abdomen and left flank pain, Negative for vomiting, diarrhea, constipation, bowel incontinence. 22:45 Back: Positive for low back and buttocks pain, Negative for injury or acute deformity, decreased range of motion. 22:45 : Negative for urinary symptoms, bladder incontinence. 22:45 Skin: Negative for rash. 22:45 Neuro: Negative for altered mental status, dizziness, headache, numbness, tingling, weakness. 22:45 All other systems are negative. Exam: 22:50 Constitutional: The patient appears in no acute distress, alert, awake, non-toxic, well cp developed, well nourished, obese. 22:50 Head/Face: Normocephalic, atraumatic. cp 22:50 Eyes: Periorbital structures: appear normal, Conjunctiva: normal, no exudate, no injection, Sclera: no appreciated abnormality, Lids and lashes: appear normal, bilaterally. 22:50 ENT: External ear(s): are unremarkable, Nose: is normal, Mouth: Lips: moist, Oral mucosa: moist, Posterior pharynx: Airway: no evidence of obstruction, patent. 22:50 Chest/axilla: Inspection: normal. 22:50 Cardiovascular: Rate: normal, Rhythm: regular. 22:50 Respiratory: the patient does not display signs of respiratory distress, Respirations: normal, no use of accessory muscles, no retractions, labored breathing, is not present, Breath sounds: are clear throughout, no decreased breath sounds, no stridor, no wheezing. 22:50 Abdomen/GI: Inspection: obese Bowel sounds: active, all quadrants, Palpation: soft, in all quadrants, mild abdominal tenderness, in the anterior aspect of left lateral abdomen and left lower quadrant, rebound tenderness, is not appreciated, involuntary guarding, is not appreciated. 22:50 Back: pain, that is mild, of the low back area, ROM is normal. 22:50 Skin: no rash present. 22:50 Neuro: Orientation: to person, place \\T\\ time. Mentation: is normal, Motor: moves all fours, strength is normal, Sensation: is normal, Deep tendon reflexes are 2+ (normal) in the right patellar, right Achilles, left patellar and left Achilles. Vital Signs: 22:13 BP 146 / 87; Pulse 73; Resp 18; Temp 98.1; Pulse Ox 100% ; Weight 136.08 kg; Height 5 em6 ft. 8 in. (172.72 cm); Pain 7/10; 23:00 BP 144 / 87; Pulse 66; Resp 18; Pulse Ox 100% on R/A; em6 01/04 00:24 BP 118 / 83; Pulse 74; Resp 18; Pulse Ox 100% on R/A; em6 01:02 Pulse 70; Resp 18; Temp 98.1; Pulse Ox 100% ; vc1 01:08 BP 161 / 94; vc1 01:20 BP 149 / 88; vc1 04/22 22:13 Body Mass Index 45.61 (136.08 kg, 172.72 cm) em6 MDM: 04/22 22:07 Patient medically screened. cp 23:00 Differential diagnosis: sciatica, kidney stone, ovarian cyst, lumbago, spinal stenosis. cp 04/23 01:15 Data reviewed: vital signs, nurses notes, lab test result(s), radiologic studies, CT cp scan. 01:15 Counseling: I had a detailed discussion with the patient and/or guardian regarding: the cp historical points, exam findings, and any diagnostic results supporting the discharge/admit diagnosis, lab results, radiology results, the need for outpatient follow up, a family practitioner, to return to the emergency department if symptoms worsen or persist or if there are any questions or concerns that arise at home. Response to treatment: the patient's symptoms have markedly improved after treatment, and as a result, I will discharge patient. ED course: VSS. Pain improved with meds. Will discharge to home for continued monitoring. 04/22 22:34 Order name: CBC with Diff; Complete Time: 00:44 cp 04/23 00:44 Interpretation: Normal except: HGB 11.7; HCT 35.1. cp 04/22 22:34 Order name: CMP; Complete Time: 00:44 cp 04/23 00:44 Interpretation: Normal except: CL 111. cp 04/22 22:34 Order name: Lipase; Complete Time: 00:44 cp 04/22 22:34 Order name: Urine Microscopic Only; Complete Time: 00:44 cp 04/23 01:05 Interpretation: Reviewed. cp 04/22 22:45 Order name: Urine Dipstick-Ancillary; Complete Time: 00:44 EDMS 04/22 22:45 Order name: Urine --Ancillary (enter results); Complete Time: 00:44 mw2 04/22 22:34 Order name: IV Saline Lock; Complete Time: 22:56 cp 04/22 22:34 Order name: CT Stone Protocol; Complete Time: 00:44 cp 04/23 00:44 Interpretation: Report reviewed. cp 04/22 22:34 Order name: US Extremity Venous W Compression Sander cp 04/22 23:05 Order name: Urine Culture EDVA 04/22 22:34 Order name: Labs collected and sent; Complete Time: 22:56 cp 04/22 22:34 Order name: Urine Dipstick-Ancillary (obtain specimen); Complete Time: 22:44 cp 04/22 22:34 Order name: Urine Test (obtain specimen); Complete Time: 22:44 cp Administered Medications: 04/22 23:16 Drug: NS 0.9% 1000 ml Route: IV; Rate: 1 bolus; Site: right antecubital; em6 23:16 Drug: Zofran (Ondansetron) 4 mg Route: IVP; Site: right antecubital; em6 04/23 00:10 Follow up: Response: No adverse reaction em6 04/22 23:16 Drug: morphine 4 mg Route: IVP; Infused Over: 4 mins; Site: right antecubital; em6 04/23 00:10 Follow up: Response: No adverse reaction; RASS: Alert and Calm (0) em6 01:19 Drug: Ketorolac 30 mg Route: IVP; Site: right antecubital; vc1 01:19 Follow up: Response: No adverse reaction; Medication administered at discharge. vc1 Disposition Summary: 04/23/22 01:16 Discharge Ordered Location: Home cp Problem: new cp Symptoms: have improved cp Condition: Stable cp Diagnosis - Sciatica - bilateral cp - Lower abdominal pain, unspecified cp Followup: cp - With: Private Physician - When: 2 - 3 days - Reason: Recheck today's complaints Discharge Instructions: - Discharge Summary Sheet cp - Abdominal Pain, Adult cp - Sciatica cp Forms: - Medication Reconciliation Form cp - Thank You Letter cp - Antibiotic Education cp - Prescription Opioid Use cp Prescriptions: - Cyclobenzaprine 10 mg Oral Tablet - take 1 tablet by ORAL route every 8 hours As needed; 30 tablet; Refills: 0, cp Product Selection Permitted - Diclofenac Sodium 75 mg Oral Tablet Sustained Release - take 1 tablet by ORAL route 2 times per day; 30 tablet; Refills: 0, Product cp Selection Permitted Signatures: Dispatcher [employer] EDVA Jose García PA PA cp Cal[place]ote, Vanessa RN RN vc1 Tammi Park RN RN em6
--- NOTE | 2022-04-23 01:17 | ER ---
Nurse's Notes [facility] Name: Kaylen Benson Age: 46 yrs Sex: Female : 1975 Arrival Date: 04/22/2022 Time: 21:43 Bed 26 Private MD: Diagnosis: Sciatica-bilateral;Lower abdominal pain, unspecified Presentation: 04/22 22:13 Chief complaint: Patient states: " i been having pain for two days now in the back of em6 both of my legs. both of my legs are usually swollen, but they are more swollen than usual. My left lower abdomen is hurting as well. no chest pain, no sob.". Coronavirus screen: Client denies travel out of the [place] in the last 14 days. Ebola Screen: Patient negative for fever greater than or equal to 101.5 degrees Fahrenheit, and additional compatible Ebola Virus Disease symptoms. Initial Sepsis Screen: Does the patient meet any 2 criteria? No. Patient's initial sepsis screen is negative. Does the patient have a suspected source of infection? No. Patient's initial sepsis screen is negative. Risk Assessment: Do you want to hurt yourself or someone else? Patient reports no desire to harm self or others. Onset of symptoms was April 20, 2021. 22:13 Acuity: DONNA 3 em6 22:13 Method Of Arrival: Ambulatory em6 RECREATION SPECIALIST: 22:16 tube ligation em6 Historical: - Allergies: 22:16 "sensitive to pain medications"; em6 22:16 Amoxicillin; em6 22:16 Clindamycin; em6 - PMHx: 22:16 Anxiety; COPD; hypotension; Migraines; Thyroid problem; Vertigo; em6 - PSHx: 22:16 section; em6 - Immunization history:: Adult Immunizations up to date. - Social history:: Smoking status: Patient reports the use of cigarette tobacco products. Screenin:13 [facility] ED Fall Risk Assessment (Adult) History of falling in the last 3 months, em6 including since admission No falls in past 3 months (0 pts) Confusion or Disorientation No (0 pts) Intoxicated or Sedated No (0 pts) Impaired Gait No (0 pts) Mobility Assist Device Used No (0 pt) Altered Elimination No (0 pt) Score/Fall Risk Level 0 - 2 = Low Risk Oriented to surroundings, Maintained a safe environment, Educated pt \\T\\ family on fall prevention, incl call for assistance when getting out of bed, Assessed \\T\\ reinforced patient's understanding of fall precautions, Provided non-skid footwear, Hourly rounding (assess needs \\T\\ fall precautionary measures) done, Used ambulatory aids as needed (educated on \\T\\ assisted with), Used gait belt as appropriate. Abuse screen: Denies threats or abuse. Nutritional screening: No deficits noted. Tuberculosis screening: No symptoms or risk factors identified. Assessment: 22:12 General: Appears in no apparent distress. Behavior is cooperative. Pain: Complains of em6 pain in left lower quadrant, right leg and left leg Pain does not radiate. Pain currently is 7 out of 10 on a pain scale. Quality of pain is described as pressure, sharp. Neuro: Level of Consciousness is awake, alert, obeys commands, Oriented to person, place, time, situation. Cardiovascular: Denies chest pain, Patient's skin is warm and dry. Respiratory: Airway is patent Respiratory effort is even, unlabored, Respiratory pattern is regular, symmetrical, Breath sounds are clear bilaterally. GI: Abdomen is non-distended, Bowel sounds present X 4 quads. Abd is soft and non tender X 4 quads. : No signs and/or symptoms were reported regarding the genitourinary system. EENT: No signs and/or symptoms were reported regarding the EENT system. Derm: No signs and/or symptoms reported regarding the dermatologic system. Musculoskeletal: Circulation, motion, and sensation intact. Capillary refill < 3 seconds, Range of motion: intact in all extremities, Swelling present in right leg and left leg. 23:10 Reassessment: Patient appears in no apparent distress at this time. No changes from em6 previously documented assessment. Patient and/or family updated on plan of care and expected duration. Pain level reassessed. Patient is alert, oriented x 3, equal unlabored respirations, skin warm/dry/pink. 04/23 01:08 Reassessment: Patient and/or family updated on plan of care and expected duration. Pain vc1 level reassessed. Patient is alert, oriented x 3, equal unlabored respirations, skin warm/dry/pink. Vital Signs: 04/22 22:13 BP 146 / 87; Pulse 73; Resp 18; Temp 98.1; Pulse Ox 100% ; Weight 136.08 kg; Height 5 em6 ft. 8 in. (172.72 cm); Pain 7/10; 23:00 BP 144 / 87; Pulse 66; Resp 18; Pulse Ox 100% on R/A; em6 01/04 00:24 BP 118 / 83; Pulse 74; Resp 18; Pulse Ox 100% on R/A; em6 01:02 Pulse 70; Resp 18; Temp 98.1; Pulse Ox 100% ; vc1 01:08 BP 161 / 94; vc1 01:20 BP 149 / 88; vc1 01 22:13 Body Mass Index 45.61 (136.08 kg, 172.72 cm) em6 ED Course: 04/22 21:43 Patient arrived in ED. ja2 21:59 Jose García PA is PHCP. cp 21:59 Reji Zuniga MD is Attending Physician. cp 21:59 Tammi Park RN is Primary Nurse. em6 22:15 Triage completed. em6 22:15 Arm band placed on. em6 22:16 Placed in gown. Bed in low position. Call light in reach. Side rails up X 1. Pulse ox em6 on. NIBP on. Warm blanket given. 22:53 Inserted saline lock: 20 gauge in right antecubital area, using aseptic technique. rv1 Blood collected. 22:56 CBC with Diff Sent. rv1 22:56 CMP Sent. rv1 22:56 Lipase Sent. rv1 22:59 CT Stone Protocol In Process Unspecified. EDMS 04/23 00:13 US Extremity Venous W Compression Sander In Process Unspecified. EDMS 01:20 IV discontinued, intact, bleeding controlled, No redness/swelling at site. Pressure vc1 dressing applied. 01:20 No provider procedures requiring assistance completed. vc1 Administered Medications: 04/22 23:16 Drug: NS 0.9% 1000 ml Route: IV; Rate: 1 bolus; Site: right antecubital; em6 23:16 Drug: Zofran (Ondansetron) 4 mg Route: IVP; Site: right antecubital; em6 04/23 00:10 Follow up: Response: No adverse reaction em6 04/22 23:16 Drug: morphine 4 mg Route: IVP; Infused Over: 4 mins; Site: right antecubital; em6 04/23 00:10 Follow up: Response: No adverse reaction; RASS: Alert and Calm (0) em6 01:19 Drug: Ketorolac 30 mg Route: IVP; Site: right antecubital; vc1 01:19 Follow up: Response: No adverse reaction; Medication administered at discharge. vc1 Medication: 00:24 VIS not applicable for this client. em6 Outcome: 01:16 Discharge ordered by . cp 01:20 Discharged to home ambulatory, with significant other. vc1 01:20 Condition: good 01:20 Discharge instructions given to patient, Instructed on discharge instructions, follow up and referral plans. medication usage, Demonstrated understanding of instructions, follow-up care, medications, Prescriptions given X 2. 01:26 Patient left the ED. vc1 Signatures: Dispatcher [employer] EDMS oJse García PA PA cp Alexander, Jessica ja2 Calcote, Vanessa, RN RN vc1 Tammi Park RN RN em6 Chanell Hedrick 1
[2022-04-23 01:37] VITALS: TEMP 98.1; O2SAT 100
[2022-04-23 01:42] VITALS: BP 149/88
--- NOTE | 2022-04-23 13:15 | RAD REPORT ---
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 FINDINGS: Multiple grayscale images as well as duplex Doppler ultrasound (color and spectral analysi s) of both lower extremities were performed. Both common femoral veins, superficial femoral veins, popliteal veins, anterior, posterior tibial and peroneal veins at the level of the calves were imaged. Spectral waveform demonstrate normal comp ressibility, phasicity and augmentation. No intraluminal defects were seen. IMPRESSION: No sonographic evidence of acute lower extremity deep venous thrombosis. Electronically signed by: Leo Haas MD 04/23/2022 12:30 AM IP COUNSEL Due to temporary technical issues with the PACS/Fluency reporting system, reports are being signed by the in house radiologists without review as a courtesy to insure prompt reporting. The interpreting radiologist is fully responsible for the content of the report.
== END 2022-04-23 01:26 | disposition home or self-care (01) ==
LOC: ER 21:38
DX: M54.32 Sciatica, left side (principal); M54.31 Sciatica, right side; R10.30 Lower abdominal pain, unspecified; Z72.0 Tobacco use; Z88.1 Allergy status to other antibiotic agents; Z88.6 Allergy status to analgesic agent
CPT/HCPCS: 87088; 85025; 87086; 36415; 81025; 83690; 80053; 76377; 74176; 93970; 96375; 96374; 99284; J7030; J2405; 81003; 81015

== ENCOUNTER 2022-06-17 20:06 | Emergency (ER) | payer OTHER ==
--- OUTSIDE RECORDS SUMMARY | 2022-06-17 20:26 | XMS REPORT | Continuity of Care Document ---
:1975 Author Organization [facility] [place] t Address [address] [place] [address] [place] [id number] Care Team Providers Name Role Phone Pcp, Patient Does Not Have A Primary Care Physician [id number] Star Burgos Attending Clinician STAR MEADOWS Attending Clinician Unavailable Tayla Schmidt MD Attending Clinician TAYLA SCHMIDT Attending Clinician Unavailable JAYLEEN HOWARD Attending Clinician Unavailable Jayleen Whitehead Attending Clinician Doctor Unassigned, [place] Attending Clinician Unavailable KRISS SHERIDAN Attending Clinician Unavailable Elisa Venegas Attending Clinician ELISA LAGUNAS Attending Clinician Unavailable JOHNNA REBOLLEDO Attending Clinician Unavailable JAYLEEN HOWARD Admitting Clinician Unavailable ELISA LAGUNAS Admitting Clinician Unavailable Payers Payer Name Policy Type Policy Number Effective Date Expiration Date S ource [employer] [id number] 2018 WOMEN 00:00:00 [place] [id number] 2021 00:00:00 Problems Condition Condition Condition Status [...] Cigarette Smoker Universi ty of tobacco use [facility] History [facility] University o f Alcohol Frequency [place] [facility] History [facility] University o f Alcohol Std [place] [facility] History [facility] o f Alcohol Binge [place] [facility] Exposure to 2022-01-17 2022-01-27 Not sure University of SARS-CoV-2 00:00:00 14:37:00 [facility] (event) Branch Alcohol intake 2021-12-27 2021-12-27 Current drinker Unive rsity of 00:00:00 00:00:00 of alcohol [place] [facility] (finding) [facility] Tobacco use and 2021-12-20 2021-12-20 Smokeless tobacco Un iversity of exposure 00:00:00 00:00:00 non-user [facility] Tobacco Comment 2021-12-20 2021-12-20 5 cigarettes a Unive rsity of 00:00:00 00:00:00 day [facility] Alcohol Comment 2018-09-15 2018-09-15 occasional Universit y of 00:00:00 00:00:00 [facility] Sex Ass[birth year] Universit y of 00:00:00 00:00:00 [facility] Smoking Status Start Date Stop Date Source Smokes tobacco daily 2021-12-20 00:00:00 Univers ity of [facility] Medications Ordered Filled Start Stop Current Ordering Indication Dosage Frequency Signature Comments Components Source Medication Medication Date Date Medication? Clinician (SIG) Name Name levothyroxi Yes Reggie paez ne 175 mcg 9-30 ity of tablet 00:00: [place] [facility] levothyroxi Yes Reggie paez ne 175 mcg 9-30 ity of tablet 00:00: [place] [facility] levothyroxi Yes Reggie s ne 175 mcg 9-30 ity of tablet 00:00: [place] [facility] No known No No known Unive rs medications 12-27 medication it y of 10:00: s [address] buPROPion Yes Univers SR 150 mg 9-02 ity of SR tablet 00:00: [place] [facility] buPROPion Yes Univers SR 150 mg 9-02 ity of SR tablet 00:00: [place] [facility] Branch buPROPion Yes Univers SR 150 mg 9-02 ity of SR tablet 00:00: [place] [facility] ibuprofen 2021-0 Yes 800mg Take 800 Uni vers 800 mg 8-02 mg by ity of tablet 00:00: mouth [place] [address] every 6 Medical (six) Branch hours as needed. ibuprofen 2021-0 Yes 800mg Take 800 Uni vers 800 mg 8-02 mg by ity of tablet 00:00: mouth [place] [address] every 6 Medical (six) Branch hours as needed. ibuprofen 2021-0 Yes 800mg Take 800 Uni vers 800 mg 8-02 mg by ity of tablet 00:00: mouth [place] 00 every 6 Medical (six) Branch hours as needed. Vital Signs Vital Name Observation Time Observation Value Comments Source Body height 2022-01-27 19:50:00 170.2 cm Universi ty [facility] Body weight 2022-01-27 19:50:00 137.44 kg Universi [facility] BMI 2022-01-27 19:50:00 47.46 kg/m2 Universi ty [facility] Systolic blood 2021-12-27 14:59:00 132 mm[Hg] Univer sity of [facility] Diastolic blood 2021-12-27 14:59:00 85 mm[Hg] [facility] 2021-12-27 14:59:00 92 /min [facility] Body height 2021-12-27 14:59:00 [facility] Body weight 2021-12-27 14:59:00 137.44 kg [facility] BMI 2021-12-27 14:59:00 47.46 kg/m2 [facility] Procedures This patient has no known procedures. Encounters Start End Encounter Admission Attending Care Care Encounter Source Date/Time Date/Time Type Type Clinicians Facility Department ID 2021-02-17 Emergency [facility] [id number] Univers 09:49:03 ity [facility] 2021-02-15 Emergency [facility] [id number] Univers 17:30:01 [facility] 2022-01-29 2022-01-29 [facility] [id number] Univers 00:00:00 00:00:00 [facility] [id number] it y of [place] [id number] Hever as PEREZ?BLEA [id number] Fl novabernardo [address] MEDICAL OFFICE BUILDING 2022-01-27 2022-01-27 Office [facility] [id number] Univers 15:00:00 15:15:00 Visit [facility] [id number] it y of [place] [id number] Hever as PEREZ?BLEA [id number] [address] MEDICAL OFFICE BUILDING 2022-01-27 2022-01-27 [facility] [id number] Univers 14:50:00 15:09:00 STAR wright [facility] 2021-12-27 2021-12-27 [facility] [id number] Univers 10:02:59 23:59:00 STAR eze [facility] 2021-12-27 2021-12-27 [facility] [id number] Univers 10:00:00 10:15:00 Visit [facility] [id number] it y [facility] [id number] Hever as PEREZ?BLEA [id number] Fl gely ALMEIDA [address] [place] [address] 2021-12-27 2021-12-27 [facility] [id number] Univers 10:02:59 10:02:59 STARYING wright [facility] 2021-12-20 2021-12-20 Office Star Meadows [facility] [id number] Univers 10:15:00 10:30:00 Visit [facility] [id number] ity [facility] [id number] Hever as PEREZ?BLEA [id number] Fl gely [address] 2021-12-20 2021-12-20 [facility] [id number] Univers 10:15:00 10:15:00 TAYLA iteze [facility] 2021-12-16 2021-12-16 Emergency X [facility] ERT [id number] Univers 18:20:00 20:24:00 JAYLEEN ity [facility] 2021-12-16 2021-12-16 Emergency [place], TRAUMA [id number] Univers 18:20:00 20:24:00 [facility] [id number] [id number] [id number] [address] 2021-12-16 2021-12-16 Emergency X [facility] ERT [id number] Univers 18:20:00 20:24:00 JAYLEEN iteze [facility] 2021-10-15 2021-10-15 [facility] [id number] Univers 15:00[facility]00 [facility] 2021-10-03 2021-10-03 [facility] [id number] Univers 15:15:00 15:15:00 [facility] 2021-09-26 2021-09-26 [facility] [id number] Univers 15:00:00 15:00:00 [facility] 2021-09-04 2021-09-04 Orders Doctor AIMEE [id number] Univers 00:00:00 00:00:00 Only Unassigned, MELISSA [id number] ity of [place] [facility] [id number] Hever as [id number] [address] 2021-08-22 2021-08-22 [facility] [id number] Univers 15:50:00 23:59:00 [facility] 2021-08-22 2021-08-22 Office [facility] [id number] Univers 15:00:00 15:30:00 Visit [facility] [id number] it y of [place] [id number] Hever as PEREZ?BLEA [id number] Fl nova[address] MEDICAL OFFICE BUILDING 2021-08-22 2021-08-22 [facility] [id number] Univers 15:00:00 15:00:00 [facility] 2021-08-22 2021-08-22 Orders Doctor YU [id number] Univers 00:00:00 00:00:00 Only Unassigned, MELISSA [id number] ity of [place] [facility] [id number] Hever as [id number] [address] 2021-06-12 2021-06-12 Outpatient R FATIMAH [facility] [id number] Univers 15:00:00 15:00:00 KRISS huertas [facility] 2021-05-17 2021-05-17 Outpatient R FATIMAH [facility] [id number] Univers 09:15:00 09:15:00 KRISS huertas [facility] 2020-08-20 2020-08-20 [facility] [id number] 06:56:46 23:59:00 Encounter Elisa Muñoz SPECIALTY [id number] [facility] [id number] CENTER AT [id number] [facility] [address] [place] [address] 2020-08-20 2020-08-20 [facility] [id number] Univers 06:56:46 23:59:00 ELISA huertas [facility] 2020-08-20 2020-08-20 Outpatient Wanda LAGUNAS [facility] [id number] Univers 00:00:00 00:00:00 ELISA huertas [facility] 2020-07-31 2020-07-31 Office [facility] [id number] 15:57:09 16:21:23 Visit Elisa Muñoz 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 PROFESSOR [id number] [facility] [id number] MATERNAL [id number] & CHILD [address] [place] [address] 2020-07-31 2020-07-31 [facility] [id number] Univers 15:45:00 15:45:00 ELISA huertas [facility] 2020-07-31 2020-07-31 Outpatient Wanda REBOLLEDO [facility] [id number] Univers 14:45:00 14:45:00 JOHNNA wright [facility] 2020-05-29 2020-05-29 Outpatient Wanda LAGUNAS [facility] [id number] Univers 07:45:00 07:45:00 MARIA LUZDARBYPb huertas [facility] 2020-05-25 2020-05-25 Outpatient R FATIMAH [facility] [id number] Univers 10:15:00 10:15:00 KRISS nelson [facility] 2020-01-04 2020-01-04 Outpatient R BEBO [facility] [id number] [facility] 14:00:00 14:00:00 ELISA nelson [facility] Results This patient has no known results.
[2022-06-17] MEDS ORDERED: LORazepam 2 MG/ML VIAL ONE (22:46)
[2022-06-18] MEDS ORDERED: DIPHENHYDRAMINE 50 MG/ML VIAL ONE (01:06)
[2022-06-18] MEDS ORDERED: NA CHLORIDE 0.9% 1,000 ML ONE (01:06)
[2022-06-18] MEDS ORDERED: METOCLOPRAMIDE 10 MG/2mL INJ ONE (01:06)
[2022-06-18] MEDS ORDERED: KETOROLAC 30 MG/ML INJ ONE (01:06)
--- NOTE | 2022-06-18 01:23 | EDPHYS ---
Physician Documentation [facility] Name: Kaylen Benson Age: 47 yrs Sex: Female : 1975 Arrival Date: 06/17/2022 Time: 20:10 Bed 6 Private MD: ED Physician Abhishek Black HPI: 06/17 22:57 This 47 yrs old Female presents to ER via Ambulatory with complaints of Leg Pain, rt Headache. 22:59 Patient presents to the ED with a constant headache, generalized for about 3 days. She rt does have a history of migraines, states that this is stronger than a typical migraine. The patient reports photophobia and phonophobia with associated nausea. She reports a bilateral leg pain, states that this is chronic and due to nerve pain. She denies other acute complaints at this time, symptoms are moderate severity, aching nature, no other aggravating alleviating factors.. 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 - Social history:: Smoking status: unknown. - Family history:: not pertinent. ROS: 22:59 Constitutional: Negative for fever, chills, and weight loss, Cardiovascular: Negative rt for chest pain, palpitations, and edema, Respiratory: Negative for shortness of breath, cough, wheezing, and pleuritic chest pain. 22:59 Abdomen/GI: Positive for nausea, Negative for vomiting. 22:59 Neuro: Positive for headache, Negative for altered mental status. Exam: 22:59 Constitutional: This is a well developed, well nourished patient who is awake, alert, rt and in no acute distress. Head/Face: Normocephalic, atraumatic. Chest/axilla: Normal chest wall appearance and motion. Nontender with no deformity. No lesions are appreciated. Cardiovascular: Regular rate and rhythm with a normal S1 and S2. No gallops, murmurs, or rubs. Normal PMI, no JVD. No pulse deficits. Respiratory: Lungs have equal breath sounds bilaterally, clear to auscultation and percussion. No rales, rhonchi or wheezes noted. No increased work of breathing, no retractions or nasal flaring. Abdomen/GI: Soft, non-tender, with normal bowel sounds. No distension or tympany. No guarding or rebound. No evidence of tenderness throughout. Skin: Warm, dry with normal turgor. Normal color with no rashes, no lesions, and no evidence of cellulitis. MS/ Extremity: Pulses equal, no cyanosis. Neurovascular intact. Full, normal range of motion. Neuro: Awake and alert, GCS 15, oriented to person, place, time, and situation. Cranial nerves II-XII grossly intact. Motor strength 5/5 in all extremities. Sensory grossly intact. Cerebellar exam normal. Normal gait. Psych: Awake, alert, with orientation to person, place and time. Behavior, mood, and affect are within normal limits. Vital Signs: 21:45 BP 134 / 81; Pulse 77; Resp 19; Temp 98.5(O); Pulse Ox 99% ; Weight 136.08 kg; Height 5 kd3 ft. 7 in. (170.18 cm); Pain 10/10; 06/18 01:32 BP 113 / 81; Pulse 87; Resp 16; Pulse Ox 98% on R/A; kd3 06/17 21:45 Body Mass Index 46.99 (136.08 kg, 170.18 cm) kd3 MDM: 06/17 22:43 Patient medically screened. rt 06/18 01:23 Differential diagnosis: Migraine headache, intracranial hemorrhage, subarachnoid rt hemorrhage, tumor. Data reviewed: vital signs, nurses notes, radiologic studies, CT scan. Independent interpretation of the following test(s) in the Emergency Department CT Scan: My interpretation is No hemorrhage seen on my interpretation of the CT scan images. Test considered but Not performed: Labs: Stable vital signs, blood work not indicated. Other Details Lumbar puncture considered, however, symptoms do seem to be most consistent with migraine, no aneurysm seen on CT angiogram, subarachnoid hemorrhage is very unlikely.. Counseling: I had a detailed discussion with the patient and/or guardian regarding: the historical points, exam findings, and any diagnostic results supporting the discharge/admit diagnosis, radiology results, the need for outpatient follow up, to return to the emergency department if symptoms worsen or persist or if there are any questions or concerns that arise at home. Response to treatment: the patient's symptoms have resolved after treatment. 06/17 22:49 Order name: CT Head Brain wo Cont rt 06/17 22:58 Order name: CT Head Angio rt 06/18 01:32 Order name: CREATININE WHOLE BLOOD; Complete Time: 01:35 EDMS Administered Medications: 00:47 Drug: Reglan (metoCLOPramide) 10 mg Route: IVP; Site: right antecubital; ha1 01:36 Follow up: Response: No adverse reaction kd3 00:52 Drug: Ketorolac 15 mg Route: IVP; Site: right antecubital; ha1 01:36 Follow up: Response: No adverse reaction kd3 00:54 Drug: Benadryl (diphenhydrAMINE) 25 mg Route: IVP; Site: right antecubital; ha1 01:36 Follow up: Response: No adverse reaction kd3 01:00 Drug: NS 0.9% 1000 ml Route: IV; Rate: 1000 ml; Site: right antecubital; ha1 01:36 Follow up: Response: No adverse reaction; IV Status: Completed infusion kd3 Disposition Summary: 06/18/22 01:22 Discharge Ordered Location: Home rt Problem: new rt Symptoms: are resolved rt Condition: Stable rt Diagnosis - Headache rt Followup: rt - With: Private Physician - When: 2 - 3 days - Reason: Discharge Instructions: - Discharge Summary Sheet rt - General Headache Without Cause rt Forms: - Medication Reconciliation Form rt - Thank You Letter rt - Antibiotic Education rt - Prescription Opioid Use rt Signatures: Dispatcher [employer] Patricia Lopez RN RN kd3 Kim Chong RN RN ha1 Abhishek Black MD MD rt
--- NOTE | 2022-06-18 01:23 | ER ---
Nurse's Notes [facility] Name: Kaylen Benson Age: 47 yrs Sex: Female : 1975 Arrival Date: 06/17/2022 Time: 20:10 Bed 6 Private MD: Diagnosis: Headache Presentation: 06/17 21:45 Chief complaint: Patient states: I have had a headache for about 3 days. I have been kd3 here before for my legs but they are bothering me as well. They said it could be nerve damage but it is really bothering me and I am not sure id it is clots. The headache is really bothering me too. Coronavirus screen: Vaccine status: Patient reports being unvaccinated. Ebola Screen: No symptoms or risks identified at this time. Initial Sepsis Screen: Does the patient meet any 2 criteria? No. Patient's initial sepsis screen is negative. Does the patient have a suspected source of infection? No. Patient's initial sepsis screen is negative. Risk Assessment: Do you want to hurt yourself or someone else? Patient reports no desire to harm self or others. Onset of symptoms was June 17, 2022. 21:45 Method Of Arrival: Ambulatory kd3 21:45 Acuity: DONNA 3 kd3 Triage Assessment: 21:49 Headache History: The patient has had previous headaches. General: Appears kd3 uncomfortable, Behavior is calm, cooperative. Pain: Pain currently is 10 out of 10 on a pain scale. Pain began gradually, Also complains of no other associated symptoms. Neuro: Level of Consciousness is awake, alert, obeys commands, Oriented to person, place, time, situation. 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 - Social history:: Smoking status: unknown. - Family history:: not pertinent. Screenin/01 01:35 [facility] ED Fall Risk Assessment (Adult) History of falling in the last 3 months, kd3 including since admission No falls in past 3 months (0 pts) Confusion or Disorientation No (0 pts) Intoxicated or Sedated No (0 pts) Impaired Gait No (0 pts) Mobility Assist Device Used No (0 pt) Altered Elimination No (0 pt) Score/Fall Risk Level 0 - 2 = Low Risk Maintained a safe environment. Abuse screen: Denies threats or abuse. Denies injuries from another. Nutritional screening: No deficits noted. Tuberculosis screening: No symptoms or risk factors identified. Vital Signs: 06/17 21:45 BP 134 / 81; Pulse 77; Resp 19; Temp 98.5(O); Pulse Ox 99% ; Weight 136.08 kg; Height 5 kd3 ft. 7 in. (170.18 cm); Pain 01/27; 06/18 01:32 BP 113 / 81; Pulse 87; Resp 16; Pulse Ox 98% on R/A; kd3 06/17 21:45 Body Mass Index 46.99 (136.08 kg, 170.18 cm) kd3 ED Course: 06/17 20:10 Patient arrived in ED. ag3 20:14 Abhishek Black MD is Attending Physician. rt 21:48 Triage completed. kd3 23:19 Kim Chong, SOLITARIO is Primary Nurse. ha1 06/18 00:33 Inserted saline lock: 20 gauge in right antecubital area, using aseptic technique. as6 Blood collected. ultrasound guided. 01:35 No provider procedures requiring assistance completed. IV discontinued, intact, kd3 bleeding controlled, No redness/swelling at site. Pressure dressing applied. 01:35 Arm band placed on right wrist. kd3 01:36 CT Head Brain wo Cont In Process Unspecified. EDMS 01:36 Patient has correct armband on for positive identification. kd3 01:37 CT Head Angio In Process Unspecified. EDMS Administered Medications: 00:47 Drug: Reglan (metoCLOPramide) 10 mg Route: IVP; Site: right antecubital; ha1 01:36 Follow up: Response: No adverse reaction kd3 00:52 Drug: Ketorolac 15 mg Route: IVP; Site: right antecubital; ha1 01:36 Follow up: Response: No adverse reaction kd3 00:54 Drug: Benadryl (diphenhydrAMINE) 25 mg Route: IVP; Site: right antecubital; ha1 01:36 Follow up: Response: No adverse reaction kd3 01:00 Drug: NS 0.9% 1000 ml Route: IV; Rate: 1000 ml; Site: right antecubital; ha1 01:36 Follow up: Response: No adverse reaction; IV Status: Completed infusion kd3 Medication: 01:36 VIS not applicable for this client. kd3 Outcome: 01:22 Discharge ordered by . rt 01:35 Discharged to home ambulatory. kd3 01:35 Condition: stable 01:35 Discharge instructions given to patient, Instructed on discharge instructions, follow up and referral plans. Demonstrated understanding of instructions, follow-up care. 01:37 Patient left the ED. kd3 Signatures: Dispatcher [employer] Laura Pierson3 Quan Buckley RN RN as6 Patricia Mercado RN RN kd3 Kim Chong RN RN ha1 Abhishek Black MD MD rt
[2022-06-18 01:59] VITALS: TEMP 98.5
[2022-06-18 02:05] VITALS: BP 113/81; O2SAT 98
--- NOTE | 2022-06-18 12:47 | RAD REPORT ---
EXAM DESCRIPTION: CT - Head Brain Wo Cont - 06/18/2022 6:53 am CLINICAL HISTORY: 47 years Female HEADACHE TECHNIQUE: Multiple axial CT images of the brain were performed followed by sagittal and coronal rec onstructed images. The CT study is performed according to ALARA (as low as reasonably achievable) or ALARA/IMAGE GENTLY, with automatic adjustment of mA and/or kV according to patient size. Performed on: 06/18/2022 at 12:43 AM COMPARISON: 03/02/2022. FINDINGS: Brain: There is no evidence of mass, acute mass effect or midline shift. There are no acut e extra-axial fluid collections. There is no evidence of acute intracranial hemorrhage. The cerebra l sulci and ventricles are normal in size and configuration. There are no focal abnormal areas of inc reased or decreased attenuation. Paranasal Sinuses and Mastoids: There is mild mucosal thickening of the left sphenoid sinus similar t o the prior study. The mastoid air cells are clear. Orbits: The orbital contents are grossly unremarkable. Bones: No acute osseous abnormalities are identified. Soft Tissues: No focal soft tissue abnormalities are identified. IMPRESSION: 1. No evidence of acute intracranial pathology. 2. Mild mucosal thickening of the left sphenoid sinus similar to the prior study. 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 The interpreting radiologist is fully responsible for the content of the report.
--- NOTE | 2022-06-18 12:55 | RAD REPORT ---
EXAM DESCRIPTION: CT - Head angio - 06/18/2022 6:53 am CLINICAL HISTORY: 47 years Female HEADACHE TECHNIQUE: Following dynamic intravenous nonionic contrast infusion, multiple axial helical overlapp ed CT images with multiplanar reconstructions were obtained. All CT data was transferred to a 3D wo rkstation for multiplanar reformation and 3D reconstruction. The CT study is performed according to A LUKAS (as low as reasonably achievable) or ALARA/IMAGE GENTLY, with automatic adjustment of mA and/or kV according to patient size. COMPARISON: CT head angiography report from 07/28/2018. The images were not available for review. FINDINGS: There is optimal intracranial vascular enhancement. LEFT: INTERNAL CAROTID ARTERY: The distal internal carotid artery is unremarkable. ANTERIOR CEREBRAL ARTERY: he A1 segment is normal in caliber and contour. The A2 segment is normal i n caliber and contour. The region of the anterior communicating artery is unremarkable. MIDDLE CEREBRAL ARTERY: The M1 segment is normal in caliber and contour. The M2 branches normal in c aliber and contour. POSTERIOR CEREBRAL ARTERY: he P1 segment is normal in caliber and contour. The P2 segment is normal in caliber and contour. The left posterior communicating artery is patent. VERTEBRAL ARTERY: The intradural left vertebral artery is normal in caliber and contour. RIGHT: INTERNAL CAROTID ARTERY: The distal internal carotid artery is unremarkable. ANTERIOR CEREBRAL ARTERY: The A1 segment is normal in caliber and contour. The A2 segment is normal in caliber and contour. MIDDLE CEREBRAL ARTERY: he M1 segment is normal in caliber and contour. The M2 branches normal in ca liber and contour. POSTERIOR CEREBRAL ARTERY: The P1 segment is normal in caliber and contour. The P2 segment is normal in caliber and contour. The right posterior communicating artery is hypoplastic. VERTEBRAL ARTERY: The intradural right vertebral artery is normal in caliber and contour. BASILAR ARTERY: The basilar artery is normal in caliber and contour. DURAL VENOUS SINUSES: The dural venous sinuses are patent. NON-ANGIOGRAPHIC FINDINGS: There is mild to moderate mucosal thickening of the left sphenoid sinus. The orbital contents are unr emarkable. No focal pathologic areas of enhancement are identified within the brain parenchyma. IMPRESSION: 1. Normal intracranial CTA. There is no evidence of large vessel occlusion, significan t stenosis, aneurysm or other vascular malformation. 2. Mild to moderate mucosal thickening of the left sphenoid sinus. Electronically signed by: Emily Matos DO 06/18/2022 1:17 AM DE ICER ELEMENT WINDER Due to temporary technical issues with the PACS/Fluency reporting system, reports are being signed by the in house radiologists without review as a courtesy to insure prompt reporting. The interpreting radiologist is fully responsible for the content of the report.
== END 2022-06-18 01:37 | disposition home or self-care (01) ==
LOC: ER 20:06
DX: R51.9 Headache, unspecified (principal); R11.0 Nausea; I10 Essential (primary) hypertension; Z88.1 Allergy status to other antibiotic agents; Z88.6 Allergy status to analgesic agent
CPT/HCPCS: 82565; 70450; 70496; Q9967; J2765; J1200; J7030

== ENCOUNTER 2022-08-14 21:08 | Emergency (ER) | payer OTHER ==
--- OUTSIDE RECORDS SUMMARY | 2022-08-14 21:13 | XMS REPORT | Continuity of Care Document ---
:1975 Author Organization [facility] t Address [address] [place] [address] [place] [id number] Care Team Providers Name Role Phone Pcp, Patient Does Not Have A Primary Care Physician [id number] Star Burgos Attending Clinician STAR MEADOWS Attending Clinician Unavailable Tayla Schmidt MD Attending Clinician TAYLA SCHMIDT Attending Clinician Unavailable JAYLEEN HOWARD Attending Clinician Unavailable Jayleen Whitehead Attending Clinician Doctor Unassigned, [place] Attending Clinician Unavailable KRISS SHERIDAN Attending Clinician Unavailable Elisa Venegas Attending Clinician ELISA LAGUNAS Attending Clinician Unavailable JOHNNA REBOLLEDO Attending Clinician Unavailable JAYLEEN HOWARD Admitting Clinician Unavailable ELISA LAGUNAS Admitting Clinician Unavailable Payers Payer Name Policy Type Policy Number Effective Date Expiration Date S ource [place] [place] [id number] 2018 WOMEN 00:00:00 [place] [id number] 2021 00:00:00 Problems Condition Condition Condition Status [...] Cigarette Smoker Universi ty of tobacco use [place] [facility] History [facility] University o f Alcohol Frequency [place] [facility] History [facility] University o f Alcohol Std [place] [facility] History [facility] o f Alcohol Binge [place] [facility] Exposure to 2022-01-17 2022-01-27 Not sure University of SARS-CoV-2 00:00:00 14:37:00 [facility] (event) Branch Alcohol intake 2021-12-27 2021-12-27 Current drinker Unive rsity of 00:00:00 00:00:00 of alcohol [place] [facility] (finding) Branch Tobacco use and 2021-12-20 2021-12-20 Smokeless tobacco Un iversity of exposure 00:00:00 00:00:00 non-user [facility] Tobacco Comment 2021-12-20 2021-12-20 5 cigarettes a Unive rsity of 00:00:00 00:00:00 day [facility]ly [facility] Alcohol Comment 2018-09-15 2018-09-15 occasional Universit y of 00:00:00 00:00:00 [facility] Sex Ass[birth year] Universit y of 00:00:00 00:00:00 [facility] Smoking Status Start Date Stop Date Source Smokes tobacco daily 2021-12-20 00:00:00 Univers ity of [facility] Medications Ordered Filled Start Stop Current Ordering Indication Dosage Frequency Signature Comments Components Source Medication Medication Date Date Medication? Clinician (SIG) Name Name levothyroxi Yes Reggie paez ne 175 mcg 9-30 ity of tablet 00:00: [place] [facility] levothyroxi Yes Reggie paez ne 175 mcg 9-30 ity of tablet 00:00: [place] [facility] levothyroxi Yes Reggie s ne 175 mcg 9-30 ity of tablet 00:00: [place] [facility] No known No No known Unive rs medications 12-27 medication it y of 10:00: s [address] buPROPion Yes Univers SR 150 mg 9-02 ity of SR tablet 00:00: [place] [facility] buPROPion Yes Univers SR 150 mg 9-02 ity of SR tablet 00:00: [place] [facility] buPROPion Yes Univers SR 150 mg 9-02 ity of SR tablet 00:00: [place] [facility] ibuprofen 2021-0 Yes 800mg Take 800 Uni vers 800 mg 8-02 mg by ity of tablet 00:00: mouth [place] [address] every 6 Medical (six) Branch hours as needed. ibuprofen 2021-0 Yes 800mg Take 800 Uni vers 800 mg 8-02 mg by ity of tablet 00:00: mouth [place] [address] every 6 Medical (six) Branch hours as needed. ibuprofen 2021-0 Yes 800mg Take 800 Uni vers 800 mg 8-02 mg by ity of tablet 00:00: mouth [place] 00 every 6 Medical (six) Branch hours as needed. Vital Signs Vital Name Observation Time Observation Value Comments Source Body height 2022-01-27 19:50:00 170.2 cm Universi ty [facility] Body weight 2022-01-27 19:50:00 137.44 kg Universi [facility] BMI 2022-01-27 19:50:00 47.46 kg/m2 Universi ty [facility] Systolic blood 2021-12-27 14:59:00 132 mm[Hg] Univer sity of [facility] Diastolic blood 2021-12-27 14:59:00 85 mm[Hg] [facility] Heart rate 2021-12-27 14:59:00 92 /min [facility] Body height 2021-12-27 14:59:00 170.2 cm [facility] Body weight 2021-12-27 14:59:00 137.44 kg [facility] BMI 2021-12-27 14:59:00 47.46 kg/m2 [facility] Procedures This patient has no known procedures. Encounters Start End Encounter Admission Attending Care Care Encounter Source Date/Time Date/Time Type Type Clinicians Facility Department ID 2021-02-17 Emergency [facility] [id number] Univers 09:49:03 ity [facility] 2021-02-15 Emergency [facility] [id number] Univers 17:30:01 [facility] 2022-01-29 2022-01-29 [facility]phone [facility] [id number] Univers 00:00:00 00:00:00 [facility] [id number] it y of [place] [id number] Hever as PEREZ?BLEA [id number] Nh novabernardo [address] MEDICAL OFFICE BUILDING 2022-01-27 2022-01-27 Office [facility] [id number] Univers 15:00:00 15:15:00 Visit [facility] [id number] it y of [place] [id number] Hever as PEREZ?BLEA [id number] [address] MEDICAL OFFICE BUILDING 2022-01-27 2022-01-27 [facility] [id number] Univers 14:50:00 15:09:00 STAR wright [facility] 2021-12-27 2021-12-27 [facility] [id number] Univers 10:02:59 23:59:00 STAR eze [facility] 2021-12-27 2021-12-27 [facility] [id number] Univers 10:00:00 10:15:00 Visit [facility] [id number] it [facility] [id number] Hever as PEREZ?BLEA [id number] Nh gely ALMEIDA [address] [place] [address] 2021-12-27 2021-12-27 [facility] [id number] Univers 10:02:59 10:02:59 STARYING wright [facility] 2021-12-20 2021-12-20 Office Star [place] [facility] [id number] Univers 10:15:00 10:30:00 Visit Brayan [facility] [id number] ity [facility] [id number] Hever as PEREZ?BLEA [id number] Nh gely [address] 2021-12-20 2021-12-20 [facility] [id number] Univers 10:15:00 10:15:00 TAYLA iteze [facility] 2021-12-16 2021-12-16 Emergency X [facility] ERT [id number] Univers 18:20:00 20:24:00 JAYLEEN ity [facility] 2021-12-16 2021-12-16 Emergency [place], TRAU[place] [id number] Univers 18:20:00 20:24:00 [facility] [id number] [id number] [id number] [address] 2021-12-16 2021-12-16 Emergency [facility] [id number] Univers 18:20:00 20:24:00 JAYLEEN iteze [facility] 2021-10-15 2021-10-15 [facility] [id number] Univers 15:00:00 [facility] 2021-10-03 2021-10-03 [facility] [id number] Univers 15:15:00 15:15:00 [facility] [place] [facility] 2021-09-26 2021-09-26 [facility] [id number] Univers 15:00:00 15:00:00 [facility] [place] [facility] 2021-09-04 2021-09-04 Orders Doctor AIMEE [id number] Univers 00:00:00 00:00:00 Only Unassigned, MELISSA [id number] ity of [place] [facility] [id number] Hever as [id number] [address] 2021-08-22 2021-08-22 [facility] [id number] Univers 15:50:00 23:59:00 [facility] [place] [facility] 2021-08-22 2021-08-22 Office [facility] [id number] Univers 15:00:00 15:30:00 Visit [facility] [id number] it y of [place] [id number] Hever as PEREZ?BLEA [id number] Nh no[address] MEDICAL OFFICE BUILDING 2021-08-22 2021-08-22 [facility] [id number] Univers 15:00:00 15:00:00 [facility] [place] [facility] 2021-08-22 2021-08-22 Orders Doctor YU [id number] Univers 00:00:00 00:00:00 Only Unassigned, MELISSA [id number] ity of [place] [facility] [id number] Hever as [id number] [address] 2021-06-12 2021-06-12 Outpatient R FATIMAH [facility] [id number] Univers 15:00:00 15:00:00 KRISS huertas [facility] 2021-05-17 2021-05-17 Outpatient R FATIMAH [facility] [id number] Univers 09:15:00 09:15:00 KRISS huertas [facility] 2020-08-20 2020-08-20 [facility] [id number] 06:56:46 23:59:00 Encounter Elisa Muñoz SPECIALTY [id number] [facility] [id number] CENTER AT [id number] [facility] [address] [place] [address] 2020-08-20 2020-08-20 [facility] [id number] Univers 06:56:46 23:59:00 ELISA huertas [facility] 2020-08-20 2020-08-20 Outpatient Wanda LAGUNAS [facility] [id number] Univers 00:00:00 00:00:00 ELISA huertas [facility] 2020-07-31 2020-07-31 Office [facility] [id number] 15:57:09 16:21:23 Visit Elisa Muñoz LDR RN [id number] [facility] [id number] MATERNAL [id number] & CHILD [address] [place] [address] 2020-07-31 2020-07-31 [facility] [id number] Univers 15:45:00 15:45:00 ELISA huertas [facility] 2020-07-31 2020-07-31 Outpatient Wanda REBOLLEDO [facility] [id number] Univers 14:45:00 14:45:00 JOHNNA wright [facility] 2020-05-29 2020-05-29 Outpatient Wanda LAGUNAS [facility] [id number] Univers 07:45:00 07:45:00 MARIA LUZDARBYPb huertas [facility] 2020-05-25 2020-05-25 Outpatient R FATIMAH [facility] [id number] Univers 10:15:00 10:15:00 KRISS nelson [facility] 2020-01-04 2020-01-04 Outpatient R BEBO [facility] [id number] [facility] 14:00:00 14:00:00 ELISA nelson [facility] Results This patient has no known results.
[2022-08-14] MEDS ORDERED: IBUPROFEN 400 MG TAB ONE (22:16)
[2022-08-14] MEDS ORDERED: HYDROCODONE/APAP 7.5/325 MG TAB ONE (22:17)
--- NOTE | 2022-08-14 22:50 | RAD REPORT ---
EXAM DESCRIPTION: RAD - Foot Left 3 View - 08/14/2022 10:14 pm CLINICAL HISTORY: left great toe pain COMPARISON: Foot Left 3 View dated 12/15/2021 TECHNIQUE: Left foot, 3 views. FINDINGS: No fracture, dislocation or periosteal reaction. No air or foreign body in the soft tissues. Moderate calcaneal spur. IMPRESSION: Negative left foot radiographs.
--- NOTE | 2022-08-14 23:06 | EDPHYS ---
Physician Documentation [facility] Name: Kaylen Benson Age: 47 yrs Sex: Female : 1975 Arrival Date: 08/14/2022 Time: 21:08 Bed 12 Private MD: RIKA Physician Jose Cantrell HPI: 08/14 22:00 This 47 yrs old Female presents to ER via Ambulatory with complaints of Toe Injury. cp 22:00 The patient presents with an injury, pain, that is acute. The complaints affect the cp left first toe. Context: the patient can fully bear weight, the patient is able to ambulate, with mild difficulty, pain started after kicking dog this morning after dog urinated on bed. 22:00 Onset: The symptoms/episode began/occurred this morning. Associated signs and symptoms: cp The patient has no apparent associated signs or symptoms. Historical: - Allergies: 21:23 Amoxicillin; mb9 21:23 Clindamycin; mb9 - Home Meds: 21:23 levothyroxine oral [Active]; mb9 - PMHx: 21:23 Anxiety; COPD; hypotension; Migraines; Thyroid problem; Vertigo; mb9 - PSHx: 21:23 section; mb9 - Immunization history:: Adult Immunizations up to date. - Social history:: Smoking status: Patient reports the use of cigarette tobacco products, smokes one pack cigarettes per day. ROS: 22:05 Constitutional: Negative for body aches, chills, fever. cp 22:05 MS/extremity: Positive for pain, tenderness, of the left great toe, Negative for decreased range of motion, deformity, nail injury. 22:05 All other systems are negative. Exam: 22:10 Constitutional: The patient appears in no acute distress, alert, awake, non-toxic, well cp developed, well nourished, obese, uncomfortable. 22:10 Head/Face: Normocephalic, atraumatic. cp 22:10 Chest/axilla: Inspection: normal. 22:10 Cardiovascular: Rate: normal. 22:10 Respiratory: the patient does not display signs of respiratory distress, Respirations: normal, no use of accessory muscles, no retractions. 22:10 Abdomen/GI: Inspection: abdomen appears normal. 22:10 Back: pain, is absent, ROM is normal. 22:10 Musculoskeletal/extremity: Extremities: noted in the left first toe: pain, tenderness, There is no evidence of decreased ROM, deformity, erythema, ROM: limited passive range of motion due to pain, in the left first toe, Perfusion: the extremity is normally perfused throughout. Vital Signs: 21:21 BP 124 / 79; Pulse 79; Resp 18; Temp 98.1; Pulse Ox 100% ; Weight 136.08 kg; Height 5 mb9 ft. 7 in. ; Pain 8/10; 21:21 Body Mass Index 46.99 (136.08 kg, 170.18 cm) mb9 21:21 Pain Scale: Adult mb9 MDM: 21:31 Patient medically screened. cp 22:10 Differential diagnosis: fracture, sprain, gout, cellulitis, contusion. cp 22:28 Patient medically screened. monica 23:05 Data reviewed: vital signs, nurses notes, radiologic studies, plain films. 23:05 I considered the following discharge prescriptions or medication management in the emergency department Medications were administered in the Emergency Department. See MAR. Care significantly affected by the following chronic conditions: Obesity. Counseling: I had a detailed discussion with the patient and/or guardian regarding: the historical points, exam findings, and any diagnostic results supporting the discharge/admit diagnosis, radiology results, to return to the emergency department if symptoms worsen or persist or if there are any questions or concerns that arise at home. Response to treatment: the patient's symptoms have mildly improved after treatment, and as a result, I will discharge patient. 08/14 22:00 Order name: XRAY Foot LEFT 3 View; Complete Time: 23:09 cp 08/14 23:09 Interpretation: Reviewed report. 08/14 23:05 Order name: Post-op shoe; Complete Time: 23:21 cp Administered Medications: 22:13 Drug: Hydrocodone-Acetaminophen PO (7.5 mg-325 mg) 1 tabs Route: PO; kl 22:13 Drug: Ibuprofen PO 800 mg Route: PO; kl Disposition Summary: 08/14/22 23:06 Discharge Ordered Location: Home cp Problem: new cp Symptoms: have improved cp Condition: Stable cp Diagnosis - Contusion of left great toe without damage to nail cp Followup: cp - With: Private Physician - When: 2 - 3 days - Reason: Worsening of condition Discharge Instructions: - Discharge Summary Sheet cp - Foot Contusion cp Forms: - Medication Reconciliation Form cp - Thank You Letter cp - Antibiotic Education cp - Prescription Opioid Use cp Prescriptions: - Ibuprofen 800 mg Oral Tablet - take 1 tablet by ORAL route every 8 hours As needed take with food; 30 tablet; cp Refills: 0, Product Selection Permitted Signatures: Dispatcher [employer] Ava Oro, Jose Tapia RN, MD MD cha Page, Corey, PA PA cp Breneman, Mary Beth, RN RN mb9 Corrections: (The following items were deleted from the chart) 23:09 23:05 Crutches ordered. cp cp
--- NOTE | 2022-08-14 23:06 | ER ---
Nurse's Notes [facility] Name: Kaylen Benson Age: 47 yrs Sex: Female : 1975 Arrival Date: 08/14/2022 Time: 21:08 Bed 12 Private MD: Diagnosis: Contusion of left great toe without damage to nail Presentation: 08/14 21:21 Chief complaint: Patient states: "This morning my dog pissed on my bed and I went to [facility] kick my dog and I think I broke my left big toe when I kicked her. It hurts to walk on it or put pressure. I took an Ibuprofen this morning to help with the pain and swelling but it didn't help". Coronavirus screen: At this time, the client does not indicate any symptoms associated with coronavirus-19. Ebola Screen: No symptoms or risks identified at this time. Initial Sepsis Screen: Does the patient meet any 2 criteria? No. Patient's initial sepsis screen is negative. Does the patient have a suspected source of infection? No. Patient's initial sepsis screen is negative. Risk Assessment: Do you want to hurt yourself or someone else? Patient reports no desire to harm self or others. Onset of symptoms was August 14, 2022. 21:21 Method Of Arrival: Ambulatory [facility] 21:21 Acuity: DONNA 4 mb9 Triage Assessment: 21:25 General: Appears in no apparent distress. Behavior is calm, cooperative. Pain: mb9 Complains of pain in left great toe. Neuro: Miguel Agitation-Sedation Scale (RASS): 0 - Alert and Calm Level of Consciousness is awake, alert, obeys commands, Oriented to person, place, time, situation, Appropriate for age. Cardiovascular: Patient's skin is warm and dry. Respiratory: Airway is patent Respiratory effort is even, unlabored, Respiratory pattern is regular, symmetrical. Derm: Skin is pink, warm \\T\\ dry. Musculoskeletal: Range of motion: intact in all extremities. Historical: - Allergies: 21:23 Amoxicillin; mb9 21:23 Clindamycin; mb9 - Home Meds: 21:23 levothyroxine oral [Active]; mb9 - PMHx: 21:23 Anxiety; COPD; hypotension; Migraines; Thyroid problem; Vertigo; mb9 - PSHx: 21:23 section; mb9 - Immunization history:: Adult Immunizations up to date. - Social history:: Smoking status: Patient reports the use of cigarette tobacco products, smokes one pack cigarettes per day. Screenin:14 [facility] ED Fall Risk Assessment (Adult) History of falling in the last 3 months, kl including since admission No falls in past 3 months (0 pts) Confusion or Disorientation No (0 pts) Intoxicated or Sedated No (0 pts) Impaired Gait Yes (1 pt) Mobility Assist Device Used No (0 pt) Altered Elimination No (0 pt) Score/Fall Risk Level 0 - 2 = Low Risk Oriented to surroundings, Maintained a safe environment. Abuse screen: Denies threats or abuse. Nutritional screening: No deficits noted. Tuberculosis screening: No symptoms or risk factors identified. Assessment: 22:13 General: Appears uncomfortable, Behavior is calm, cooperative. Pain: Complains of pain kl in left first toe Pain currently is 8 out of 10 on a pain scale. Neuro: No deficits noted. Cardiovascular: No deficits noted. Respiratory: No deficits noted. GI: No deficits noted. No signs and/or symptoms were reported involving the gastrointestinal system. : No deficits noted. No signs and/or symptoms were reported regarding the genitourinary system. EENT: No deficits noted. No signs and/or symptoms were reported regarding the EENT system. Derm: No deficits noted. No signs and/or symptoms reported regarding the dermatologic system. Musculoskeletal: Capillary refill < 3 seconds, Swelling present in left foot. Vital Signs: 21:21 BP 124 / 79; Pulse 79; Resp 18; Temp 98.1; Pulse Ox 100% ; Weight 136.08 kg; Height 5 mb9 ft. 7 in. ; Pain 8/10; 21:21 Body Mass Index 46.99 (136.08 kg, 170.18 cm) mb9 21:21 Pain Scale: Adult mb9 ED Course: 21:12 Patient arrived in ED. ja2 21:17 Jose García PA is PHCP. cp 21:17 Jose Cantrell MD is Attending Physician. cp 21:23 Triage completed. mb9 21:24 Arm band placed on. mb9 22:15 XRAY Foot LEFT 3 View In Process Unspecified. EDMS 23:25 Corinna Ledesma RN is Primary Nurse. mb9 23:25 No provider procedures requiring assistance completed. Patient did not have IV access mbClaudia during this emergency room visit. Administered Medications: 22:13 Drug: Hydrocodone-Acetaminophen PO (7.5 mg-325 mg) 1 tabs Route: PO; kl 22:13 Drug: Ibuprofen PO 800 mg Route: PO; kl Outcome: 23:06 Discharge ordered by . ko 23:25 Discharged to home ambulatory. mb9 23:25 Condition: stable 23:25 Discharge instructions given to patient, Instructed on discharge instructions, follow up and referral plans. Demonstrated understanding of instructions, follow-up care, medications, Prescriptions given X 1. 23:25 Patient left the ED. mb9 Signatures: Dispatcher [employer] EDMS Ava Decker RN RN Jose Elise PA PA cp Alexander, Jessica ja2 Breneman, Mary Beth, RN RN mb9
[2022-08-15 01:06] VITALS: BP 124/79; TEMP 98.1; O2SAT 100
== END 2022-08-14 23:25 | disposition home or self-care (01) ==
LOC: ER 21:08
DX: S90.112A Contusion of left great toe without damage to nail, initial encounter (principal)

== ENCOUNTER 2023-01-01 06:39 | Emergency (ER) | payer OTHER ==
--- OUTSIDE RECORDS SUMMARY | 2023-01-01 06:42 | XMS REPORT | Continuity of Care Document ---
:1975 Author Organization [facility] t Address [address] [place] [address] [place] [id number] Care Team Providers Name Role Phone PCP, PATIENT DOES NOT HAVE A Primary Care Physician UnavailOSIEL Castro Attending Clinician Unavailable Star Burgos Attending Clinician STAR MEADOWS Attending Clinician Unavailable Tayla Schmidt MD Attending Clinician TAYLA SCHMIDT Attending Clinician Unavailable JAYLEEN HOWARD Attending Clinician Unavailable Jayleen Whitehead Attending Clinician Doctor Unassigned, [place] Attending Clinician Unavailable KRISS SHERIDAN Attending Clinician Unavailable Elisa Venegas Attending Clinician ELISA LAGUNAS Attending Clinician Unavailable JOHNNA REBOLLEDO Attending Clinician Unavailable JAYLEEN HOWARD Admitting Clinician Unavailable ELISA LAGUNAS Admitting Clinician Unavailable Payers Payer Name Policy Type Policy Number Effective Date Expiration Date S ource [place] [place] [id number] 2018 WOMEN 00:00:00 [place] [id number] 2021 00:00:00 Problems Condition Condition Condition Status [...] n for STD n for STD 00:00: [place] (sexually (sexually 00 Medi todd transmitte [...] tobacco use [facility] [place] [facility] History [facility] o f Alcohol Frequency [place] [facility] o f Alcohol Std [place] [facility] History [facility] University o f Alcohol Binge [place] [facility] Exposure to 2022-01-17 2022-01-27 Not sure University of SARS-CoV-2 00:00:00 14:37:00 [facility] (event) Branch Alcohol intake 2021-12-27 2021-12-27 Current drinker Unive rsity of 00:00:00 00:00:00 of alcohol [place] [facility] (finding) [facility] Tobacco use and 2021-12-20 2021-12-20 Smokeless tobacco Un iversity of exposure 00:00:00 00:00:00 non-user [facility] Tobacco Comment 2021-12-20 2021-12-20 5 cigarettes a Unive rsity of 00:00:00 00:00:00 day [facility] Alcohol Comment 2018-09-15 2018-09-15 occasional Universit y of 00:00:00 00:00:00 [facility] Sex Ass[birth year] At [birth year] Universit y of 00:00:00 00:00:00 [facility] Smoking Status Start Date Stop Date Source Smokes tobacco daily 2021-12-20 00:00:00 Univers ity of [facility] Medications Ordered Filled Start Stop Current Ordering Indication Dosage Frequency Signature Comments Components Source Medication Medication Date Date Medication? Clinician (SIG) Name Name levothyroxi Yes Reggie s ne 175 mcg 9-30 ity of tablet 00:00: [place] [facility] levothyroxi Yes Jayliner s ne 175 mcg 9-30 ity of tablet 00:00: [place] [facility] levothyroxi Yes Univer s ne 175 mcg 9-30 ity of tablet 00:00: [address] No known No No known Unive rs medications 12-27 medication it y of 10:00: s [address] buPROPion Yes Univers SR 150 mg 9-02 ity of SR tablet 00:00: [place] [facility] buPROPion Yes Univers SR 150 mg 9-02 ity of SR tablet 00:00: [place] [facility] buPROPion Yes Univers SR 150 mg 9-02 ity of SR tablet 00:00: [place] [facility] ibuprofen 2021-0 Yes 800mg Take 800 Uni vers 800 mg 8-02 mg by ity of tablet 00:00: mouth [place] [id number] every 6 Medical (six) Branch hours as needed. ibuprofen 2021-0 Yes 800mg Take 800 Uni vers 800 mg 8-02 mg by ity of tablet 00:00: mouth [place] [address] every 6 Medical (six) Branch hours as needed. ibuprofen 2021-0 Yes 800mg Take 800 Uni vers 800 mg 8-02 mg by ity of tablet 00:00: mouth [place] 00 every 6 Medical (six) Branch hours as needed. Vital Signs Vital Name Observation Time Observation Value Comments Source Body height 2022-01-27 19:50:00 [facility] 2022-01-27 19:50:00 [facility] BMI 2022-01-27 19:50:00 47.46 kg/m2 [facility] Systolic blood 2021-12-27 14:59:00 132 mm[Hg] Univer sity of [facility] Diastolic blood 2021-12-27 14:59:00 85 mm[Hg] [facility] 2021-12-27 14:59:00 92 /min [facility] Body height 2021-12-27 14:59:00 170.2 cm [facility] Body weight 2021-12-27 14:59:00 137.44 kg [facility] BMI 2021-12-27 14:59:00 47.46 kg/m2 [facility] Procedures This patient has no known procedures. Encounters Start End Encounter Admission Attending Care Care Encounter Source Date/Time Date/Time Type Type Clinicians Facility Department ID 2021-02-17 Emergency [facility] [id number] [facility]15 Emergency [facility] [id number] Univers 17:30:01 [place] [facility] 2022-01-29 2022-01-29 [facility] [id number] Univers 00:00:00 00:00:00 [facility] [id number] it y of [place] [id number] Hever as PEREZ?BLEA [id number] Az no[address] MEDICAL OFFICE BUILDING 2022-01-27 2022-01-27 Office [facility] [id number] Univers 15:00:00 15:15:00 Visit [facility] [id number] it y of [place] [id number] Hever as PEREZ?BLEA [id number] Az dical KNEY [address] [place] [address] 2022-01-27 2022-01-27 [facility] [id number] Univers 14:50:00 15:09:00 STAR eze [facility] 2021-12-27 2021-12-27 Outpatient [facility] [id number] Univers 10:02:59 23:59:00 [facility] 2021-12-27 2021-12-27 [facility] [id number] Univers 10:00:00 10:15:00 Visit [facility] [id number] it y [facility] [id number] Hever as PEREZ?BLEA [id number] Az gely ALMEIDA [address] [place] [address] 2021-12-27 2021-12-27 Outpatient [facility] [id number] Univers 10:02:59 10:02:59 [facility] 2021-12-20 2021-12-20 Office [facility] [id number] Univers 10:15:00 10:30:00 Visit Tayla Schmidt [facility] [id number] ity of [facility] [id number] Hever as PEREZ?BLEA [id number] Az gely ALMEIDA [address] [place] [address] 2021-12-20 2021-12-20 Outpatient R [facility] [id number] Univers 10:15:00 10:15:00 TAYLA wright [facility] 2021-12-16 2021-12-16 Emergency X [facility] ERT [id number] Univers 18:20:00 20:24:00 [facility] 2021-12-16 2021-12-16 Emergency Chaoman, TRAUMA [id number] Univers 18:20:00 20:24:00 [facility] [id number] [id number] [id number] [address] 2021-12-16 2021-12-16 Emergency X [facility] ERT [id number] Univers 18:20:00 20:24:00 JAYLEEN iteze [facility] 2021-10-15 2021-10-15 Outpatient [facility] [id number] Univers 15:00:00 15:00:00 [facility] 2021-10-03 2021-10-03 Outpatient [facility] [id number] Univers 15:15:00 15:15:00 [facility] 2021-09-26 2021-09-26 Outpatient [facility] [id number] Univers 15:00:00 15:00:00 [facility] 2021-09-04 2021-09-04 Orders Doctor AIMEE [id number] Univers 00:00:00 00:00:00 Only Unassigned, MELISSA [id number] ity of [place] [facility] [id number] Hever as [id number] [address] 2021-08-22 2021-08-22 Outpatient [facility] [id number] Univers 15:50:00 23:59:00 [facility] 2021-08-22 2021-08-22 Office [facility] [id number] Univers 15:00:00 15:30:00 Visit [facility] [id number] it y of [place] [id number] Hever as PEREZ?BLEA [id number] [address] MEDICAL OFFICE [facility] 2021-08-22 2021-08-22 Outpatient Wanda [facility] [id number] Univers 15:00:00 15:00:00 [facility] 2021-08-22 2021-08-22 Orders Doctor AIMEE [id number] Univers 00:00:00 00:00:00 Only Unassigned, MELISSA [id number] ity of [place] [facility] [id number] Hever as [id number] [address] 2021-06-12 2021-06-12 Outpatient R EDILSONILENE [facility] [id number] Univers 15:00:00 15:00:00 KRISS wright o leslie [facility] 2021-05-17 2021-05-17 Outpatient R EDILSONILENE [facility] [id number] Univers 09:15:00 09:15:00 KRISS wright o leslie [facility] 2020-08-20 2020-08-20 [facility] [id number] 06:56:46 23:59:00 Encounter Pattylouise Muñoz SPECIALTY [id number] [facility] [id number] CENTER AT [id number] [place] [address] [place] [address] 2020-08-20 2020-08-20 Outpatient R BEBO [facility] [id number] Univers 06:56:46 23:59:00 ELISA huertas [facility] 2020-08-20 2020-08-20 Outpatient [facility] [id number] Univers 00:00:00 00:00:00 ELISA huertas [facility] 2020-07-31 2020-07-31 [facility] [id number] 15:57:09 16:21:23 Visit Elisa Muñoz [employer] [id number] [facility] [id number] MATERNAL [id number] & CHILD [address] [place] [address] 2020-07-31 2020-07-31 Outpatient Wanda LAGUNAS [facility] [id number] Univers 15:45:00 15:45:00 MARIA LUZDARBYAnthony nelson [facility] 2020-07-31 2020-07-31 Outpatient Wanda REBOLLEDO [facility] [id number] Univers 14:45:00 14:45:00 JOHNNA wright [facility] 2020-05-29 2020-05-29 Outpatient R BEBO [facility] [id number] Univers 07:45:00 07:45:00 MARIA LUZDARBYAnthony wright o [facility] 2020-05-25 2020-05-25 Outpatient R FATIMAH [facility] [id number] Univers 10:15:00 10:15:00 KRISS nelson [facility] 2020-01-04 2020-01-04 Outpatient R BEBO [facility] [id number] [facility] 14:00:00 14:00:00 ELISA nelson [facility] Results This patient has no known results.
--- NOTE | 2023-01-01 07:51 | EDPHYS ---
Physician Documentation [facility] Name: Kaylen Benson Age: 47 yrs Sex: Female : 1975 Arrival Date: 01/01/2023 Time: 06:39 Bed 13 Private MD: RIKA Physician Jose Cantrell HPI: 01/01 07:44 This 47 yrs old Female presents to ER via Ambulatory with complaints of monica Insect Bite. 07:44 The patient presents with cellulitis of the abdomen. Description: The affected area is monica moderate sized, well demarcated. Onset: The symptoms/episode began/occurred 5 day(s) ago. Possible cause(s): unknown. Associated signs and symptoms: The patient has no apparent associated signs or symptoms. Modifying factors: the symptoms are alleviated by nothing, the symptoms are aggravated by nothing. Severity of symptoms: At their worst the symptoms were mild, in the emergency department the symptoms are unchanged. The patient has experienced similar episodes in the past, several times. 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 - Social history:: Smoking status: Patient reports the use of cigarette tobacco products, smokes one-half pack cigarettes per day. - Family history:: not pertinent. ROS: 07:44 Constitutional: Negative for fever, chills, and weight loss, Eyes: Negative for injury, monica pain, redness, and discharge, ENT: Negative for injury, pain, and discharge, Neck: Negative for injury, pain, and swelling, Cardiovascular: Negative for chest pain, palpitations, and edema, Respiratory: Negative for shortness of breath, cough, wheezing, and pleuritic chest pain, Abdomen/GI: Negative for abdominal pain, nausea, vomiting, diarrhea, and constipation, Back: Negative for injury and pain, : Negative for injury, bleeding, discharge, and swelling, MS/Extremity: Negative for injury and deformity, Neuro: Negative for headache, weakness, numbness, tingling, and seizure, Psych: Negative for depression, anxiety, suicide ideation, homicidal ideation, and hallucinations, Allergy/Immunology: Negative for hives, rash, and allergies, Endocrine: Negative for neck swelling, polydipsia, polyuria, polyphagia, and marked weight changes, Hematologic/Lymphatic: Negative for swollen nodes, abnormal bleeding, and unusual bruising. 07:44 Skin: Positive for erythema, rash, of the abdomen. Exam: 07:44 Constitutional: This is a well developed, well nourished patient who is awake, alert, monica and in no acute distress. Head/Face: Normocephalic, atraumatic. Eyes: Pupils equal round and reactive to light, extra-ocular motions intact. Lids and lashes normal. Conjunctiva and sclera are non-icteric and not injected. Cornea within normal limits. Periorbital areas with no swelling, redness, or edema. ENT: Nares patent. No nasal discharge, no septal abnormalities noted. Tympanic membranes are normal and external auditory canals are clear. Oropharynx with no redness, swelling, or masses, exudates, or evidence of obstruction, uvula midline. Mucous membranes moist. Neck: Trachea midline, no thyromegaly or masses palpated, and no cervical lymphadenopathy. Supple, full range of motion without nuchal rigidity, or vertebral point tenderness. No Meningismus. Chest/axilla: Normal chest wall appearance and motion. Nontender with no deformity. No lesions are appreciated. Cardiovascular: Regular rate and rhythm with a normal S1 and S2. No gallops, murmurs, or rubs. Normal PMI, no JVD. No pulse deficits. Respiratory: Lungs have equal breath sounds bilaterally, clear to auscultation and percussion. No rales, rhonchi or wheezes noted. No increased work of breathing, no retractions or nasal flaring. Abdomen/GI: Soft, non-tender, with normal bowel sounds. No distension or tympany. No guarding or rebound. No evidence of tenderness throughout. Back: No spinal tenderness. No costovertebral tenderness. Full range of motion. Pelvic Exam: Normal external genitalia. Speculum exam with closed cervical os, no discharge or bleeding noted. Bimanual exam with normal adnexa, no adnexal or cervical motion tenderness. Normal uterus. MS/ Extremity: Pulses equal, no cyanosis. Neurovascular intact. Full, normal range of motion. Neuro: Awake and alert, GCS 15, oriented to person, place, time, and situation. Cranial nerves II-XII grossly intact. Motor strength 5/5 in all extremities. Sensory grossly intact. Cerebellar exam normal. Normal gait. Psych: Awake, alert, with orientation to person, place and time. Behavior, mood, and affect are within normal limits. 07:44 Skin: Appearance: Color: normal in color, Temperature: normal temperature, Moisture: normal moisture, petechiae, not noted, ecchymosis, not noted, abscess, not appreciated, cellulitis, that is minimal, contact dermatitis. Vital Signs: 06:58 BP 142 / 87; Pulse 87; Resp 18 S; Temp 98.5(O); Pulse Ox 98% on R/A; Weight 136.08 kg as6 (R); Height 5 ft. 7 in. (R); Pain 6/10; 06:58 Body Mass Index 46.99 (136.08 kg, 170.18 cm) as6 06:58 Pain Scale: Adult as6 MDM: 07:06 Patient medically screened. monica 07:48 Differential diagnosis: abscess, allergic reaction, cellulitis, insect bite. Data monica reviewed: vital signs, nurses notes. Consideration of Admission/Observation Escalation of care including admission/observation considered. I considered the following discharge prescriptions or medication management in the emergency department Medications were administered in the Emergency Department. See MAR. Test considered but Not performed: CT: no ct. Historians other than the Patient: patient good historian. Care significantly affected by the following chronic conditions: Hypertension, Chronic Obstructive Pulmonary Disease, Obesity. 01/01 08:04 Order name: Glucose, Ancillary Testing EDWA 01/01 07:44 Order name: Blood Glucose Level; Complete Time: 07:53 monica Administered Medications: 08:02 Drug: Cephalexin PO 500 mg Route: PO; ph 08:03 Follow up: Response: No adverse reaction; Medication administered at discharge. ph 08:02 Drug: predniSONE PO 40 mg Route: PO; ph 08:02 Follow up: Response: No adverse reaction; Medication administered at discharge. ph 08:02 Drug: Famotidine PO 40 mg Route: PO; ph 08:02 Follow up: Response: No adverse reaction; Medication administered at discharge. ph Disposition Summary: 01/01/23 07:50 Discharge Ordered Location: Home monica Problem: new monica Symptoms: have improved monica Condition: Stable monica Diagnosis - Candidiasis, unspecified monica - Dermatitis, unspecified monica Followup: [facility] - With: Private Physician - When: 2 - 3 days - Reason: Recheck today's complaints, Continuance of care, Re-evaluation by your physician Discharge Instructions: - Discharge Summary Sheet [facility] - Cellulitis, Adult monica - Rash, Adult monica - Rash, Adult, [id number] [facility] - Skin Yeast Infection [facility] Forms: - Medication Reconciliation Form [facility] - Thank You Letter [facility] - Antibiotic Education [facility] - Prescription Opioid Use [facility] - Patient Portal Instructions [facility] - Leadership Thank You Letter [facility] Prescriptions: - Cephalexin 500 mg Oral Capsule - take 1 capsule by ORAL route every 6 hours for 7 days; 28 capsule; Refills: 0, [facility] Product Selection Permitted - Pepcid 20 mg Oral Tablet - take 1 tablet by ORAL route every 12 hours for 10 days; 20 tablet; Refills: 0, [facility] Product Selection Permitted - Nystatin-Triamcinolone 100,000-0.1 unit/g-% Topical Cream - apply 1 application by TOPICAL route 2 times per day; 45 gram; Refills: 0, [facility] Product Selection Permitted - Medrol (Lemuel) 4 mg Oral Tablets, Dose Pack - take 1 tablet by ORAL route as directed - follow package instructions; 1 [facility] packet; Refills: 0, Product Selection Permitted Signatures: Jose Cantrell MD MD cha Hall, Patricia RN RN Quan King RN RN as6
--- NOTE | 2023-01-01 07:51 | ER ---
Nurse's Notes [facility] Name: Kaylen Benson Age: 47 yrs Sex: Female : 1975 Arrival Date: 01/01/2023 Time: 06:39 Bed 13 Private MD: Diagnosis: Candidiasis, unspecified;Dermatitis, unspecified Presentation: 01/01 07:00 Chief complaint: Patient states: "I think I might have spider bite on my stomach. Or as6 maybe a fungal infection". Coronavirus screen: At this time, the client does not indicate any symptoms associated with coronavirus-19. Ebola Screen: No symptoms or risks identified at this time. Initial Sepsis Screen: Does the patient meet any 2 criteria? No. Patient's initial sepsis screen is negative. Does the patient have a suspected source of infection? No. Patient's initial sepsis screen is negative. Risk Assessment: Do you want to hurt yourself or someone else? Patient reports no desire to harm self or others. Onset of symptoms was December 29, 2022. 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 - Social history:: Smoking status: Patient reports the use of cigarette tobacco products, smokes one-half pack cigarettes per day. - Family history:: not pertinent. Screenin:03 [facility] ED Fall Risk Assessment (Adult) History of falling in the last 3 months, ph including since admission No falls in past 3 months (0 pts) Confusion or Disorientation No (0 pts) Intoxicated or Sedated No (0 pts) Impaired Gait No (0 pts) Mobility Assist Device Used No (0 pt) Altered Elimination No (0 pt) Score/Fall Risk Level 0 - 2 = Low Risk Oriented to surroundings, Maintained a safe environment, Hourly rounding (assess needs \\T\\ fall precautionary measures) done. Abuse screen: Denies threats or abuse. Denies injuries from another. Nutritional screening: No deficits noted. Tuberculosis screening: No symptoms or risk factors identified. Assessment: 08:03 General: Appears in no apparent distress. comfortable, obese, well groomed, Behavior is ph calm, cooperative, appropriate for age, Denies fever, feeling ill. Pain: Complains of pain in abdomen. Neuro: Level of Consciousness is awake, alert, obeys commands, Oriented to person, place, time, situation. Derm: Skin is healthy with good turgor, Skin is pink, warm \\T\\ dry. Musculoskeletal: Circulation, motion, and sensation intact. Range of motion: intact in all extremities. Vital Signs: 06:58 BP 142 / 87; Pulse 87; Resp 18 S; Temp 98.5(O); Pulse Ox 98% on R/A; Weight 136.08 kg as6 (R); Height 5 ft. 7 in. (R); Pain 6/10; 06:58 Body Mass Index 46.99 (136.08 kg, 170.18 cm) as6 06:58 Pain Scale: Adult as6 ED Course: 06:40 Patient arrived in ED. rg4 06:58 Arm band placed on. as6 07:01 Triage completed. as6 07:06 Jose Cantrell MD is Attending Physician. monica 07:18 Rosalia Jung, SOLITARIO is Primary Nurse. ph 07:54 BGL 115. ph 08:04 Patient has correct armband on for positive identification. Call light in reach. Side ph rails up X 1. Door closed. Noise minimized. 08:04 No provider procedures requiring assistance completed. Patient did not have IV access ph during this emergency room visit. Administered Medications: 08:02 Drug: Cephalexin PO 500 mg Route: PO; ph 08:03 Follow up: Response: No adverse reaction; Medication administered at discharge. ph 08:02 Drug: predniSONE PO 40 mg Route: PO; ph 08:02 Follow up: Response: No adverse reaction; Medication administered at discharge. ph 08:02 Drug: Famotidine PO 40 mg Route: PO; ph 08:02 Follow up: Response: No adverse reaction; Medication administered at discharge. ph Medication: 08:04 VIS not applicable for this client. ph Outcome: 07:50 Discharge ordered by . monica 08:04 Discharged to home ambulatory. ph 08:04 Condition: good 08:04 Discharge instructions given to patient, Instructed on discharge instructions, follow up and referral plans. medication usage, Demonstrated understanding of instructions, follow-up care, medications, Prescriptions given X 4. 08:05 Patient left the ED. ph Signatures: Jose Cantrell MD MD cha Hall, Patricia, RN RN Zaynab Barahona rg4 Quan Buckley RN RN as6
[2023-01-01] MEDS ORDERED: predniSONE 20 MG TAB ONE (08:08)
[2023-01-01 08:09] VITALS: BP 142/87; TEMP 98.5; O2SAT 98
[2023-01-01] MEDS ORDERED: FAMOTIDINE 20 MG TAB ONE (08:09)
[2023-01-01] MEDS ORDERED: CEPHALEXIN 250 MG CAP ONE (08:09)
== END 2023-01-01 08:05 | disposition home or self-care (01) ==
LOC: ER 06:39
DX: B37.9 Candidiasis, unspecified (principal); L30.9 Dermatitis, unspecified; F17.210 Nicotine dependence, cigarettes, uncomplicated; Z88.1 Allergy status to other antibiotic agents; Z88.3 Allergy status to other anti-infective agents
CPT/HCPCS: 82947; 99283; J7512

== ENCOUNTER 2023-05-16 22:44 | Emergency (ER) | payer OTHER ==
--- OUTSIDE RECORDS SUMMARY | 2023-05-16 22:46 | XMS REPORT | Continuity of Care Document ---
Author Name Unknown Address [address] [facility] [place] [address] [facility] thconnect Address [address] [facility] [place] [address] Care Team Providers Care Media Arts Professor Name Role Phone PCP, PATIENT DOES NOT HAVE A Primary Care Physic riley Unavailable OSIEL PARIKH Attending Clinician Unavaila [place] Attending Clinician [phone] Attending Clinician Unavailable Tayla Schmidt MD Attending Clinician [phone] TAYLA SCHMIDT Attending Clinician UnavailJAYLEEN Patel Attending Clinician Unavailab Jayleen Parker Attending Clinician + [phone] Doctor Unassigned, [employer] Attending Clinician U navailKRISS Hurtado Attending Clinician Unavail able Elisa Venegas Attending Clinician + [phone] ELISA LAGUNAS Attending Clinician Unavailab le JOHNNA REBOLLEDO Attending Clinician UnavailJAYLEEN Patel Admitting Clinician Unavailab le ELISA LAGUNAS Admitting Clinician Unavailab le Payers Payer Name Policy Type Policy Number Effective Date Expirati on Date Source [facility] [id number] 2018 00:00:00 [place] 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 [id number] 2022 00:00:00 [place] [id number] 2021 00:00:00 Problems Condition Name Condition Details Condition Category Status Onset Date Resolution Date Last Treatment Date Treating Clinician Comments Source History of bilateral ligation of fallopian tubes History of bilateral ligation of fallopian tubes Disease Active 07-31 00:00: 00 [facility] BMI 45.0-49.9, adult BMI 45.0-49.9, adult Disease Active 07-31 00:00: 00 [facility] Screening examinatio n for STD (sexually transmitte d disease) Screening examinatio n for STD (sexually transmitte d disease) Disease Active 09-15 00:00: 00 [facility] Class 3 severe obesity due to excess calories with body mass index (BMI) of 45.0 to 49.9 in adult, unspecifie d whether serious comorbidit y present Class 3 severe obesity due to excess calories with body mass index (BMI) of 45.0 to 49.9 in adult, unspecifie d whether serious comorbidit y present Disease Active 2015-04 00:00: 00 [facility] Allergies, Adverse Reactions, Alerts Allergy Name Allergy Type Status Severity Reaction(s) Onset Date Inactive Date Treating Clinician Comments Source AMOXICIL STEPHANIE DRUG INGREDI Active Hives 07-31 00:00: 00 [facility] CLINDAMY SHE DRUG INGREDI Active Hives 07-31 00:00: 00 [facility] Amoxicil stephanie Propensi ty to adverse reaction s Active Hives 07-31 00:00: 00 [facility] Clindamy she Propensi ty to adverse reaction s Active Hives 07-31 00:00: 00 [facility] Social History Social Habit Start Date Stop Date Quantity Comments Source History of tobacco use Cigarette Smoker [facility] History SDOH Alcohol Frequency [facility] History SDOH Alcohol Std Drinks [facility] History SDOH Alcohol Binge [facility] Exposure to SARS-CoV-2 (event) 2022-01-17 00:00:00 2022-01-27 14:37:00 Not sure [facility] Alcohol intake 2021-12-27 00:00:00 2021-12-27 00:00:00 Current drinker of alcohol (finding) [facility] Tobacco use and exposure 2021-12-20 00:00:00 2021-12-20 00:00:00 Smokeless tobacco non-user [facility] Tobacco Comment 2021-12-20 00:00:00 2021-12-20 00:00:00 5 cigarettes a day [facility] Alcohol Comment 2018-09-15 00:00:00 2018-09-15 00:00:00 occasional [facility] Sex Assigned At 1975 00:00:00 1975 00:00:00 [facility] Smoking Status Start Date Stop Date Source Smokes tobacco daily 2021-12-20 00:00:00 [facility] Medications Ordered Medication Name Filled Medication Name Start Date Stop Date Current Medication? Ordering Clinician Indication Dosage Frequency Signature (SIG) Comments Components Source levothyroxi ne 175 mcg tablet 01-17 00:00: 00 Yes [facility] levothyroxi ne 175 mcg tablet 01-17 00:00: 00 Yes [facility] levothyroxi ne 175 mcg tablet 01-17 00:00: 00 Yes [facility] No known medications 12-27 10:00: 11 No No known medication s [facility] buPROPion SR 150 mg SR tablet 12-20 00:00: 00 Yes [facility] buPROPion SR 150 mg SR tablet 12-20 00:00: 00 Yes [facility] buPROPion SR 150 mg SR tablet 12-20 00:00: 00 Yes [facility] ibuprofen 800 mg tablet 11-19 00:00: 00 Yes 800mg Take 800 mg by mouth every 6 (six) hours as needed. [facility] ibuprofen 800 mg tablet 11-19 00:00: 00 Yes 800mg Take 800 mg by mouth every 6 (six) hours as needed. [facility] ibuprofen 800 mg tablet 11-19 00:00: 00 Yes 800mg Take 800 mg by mouth every 6 (six) hours as needed. [facility] Vital Signs Vital Name Observation Time Observation Value Comments Nannette schwarz Body height 2022-01-27 19:50:00 170.2 cm [facility] Body weight 2022-01-27 19:50:00 137.44 kg [facility] BMI 2022-01-27 19:50:00 47.46 kg/m2 [facility] Systolic blood pressure 2021-12-27 14:59:00 132 mm[Hg] [place] [facility] Diastolic blood pressure 2021-12-27 14:59:00 85 mm[Hg] [facility] Heart rate 2021-12-27 14:59:00 92 /min [facility] Body height 2021-12-27 14:59:00 170.2 cm [facility] Body weight 2021-12-27 14:59:00 137.44 kg [facility] BMI 2021-12-27 14:59:00 47.46 kg/m2 [facility] Encounters Start Date/Time End Date/Time Encounter Type Admission Type Attending Clinicians Care Facility Care Department Encounter ID Source 2021-02-17 09:49:03 Emergency [facility] [id number] [facility] 2021-02-15 17:30:01 Emergency [facility] [id number] [facility] 2023-01-27 13:30:00 2023-01-27 13:30:00 Outpatient OSIEL PAGAN [facility] [id number] [facility] 2022-01-29 00:00:00 2022-01-29 00:00:00 [facility] [id number] 350.1.13.10 [id number] [id number] [facility] 2022-01-27 15:00:00 2022-01-27 15:15:00 [facility] [place] [facility] [id number] 350.1.13.10 4.2.7.2.686 [id number] [facility] 2022-01-27 14:50:00 2022-01-27 15:09:00 [id number] 2021-12-27 10:02:59 2021-12-27 23:59:00 Outpatient R DORI STAR [facility] [id number] [facility] 2021-12-27 10:00:00 2021-12-27 10:15:00 Office Visit [facility] [place] Nannette [facility] 1..840.114 350.1.13.10 4.2.7.2.686 [id number] [facility] 2021-12-27 10:02:59 2021-12-27 10:02:59 Outpatient R DORI [facility] [id number] [facility] 2021-12-20 10:15:00 2021-12-20 10:30:00 Office [place] [facility] 1..840.114 350.1.13.10 4.2.7.2.686 [id number] [facility] 2021-12-20 10:15:00 2021-12-20 10:15:00 Outpatient R TAYLA SCHMIDT [facility] [id number] [facility] 2021-12-16 18:20:00 2021-12-16 20:24:00 Emergency X ANITA JAYLEEN [facility] E[facility] [id number] [facility] 2021-12-16 18:20:00 2021-12-16 20:24:00 Emergency Jayleen Came[facility] 1..840.114 350.1.13.10 4.2.7.2.686 [id number] [facility] 2021-12-16 18:20:00 2021-12-16 20:24:00 Emergency X JAYLEEN CAMEJO [facility] ERT [id number] [facility] 2021-10-15 15:00:00 2021-10-15 15:00:00 Outpatient Wanda MEADOWS [facility] [id number] [facility] 2021-10-03 15:15:00 2021-10-03 15:15:00 Outpatient Wanda MEADOWS [facility] [id number] [facility] 2021-09-26 15:00:00 2021-09-26 15:00:00 Outpatient Wanda MEADOWS [facility] [id number] [facility] 2021-09-04 00:00:00 2021-09-04 00:00:00 Orders Only Doctor Unassigned, [employer] [place] [id number] 350.1.13.10 4.2.7.2.686 [id number] [facility] 2021-08-22 15:50:00 2021-08-22 23:59:00 Outpatient Wanda MEADOWS [facility] [id number] [facility] 2021-08-22 15:00:00 2021-08-22 15:30:00 Office Visit Dori [facility] 1..840.114 350.1.13.10 4.2.7.2.686 [id number] [facility] 2021-08-22 15:00:00 2021-08-22 15:00:00 Outpatient Wanda MEADOWS [facility] [id number] [facility] 2021-08-22 00:00:00 2021-08-22 00:00:00 Orders Only Doctor Unassigned, [employer] [address]840.114 350.1.13.10 4.2.7.2.686 [id number] [facility] 2021-06-12 15:00:00 2021-06-12 15:00:00 Outpatient R EDILSONKRISS ODOM [facility] [id number] [facility] 2021-05-17 09:15:00 2021-05-17 09:15:00 Outpatient R EDILSONKRISS ODOM [facility] [id number] [facility] 2020-08-20 06:56:46 2020-08-20 23:59:00 Hospital Encounter Elisa Lagunas [facility] 1..840.114 350.1.13.10 4.2.7.2.686 [id number] 2020-08-20 06:56:46 2020-08-20 23:59:00 Outpatient R ELISA LAGUNAS [facility] [id number] [facility] 2020-08-20 00:00:00 2020-08-20 00:00:00 Outpatient R ELISA LAGUNAS [facility] [id number] [facility] 2020-07-31 15:57:09 2020-07-31 16:21:23 Office Visit Elisa Lagunas [facility] 1.2.840.114 350.1.13.10 4.2.7.2.686 [id number] 2020-07-31 15:45:00 2020-07-31 15:45:00 Outpatient R ELISA LAGUNAS [facility] [id number] [facility] 2020-07-31 14:45:00 2020-07-31 14:45:00 Outpatient R JOHNNA REBOLLEDO [facility] [id number] [facility] 2020-05-29 07:45:00 2020-05-29 07:45:00 Outpatient R ELISA LAGUNAS [facility] [id number] [facility] 2020-05-25 10:15:00 2020-05-25 10:15:00 Outpatient KRISS LOUIE [facility] [id number] [facility] 2020-01-04 14:00:00 2020-01-04 14:00:00 Outpatient ELISA BRAGA [facility] [id number] [facility]
[2023-05-16] MEDS ORDERED: NA CHLORIDE 0.9% 1,000 ML ONE (23:37)
[2023-05-17 00:14] LABS: Hematocrit 35.2 % (36.0-45.0); Lymphocytes % 37.6 % (15.3-44.8); MCV 88.5 fL (80-100); MPV 8.6 fL (7.6-11.3); Platelets 261 thou/uL (152-406); RBC Red Blood Cell Count 3.98 M/uL (3.86-4.86)
[2023-05-17 00:21] LABS: Specific Gravity 1.028 (1.005-1.030)
[2023-05-17 00:35] LABS: ALT/SGPT 22 U/L (13-56); AST/SGOT 20 U/L (15-37); Albumin 2.8 g/dL (3.4-5.0); Alkaline Phosphatase 86 U/L (45-117); BUN Blood Urea Nitrogen 16 mg/dL (7-18); Bicarbonate 24 mEq/L (21-32); Bilirubin Total 0.1 mg/dL (0.2-1.0); Glomerular Filtration Rate 79 ml/min (=/>90); Glucose Level 86 mg/dL (74-106); Lipase 29 U/L (13-75); NT PRO-BNP 46 pg/mL (<125); Protein, Total 7.3 g/dL (6.4-8.2); Sodium Level 140 mEq/L (136-145); Troponin High Sensitivity 8.8 pg/mL (<58.9)
[2023-05-17 00:43] LABS: Bilirubin Direct < 0.1 mg/dL (0-0.2); Bilirubin Indirect, Calculated ND mg/dL (0.2-0.8)
--- NOTE | 2023-05-17 01:11 | EDPHYS ---
Physician Documentation [facility] Name: Kaylen Benson Age: 47 yrs Sex: Female : 1975 Arrival Date: 05/16/2023 Time: 22:44 Bed 6 Private MD: Jose Albert HPI: 05/17 00:22 This 47 yrs old Female presents to ER via Ambulatory with complaints of Back monica Pain, Nausea, Chest Pain. 00:22 The patient presents with pain that is chronic, with no known mechanism of injury. The monica symptoms are located in the low back. 00:22 The patient presents with a rash, bites vs folliculitis. The complaints affect the left monica quadriceps. Context: The problem was sustained at an unknown site. Modifying factors: The symptoms are alleviated by nothing. the symptoms are aggravated by nothing. Associated signs and symptoms: Pertinent positives: nausea. The patient or guardian reports chest pain that is located primarily in the anterior chest wall, bilaterally. Associated signs and symptoms: Pertinent positives: chest pain, nausea, vomiting. [employer]: 05/16 23:05 LMP 05/01/2023, unknown vc1 Historical: - Allergies: 23:04 Amoxicillin; vc1 23:04 Clindamycin; vc1 - Home Meds: 05/17 00:14 levothyroxine oral daily for hypothyroidism [Active]; la4 - PMHx: 05/16 23:04 Anxiety; COPD; hypotension; Migraines; Thyroid problem; Vertigo; vc1 - PSHx: 23:04 section; vc1 - Immunization history:: Client reports having NOT received the Covid vaccine. Flu vaccine is not up to date. - Social history:: Smoking status: Patient reports the use of cigarette tobacco products, smokes one-half pack cigarettes per day. - Family history:: not pertinent. ROS: 05/17 00:22 Constitutional: Negative for fever, chills, and weight loss, Eyes: Negative for injury, monica pain, redness, and discharge, ENT: Negative for injury, pain, and discharge, Neck: Negative for injury, pain, and swelling, Respiratory: Negative for shortness of breath, cough, wheezing, and pleuritic chest pain, Abdomen/GI: Negative for abdominal pain, nausea, vomiting, diarrhea, and constipation, Back: Negative for injury and pain, : Negative for injury, bleeding, discharge, and swelling, MS/Extremity: Negative for injury and deformity, Skin: Negative for injury, rash, and discoloration, Neuro: Negative for headache, weakness, numbness, tingling, and seizure, Psych: Negative for depression, anxiety, suicide ideation, homicidal ideation, and hallucinations, Allergy/Immunology: Negative for hives, rash, and allergies, Endocrine: Negative for neck swelling, polydipsia, polyuria, polyphagia, and marked weight changes, Hematologic/Lymphatic: Negative for swollen nodes, abnormal bleeding, and unusual bruising, Cardiovascular: Positive for chest pain, Abdomen/GI: Positive for nausea and vomiting, Exam: 00:22 Constitutional: This is a well developed, well nourished patient who is awake, alert, monica and in no acute distress. Head/Face: Normocephalic, atraumatic. Eyes: Pupils equal round and reactive to light, extra-ocular motions intact. Lids and lashes normal. Conjunctiva and sclera are non-icteric and not injected. Cornea within normal limits. Periorbital areas with no swelling, redness, or edema. ENT: Nares patent. No nasal discharge, no septal abnormalities noted. Tympanic membranes are normal and external auditory canals are clear. Oropharynx with no redness, swelling, or masses, exudates, or evidence of obstruction, uvula midline. Mucous membranes moist. Neck: Trachea midline, no thyromegaly or masses palpated, and no cervical lymphadenopathy. Supple, full range of motion without nuchal rigidity, or vertebral point tenderness. No Meningismus. Chest/axilla: Normal chest wall appearance and motion. Nontender with no deformity. No lesions are appreciated. Cardiovascular: Regular rate and rhythm with a normal S1 and S2. No gallops, murmurs, or rubs. Normal PMI, no JVD. No pulse deficits. Respiratory: Lungs have equal breath sounds bilaterally, clear to auscultation and percussion. No rales, rhonchi or wheezes noted. No increased work of breathing, no retractions or nasal flaring. Abdomen/GI: Soft, non-tender, with normal bowel sounds. No distension or tympany. No guarding or rebound. No evidence of tenderness throughout. Back: No spinal tenderness. No costovertebral tenderness. Full range of motion. Skin: Warm, dry with normal turgor. Normal color with no rashes, no lesions, and no evidence of cellulitis. MS/ Extremity: Pulses equal, no cyanosis. Neurovascular intact. Full, normal range of motion. Neuro: Awake and alert, GCS 15, oriented to person, place, time, and situation. Cranial nerves II-XII grossly intact. Motor strength 5/5 in all extremities. Sensory grossly intact. Cerebellar exam normal. Normal gait. Psych: Awake, alert, with orientation to person, place and time. Behavior, mood, and affect are within normal limits. 00:22 ECG was reviewed by the Attending Physician. 00:30 Musculoskeletal/extremity: DVT Exam: No signs of deep vein thrombosis. no pain, no monica swelling, no tenderness, negative Homans' sign noted on exam, no appreciated bluish discoloration, no erythema, no increased warmth, 00:32 Skin: follicultis. [facility] Vital Signs: 05/16 23:00 BP 142 / 99; Pulse 86; Resp 16; Pulse Ox 99% ; Weight 145.15 kg; Height 5 ft. 7 in. ; vc1 Pain 10/10; 23:00 BP 137 / 83; Pulse 81; Resp 22; Pulse Ox 99% ; la4 23:43 BP 125 / 89; Pulse 73; Resp 22; Pulse Ox 99% ; la4 05/17 03:00 BP 122 / 81; Pulse 73; Resp 16; Temp 98.2; Pulse Ox 99% ; nw1 05/16 23:00 Body Mass Index 50.12 (145.15 kg, 170.18 cm) vc1 05/16 23:00 Pain Scale: Adult vc1 [place] Coma Score: 05/16 23:43 Eye Response: spontaneous(4). Motor Response: obeys commands(6). Verbal Response: la4 oriented(5). Total: 15. MDM: 22:59 Patient medically screened. [facility] 05/17 00:27 Differential diagnosis: arthritis, chronic back pain, Obesity Pyelonephritis Renal monica Infarction ruptured disc, Scoliosis coronary artery disease, Cholelithiasis, non-specific abd pain, pancreatitis, urinary tract infection. HEART Score: History: Slightly Suspicious (0), ECG: Non specific repolarization disturbance / LBTB / PM (1), Age: > 45 and < 65 years (1), Risk Factors: 1 or 2 risk factors (1), [+ Family HX] [Obesity] Troponin: < or = 1 x Normal Limit (0). The patient was given aspirin in the Emergency Department. REEMA Risk Score: TOTAL SCORE = 0. Data reviewed: vital signs, nurses notes, lab test result(s), EKG, radiologic studies, plain films. Consideration of Admission/Observation Escalation of care including admission/observation considered. I considered the following discharge prescriptions or medication management in the emergency department Medications were administered in the Emergency Department. See MAR. Independent interpretation of the following test(s) in the Emergency Department EKG: See my EKG interpretation above. Test considered but Not performed: Ultrasound no abd usg. Care significantly affected by the following chronic conditions: Chronic Obstructive Pulmonary Disease, Obesity, anxiety, migraine, hyopthyroid. 05/16 23:04 Order name: Basic Metabolic Panel; Complete Time: 01:09 [facility] 05/16 23:04 Order name: CBC with Diff; Complete Time: 00:21 [facility] 05/16 23:04 Order name: LFT's; Complete Time: 01:09 [facility] 05/16 23:04 Order name: Magnesium; Complete Time: 01:09 [facility] 05/16 23:04 Order name: NT PRO-BNP; Complete Time: 01:09 [facility] 05/16 23:04 Order name: PT-INR; Complete Time: 00:32 [facility] 05/16 23:04 Order name: Troponin HS; Complete Time: 01:09 [facility] 05/16 23:04 Order name: Lipase; Complete Time: 01:09 [facility] 05/16 23:04 Order name: Urinalysis w/ reflexes; Complete Time: 02:15 [facility] 05/16 23:04 Order name: PREGU; Complete Time: 02:25 [facility] 05/16 23:04 Order name: D-Dimer; Complete Time: 00:32 [facility] 05/17 02:17 Order name: Urine Culture [facility] 05/16 23:04 Order name: XRAY Chest (1 view) 05/17 02:19 Order name: CT Stone Protocol [facility] 05/16 23:04 Order name: EKG; Complete Time: 23:05 [facility] 05/16 23:04 Order name: Cardiac monitoring; Complete Time: 23:05 [facility] 05/16 23:04 Order name: EKG - Nurse/Tech; Complete Time: 23:05 [facility] 05/16 23:04 Order name: IV Saline Lock; Complete Time: 23:56 [facility] 05/16 23:04 Order name: Labs collected and sent; Complete Time: 23:56 [facility] 05/16 23:04 Order name: O2 Per Protocol; Complete Time: 23:05 [facility] 05/16 23:04 Order name: O2 Sat Monitoring; Complete Time: 23:05 [facility] 05/17 02:30 Order name: Vital Signs: temp [facility] EC:22 Rate is 81 beats/min. Rhythm is regular. QRS [place] is Normal. VT interval is normal. QRS monica interval is normal. QT interval is normal. No Q waves. T waves are Normal. No ST changes noted. Clinical impression: NSR w/ Non-specific ST/T Changes and No evidence of ischemia. Interpreted by me. Reviewed by me. Administered Medications: 05/16 23:56 Drug: NS 0.9% IV 1000 ml IV at 1 bolus Per protocol; 1000 mL bolus Route: IV; Rate: 1 la4 bolus; Site: left forearm; 05/17 02:25 Drug: [place] PO 10 mg-325 mg 1 tabs PO once Route: PO; la4 02:25 Drug: Ondansetron PO 4 mg PO once Route: PO; la4 02:25 Drug: LevOfloxacin PO 750 mg PO once Route: PO; la4 Disposition Summary: 05/17/23 01:10 Discharge Ordered Notes: Location: Home monica Problem: new monica Symptoms: have improved monica Condition: Stable monica Diagnosis - Chest pain, unspecified monica - Obesity, unspecified monica - Cellulitis and acute lymphangitis of other parts of limb - folliculitis monica - UTI/ Urinary tract infection, site not specified monica - Other and unspecified ovarian cysts - left 5.2 cm monica - Other cholelithiasis without obstruction monica - Solitary pulmonary nodule - 4 mm right base , unchanged 04/22/22 monica Followup: monica - With: Private Physician - When: 2 - 3 days - Reason: Recheck today's complaints, Continuance of care, Re-evaluation by your physician Followup: monica - With: Yuri Gaytan MD - When: 2 - 3 days - Reason: Recheck today's complaints, Re-evaluation by your physician Followup: monica - With: Inder Snyder MD - When: 5 - 6 days - Reason: Recheck today's complaints, Continuance of care, Re-evaluation by your physician Discharge Instructions: - Discharge Summary Sheet [facility] - Nonspecific Chest Pain, Adult [facility] - Dysuria [facility] - Obesity, Adult monica - Urinary Tract Infection, Adult monica - Cholelithiasis monica - Cholelithiasis, [id number] monica - Urinary Tract Infection, Adult, [id number] monica - Nonspecific Chest Pain, Adult, [id number] [facility] - Folliculitis [facility] - Aspirin and Your Heart [facility] Forms: - Medication Reconciliation Form [facility] - Thank You Letter [facility] - Antibiotic Education [facility] - Prescription Opioid Use [facility] - Patient Portal Instructions [facility] - Leadership Thank You Letter [facility] Prescriptions: - acetaminophen-codeine 300-30 mg Oral tablet - take 2 tablet ORAL route every 6 hours; 20 tablet; Refills: 0, Product [facility] Selection Permitted - ondansetron 4 mg Oral Tablet,disintegrating - take 1 tablet ORAL route every 6-8 hours for 5 days; 20 tablet; Refills: 0, [facility] Product Selection Permitted - Bactrim DS 800-160 mg Oral Tablet - take 1 tablet ORAL route every 12 hours for 3 days; 6 tablet; Refills: 0, [facility] Product Selection Permitted - levofloxacin 500 mg Oral tablet - take 1 tablet ORAL route once daily for 8 days; 8 tablet; Refills: 0, Product [facility] Selection Permitted Signatures: Dispatcher [employer] Jose Mcgraw MD MD cha Calcote, Vanessa, RN RN vc1 Robert Malik RN RN la4
--- NOTE | 2023-05-17 01:11 | ER ---
Nurse's Notes [facility] Name: Kaylen Benson Age: 47 yrs Sex: Female : 1975 Arrival Date: 05/16/2023 Time: 22:44 Bed 6 Private MD: Diagnosis: Chest pain, unspecified;Obesity, unspecified;Cellulitis and acute lymphangitis of other parts of limb-folliculitis;UTI/ Urinary tract infection, site not specified;Other and unspecified ovarian cysts-left 5.2 cm;Other cholelithiasis without obstruction;Solitary pulmonary nodule-4 mm right base , unchanged 04/22/22 Presentation: 05/16 23:00 Chief complaint: Patient states: chest pain and lower back pain times two days, urinary vc1 frequency, "bites on left thigh". Coronavirus screen: Vaccine status: Patient reports being unvaccinated. Client denies travel out of the [place] in the last 14 days. At this time, the client does not indicate any symptoms associated with coronavirus-19. Ebola Screen: Patient negative for fever greater than or equal to 101.5 degrees Fahrenheit, and additional compatible Ebola Virus Disease symptoms Patient denies exposure to infectious person. Patient denies travel to an Ebola-affected area in the 21 days before illness onset. No symptoms or risks identified at this time. Initial Sepsis Screen: Does the patient meet any 2 criteria? No. Patient's initial sepsis screen is negative. Does the patient have a suspected source of infection? No. Patient's initial sepsis screen is negative. Risk Assessment: Do you want to hurt yourself or someone else? Patient reports no desire to harm self or others. Onset of symptoms was May 14, 2023. 23:00 Method Of Arrival: Ambulatory vc1 23:00 Acuity: DONNA 3 vc1 Triage Assessment: 23:06 General: Appears in no apparent distress. uncomfortable, obese, unkempt, Behavior is vc1 calm, cooperative, appropriate for age. Pain: Complains of pain in low back area and mid-sternal area Pain does not radiate. Pain currently is 10 out of 10 on a pain scale. Quality of pain is described as sharp, Pain began 2-3 days ago. Is continuous, Aggravated by increased activity, repositioning, Noted to be grimacing. EENT: No deficits noted. No signs and/or symptoms were reported regarding the EENT system. Neuro: Level of Consciousness is awake, alert, obeys commands, Oriented to person, place, time, situation, Appropriate for age. Cardiovascular: Reports chest pain, Chest pain is described as vague. Respiratory: Airway is patent Respiratory effort is even, unlabored, Respiratory pattern is regular, symmetrical. GI: No deficits noted. No signs and/or symptoms were reported involving the gastrointestinal system. : Reports pain in bilateral in lower back urinary frequency. Derm: No deficits noted. No signs and/or symptoms reported regarding the dermatologic system. Musculoskeletal: Circulation, motion, and sensation intact. Range of motion: intact in all extremities, Reports pain in low back area. 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 Flu vaccine is not up to date. - Social history:: Smoking status: Patient reports the use of cigarette tobacco products, smokes one-half pack cigarettes per day. - Family history:: not pertinent. Screenin:04 [facility] ED Fall Risk Assessment (Adult) History of falling in the last 3 months, vc1 including since admission No falls in past 3 months (0 pts) Confusion or Disorientation No (0 pts) Intoxicated or Sedated No (0 pts) Impaired Gait No (0 pts) Mobility Assist Device Used No (0 pt) Altered Elimination No (0 pt) Score/Fall Risk Level 0 - 2 = Low Risk Oriented to surroundings, Maintained a safe environment, Educated pt \\T\\ family on fall prevention, incl call for assistance when getting out of bed. Abuse screen: Denies threats or abuse. Nutritional screening: No deficits noted. Tuberculosis screening: No symptoms or risk factors identified. Assessment: 05/17 00:06 Reassessment: No changes from previously documented assessment. Patient is alert, la4 oriented x 3, equal unlabored respirations, skin warm/dry/pink. pt c/o mid back pain, in gown, ambulatory to bathroom. IV placed and blood drawn and sent to lab for processing. Family at bedside. Will continue to monitor. Neuro: No deficits noted. Miguel Agitation-Sedation Scale (RASS): 0 - Alert and Calm Level of Consciousness is awake, alert, obeys commands, Oriented to person, place, time, situation. Respiratory: No deficits noted. Airway is patent Respiratory effort is even, unlabored, Respiratory pattern is regular, symmetrical, Breath sounds are clear bilaterally. Breath sounds are diminished in left posterior lower lobe and right posterior lower lobe. GI: Abdomen is non-distended, obese, Bowel sounds present X 4 quads. Abd is soft and non tender X 4 quads. Vital Signs: 05/16 23:00 BP 142 / 99; Pulse 86; Resp 16; Pulse Ox 99% ; Weight 145.15 kg; Height 5 ft. 7 in. ; vc1 Pain 10/10; 23:00 BP 137 / 83; Pulse 81; Resp 22; Pulse Ox 99% ; la4 23:43 BP 125 / 89; Pulse 73; Resp 22; Pulse Ox 99% ; la4 05/17 03:00 BP 122 / 81; Pulse 73; Resp 16; Temp 98.2; Pulse Ox 99% ; nw1 05/16 23:00 Body Mass Index 50.12 (145.15 kg, 170.18 cm) vc1 05/16 23:00 Pain Scale: Adult vc1 [place] Coma Score: 05/16 23:43 Eye Response: spontaneous(4). Motor Response: obeys commands(6). Verbal Response: la4 oriented(5). Total: 15. ED Course: 22:47 Patient arrived in ED. jj6 22:59 Jose Cantrell MD is Attending Physician. monica 23:02 Triage completed. vc1 23:04 Arm band placed on right wrist. vc1 23:05 Patient has correct armband on for positive identification. Placed in gown. Bed in low vc1 position. Call light in reach. Client placed on continuous cardiac and pulse oximetry monitoring. NIBP monitoring applied. 23:16 Robert Malik, RN is Primary Nurse. la4 23:20 XRAY Chest (1 view) In Process Unspecified. EDMS 23:56 Basic Metabolic Panel Sent. la4 23:56 CBC with Diff Sent. la4 23:56 LFT's Sent. la4 23:56 Magnesium Sent. la4 23:56 NT PRO-BNP Sent. la4 23:56 PT-INR Sent. la4 23:56 Troponin HS Sent. la4 23:56 No provider procedures requiring assistance completed. Inserted saline lock: 20 gauge la4 in left wrist, using aseptic technique. Blood collected. 05/17 00:14 Provided Education on: plan of care. la4 01:10 Yuri Gaytan MD is Referral Physician. monica 03:00 IV discontinued, intact, bleeding controlled, No redness/swelling at site. Pressure nw1 dressing applied. 03:07 CT Stone Protocol In Process Unspecified. EDMS 04:00 Primary Nurse role handed off by Robert Malik RN rv1 04:08 Inder Snyder MD is Referral Physician. monica Administered Medications: 05/16 23:56 Drug: NS 0.9% IV 1000 ml IV at 1 bolus Per protocol; 1000 mL bolus Route: IV; Rate: 1 la4 bolus; Site: left forearm; 05/17 02:25 Drug: Ondansetron PO 4 mg PO once Route: PO; la4 02:25 Drug: LevOfloxacin PO 750 mg PO once Route: PO; la4 02:25 Drug: [place] PO 10 mg-325 mg 1 tabs PO once Route: PO; la4 Medication: 05/16 23:09 VIS not applicable for this client. vc1 Outcome: 05/17 01:10 Discharge ordered by . monica 03:00 Discharged to home ambulatory, with significant other, nw1 03:00 Condition: stable 03:00 Discharge instructions given to patient, significant other, Instructed on discharge instructions, follow up and referral plans. medication usage, Demonstrated understanding of instructions, follow-up care, medications, Prescriptions given X 4, 03:34 Patient left the ED. nw1 04:01 Patient left the ED. la4 04:14 Patient left the ED. vc1 Signatures: Dispatcher [employer] EDNY Jose Cantrell MD MD cha Jeffries, Jennifer jj6 Calcote, Vanessa, RN RN vc1 Chanell Hedrick rv1 Robert Malik RN RN la4 Williams, Nicole, RN RN nw1
[2023-05-17 02:13] LABS: Specific Gravity 1.028 (1.005-1.030); Urine Bacteria <20 /HPF (<20); Urine Bilirubin NEGATIVE (Negative); Urine Blood 1+ (Negative); Urine Clarity Clear (Clear); Urine Color Light-Yellow (Yellow); Urine Crystals Unidentified Few /HPF (None Seen); Urine Glucose NEGATIVE (Negative); Urine Mucus Slight /HPF (None Seen); Urine Protein 1+ (Negative); Urine RBC >50 /HPF (None Seen); Urine Urobilinogen 1+ (Normal); Urine WBC Clump Rare /HPF (None Seen); Urine pH 7.5 (5.0-7.0)
[2023-05-17] MEDS ORDERED: levoFLOXacin 750 MG TAB ONE (02:22)
[2023-05-17] MEDS ORDERED: ONDANSETRON 4 MG (ODT) TAB ONE (02:22)
[2023-05-17] MEDS ORDERED: HYDROCODONE/APAP 10/325 TAB ONE (02:22)
[2023-05-17 04:52] VITALS: BP 122/81; O2SAT 99
[2023-05-17 04:53] VITALS: TEMP 98.2
--- NOTE | 2023-05-18 10:44 | RAD REPORT ---
EXAM DESCRIPTION: RAD - Chest Single View - 05/16/2023 11:18 pm CLINICAL HISTORY: 47 years Female, CHEST PAIN COMPARISON: Chest radiograph dated 07/23/2022 FINDINGS: No focal lung consolidation. No pleural effusion. No pneumothorax. Cardiomediastinal silhouette is within normal limits. No acute osseous abnormality. IMPRESSION: No acute cardiopulmonary disease. 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 The interpreting r adiologist is fully responsible for the content of the report.
--- NOTE | 2023-05-18 11:32 | RAD REPORT ---
EXAM DESCRIPTION: CT - Stone Protocol - 05/17/2023 7:19 am CLINICAL HISTORY: Female, 47 years old, uti;Pain;Pyelonephritis COMPARISON: 04/22/2022 TECHNIQUE: CT acquisition of the abdomen and pelvis without contrast. Coronal and sagittal reformatt ed images provided. This exam was performed according to departmental dose-optimization program which includes automated exposure control, adjustment of the mA and/or kV according to patient size, and/o r use of iterative reconstruction technique. FINDINGS: SUPPORTIVE DEVICES: None. LOWER CHEST: Unchanged groundglass 4 mm nodule in the right lower lobe. Right middle lobe calcified g ranuloma. ABDOMEN AND PELVIS: Lack of intravenous contrast limits evaluation of the abdominal and pelvic viscera and vascular struc tures. Liver: Unremarkable. Gallbladder and bile ducts: Redemonstrated calcified stone at the gallbladder neck. No evidence of du ctal dilation. Pancreas: Unremarkable. Spleen: Unremarkable. Adrenal glands: Unremarkable. Kidneys and ureters: No evidence of stone or obstruction. Unchanged left Bosniak II benign renal cyst . No follow-up imaging is recommended. JACR 2017; [id number], Management of the Incidental Renal Mass on CT, [employer] 2020; [id number], B osniak Classification of Cystic Renal Masses, Version 2019. Bladder: Nondistended without evident abnormality. Reproductive organs: Left ovarian 5.2 x 4 x 5.1 cm simple-appearing cyst, not adequately characterize d. Otherwise unremarkable. GI tract: Normal caliber without wall thickening. Normal appendix. Lymph nodes: No obvious adenopathy. Peritoneum: No evidence of ascites, fluid collection, or free air. Abdominal wall: No significant hernia. Vessels: Unremarkable. MUSCULOSKELETAL: No acute osseous abnormality. Degenerative change of the spine. IMPRESSION: 1. No evidence of urinary stone or obstruction. 2. A left ovarian 5.2 cm simple-appearing cyst is not adequately characterized. Recommend prompt fo llow-up with pelvic ultrasound. Reference: JACR 2019;17(2):248-254. 3. Cholelithiasis. 4. Incidental 4 mm groundglass nodule in the right lung base, optional 12 month follow-up chest CT if patient is considered high risk. Electronically signed by: Bruno Webb MD 05/17/2023 03:44 AM HIV PREVENTION SPECIALIST Due to temporary technical issues with the PACS/Fluency reporting system, reports are being signed by the in house radiologist without review as a courtesy to ensure prompt reporting. The interpreting r adiologist is fully responsible for the content of the report.
--- NOTE | 2023-05-21 13:45 | EKG ---
Test Date: 2023-05-16 Test Time: 23:01:23 Shower Maid: TRAVIS MEASUREMENT RESULTS: Intervals: Rate: 81 NE: 160 QRSD: 76 QT: 376 QTc: 436 [place]: P: 17 NE: 160 QRS: 27 T: 15 INTERPRETIVE STATEMENTS: Normal sinus rhythm Low voltage QRS Cannot rule out Anterior infarct, age undetermined Abnormal ECG Compared to ECG 09/27/2021 07:38:14 Myocardial infarct finding now present Electronically Signed On 05-21-23 13:27:47 PRODUCER ASSISTANT by Yuri Gaytan
== END 2023-05-17 04:00 | disposition home or self-care (01) ==
LOC: ER 22:44
DX: R07.89 Other chest pain (principal); L03.116 Cellulitis of left lower limb; L73.9 Follicular disorder, unspecified; L03.126 Acute lymphangitis of left lower limb; N39.0 Urinary tract infection, site not specified; K80.80 Other cholelithiasis without obstruction; N83.292 Other ovarian cyst, left side; E66.9 Obesity, unspecified; Z68.43 Body mass index [BMI] 50.0-59.9, adult; R91.1 Solitary pulmonary nodule; E07.9 Disorder of thyroid, unspecified; F17.210 Nicotine dependence, cigarettes, uncomplicated; Z28.310 Unvaccinated for COVID-19; Z88.1 Allergy status to other antibiotic agents
CPT/HCPCS: 93005; 81001; 36415; 76377; 74176; 71045; 99284; J7030

== ENCOUNTER → 2023-06-02 | Emergency (ER) | payer OTHER ==
[~2023-06-02] MED LIST: FAMOTIDINE 20 MG/2 ML VIAL IV ONE; MORPHINE 4 MG/ML SYR ONE; NA CHLORIDE 0.9% 1,000 ML ONE; ONDANSETRON 4 MG/2 ML VIAL ONE
--- OUTSIDE RECORDS SUMMARY | 2023-06-02 23:58 | XMS REPORT | Continuity of Care Document ---
Author Name Unknown Address [address] [facility] [address] [place] [address] [facility] thconnect Address [address] [facility] [place] [address] Care Team Providers Care Computer Lab Aide Name Role Phone ALEIDA SHEEHAN Primary Care Physician Unavaila NEIL Castillo Attending Clinician Unavailable MICHAEL MONTELONGO Attending Clinician Unavaila nae QUIROGA MD Attending Clinician Unavailab CRISTIAN Roberts Attending Clinician Unavailable VIET DOLL Attending Clinician Unavailable VIET DOLL Attending Clinician Unavailable YaronViet huertas DO Attending Clinician [phone] OSIEL PARIKH Attending Clinician Unavaila [place] Attending Clinician [phone] STAR MEADOWS Attending Clinician Unavailable Tayla Schmidt MD Attending Clinician [phone] TAYLA SCHMIDT Attending Clinician UnavailJAYLEEN Patel Attending Clinician Unavailab Jayleen Parker Attending Clinician [phone] Doctor Unassigned, [place] Attending Clinician U KRISS Sterling Attending Clinician Unavail able BEBO, ROSHUNDA R Attending Clinician Unavailab Elisa Murphy Attending Clinician KAYLEN REBOLLEDO Attending Clinician UnavailVIET Eubanks Admitting Clinician Unavailable JAYLEEN HOWARD Admitting Clinician Unavailab ELISA Chaney Admitting Clinician Unavailab le Payers Payer Name Policy Type Policy Number Effective Date Expirati on Date Source [place] [id number] 00:00:00 [employer] MP [employer] 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 9 [id number] 2023 00:00:00 [employer] 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 [id number] 2023 00:00:00 [place] 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 [id number] 2022 00:00:00 MED[place]ID [place] [id number] 2021 00:00:00 Problems Condition Name Condition Details Condition Category Status Onset Date Resolution Date Last Treatment Date Treating Clinician Comments Source History of bilateral ligation of fallopian tubes History of bilateral ligation of fallopian tubes Disease Active 07-31 00:00: 00 [facility] BMI 45.0-49.9, adult BMI 45.0-49.9, adult Disease Active 07-31 00:00: 00 [facility] Screening examinatio n for STD (sexually transmitte d disease) Screening examinatio n for STD (sexually transmitte d disease) Disease Active 09-15 00:00: 00 [facility] Class 3 severe obesity due to excess calories with body mass index (BMI) of 45.0 to 49.9 in adult, unspecifie d whether serious comorbidit y present Class 3 severe obesity due to excess calories with body mass index (BMI) of 45.0 to 49.9 in adult, unspecifie d whether serious comorbidit y present Disease Active 2015-04 00:00: 00 [facility] Allergies, Adverse Reactions, Alerts Allergy Name Allergy Type Status Severity Reaction(s) Onset Date Inactive Date Treating Clinician Comments Source AMOXICIL STEPHANIE DRUG INGREDI Active Hives 07-31 00:00: 00 [facility] CLINDAMY SHE DRUG INGREDI Active Hives 2018- 4 00:00: 00 [facility] Amoxicil stephanie Propensi ty to adverse reaction s Active Hives 2018- 4 00:00: 00 [facility] Clindamy she Propensi ty to adverse reaction s Active Hives 07-31 00:00: 00 [facility] Social History Social Habit Start Date Stop Date Quantity Comments Source [facility] of tobacco use Cigarette Smoker [facility] History SDOH Alcohol Frequency [facility] History SDOH Alcohol Std Drinks [facility] History SDOH Alcohol Binge [facility] Alcohol intake 2023-05-20 00:00:00 2023-05-20 00:00:00 Current drinker of alcohol (finding) [facility] Exposure to SARS-CoV-2 (event) 2022-01-17 00:00:00 2022-01-27 14:37:00 Not sure [facility] History of Social function 2021-12-20 00:00:00 2021-12-20 00:00:00 [facility] Tobacco use and exposure 2021-12-20 00:00:00 2021-12-20 00:00:00 Smokeless tobacco non-user [facility] Tobacco Comment 2021-12-20 00:00:00 2021-12-20 00:00:00 5 cigarettes a day [facility] Alcohol Comment 2018-09-15 00:00:00 2018-09-15 00:00:00 occasional [facility] Sex Assigned At 1975 00:00:00 1975 00:00:00 [facility] Smoking Status Start Date Stop Date Source Smokes tobacco daily 2021-12-20 00:00:00 [facility] Medications Ordered Medication Name Filled Medication Name Start Date Stop Date Current Medication? Ordering Clinician Indication Dosage Frequency Signature (SIG) Comments Components Source morpHINE (2 mg/mL) injection 4 mg 05-21 04:45: 00 05-21 04:56 :00 No 4mg 4 mg, Slow IV Push, ONCE, 1 dose, On Thu05/20/23 at 2245, STAT [facility] iopamidol (ISOVUE 370-500 mL) injection 100 mL 05-21 02:00: 00 05-21 00:54 :00 No [id number] 100mL 100 mL, Intravenou s, ONCE, 1 dose, On Thu05/20/23 at 2000, Routine [facility] NaCl 0.9% (NS) bolus infusion 1,000 mL 05-21 00:45: 00 05-21 04:30 :00 No 1000mL at 999 mL/hr, 1,000 mL, IV Infusion, ONCE, 1 dose, [facility]05/20/23 [facility] 1845[facility] (2 mg/mL) injection 4 mg 05-21 00:15: 00 05-21 00:22 :00 No 4mg 4 mg, Slow IV Push, ONCE, 1 dose, On Thu05/20/23 at 1815, STAT [facility] ondansetron (ZOFRAN (PF)) injection 4 mg 05-21 00:00: 00 05-21 00:19 :00 No 4mg 4 mg, Slow IV Push, ONCE, 1 dose, On Thu05/20/23 at 1800, [facility] 600 mg tablet 05-20 00:00: 00 Yes [id number] 600mg Take 1 tablet by mouth every 6 (six) hours as needed for Pain (scale 4-6). [facility] ondansetron (ZOFRAN) 4 mg tablet 05-20 00:00: 00 Yes [id number] 4mg Take 1 tablet by mouth every 6 (six) hours as needed for Nausea and Vomiting (N/V). [facility] HYDROcodone -acetaminop hen 5-325 mg tablet 05-20 00:00: 00 05-28 05:59 :00 Yes 4647 1{tbl} Take 1 tablet by mouth every 4 (four) hours as needed for Pain (scale 1-3) for up to 7 days. Indication s: acute pain [facility] mcg tablet 01-17 00:00: 00 Yes [facility] ity [facility] levothyroxi ne 175 mcg tablet 01-17 00:00: 00 Yes [facility] ity [facility] levothyroxi ne 175 mcg tablet 01-17 00:00: 00 Yes [facility] levothy[facility]xi ne 175 mcg tablet 01-17 00:00: 00 Yes [facility] No known medications 12-27 10:00: 11 No No known medication s [facility] buPROPion SR 150 mg SR tablet 12-20 00:00: 00 Yes [facility] buPROPion SR 150 mg SR tablet 12-20 00:00: 00 Yes [facility] buPROPion SR 150 mg SR tablet 0 12-20 00:00: 00 Yes [facility] buPROPion SR 150 mg SR tablet 12-20 00:00: 00 Yes [facility] ibuprofen 800 mg tablet 11-19 00:00: 00 Yes 800mg Take 800 mg by mouth every 6 (six) hours as needed. [facility] ibuprofen 800 mg tablet 11-19 00:00: 00 Yes 800mg Take 800 mg by mouth every 6 (six) hours as needed. [facility] ibuprofen 800 mg tablet 0 11-19 00:00: 00 Yes 800mg Take 800 mg by mouth every 6 (six) hours as needed. [facility]up[facility]fen 800 mg tablet 11-19 00:00: 00 Yes 800mg Take 800 mg by mouth every 6 (six) hours as needed. [facility] Vital Signs Vital Name Observation Time Observation Value Comments S karishma Systolic blood pressure 2023-05-21 05:11:00 136 mm[Hg] [facility] Diastolic blood pressure 2023-05-21 05:11:00 93 mm[Hg] [facility] Heart rate 2023-05-21 05:11:00 87 /min [facility] Respiratory rate 2023-05-21 05:11:00 18 /min [facility] Oxygen saturation in Arterial blood by Pulse oximetry 2023-05-21 05:11:00 99 /min [facility] Body temperature 2023-05-20 23:47:00 36.78 Veena [facility] Body weight 2023-05-20 23:47:00 142.883 kg [facility] BMI 2023-05-20 23:47:00 49.34 kg/m2 [facility] Body height 2022-01-27 19:50:00 170.2 cm [facility] Body weight 2022-01-27 19:50:00 137.44 kg [facility] BMI 2022-01-27 19:50:00 47.46 kg/m2 [facility] Systolic blood pressure 2021-12-27 14:59:00 132 mm[Hg] [facility] Diastolic blood pressure 2021-12-27 14:59:00 85 mm[Hg] [facility] Heart rate 2021-12-27 14:59:00 92 /min [facility] Body height 2021-12-27 14:59:00 170.2 cm [facility] Body weight 2021-12-27 14:59:00 137.44 kg [facility] BMI 2021-12-27 14:59:00 47.46 kg/m2 [facility] Procedures Procedure Date / Time Performed Performing Clinicia n Source HEPATIC FUNCTION PANEL (83278) (ALB,T.PRO,BILI T,BU/BC,ALT,AST,ALK PHOS) 2023-05-21 01:23:00 Viet Doll [facility] BASIC METABOLIC PANEL (NA, K, CL, CO2, GLUCOSE, BUN, CREATININE, CA) 2023-05-21 01:23:00 Viet Doll [facility] CBC WITH DIFF 2023-05-21 01:23:00 [facility] POCT TEST 2023-05-21 00:23:00 [place] Doll [facility] LIPASE 2023-05-21 00:13:00 Viet Doll [facility] URINALYSIS 2023-05-21 00:13:00 Viet Doll [facility] CONSENT/REFUSAL FOR DIAGNOSIS AND TREATMENT 2023-05-20 23:37:52 Doctor Unassigned, [place] [facility] Encounters Start Date/Time End Date/Time Encounter Type Admission Type Attending [facility] Facility Care Department Encounter ID Source 2021-02-17 09:49:03 Emergency [facility] [id number] [facility] 2021-02-15 17:30:01 Emergency [facility] [id number] [facility] 2023-06-23 14:45:00 2023-06-23 14:45:00 Outpatient MICHAEL MONTELONGO [id number] [facility] 2023-06-05 07:30:00 2023-06-05 07:30:00 Outpatient MICHAEL MONTELONGO [id number] Rad[facility] 2023-06-01 00:00:00 2023-06-01 00:00:00 Outpatient MD RADHA HOWARD [id number] [facility] 2023-05-26 11:40:00 2023-05-26 11:40:00 Outpatient RADHA ANDERSON [id number] Radha Tsai 2023-05-26 11:25:00 2023-05-26 11:25:00 Outpatient RADHA ANDERSON [id number] Radha Tsai 2023-05-26 09:45:00 2023-05-26 09:45:00 Outpatient MICHAEL MONTELONGO [id number] Radha Umanzorlynette 2023-05-26 00:00:00 2023-05-26 00:00:00 Outpatient MICHAEL MONTELONGO [id number] Radha Tsai 2023-05-25 10:00:00 2023-05-25 10:00:00 Outpatient CRISTIAN QUINTERO [facility] [id number] [facility] 2023-05-20 17:47:00 2023-05-20 23:16:00 Emergency X VIET DOLL HEE-KWANG [facility] ERT [id number] [facility] 2023-05-20 17:47:00 2023-05-20 23:16:00 Emergency Viet Doll [facility] 1.2.840.114 350.1.13.10 4.2.7.2.686 [id number] [facility] 2023-01-27 13:30:00 2023-01-27 13:30:00 Outpatient R OSIEL PARIKH [facility] [id number] [facility] 2022-01-29 00:00:00 2022-01-29 00:00:00 Telephone Dori [facility] MEDICAL OFFICE BUILDING 1.2.840.114 350.1.13.10 4.2.7.2.686 [id number] [facility] 2022-01-27 15:00:00 2022-01-27 15:15:00 Office Visit [place] [facility] MEDICAL OFFICE BUILD[facility] 1.2.840.114 350.1.13.10 4.2.7.2.686 [id number] [facility] 2022-01-27 14:50:00 2022-01-27 15:09:00 Outpatient R DORI [facility] [id number] [facility] 2021-12-27 10:02:59 2021-12-27 23:59:00 Outpatient R DORI [facility] [id number] [facility] 2021-12-27 10:00:00 2021-12-27 10:15:00 Office Visit [place] [facility] MEDICAL OFFICE BUILDING 1.2.840.114 350.1.13.10 4.2.7.2.686 [id number] [facility] 2021-12-27 10:02:59 2021-12-27 10:02:59 Outpatient STAR CARSON [facility] [id number] [facility] 2021-12-20 10:15:00 2021-12-20 10:30:00 Office Visit [place] Craig L [facility] 1.2.840.114 350.1.13.10 4.2.7.2.686 [id number] [facility] 2021-12-20 10:15:00 2021-12-20 10:15:00 Outpatient TAYLA WONG [facility] [id number] [facility] 2021-12-16 18:20:00 2021-12-16 20:24:00 Emergency X ANITA [facility] [id number] [facility] 2021-12-16 18:20:00 2021-12-16 20:24:00 Emergency [facility] 1.2.840.114 350.1.13.10 4.2.7.2.686 [id number] [facility] 2021-12-16 18:20:00 2021-12-16 20:24:00 Emergency X ANITA [facility] [id number] [facility] 2021-10-15 15:00:00 2021-10-15 15:00:00 Outpatient STAR CARSON [facility] [id number] [facility] 2021-10-03 15:15:00 2021-10-03 15:15:00 Outpatient STAR CAROSN [facility] [id number] [facility] 2021-09-26 15:00:00 2021-09-26 15:00:00 Outpatient STAR CARSON [facility] [id number] [facility] 2021-09-04 00:00:00 2021-09-04 00:00:00 Orders Only Doctor Unassigned, [place] [facility] 1.2.840.114 350.1.13.10 4.2.7.2.686 [id number] [facility] 2021-08-22 15:50:00 2021-08-22 23:59:00 Outpatient Wanda MEADOWS [facility] [id number] [facility] 2021-08-22 15:00:00 2021-08-22 15:30:00 Office Visit [place] [facility]?LET[facility]IA [facility] MEDICAL OFF[facility] BUILDING 1.2.840.114 350.1.13.10 4.2.7.2.686 [id number] [facility] 2021-08-22 15:00:00 2021-08-22 15:00:00 Outpatient Wanda MEADOWS [facility] [id number] [facility] 2021-08-22 00:00:00 2021-08-22 00:00:00 Orders Only Doctor Unassigned, [place] [address]114 350.1.13.10 4.2.7.2.686 [id number] [facility] 2021-06-12 15:00:00 2021-06-12 15:00:00 Outpatient R KRISS SHERIDAN [facility] [id number] [facility] 2021-05-17 09:15:00 2021-05-17 09:15:00 Outpatient R KRISS SHERIDAN [facility] [id number] [facility] 2020-08-20 06:56:46 2020-08-20 23:59:00 Outpatient ELISA BRAGA [facility] [id number] [facility] 2020-08-20 06:56:46 2020-08-20 23:59:00 Hospital Elisa España [facility] [place] 1.2.840.114 350.1.13.10 4.2.7.2.686 [id number] 2020-08-20 00:00:00 2020-08-20 00:00:00 Outpatient NOREEN BRAGADEBORAHPb [facility] [id number] [facility] 2020-07-31 15:57:09 2020-07-31 16:21:23 Office Visit Bebo Elisa Muñoz [facility] [employer] [facility] 1.2.840.114 350.1.13.10 4.2.7.2.686 [id number] 2020-07-31 15:45:00 2020-07-31 15:45:00 Outpatient Wanda LAGUNASELISA [facility] [id number] [facility] 2020-07-31 14:45:00 2020-07-31 14:45:00 Outpatient Wanda AMAURY KAYLEN [facility] [id number] [facility] 2020-05-29 07:45:00 2020-05-29 07:45:00 Outpatient NOREEN BRAGADEBORAHPb [facility] [id number] [facility] 2020-05-25 10:15:00 2020-05-25 10:15:00 Outpatient Wanda KRISS SHERIDAN [facility] [id number] [facility] 2020-01-04 14:00:00 2020-01-04 14:00:00 Outpatient NOREEN BRAGAGOKULDADA [facility] [id number] [facility] Results Test Description Test Time Test Comments Results Result Co mments Source [facility]56735[facility] (ALB,T.PRO,BILI T,BU/BC,ALT,AST,ALK PHOS)2023-05-21 01:41:06* Test Item Value Reference Range Interpretation Comme nts TOTAL BILI (test code = 4750830739) 0.4 mg/dL 0.1-1.1 BILI UNCON (test code = 8312229981) 0.2 mg/dL 0.1-1.1 BILI CONJ (test code = 4918241600) 0.0 mg/dL 0.0-0.3 T PROTEIN (test code = 5226212592) 6.8 g/dL 6.3-8.2 ALBUMIN (test code = 0717576785) 3.4 g/dL 3.5-5.0 L ALK PHOS (test code = 1813470681) 84 U/L 34-122 ALTv (test code = 1742-6) 13 U/L 5-35 AST(SGOT) (test code = 5818369185) 21 U/L 13-40 Lab Interpretation (test cod e = 86111-8) Abnormal [facility] WITH DOVH3122-74-16 01:37:09* Test Item Value Reference Range Interpretation Comme nts WBC (test code = 6690-2) 5.40 4.30-11.10 RBC (test code = 789-8) 3.86 3.93-5.25 L HGB (test code = 718-7) 11.5 g/dL 11.6-15.0 L HCT (test code = 4544-3) 34.7 % 35.7-45.2 L MCV (test code = 787-2) 89.9 fL 80.6-95.5 MCH (test code = 785-6) 29.8 pg 25.9-32.8 MCHC (test code = 786-4) 33.1 g/dL 31.6-35.1 RDW-SD (test code = 48867-1) 43.9 fL 39.0-49.9 RDW-CV (test code = 788-0) 13.4 % 12.0-15.5 PLT (test code = 777-3) 261 166-358 MPV (test code = 29685-2) 10.2 fL 9.5-12.9 NRBC/100 WBC (test code = 3726389907) 0.0 0.0-10.0 NRBC x10^3 (test code = 5498676927) See_Comment [Automated messa ge] The system which generated this result transmitted reference range: 10*3/?L. The reference range was not used to interpret this result as normal/abnormal. GRAN MAT (NEUT) % (test code = 770-8) 47.2 % IMM GRAN % (test code = 0062883549) 0.00 % LYMPH % (test code = 736-9) 42.2 % MONO % (test code = 5905-5) 6.9 % EOS % (test code = 713-8) 3.1 % BASO % (test code = 706-2) 0.6 % GRAN MAT x10^3(ANC) (test code = 8254873431) 2.55 10*3/uL 1.88-7.09 IMM GRAN x10^3 (test code = 7878503264) 0.00-0.06 LYMPH x10^3 (test code = 731-0) 2.28 10*3/uL 1.32-3.29 MONO x10^3 (test code = 742-7) 0.37 10*3/uL 0.33-0.92 EOS x10^3 (test code = 711-2) 0.17 10*3/uL 0.03-0.39 BASO x10^3 (test code = 704-7) 0.03 10*3/uL 0.01-0.07 Lab Interpretation (test code = 88634-4) Abnormal [facility]35:00* Test Item Value Reference Range Interpretation Comme nts LIPASE (test code = 7169445366) 94 U/L 0-220 Lab Interpretation (test cod e = 82375-0) Normal [facility] YZOE7168-55-09 00:23:00* Test Item Value Reference Range Interpretation Comme nts POCT PREG (test code = 1605) Negative On board controls acceptable with C Line (test code = 3574) Yes POCT PREG LOT # (test code = 3576) [id number] POCT PREG TEST DATE ( test code = 3576) 07/26/2024 Lab Interpretation (test cod e = 03331-7) Normal [facility] Notes Date/Time Note Provider Source 2023-05-20 23:14:19 R76[facility]/wduhMe7y1Y6YgGRfddwSwGl5PbM8 vaN4MyuPJL2BrcrR6IahZQljQyaGE5583-2 3:14:19 RN and pt reviewed DC instructions. Pt verbalized understanding. Pt advised to follow up with PCP and given number for follow ups. Patient denied any remaining belongings in the ED. Pt wheeled to lobby by ED RN, daughter to filler picker and drive pt home. NAD noted upon departure. 16666-3Wyndmfztz department BzkpIS4922-45-63P73:16:34[facility] NoteTXT1.2.840.480709.1.13.104.2.7. 2.989480|[id number] for patient rfba36659-9OcefNVURUVAYHTWChonycniv C-CDA narrative [id number] M Scott RN[address] Yr[id number] 8SGNWYWOGHTQIRZCWPVFZPC3591-52-80Q2 3:16:341.2.840.702788.1.72.3.15|1.2 .840.627025.1.13.104.2.7.2.727879_2 [id number] Verenice Malik RN [facility] 2023-05-20 22:46:22 sw8Eo8zAO6kuc7dpYs8jzd8cGpEh3IKthFG at/E2nd1aGphnInyUDbRMm5SMLjAA9287-4 1-31T22:46:22 ED faculty at bedside 73745-5Avwszlrwn department DdabNL0627-59-16W26:46:33[facility] NoteTXT1.2.840.746074.1.13.104.2.7. 2.618567|[id number] for patient iiga05385-9ZhcvNWAXEIIUQFXBervwzlzo C-CDA narrative [id number] John RN[id number] 1LOAVXCZGWGOWSLBEUZHBXW4882-98-08T3 2:46:331.2.840.990628.1.72.3.15|1.2 .840.092153.1.13.104.2.7.2.727879_2 [id number] Sharon Dora RN [facility] 2023-05-20 20:14:46 EaH4AiqbBa8OPklQmgv2Prsv1bH9yFjsF4x jR3xwNqzKt6epe9tJcdLrYBa2t1QA8388-8 05-20T20:14:46 Patient to ultrasound in NAD 15266-0Kdtnxbxse department SdyfYW5164-75-67Y22:14:54Emergency department NoteTXT1.2.840.855345.1.13.104.2.7. 2.931086|[id number] for patient jspz30913-1ZnccRRWFWPPJKTRNzeldceer C-CDA narrative [id number] R Robinson RN[id number] 4BODTWAIYINLZJRMWEUASJU2795-50-07O8 0:14:541.2.840.211200.1.72.3.15|1.2 .840.478292.1.13.104.2.7.2.727879_2 [id number] Mary Valdez RN [facility] 2023-05-20 19:42:22 3wBNEO3QE+pcG82wjt9OiMsIqMgcweUWohm FzRc5fHZ3rpobeOfOXLeW06n/+n7q4959-5 1-31T19:42:22 Pt ambulatory to the restroom at this time. [address] GfrpRK8254-16-52M11:42:47[facility] NoteTXT1.2.840.006507.1.13.104.2.7. 2.027468|[id number] for patient bqrg40426-1GgyiDOZQFGHGMUQPfossthkq C-CDA narrative [id number] 6DBQJSATAMHJZBYPRXRWJCT3486-04-03V6 9:42:471.2.840.182791.1.72.3.15|1.2 .840.345382.1.13.104.2.7.2.727879_2 [id number] [facility] 2023-05-20 19:23:00 XVI+qU/5xPT0FZUVODdgzX8XWNWwr/W8LaP D1L6FChbi4Pz3+2X+WWgid/Dy6ilh8860-3 9:23:00 Specimens collected at this time, will notify that pt is ready for transport to imaging. [address]-1Nlfwrhhob[address] ZdetJT2646-29-76O75:32:04[facility] department NoteTXT1.2.840.396856.1.13.104.2.7. 2.821146|[id number] for patient huty45667-3SpkjQAVDQONDBIZYmedvefqt C-CDA narrative [id number] 3ZYKSVLTWRZRNUGMOABMKSJ3500-32-55D5 9:32:041.2.840.781601.1.72.3.15|1.2 .840.627355.1.13.104.2.7.2.727879_2 [id number] [facility] 2023-05-20 19:00:00 5x1q5cXnVvWk+Qt3WgvhFCbsxscJoYDsimr KvqhG936zonyLGrGn2hbp7h8CXVIw9909-3 9:00:00 Report received from SOLITARIO Chambers. Rns discussed plan of care and further recommendations.Introduced self to pt. Pt alert and oriented x4, RR even and unlabored, skin warm and dry, appropriate for color.Pt reports pain remains the same, pt pending blood work and US scan at this time. 36916-3Laroupkti department IlbyEJ2443-00-77W10:31:25[facility] NoteTXT1.2.840.983099.1.13.104.2.7. 2.729577|[id number] for patient qsui09402-6HbwsWRNIPUVQIFCZfrppstwu C-CDA narrative text[address] Jv[id number] 1YTGPCZJJWYWOORYHIVJECY6716-37-95G9 9:31:251.2.840.866891.1.72.3.15|1.2 .840.444239.1.13.104.2.7.2.727879_2 [id number] [facility] 2023-05-20 18:46:54 DvAfLdzBaBHaSA12vVOgOkb1+T7i9I5XuPG jgkg7yEsRlnVQ0K2PhgM4xFLaLCQ60905-3 8:46:54 Pt sent to [facility] called to tell me they need a recollect. 30929-3Plsmi IpoeHW9475-22-99L12:47:23Nurse [id number]. [id number] for patient itjh86822-2CfvtOUYTTUBZENAUpkqhfgau C-CDA narrative [id number] K Bartels RN[address] [id number] 8OEJRCTZQSAHODICNCTWTTV8822-99-57M6 8:47:231.2.840.294445.1.72.3.15|1.2 .840.438680.1.13.104.2.7.2.727879_2 [id number] Trish Vizcaino RN [facility] 2023-05-20 17:44:02 Kupoak1CMY1Xvgcb/pkX/PNqz/YCzJCbWV3 YkHdFsnAJyCAGDkHNSkA5zIFKlemo5188-2 7:44:02 Kaylen Escudero is a 47 year old female Patient arrives via personal means with complaint of abdominal pain X 5 days N/V/D and frequent urination. Went to ED and was diagnosed with cyst on ovaries and gallstones. Pt reports she was told "seek further treatment. Patient is alert and oriented times X4, even and unlabored respiration. Roomed for further evaluation. 12875-9Oadsunufy department Triage zpdxRC2749-78-61Q80:47:18Emergency department Triage [id number]. [id number] for patient hhcd95075-8Rghfmqcdb department NoteLNNARRATIVEFormatted C-CDA narrative [id number] H Wark RNUT[address] [id number] 3CUPEXIPFIPTISGIUSEGBHH9782-94-41Z6 7:47:181.2.840.602982.1.72.3.15|1.2 .840.761164.1.13.104.2.7.2.727879_2 [id number] Dori Calderon Torresalexis RN [facility] 2023-05-20 17:37:00 91Obt+UNEvhivn9IAjGqG+fCBqfbGPGTt5Y j/njVXPnA6uemJa5KejX2yS3L15yL9895-6 05-20T17:37:00 Patient is feeling better.Ok to go home.Recent Results (from the past 24 hour(s))URINALYSISCollection Time: 05/20/23 6:13 PMResult Value Ref RangeAPPEARANCE Clear ClearCOLOR Yellow YellowPH 5.0 4.8 - 8.0SP GRAVITY 1.023 1.003 - 1.030GLU U QUAL Normal NormalBLOOD 3+ (A) NegativeKETONES Negative NegativePROTEIN Negative NegativeUROBILIN 2.0 mg/dL (A) NormalBILIRUBIN Negative NegativeNITRITE Negative NegativeLEUK LOIS Negative NegativeRBC/HPF 38 (H) 0 - 3 HPFWBC/HPF <1 0 - 5 HPFBACTERIA Negative NegativeMUCOUS Slight (A) Negative LPFSQ EPITH 1 <=2 HPFLIPASECollection Time: 05/20/23 6:13 PMResult Value Ref RangeLIPASE 94 0 - 220 U/LPOCT TESTCollection Time: 05/20/23 6:23 PMResult Value Ref RangePOCT PREG NegativeOn board controls acceptable with C Line YesPOCT PREG LOT # [id number] PREG TEST DATE 5CBC WITH DIFFCollection Time: 05/20/23 7:23 PMResult Value Ref RangeWBC 5.40 4.30 - 11.10 10*3/?LRBC 3.86 (L) 3.93 - 5.25 10*6/?LHGB 11.5 (L) 11.6 - 15.0 g/dLHCT 34.7 (L) 35.7 - 45.2 %MCV 89.9 80.6 - 95.5 fLMCH 29.8 25.9 - 32.8 pgMCHC 33.1 31.6 - 35.1 g/dLRDW-SD 43.9 39.0 - 49.9 fLRDW-CV 13.4 12.0 - 15.5 %PLT 261 166 - 358 10*3/?LMPV 10.2 9.5 - 12.9 fLNRBC/100 WBC 0.0 0.0 - 10.0 /100 WBCsNRBC x10^3 <0.01 10*3/?LGRAN MAT (NEUT) % 47.2 %IMM GRAN % 0.00 %LYMPH % 42.2 %MONO % 6.9 %EOS % 3.1 %BASO % 0.6 %GRAN MAT x10^3(ANC) 2.55 1.88 - 7.09 10*3/uLIMM GRAN x10^3 <0.03 0.00 - 0.06 10*3/uLLYMPH x10^3 2.28 1.32 - 3.29 10*3/uLMONO x10^3 0.37 0.33 - 0.92 10*3/uLEOS x10^3 0.17 0.03 - 0.39 10*3/uLBASO x10^3 0.03 0.01 - 0.07 10*3/uLBASIC METABOLIC PANEL (NA, K, CL, CO2, GLUCOSE, BUN, CREATININE, CA)Collection Time: 05/20/23 7:23 PMResult Value Ref RangeNA 135 135 - 145 mmol/LK 3.9 3.5 - 5.0 mmol/LCL 109 (H) 98 - 108 mmol/LCO2 TOTAL 24 23 - 31 mmol/LAGAP 2 2 - 16BUN 16 7 - 23 mg/dLGLUCOSE 82 70 - 110 mg/dLCREATININE 0.67 0.50 - 1.04 mg/dLCALCIUM 8.5 (L) 8.6 - 10.6 mg/dLeGFR 108.6 mL/min/1.05f7FZCFBBX FUNCTION PANEL (19604) (ALB,T.PRO,BILI T,BU/BC,ALT,AST,ALK PHOS)Collection Time: 05/20/23 7:23 PMResult Value Ref RangeTOTAL BILI 0.4 0.1 - 1.1 mg/dLBILI UNCON 0.2 0.1 - 1.1 mg/dLBILI CONJ 0.0 0.0 - 0.3 mg/Javier PROTEIN 6.8 6.3 - 8.2 g/dLALBUMIN 3.4 (L) 3.5 - 5.0 g/dLALK PHOS 84 34 - 122 U/LALTv 13 5 - 35 U/LAST(SGOT) 21 13 - 40 U/LHospital Encounter on 05/20/23US GALL BLADDERNarrativeEXAM: US GALL BLADDERHISTORY: 47 years-old Female; RUQ abdominal painTECHNIQUE: Limited abdominal ultrasound focused on the gallbladder wasperformed. The main portal vein was evaluated with color Doppler.Facilities Project Manager images were obtained for the record.COMPARISON: CT abdomen pelvis on 05/20/2023FINDINGS:PANCREAS:The pancreas is unable to be visualized due to shadowing from bowel gas.BILE DUCTS:No intra- or extrahepatic biliary dilatation is visualized.The common duct diameter is normal and measures 0.5 cm.GALLBLADDER:Mobile and echogenic stones are seen. The gallbladder is physiologicallydistended.The gallbladder wall thickness is normal and measures 0.2 cm. Nopericholecystic fluid is visualized.Jones's sign was negative.OTHER: None.ImpressionCholelithiasis without acute cholecystitisPreliminary Report Dictated by Resident: Shasha Deleon ABDOMEN PELVIS W CONTRASTNarrativeEXAM: CT ABDOMEN PELVIS W CONTRASTHISTORY: 47 years old Female with Abdominal pain, acute, nonlocalizedCOMPARISON: None.TECHNIQUE AND FINDINGS: Contiguous axial imaging from the level of the lungbases through the pubic symphysis was performed after the uncomplicatedadministration of intravenous contrast. Coronal and sagittalreconstructions were obtained. Auto mA and/or iterative reconstructionwere used to reduce radiation dose.FINDINGS:LOWER THORAX: Calcified right lower lobe granuloma. A 5 mm groundglassopacity in the right lower lobe. No cardiomegaly.LIVER: No focal hepatic lesions. Normal contour.GALLBLADDER AND BILIARY TREE: No biliary ductal dilation. Radiopaquegallstones are present. No gallbladder wall thickening or pericholecysticfluid.SPLEEN: No splenomegaly.PANCREAS: No ductal dilation or masses.ADRENAL GLANDS: No adrenal nodules.KIDNEYS: No hydronephrosis, stones, or masses. A 2.4 cm left lower polesimple renal cyst.PERITONEUM AND RETROPERITONEUM: No free air or fluid.LYMPH NODES: No lymphadenopathy.GI TRACT: No dilation or wall thickening. Normal appendix.PELVIS/BLADDER: Anteverted, retroflexed uterus. The left ovary issignificantly larger than the left ovary.VESSELS: Unremarkable.BONES AND SOFT TISSUES: No suspicious lytic or sclerotic bony lesions.ImpressionThe left ovary is significantly larger than the right. Further evaluationwith a dedicated pelvic US is recommended.Preliminary Report Dictated by Resident: Bill HutchisonbPatient with no pain in LLQ.Patient with a large left ovarian cyst. No torsion on US.Hospital Encounter on 05/20/23US GALL BLADDERNarrativeEXAM: US GALL BLADDERHISTORY: 47 years-old Female; RUQ abdominal painTECHNIQUE: Limited abdominal ultrasound focused on the gallbladder wasperformed. The main portal vein was evaluated with color Doppler.Facilities Project Manager images were obtained for the record.COMPARISON: CT abdomen pelvis on 05/20/2023FINDINGS:PANCREAS:The pancreas is unable to be visualized due to shadowing from bowel gas.BILE DUCTS:No intra- or extrahepatic biliary dilatation is visualized.The common duct diameter is normal and measures 0.5 cm.GALLBLADDER:Mobile and echogenic stones are seen. The gallbladder is physiologicallydistended.The gallbladder wall thickness is normal and measures 0.2 cm. Nopericholecystic fluid is visualized.Jones's sign was negative.OTHER: None.ImpressionCholelithiasis without acute cholecystitisPreliminary Report Dictated by Resident: Shasha Deleon ABDOMEN PELVIS W CONTRASTNarrativeEXAM: CT ABDOMEN PELVIS W CONTRASTHISTORY: 47 years old Female with Abdominal pain, acute, nonlocalizedCOMPARISON: None.TECHNIQUE AND FINDINGS: Contiguous axial imaging from the level of the lungbases through the pubic symphysis was performed after the uncomplicatedadministration of intravenous contrast. Coronal and sagittalreconstructions were obtained. Auto mA and/or iterative reconstructionwere used to reduce radiation dose.FINDINGS:LOWER THORAX: Calcified right lower lobe granuloma. A 5 mm groundglassopacity in the right lower lobe. No cardiomegaly.LIVER: No focal hepatic lesions. Normal contour.GALLBLADDER AND BILIARY TREE: No biliary ductal dilation. Radiopaquegallstones are present. No gallbladder wall thickening or pericholecysticfluid.SPLEEN: No splenomegaly.PANCREAS: No ductal dilation or masses.ADRENAL GLANDS: No adrenal nodules.KIDNEYS: No hydronephrosis, stones, or masses. A 2.4 cm left lower polesimple renal cyst.PERITONEUM AND RETROPERITONEUM: No free air or fluid.LYMPH NODES: No lymphadenopathy.GI TRACT: No dilation or wall thickening. Normal appendix.PELVIS/BLADDER: Anteverted, retroflexed uterus. The left ovary issignificantly larger than the left ovary.VESSELS: Unremarkable.BONES AND SOFT TISSUES: No suspicious lytic or sclerotic bony lesions.ImpressionThe left ovary is significantly larger than the right. Further evaluationwith a dedicated pelvic US is recommended.Preliminary Report Dictated by Resident: Bill HutchisonbDx: Gallstones, biliary colic.Left ovarian cyst.Viet Doll D.O. PhysicianRTI Billing ID #[id number], DO Viet05/20/23 2238 55838-7Yavrogwlw Emergency department YaezUT9000-88-53A78:38:41Physician Emergency department [id number]. [id number] for patient boqk87648-6Dwsbkpnnt department NoteLNNARRATIVEFormatted C-CDA narrative textUT[address] Jb[id number] 3BVFHZXACBJUOBKAFHUOOLD4687-99-17G1 2:38:411.2.840.094965.1.72.3.15|1.2 .840.283852.1.13.104.2.7.2.727879_2 [id number] [facility]
[2023-06-03 00:36] LABS: Absolute Lymphocytes (CBC) 2.1 K/uL (0.7-4.9); Hematocrit 37.5 % (36.0-45.0); Lymphocytes % 32.8 % (15.3-44.8); MCV 88.1 fL (80-100); MPV 8.1 fL (7.6-11.3); Platelets 318 thou/uL (152-406); RBC Red Blood Cell Count 4.25 M/uL (3.86-4.86)
[2023-06-03 00:50] LABS: Albumin 3.1 g/dL (3.4-5.0); Bilirubin Total 0.2 mg/dL (0.2-1.0); Potassium 3.8 mEq/L (3.5-5.1); Protein, Total 8.1 g/dL (6.4-8.2)
[2023-06-03 00:55] LABS: Urine Bacteria None Seen /HPF (<20); Urine Mucus Slight /HPF (None Seen); Urine RBC None Seen /HPF (None Seen)
[2023-06-03 00:57] LABS: Urine Bilirubin Negative (Negative); Urine Blood Negative (Negative); Urine Clarity Extremely Turbid (Clear); Urine Color Light-Yellow (Yellow); Urine Glucose Negative (Negative); Urine Protein Negative (Negative)
[2023-06-03 00:58] LABS: Urine Urobilinogen Normal (Normal)
--- NOTE | 2023-06-03 01:09 | ER ---
Nurse's Notes [facility] Name: Kaylen Benson Age: 47 yrs Sex: Female : 1975 Arrival Date: 06/02/2023 Time: 23:54 Bed 6 Private MD: Diagnosis: Other cholelithiasis without obstruction Presentation: 06/03 00:01 Chief complaint: Patient states: BUQ PAIN SINCE AM, DX WITH GALLSTONES, TATY SCHEDULED bp FOR TWO DAYS. Coronavirus screen: At this time, the client does not indicate any symptoms associated with coronavirus-19. Ebola Screen: No symptoms or risks identified at this time. Initial Sepsis Screen: Does the patient meet any 2 criteria? No. Patient's initial sepsis screen is negative. Does the patient have a suspected source of infection? No. Patient's initial sepsis screen is negative. Risk Assessment: Do you want to hurt yourself or someone else? Patient reports no desire to harm self or others. Onset of symptoms was June 02, 2023. 00:01 Method Of Arrival: Ambulatory bp 00:01 Acuity: DONNA 3 bp Triage Assessment: 00:02 General: Appears uncomfortable, obese, Behavior is cooperative, appropriate for age, bp anxious. Pain: Complains of pain in abdomen. GI: Reports upper abdominal pain. Historical: - Allergies: 00:02 Amoxicillin; bp 00:02 Clindamycin; bp - PMHx: 00:02 Anxiety; COPD; hypotension; Migraines; Thyroid problem; Vertigo; bp - PSHx: 00:02 section; bp - Immunization history:: Adult Immunizations up to date. - Social history:: Smoking status: unknown. Screenin:11 [facility] ED Fall Risk Assessment (Adult) History of falling in the last 3 months, vc1 including since admission No falls in past 3 months (0 pts) Confusion or Disorientation No (0 pts) Intoxicated or Sedated No (0 pts) Impaired Gait No (0 pts) Mobility Assist Device Used No (0 pt) Altered Elimination No (0 pt) Score/Fall Risk Level 0 - 2 = Low Risk Oriented to surroundings, Maintained a safe environment, Educated pt \T\ family on fall prevention, incl call for assistance when getting out of bed. Abuse screen: Denies threats or abuse. Nutritional screening: No deficits noted. Tuberculosis screening: No symptoms or risk factors identified. Vital Signs: 00:01 BP 154 / 104; Pulse 99; Resp 16; Temp 97.6; Pulse Ox 100% ; bp 00:18 Weight 145.15 kg; vc1 01:49 BP 136 / 87; Pulse 90; Resp 16; Pulse Ox 100% on R/A; km8 ED Course: 06/02 23:57 Patient arrived in ED. jj6 23:59 Sera Beltre F[facility]-C [facility]. kb 23:59 Rene Khan MD is Attending Physician. kb 06/03 00:02 Triage completed. bp 00:12 Arm band placed on. Patient has correct armband on for positive identification. Bed in vc1 low position. Call light in reach. Pulse ox on. NIBP on. 00:12 Arm band placed on left wrist. vc1 00:20 Inserted saline lock: 20 gauge in left antecubital area, using aseptic technique. Blood ty collected. 00:27 Urinalysis w/ reflexes Sent. vc1 00:45 Abdomen Limited US In Process Unspecified. EDMS 01:49 Provided Education on: d/c teaching. km8 01:49 No provider procedures requiring assistance completed. km8 01:49 IV discontinued, intact, bleeding controlled, No redness/swelling at site. Pressure 8 dressing applied. Administered Medications: 00:27 Drug: NS 0.9% IV 1000 ml IV at 1 bolus Per protocol; 1000 mL bolus Route: IV; Rate: 1 vc1 bolus; Site: right antecubital; 01:50 Follow up: IV Status: Completed infusion; IV Intake: 1000ml 00:27 Drug: Famotidine IVP 20 mg IVP once; dilute with 10 mL 0.9% NaCl; give over 2 minutes vc1 Route: IVP; Site: right antecubital; 01:16 Follow up: Response: No adverse reaction 00:27 Drug: Ondansetron IVP 4 mg IVP once; over 2 minutes Route: IVP; Site: right antecubital;vc1 01:16 Follow up: Response: No adverse reaction 00:27 Drug: morphine IVP or IV 4 mg IVP once over 4 mins Route: IVP; Infused Over: 4 mins; vc1 Site: right antecubital; 01:16 Follow up: Response: No adverse reaction km8 01:22 Drug: morphine IVP or IV 4 mg IVP once over 4 mins Route: IVP; Infused Over: 4 mins; km8 Site: left antecubital; 01:49 Follow up: Response: No adverse reaction; Pain is decreased 8 Medication: 00:12 VIS not applicable for this client. vc1 Intake: 01:50 IV: 1000ml; Total: 1000ml. km8 Outcome: 01:09 Discharge ordered by MD. rao 01:50 Discharged to home via wheelchair, with significant other, km8 01:50 Condition: good 01:50 Discharge instructions given to patient, significant other, Instructed on discharge instructions, follow up and referral plans. Demonstrated understanding of instructions, follow-up care, 01:56 Patient left the ED. km8 Signatures: Dispatcher [employer] EDMS Sera Beltre, ALMOND PAN FINISHER-C ALMOND PAN FINISHER-CkMaurilio Kline RN RN bp Brittany Blankenship jj6 Emmy Garcia RN RN vc1 Allie Wiggins RN RN 8 Tor Lyons Corrections: (The following items were deleted from the chart) 00:12 00:02 Arm band placed on bp vc1 00:12 00:11 Patient has correct armband on for positive identification. vc1 vc1
--- NOTE | 2023-06-03 01:09 | EDPHYS ---
Physician Documentation [facility] Name: Kaylen Benson Age: 47 yrs Sex: Female : 1975 Arrival Date: 06/02/2023 Time: 23:54 Bed 6 Private MD: ED Physician Rene Khan HPI: 06/03 00:03 This 47 yrs old Female presents to ER via Ambulatory with complaints of Abdominal Pain, kb Nausea/Vomiting. 00:03 Pt is a 47 year old female who presents with upper abd pain, nausea and vomiting. kb STates she was diagnosed with cholelithiasis and has surgery scheduled at [place] in 2 days to have her gallbladder removed. States she was doing ok until today when the pain became more severe. Denies fever. Historical: - Allergies: 00:02 Amoxicillin; bp 00:02 Clindamycin; bp - PMHx: 00:02 Anxiety; COPD; hypotension; Migraines; Thyroid problem; Vertigo; bp - PSHx: 00:02 section; bp - Immunization history:: Adult Immunizations up to date. - Social history:: Smoking status: unknown. ROS: 00:02 Constitutional: Negative for fever, chills, and weight loss, kb 00:02 Abdomen/GI: Positive for abdominal pain, nausea and vomiting, 00:02 All other systems are negative, Exam: 00:02 Constitutional: This is a well developed, well nourished patient who is awake, alert, kb and in no acute distress. Head/Face: Normocephalic, atraumatic. ENT: Moist Mucous membranes Cardiovascular: Regular rate Respiratory: Respirations even and unlabored. No increased work of breathing. Talking in full sentences Skin: Warm, dry with normal turgor. Normal color. MS/ Extremity: Pulses equal, no cyanosis. Neurovascular intact. Full, normal range of motion. Neuro: Awake and alert, GCS 15, oriented to person, place, time, and situation. Moves all extremities. Normal gait. 00:02 Abdomen/GI: Inspection: abdomen appears normal, Bowel sounds: normal, Palpation: soft, in all quadrants, moderate abdominal tenderness, in the right upper quadrant and left upper quadrant, Vital Signs: 00:01 BP 154 / 104; Pulse 99; Resp 16; Temp 97.6; Pulse Ox 100% ; bp 00:18 Weight 145.15 kg; vc1 01:49 BP 136 / 87; Pulse 90; Resp 16; Pulse Ox 100% on R/A; 8 MDM: 06/02 23:59 Patient medically screened. kb 06/03 00:03 Differential diagnosis: cholecystitis, Cholelithiasis, non-specific abd pain, kb pancreatitis. Data reviewed: vital signs, nurses notes. 01:07 Counseling: I had a detailed discussion with the patient and/or guardian regarding the kb historical points, exam findings, and any diagnostic results supporting the discharge/admit diagnosis, lab results, radiology results, the need for outpatient follow up, a general surgeon, to return to the emergency department if symptoms worsen or persist or if there are any questions or concerns that arise at home. ED course: normal liver enzymes, normal wbc, pt is nontoxic in appearance, afebrile and appears comfortable at this time. US revealed cholelithiasis without cholecystitis. Patient educated to keep appointment for surgery in 2 days.. 06/03 00:01 Order name: CBC with Diff; Complete Time: 00:58 kb 06/03 00:01 Order name: CMP; Complete Time: 00:51 kb 06/03 00:01 Order name: Lipase; Complete Time: 00:51 kb 06/03 00:01 Order name: Urinalysis w/ reflexes; Complete Time: 00:58 kb 06/03 01:01 Order name: Urine Culture EDMO 06/03 00:01 Order name: Abdomen Limited US kb 06/03 00:01 Order name: IV Saline Lock; Complete Time: 00:13 kb 06/03 00:01 Order name: Labs collected and sent; Complete Time: 00:17 kb Administered Medications: 00:27 Drug: NS 0.9% IV 1000 ml IV at 1 bolus Per protocol; 1000 mL bolus Route: IV; Rate: 1 vc1 bolus; Site: right antecubital; 01:50 Follow up: IV Status: Completed infusion; IV Intake: 1000ml :27 Drug: Famotidine IVP 20 mg IVP once; dilute with 10 mL 0.9% NaCl; give over 2 minutes vc1 Route: IVP; Site: right antecubital; 01:16 Follow up: Response: No adverse reaction [facility] 00:27 Drug: Ondansetron IVP 4 mg IVP once; over 2 minutes Route: IVP; Site: right antecubital;vc1 01:16 Follow up: Response: No adverse reaction km8 00:27 Drug: morphine IVP or IV 4 mg IVP once over 4 mins Route: IVP; Infused Over: 4 mins; vc1 Site: right antecubital; 01:16 Follow up: Response: No adverse reaction km8 01:22 Drug: morphine IVP or IV 4 mg IVP once over 4 mins Route: IVP; Infused Over: 4 mins; km8 Site: left antecubital; 01:49 Follow up: Response: No adverse reaction; Pain is decreased km8 Disposition Summary: 06/03/23 01:09 Discharge Ordered Notes: Location: Home kb Condition: Stable kb Diagnosis - Other cholelithiasis without obstruction kb Followup: kb - With: Emergency Department - When: As needed - Reason: Worsening of condition Followup: kb - With: Private Physician - When: 2 - 3 days - Reason: Recheck today's complaints, Continuance of care, Re-evaluation by your physician Discharge Instructions: - Discharge Summary Sheet kb - Cholelithiasis, Zlgz-by-Algf kb Forms: - Medication Reconciliation Form kb - Thank You Letter kb - Antibiotic Education kb - Prescription Opioid Use kb - Patient Portal Instructions kb - Leadership Thank You Letter kb Signatures: Dispatcher [employer] Sera Santos, ROSANNA-Hortencia CUNHAP-Maurilio Logan, RN RN bp Emmy Garcia RN RN vc1 Allie Wiggins RN RN km8 Corrections: (The following items were deleted from the chart) 01:08 00:58 Transition of care: After a detail discussion of the patient's case, care is kb transferred to Rene rao
[2023-06-03 02:15] VITALS: BP 136/87; TEMP 97.6; O2SAT 100
--- NOTE | 2023-06-03 12:03 | RAD REPORT ---
EXAM DESCRIPTION: US - Abdomen Exam Limited - 06/03/2023 12:43 am CLINICAL HISTORY: 47 years Female, ABD PAIN TECHNIQUE: Grayscale and Doppler sonogram of the right upper quadrant abdomen. COMPARISON: CT abdomen and pelvis dated 05/17/2023. FINDINGS: Liver: Homogenous echotexture. No mass lesion. Main portal vein: Normal hepatopetal flow. Gallbladder: Gallstones in the gallbladder neck. No gallbladder wall thickening. No pericholecystic fluid. Common bile duct: 0.4 cm. IMPRESSION: Cholelithiasis without sonographic evidence of acute cholecystitis. Electronically signed by: Chet Vega DO 06/03/2023 12:54 AM MACHINE STEMMER Due to temporary technical issues with the PACS/Fluency reporting system, reports are being signed by the in house radiologists without review as a courtesy to insure prompt reporting. The interpreting radiologist is fully responsible for the content of the report.
== END ==
LOC: ER 23:54
DX: K80.80 Other cholelithiasis without obstruction (principal); Z88.1 Allergy status to other antibiotic agents
CPT/HCPCS: 76705

== ENCOUNTER → 2023-06-10 | Emergency (ER) | payer OTHER ==
[~2023-06-10] MED LIST changes: +KETOROLAC 30 MG/ML INJ ONE; +METOCLOPRAMIDE 10 MG/2mL INJ ONE
--- OUTSIDE RECORDS SUMMARY | 2023-06-10 03:59 | XMS REPORT | Continuity of Care Document ---
Author Name Unknown Address [address] [facility] [address] [place] [address] [facility] thconnect Address [address] [facility] [place] [address] Care Team Providers Care Asset Protection Associate Name Role Phone ALEIDA SHEEHAN Primary Care Physician Unavaila NEIL Castillo Attending Clinician Unavailable MICHAEL MONTELONGO Attending Clinician Unavaila nae QUIROGA MD Attending Clinician Unavailab CRISTIAN Roberts Attending Clinician Unavailable VIET DOLL Attending Clinician Unavailable VIET DOLL Attending Clinician Unavailable LavonViet huertas DO Attending Clinician [phone] OSIEL PARIKH Attending Clinician Unavaila [place] Attending Clinician [phone] STAR MEADOWS Attending Clinician Unavailable Tayla Schmidt MD Attending Clinician [phone] TAYLA SCHMIDT Attending Clinician UnavailJAYLEEN Patel Attending Clinician Unavailab Jayleen Parker Attending Clinician Doctor Unassigned, [place] Attending Clinician U KRISS Sterling Attending Clinician Unavail able Jayro RN ORTHOPEDIC, Roshunda R Attending Clinician ELISA LAGUNAS Attending Clinician Unavailab KAYLEN Alba Attending Clinician UnavailVIET Eubanks Admitting Clinician Unavailable JAYLEEN CAMEJO Admitting Clinician Unavailab ELISA Chaney Admitting Clinician Unavailab le Payers Payer Name Policy Type Policy Number Effective Date Expirati on Date Source [place] [id number] 00:00:00 [employer] 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 9 [id number] 2023 00:00:00 [employer] 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 [id number] 2023 00:00:00 [place] 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 [id number] 2022 00:00:00 MED[place] [id number] 2021 00:00:00 Problems Condition Name Condition Details Condition Category Status Onset Date Resolution Date Last Treatment Date Treating Clinician Comments Source History of bilateral ligation of fallopian tubes History of bilateral ligation of fallopian tubes Disease Active 07-31 00:00: 00 [facility] BMI 45.0-49.9, adult BMI 45.0-49.9, adult Disease Active 07-31 00:00: 00 [facility] Screening examinatio n for STD (sexually transmitte d disease) Screening examinatio n for STD (sexually transmitte d disease) Disease Active 09-15 00:00: 00 [facility] Class 3 severe obesity due to excess calories with body mass index (BMI) of 45.0 to 49.9 in adult, unspecifie d whether serious comorbidit y present Class 3 severe obesity due to excess calories with body mass index (BMI) of 45.0 to 49.9 in adult, unspecifie d whether serious comorbidit y present Disease Active 2015-04 00:00: 00 [facility] Allergies, Adverse Reactions, Alerts Allergy Name Allergy Type Status Severity Reaction(s) Onset Date Inactive Date Treating Clinician Comments Source AMOXICIL STEPHANIE DRUG INGREDI Active Hives 07-31 00:00: 00 [facility] CLINDAMY SHE DRUG INGREDI Active Hives 2018- 4 00:00: 00 [facility] Amoxicil stephanie Propensi ty to adverse reaction s Active Hives 2018- 4 00:00: 00 [facility] Clindamy she Propensi ty to adverse reaction s Active Hives 07-31 00:00: 00 [facility] Social History Social Habit Start Date Stop Date Quantity Comments Source [facility] of tobacco use Cigarette Smoker [facility] History SDOH Alcohol Frequency [facility] History SDOH Alcohol Std Drinks [facility] History SDOH Alcohol Binge [facility] Alcohol intake 2023-05-20 00:00:00 2023-05-20 00:00:00 Current drinker of alcohol (finding) [facility] Exposure to SARS-CoV-2 (event) 2022-01-17 00:00:00 2022-01-27 14:37:00 Not sure [facility] History of Social function 2021-12-20 00:00:00 2021-12-20 00:00:00 [facility] Tobacco use and exposure 2021-12-20 00:00:00 2021-12-20 00:00:00 Smokeless tobacco non-user [facility] Tobacco Comment 2021-12-20 00:00:00 2021-12-20 00:00:00 5 cigarettes a day [facility] Alcohol Comment 2018-09-15 00:00:00 2018-09-15 00:00:00 occasional [facility] Sex Assigned At 1975 00:00:00 1975 00:00:00 [facility] Smoking Status Start Date Stop Date Source Smokes tobacco daily 2021-12-20 00:00:00 [facility] Medications Ordered Medication Name Filled Medication Name Start Date Stop Date Current Medication? Ordering Clinician Indication Dosage Frequency Signature (SIG) Comments Components Source morpHINE (2 mg/mL) injection 4 mg 05-21 04:45: 00 05-21 04:56 :00 No 4mg 4 mg, Slow IV Push, ONCE, 1 dose, On Thu05/20/23 at 2245, STAT [facility] iopamidol (ISOVUE 370-500 mL) injection 100 mL 05-21 02:00: 00 05-21 00:54 :00 No [id number] 100mL 100 mL, Intravenou s, ONCE, 1 dose, On Thu05/20/23 at 2000, Routine [facility] NaCl 0.9% (NS) bolus infusion 1,000 mL 05-21 00:45: 00 05-21 04:30 :00 No 1000mL at 999 mL/hr, 1,000 mL, IV Infusion, ONCE, 1 dose, [facility] Thu05/20/23 [facility] 1845[facility] (2 mg/mL) injection 4 mg 05-21 00:15: 00 05-21 00:22 :00 No 4mg 4 mg, Slow IV Push, ONCE, 1 dose, On Thu05/20/23 at 1815, STAT [facility] ondansetron (ZOFRAN (PF)) injection 4 mg 05-21 00:00: 00 05-21 00:19 :00 No 4mg 4 mg, Slow IV Push, ONCE, 1 dose, On Thu05/20/23 at 1800, [facility] 600 mg tablet 05-20 00:00: 00 Yes [id number] 600mg Take 1 tablet by mouth every 6 (six) hours as needed for Pain (scale 4-6). [facility] ondansetron (ZOFRAN) 4 mg tablet 05-20 00:00: 00 Yes [id number] 4mg Take 1 tablet by mouth every 6 (six) hours as needed for Nausea and Vomiting (N/V). [facility] HYDROcodone -acetaminop hen 5-325 mg tablet 05-20 00:00: 00 05-28 05:59 :00 Yes [id number] 1{tbl} Take 1 tablet by mouth every 4 (four) hours as needed for Pain (scale 1-3) for up to 7 days. Indication s: acute [facility] mcg tablet 01-17 00:00: 00 Yes [facility] ity [facility] levothyroxi ne 175 mcg tablet 01-17 00:00: 00 Yes [facility] ity [facility] levothyroxi ne 175 mcg tablet 01-17 00:00: 00 Yes [facility] levothy[facility]xi ne 175 mcg tablet 01-17 00:00: 00 Yes [facility] No known medications 12-27 10:00: 11 No No known medication s [facility] buPROPion SR 150 mg SR tablet 12-20 00:00: 00 Yes [facility] bu[facility]ion SR 150 mg SR tablet 12-20 00:00: 00 Yes [facility] buPROPion SR 150 mg SR tablet 0 12-20 00:00: 00 Yes [facility] buPROPion SR 150 mg SR tablet 12-20 00:00: 00 Yes [facility] ibuprofen 800 mg tablet 11-19 00:00: 00 Yes 800mg Take 800 mg by mouth every 6 (six) hours as needed. [facility] ibuprofen 800 mg tablet 11-19 00:00: 00 Yes 800mg Take 800 mg by mouth every 6 (six) hours as needed. [facility] ibuprofen 800 mg tablet 0 11-19 00:00: 00 Yes 800mg Take 800 mg by mouth every 6 (six) hours as needed. [facility] ibuprofen 800 mg tablet 11-19 00:00: 00 Yes 800mg Take 800 mg by mouth every 6 (six) hours as needed. [facility] Vital Signs Vital Name Observation Time Observation Value Comments S karishma Systolic blood pressure 2023-05-21 05:11:00 136 mm[Hg] [facility] Diastolic blood pressure 2023-05-21 05:11:00 93 mm[Hg] [facility] Heart rate 2023-05-21 05:11:00 87 /min [facility] Respiratory rate 2023-05-21 05:11:00 18 /min [facility] Oxygen saturation in Arterial blood by Pulse oximetry 2023-05-21 05:11:00 99 /min [facility] Body temperature 2023-05-20 23:47:00 36.78 Veena [facility] Body weight 2023-05-20 23:47:00 142.883 kg [facility] BMI 2023-05-20 23:47:00 49.34 kg/m2 [facility] Body height 2022-01-27 19:50:00 170.2 cm [facility] Body weight 2022-01-27 19:50:00 137.44 kg [facility] BMI 2022-01-27 19:50:00 47.46 kg/m2 [facility] Systolic blood pressure 2021-12-27 14:59:00 132 mm[Hg] [facility] Diastolic blood pressure 2021-12-27 14:59:00 85 mm[Hg] [facility] Heart rate 2021-12-27 14:59:00 92 /min [facility] Body height 2021-12-27 14:59:00 170.2 cm [facility] Body weight 2021-12-27 14:59:00 137.44 kg [facility] BMI 2021-12-27 14:59:00 47.46 kg/m2 [facility] Procedures Procedure Date / Time Performed Performing Clinicia n Source HEPATIC FUNCTION PANEL (33762) (ALB,T.PRO,BILI T,BU/BC,ALT,AST,ALK PHOS) 2023-05-21 01:23:00 Viet Doll [facility] BASIC METABOLIC PANEL (NA, K, CL, CO2, GLUCOSE, BUN, CREATININE, CA) 2023-05-21 01:23:00 Viet Doll [facility] CBC WITH DIFF 2023-05-21 01:23:00 [facility] 2023-05-21 00:23:00 Viet Doll [facility] LIPASE 2023-05-21 00:13:00 Viet Doll [facility] URINALYSIS 2023-05-21 00:13:00 Viet Doll [facility] CONSENT/REFUSAL FOR DIAGNOSIS AND TREATMENT 2023-05-20 23:37:52 Doctor Unassigned, [place] [facility] Encounters Start Date/Time End Date/Time Encounter Type Admission Type Attending [facility] Facility Care Department Encounter ID Source 2021-02-17 09:49:03 Emergency [facility] [id number] [facility] 2021-02-15 17:30:01 Emergency [facility] [id number] [facility] 2023-06-23 14:45:00 2023-06-23 14:45:00 Outpatient MICHAEL MONTELONGO [id number] [facility] 2023-06-05 07:30:00 2023-06-05 07:30:00 Outpatient MICHAEL MONTELONGO [id number] [facility] 2023-06-05 00:00:00 2023-06-05 00:00:00 Outpatient MICHAEL MONTELONGO [id number] [facility] 2023-06-05 00:00:00 2023-06-05 00:00:00 Outpatient MICHAEL MONTELONGO [id number] [facility] 2023-06-04 11:15:00 2023-06-04 11:15:00 Outpatient RADHA ANDERSON [id number] [facility] 2023-06-04 11:10:00 2023-06-04 11:10:00 Outpatient RADHA ANDERSON [id number] Rad[facility] 2023-06-04 00:00:00 2023-06-04 00:00:00 Outpatient MICHAEL MONTELONGO [id number] [facility] 2023-06-04 00:00:00 2023-06-04 00:00:00 Outpatient MICHAEL MONTELONGOSEY [id number] [facility] 2023-06-01 00:00:00 2023-06-01 00:00:00 Outpatient MD RADHA HOWARD [id number] Radha lynette 2023-05-26 11:40:00 2023-05-26 11:40:00 Outpatient RADHA ANDERSON [id number] Radha lynette 2023-05-26 11:25:00 2023-05-26 11:25:00 Outpatient RADHA ANDERSON [id number] Radha Eulalio 2023-05-26 09:45:00 2023-05-26 09:45:00 Outpatient MICHAEL MONTELONGO [id number] Radha lynette 2023-05-26 00:00:00 2023-05-26 00:00:00 Outpatient MICHAEL MONTELONGO [id number] [facility] 2023-05-25 10:00:00 2023-05-25 10:00:00 Outpatient CRISTIAN QUINTERO [facility] [id number] [facility] 2023-05-20 17:47:00 2023-05-20 23:16:00 Emergency X LAVON KENCHUCHO PALOMINOESATHISH [facility] ERT [id number] [facility] 2023-05-20 17:47:00 2023-05-20 23:16:00 Emergency Chucho DolleSathish [facility] .2.840.114 350.1.13.10 4.2.7.2.686 [id number] [facility] 2023-01-27 13:30:00 2023-01-27 13:30:00 Outpatient OSIEL PAGAN [facility] [id number] [facility] 2022-01-29 00:00:00 2022-01-29 00:00:00 Telephone [place] [facility] ..840.114 350.1.13.10 4.2.7.2.686 [id number] [facility] 2022-01-27 15:00:00 2022-01-27 15:15:00 Office Visit [facility] 1.2.840.114 350.1.13.10 4.2.7.2.686 [id number] [facility] 2022-01-27 14:50:00 2022-01-27 15:09:00 Outpatient R [facility]I [facility] [id number] [facility] 2021-12-27 10:02:59 2021-12-27 23:59:00 Outpatient R DORI STAR [facility] [id number] [facility] 2021-12-27 10:00:00 2021-12-27 10:15:00 Office Visit Dori [facility] 1.2.840.114 350.1.13.10 4.2.7.2.686 [id number] [facility] 2021-12-27 10:02:59 2021-12-27 10:02:59 Outpatient R DORI [facility] [id number] [facility] 2021-12-20 10:15:00 2021-12-20 10:30:00 Office Visit [place] [facility] 1.2.840.114 350.1.13.10 4.2.7.2.686 [id number] [facility] 2021-12-20 10:15:00 2021-12-20 10:15:00 Outpatient TAYLA WONG [facility] [id number] [facility] 2021-12-16 18:20:00 2021-12-16 20:24:00 Emergency X JAYLEEN CAMEJO [facility] ERT [id number] [facility] 2021-12-16 18:20:00 2021-12-16 20:24:00 Emergency Jayleen Camejo [facility] 1..840.114 350.1.13.10 4.2.7.2.686 [id number] [facility] 2021-12-16 18:20:00 2021-12-16 20:24:00 Emergency X JAYLEEN CAMEJO [facility] [id number] [facility] 2021-10-15 15:00:00 2021-10-15 15:00:00 Outpatient Wanda [facility] [id number] [facility] 2021-10-03 15:15:00 2021-10-03 15:15:00 Outpatient STRA CARSON [facility] [id number] [facility] 2021-09-26 15:00:00 2021-09-26 15:00:00 Outpatient STAR CARSON [facility] [id number] [facility] 2021-09-04 00:00:00 2021-09-04 00:00:00 Orders Only Doctor Unassigned, [place] [facility] 1.2.840.114 350.1.13.10 4.2.7.2.686 [id number] [facility] 2021-08-22 15:50:00 2021-08-22 23:59:00 Outpatient STAR CARSON [facility] [id number] [facility] 2021-08-22 15:00:00 2021-08-22 15:30:00 Office [place] [facility]?LETIC[facility] 1.2.840.114 350.1.13.10 4.2.7.2.686 [id number] [facility] 2021-08-22 15:00:00 2021-08-22 15:00:00 Outpatient STAR CARSON [facility] [id number] [facility] 2021-08-22 00:00:00 2021-08-22 00:00:00 Orders Only Doctor Unassigned, [place] [facility] 1..840.114 350.1.13.10 4.2.7.2.686 [id number] [facility] 2021-06-12 15:00:00 2021-06-12 15:00:00 Outpatient KRISS LOUIE [facility] [id number] [facility] 2021-05-17 09:15:00 2021-05-17 09:15:00 Outpatient R KRISS SHERIDAN [facility] [id number] [facility] 2020-08-20 06:56:46 2020-08-20 23:59:00 Hospital Encounter Elisa Lagunas [facility] 1..840.114 350.1.13.10 4.2.7.2.686 [id number] 2020-08-20 06:56:46 2020-08-20 23:59:00 Outpatient ELISA BRAGA [facility] [id number] [facility] 2020-08-20 00:00:00 2020-08-20 00:00:00 Outpatient R ELISA LAGUNAS [facility] [id number] [facility] 2020-07-31 15:57:09 2020-07-31 16:21:23 Office Visit Elisa Lagunas [facility] 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 [facility] 1.2.840.114 350.1.13.10 4.2.7.2.686 [id number] 2020-07-31 15:45:00 2020-07-31 15:45:00 Outpatient R ELISA LAGUNAS [facility] [id number] [facility] 2020-07-31 14:45:00 2020-07-31 14:45:00 Outpatient KAYLEN JACOB [facility] [id number] [facility] 2020-05-29 07:45:00 2020-05-29 07:45:00 Outpatient ELISA BRAGA [facility] [id number] [facility] 2020-05-25 10:15:00 2020-05-25 10:15:00 Outpatient KRISS LOUIE [facility] [id number] [facility] 2020-01-04 14:00:00 2020-01-04 14:00:00 Outpatient ELISA BRAGA [facility] [id number] [facility] Results Test Description Test Time Test Comments Results Result Co mments Source [facility] PAN[facility] (87919) (ALB,T.PRO,BILI T,BU/BC,ALT,AST,ALK PHOS)2023-05-21 01:41:06* Test Item Value Reference Range Interpretation Comme nts TOTAL BILI (test code = 3862840190) 0.4 mg/dL 0.1-1.1 BILI UNCON (test code = 4473881091) 0.2 mg/dL 0.1-1.1 BILI CONJ (test code = 5884974207) 0.0 mg/dL 0.0-0.3 T PROTEIN (test code = 1474250628) 6.8 g/dL 6.3-8.2 ALBUMIN (test code = 6521904484) 3.4 g/dL 3.5-5.0 L ALK PHOS (test code = 1310149501) 84 U/L 34-122 ALTv (test code = 1742-6) 13 U/L 5-35 AST(SGOT) (test code = 0771634821) 21 U/L 13-40 Lab Interpretation (test cod e = 90465-7) Abnormal [facility] WITH [id number] 01:37:09* Test Item Value Reference Range Interpretation [...] 33.1 g/dL 31.6-35.1 RDW-SD (test code = 54008-5) 43.9 fL 39.0-49.9 RDW-CV (test code = 788-0) 13.4 % 12.0-15.5 PLT (test code = 777-3) 261 166-358 MPV (test code = 15056-8) 10.2 fL 9.5-12.9 NRBC/100 WBC (test code = 9087416862) 0.0 0.0-10.0 NRBC x10^3 (test code = 7334030114) See_Comment [Automated messa ge] The system which generated this result transmitted reference range: 10*3/?L. The reference range was not used to interpret this result as normal/abnormal. GRAN MAT (NEUT) % (test code = 770-8) 47.2 % IMM GRAN % (test code = 6531976790) 0.00 % LYMPH % (test code = 736-9) 42.2 % MONO % (test code = 5905-5) 6.9 % EOS % (test code = 713-8) 3.1 % BASO % (test code = 706-2) 0.6 % GRAN MAT x10^3(ANC) (test code = 4031603202) 2.55 10*3/uL 1.88-7.09 IMM GRAN x10^3 (test code = 9075413714) 0.00-0.06 LYMPH x10^3 (test code = 731-0) 2.28 10*3/uL 1.32-3.29 MONO x10^3 (test code = 742-7) 0.37 10*3/uL 0.33-0.92 EOS x10^3 (test code = 711-2) 0.17 10*3/uL 0.03-0.39 BASO x10^3 (test code = 704-7) 0.03 10*3/uL 0.01-0.07 Lab Interpretation (test code = 79930-1) Abnormal [facility]2024-[facility] 00:35:00* Test Item Value Reference Range Interpretation Comme nts LIPASE (test code = 6802599400) 94 U/L 0-220 Lab Interpretation (test cod e = 10189-3) Normal [facility] [id number] 00:23:00* Test Item Value Reference Range Interpretation Comme nts POCT PREG (test code = 1605) Negative On board controls acceptable with C Line (test code = 3574) Yes POCT PREG LOT # (test code = 3575) [id number] POCT PREG TEST DATE ( test code = 3576) 07/26/2024 Lab Interpretation (test cod e = 18506-3) Normal [facility] Notes Date/Time Note Provider Source 2023-05-20 23:14:19 [facility]/ywsnAf5w1X2LuMRgilsKqLc3VpN4 pxG1RbvCOO8LnlhE2JuhLFqlOkrRH1140-8 05-20T23:14:19 RN and pt reviewed DC instructions. Pt verbalized understanding. Pt advised to follow up with PCP and given number for follow ups. Patient denied any remaining belongings in the ED. 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 NAD noted upon departure. 81162-6Ksouzkwyu department IktsLV8052-35-93I80:16:34[facility] NoteTXT1.2.840.255404.1.13.104.2.7. 2.041696|[id number] for patient xtlf45023-6LmzwPBWASFRLHRSBbeilqcty C-CDA narrative [id number] M Scott RNUTMBUT - [address] Ie[id number] 3YRKYCHUKOUSZUABFHOIWCU1661-39-64D5 3:16:341.2.840.792440.1.72.3.15|1.2 .840.844538.1.13.104.2.7.2.727879_2 [id number] Verenice Malik RN [facility] 2023-05-20 22:46:22 gq5Cp5eOL5bgw2rqQk7gum8sZfGa4DRmiTO at/L9bp3kWkzbPeeDYuPCx5QEEdWO5421-0 05-20T22:46:22 ED faculty at bedside 27370-5Lrglaxneh department BtubNK4684-86-32W58:46:33[facility] NoteTXT1.2.840.683480.1.13.104.2.7. 2.988528|[id number] for patient tqjg32054-3JjsdLBMPKBJOLTRLlpvifaey C-CDA narrative [id number] Villarreal RN[address] Cw[id number] 9ZPKNDQHXNOZUSVNIPPBSZR9427-55-87D4 2:46:331.2.840.508196.1.72.3.15|1.2 .840.055541.1.13.104.2.7.2.727879_2 [id number] Sharon John RN [facility] 2023-05-20 20:14:46 RlB7GqsgEi5CHkzOxar4Hgbj9zY3pMnsM1q lF9zlVokFv8ozy8eJyaScFOt4s0KM1467-5 05-20T20:14:46 Patient to ultrasound in NAD 15865-0Zumtqxozl department JfscUC6015-52-75J23:14:54[facility] NoteTXT1.2.840.847143.1.13.104.2.7. 2.544785|[id number] for patient vjkn92430-2CvfnUNQIIOBNYIMAkcwrbwnr C-CDA narrative [id number] R Robinson RNUT[id number] 5AEFJATQWZLDYZYZTXTHZFA7596-70-57I3 0:14:541.2.840.136720.1.72.3.15|1.2 .840.395874.1.13.104.2.7.2.727879_2 [id number] Mary Valdez RN [facility] 2023-05-20 19:42:22 2fFOYS6KM+tgF06oqk5CqBiHzVzrtgWKeuw ErHo0mGH5irpirYeRRYiV68d/+j8j1725-5 05-20T19:42:22 Pt ambulatory to the restroom at this time. 17699-3Jxlyaxzzy department HfozTJ2009-11-44F69:42:47[facility] NoteTXT1.2.840.731932.1.13.104.2.7. 2.997193|[id number] for patient twkx92799-2MicdHBTANHBBYBPKcptdcyru C-CDA narrative textUT[id number] 4NUYHEJXINOEVPIMFODBWMJ7829-58-39X0 9:42:471.2.840.051388.1.72.3.15|1.2 .840.014110.1.13.104.2.7.2.727879_2 [id number] [facility] 2023-05-20 19:23:00 XVI+qU/4uFS8BCEQVVbpaQ4RVQRwz/W8LaP Z6O8WBclw0Ul7+2X+WWgid/Nd7weh2074-2 9:23:00 Specimens collected at this time, will notify that pt is ready for transport to imaging. 96711-4Owoassnzw department FlmuAM9327-79-00P47:32:04[facility] department NoteTXT1.2.840.185505.1.13.104.2.7. 2.745494|[id number] for patient tykx39134-2XswnPXLRIUAQMMOUkrjcucer C-CDA narrative text[address] Qn[id number] 9DBZGSEUFAHOMSWNEWDHDIB4829-30-21E0 9:32:041.2.840.548717.1.72.3.15|1.2 .840.233760.1.13.104.2.7.2.727879_2 [id number] [facility] 2023-05-20 19:00:00 2m5m4nLgNoHn+Ot9OvwzLOibesaRpFIxtom WympL478plakNZeBq8lil4k7UPBRg1287-1 9:00:00 Report received from SOLITARIO Chambers. Rns discussed plan of care and further recommendations.Introduced self to pt. Pt alert and oriented x4, RR even and unlabored, skin warm and dry, appropriate for color.Pt reports pain remains the same, pt pending blood work and US scan at this time. 98348-7Moyryrnuc department GisaNW1247-54-62N75:31:25[facility] department NoteTXT1.2.840.096328.1.13.104.2.7. 2.693218|[id number] for patient fhro78796-4SriuZGNRWBWYFZFLekopqzhx C-CDA narrative text[id number] 0HUCCLVHXGDRWTVMLVCFCMY8774-56-02E1 9:31:251.2.840.471318.1.72.3.15|1.2 .840.086132.1.13.104.2.7.2.727879_2 [id number] [facility] 2023-05-20 18:46:54 LdMyVftOfRVmJN59oMYhCbp5+A6p2C6CiEK lbas6sHhZolXB2W0VlqK9eYLyKWB85972-4 8:46:54 Pt sent to [facility] called to tell me they need a recollect. [id number] SakqJO1162-53-31U17:47:23Nurse NoteTXT1.2.840.767097.1.13.104.2.7. 2.097982|[id number] for patient tfrj96298-6VnkcQCCRRBZJQHVIvaruyscc C-CDA narrative [id number] STERN[address] Wu [id number] 4FSKMTGAPDOHHSENRXLXSRS6702-98-28N0 8:47:231.2.840.943591.1.72.3.15|1.2 .840.483364.1.13.104.2.7.2.727879_2 [id number] Trish Vizcaino RN [facility] 2023-05-20 17:44:02 Obhpag2VUG4Jxkxz/pkX/PNqz/YCzJCbWV3 ApZnMjmXTxIDKSyKUVnH2wZTEevyl6503-5 7:44:02 Kaylen Escudero is a 47 year old female Patient arrives via personal means with complaint of abdominal pain X 5 days N/V/D and frequent urination. Went to ED and was diagnosed with cyst on ovaries and gallstones. Pt reports she was told "seek further treatment. Patient is alert and oriented times X4, even and unlabored respiration. Roomed for further evaluation. 43913-6Tfxwajhly department Triage uubfBD1781-04-13K28:47:18[facility] Triage noteTXT1.2.840.392103.1.13.104.2.7. 2.823647|[id number] for patient egof06887-6Ucplwqghf department NoteLNNARRATIVEFormatted C-CDA narrative [id number] H Wark RN[address] Xc[id number] 4IYBHXBQLKHCHSWJTCJRCSY7019-96-68L0 7:47:181.2.840.014247.1.72.3.15|1.2 .840.500354.1.13.104.2.7.2.727879_2 [id number] Dori Hall RN [facility] 2023-05-20 17:37:00 91Obt+AOJfyiji7NErQtU+fNFhijXVZIn8O j/gfJJMfV0gxvPu1BziN8pM8X15dM6890-0 7:37:00 Patient is feeling better.Ok to go home.Recent [...] 8.5 (L) 8.6 - 10.6 mg/dLeGFR 108.6 mL/min/1.75f9UQRXKZN FUNCTION PANEL (29809) (ALB,T.PRO,BILI T,BU/BC,ALT,AST,ALK PHOS)Collection Time: 05/20/23 7:23 PMResult [...] main portal vein was evaluated with color Doppler.Acetaldehyde Converter Operator images were obtained for the record.COMPARISON: CT [...] main portal vein was evaluated with color Doppler.Acetaldehyde Converter Operator images were obtained for the record.COMPARISON: CT [...] Resident: Bill HutchisonbDx: Gallstones, biliary colic.Left ovarian cyst.CECILY GalvanLi Billing ID #[id number], KenDO Serge05/20/23 2238 62519-5Nkepvqwsp Emergency department QzydXV1729-60-73A68:38:41Physician Emergency department NoteTXT1.2.840.629224.1.13.104.2.7. 2.426315|[id number] for patient zlru13416-8Smrraqxfk department NoteLNNARRATIVEFormatted C-CDA narrative text[address] Nr[id number] 6NPCIZHJVFCJOFKJLNEJWNE7169-82-26F2 2:38:411.2.840.545983.1.72.3.15|1.2 .840.728780.1.13.104.2.7.2.727879_2 [id number] [facility]
[2023-06-10 05:03] LABS: Absolute Lymphocytes (CBC) 2.3 K/uL (0.7-4.9); Hematocrit 38.9 % (36.0-45.0); Lymphocytes % 28.1 % (15.3-44.8); MCV 87.5 fL (80-100); MPV 8.3 fL (7.6-11.3); Platelets 336 thou/uL (152-406); RBC Red Blood Cell Count 4.45 M/uL (3.86-4.86)
[2023-06-10 05:18] LABS: Albumin 3.3 g/dL (3.4-5.0); Bilirubin Total 0.3 mg/dL (0.2-1.0); Potassium 3.8 mEq/L (3.5-5.1); Protein, Total 8.7 g/dL (6.4-8.2)
--- NOTE | 2023-06-10 06:23 | EDPHYS ---
Physician Documentation [facility] Name: Kaylen Benson Age: 47 yrs Sex: Female : 1975 Arrival Date: 06/10/2023 Time: 03:54 Bed 6 Private MD: ED Physician Rene Khan HPI: 06/10 04:16 This 47 yrs old Other Female presents to ER via EMS with complaints of abdominal pain . sp4 04:25 47-year-old female 5 days postop laparoscopic cholecystectomy, presents with acute sp4 onset right-sided flank and abdominal pain associated with vomiting. Patient states her surgery was on Thursday06/05/2023 at [facility]. She cannot precisely recall physician's name but did cholecystectomy. Patient arrived with EMS. Historical: - Allergies: 04:00 Amoxicillin; rv 04:00 Clindamycin; rv - PMHx: 04:00 Anxiety; COPD; hypotension; Migraines; Thyroid problem; Vertigo; rv - PSHx: 04:00 section; Cholecystectomy; rv - Immunization history:: Adult Immunizations up to date. - Social history:: Smoking status: Patient reports the use of cigarette tobacco products, smokes one-half pack cigarettes per day. - Family history:: not pertinent. ROS: 04:25 Constitutional: Negative for fever, chills, and weight loss, Abdomen/GI: Positive Right sp4 flank pain, Right upper abdominal pain and Vomiting 04:25 All other systems are negative, Exam: 04:25 Constitutional: This is a well developed, well nourished patient who is awake, alert, sp4 and in no acute distress. Head/Face: Normocephalic, atraumatic. Eyes: Pupils equal round and reactive to light, extra-ocular motions intact. Lids and lashes normal. Conjunctiva and sclera are not injected. Cornea within normal limits. Periorbital areas with no swelling, redness, or edema. ENT: Nares patent. No nasal discharge, no septal abnormalities noted. Tympanic membranes are normal and external auditory canals are clear. Oropharynx with no redness, swelling, or masses, exudates, or evidence of obstruction, uvula midline. Mucous membranes moist. Neck: Trachea midline, no thyromegaly or masses palpated, and no cervical lymphadenopathy. Supple, full range of motion without nuchal rigidity, or vertebral point tenderness. Chest/axilla: Normal chest wall appearance and motion. Nontender with no deformity. No lesions are appreciated. Cardiovascular: Regular rate and rhythm with a normal S1 and S2. No gallops, murmurs, or rubs. Normal PMI, no JVD. No pulse deficits. Respiratory: Lungs have equal breath sounds bilaterally, clear to auscultation and percussion. No rales, rhonchi or wheezes noted. No increased work of breathing, no retractions or nasal flaring. Abdomen/GI: Soft, with normal bowel sounds. No distension or tympany. No guarding or rebound. Obese abdomen, diffuse tenderness, Post operative incisions clean , dry , intact. Back: No spinal tenderness. No costovertebral tenderness. Skin: Warm, dry with normal turgor. Normal color with no rashes, no lesions, and no evidence of cellulitis. MS/ Extremity: Pulses equal, no cyanosis. Neurovascular intact. Full, normal range of motion. Neuro: Awake and alert, GCS 15, oriented to person, place, time, and situation. Cranial nerves II-XII grossly intact. Motor strength 5/5 in all extremities. Sensory grossly intact. Psych: Awake, alert, with orientation to person, place and time. Behavior, mood, and affect are within normal limits Vital Signs: 03:58 BP 168 / 96; Pulse 74; Resp 17; Temp 97.6; Pulse Ox 99% ; Weight 143.79 kg; Height 5 rv ft. 7 in. ; Pain 10/10; 05:00 BP 165 / 91; Pulse 80; Resp 19; Pulse Ox 98% ; jj7 06:00 BP 149 / 89; Pulse 83; Resp 17; Pulse Ox 99% ; Pain 0/10; jj7 03:58 Body Mass Index 49.65 (143.79 kg, 170.18 cm) rv 03:58 Pain Scale: Adult rv 06:00 Pain Scale: Adult jj7 MDM: 04:51 Patient medically screened. sp4 06:19 Data reviewed: vital signs, nurses notes, EMS record, lab test result(s), radiologic sp4 studies, CT scan. ED course: COMPARISON: No relevant prior studies available. FINDINGS: Lung bases: Unremarkable. No mass. No consolidation. ABDOMEN: Liver: Unremarkable. No mass. Gallbladder and bile ducts: Gallbladder is surgically absent. No ductal dilation. Pancreas: Unremarkable. No mass. No ductal dilation. Spleen: Unremarkable. No splenomegaly. Adrenals: Unremarkable. No mass. Kidneys and ureters: Simple cyst in the left kidney. No follow-up imaging is recommended. No hydronephrosis. Stomach and bowel: There may be some mucosal thickening involving the sigmoid and left colon. No obstruction. PELVIS: Appendix: No findings to suggest acute appendicitis. Bladder: Unremarkable. Reproductive: 3.8 cm simple left ovarian cyst. No follow-up imaging is recommended. ABDOMEN and PELVIS: Intraperitoneal space: Unremarkable. No free air. No significant fluid collection. Bones/joints: No acute fracture. No dislocation. Soft tissues: Subcutaneous emphysema in the right abdominal wall which may be related to injection. Vasculature: Unremarkable. No abdominal aortic aneurysm. Lymph nodes: Unremarkable. No enlarged lymph nodes. IMPRESSION: 1. There may be some mucosal thickening involving the sigmoid and left colon. Correlate with any concern for colitis. 2. Gallbladder is surgically absent. 3. Additional non-emergent findings as above. . 06:21 Differential Diagnosis sepsis, flu, Post operative pain . Consideration of sp4 Admission/Observation Escalation of care including admission/observation considered. ED course: Stable for discharge home . 06/10 04:24 Order name: CBC with Diff; Complete Time: 05:18 sp4 06/10 04:24 Order name: CMP; Complete Time: 06:21 sp4 06/10 04:24 Order name: Lipase; Complete Time: 06:21 sp4 06/10 04:24 Order name: CT Abd/Pelvis - IV Contrast Only sp4 06/10 04:24 Order name: IV Saline Lock; Complete Time: 04:40 sp4 06/10 04:24 Order name: Labs collected and sent; Complete Time: 04:40 sp4 Administered Medications: 04:40 Drug: Famotidine IVP 20 mg IVP once; dilute with 10 mL 0.9% NaCl; give over 2 minutes jj7 Route: IVP; Site: right antecubital; 05:00 Follow up: Response: Marked relief of symptoms jj7 04:40 Drug: metoCLOPramide IVP 10 mg IVP once; over 1 to 2 minutes Route: IVP; Site: left jj7 antecubital; 05:00 Follow up: Response: Marked relief of symptoms jj7 04:41 Drug: morphine IVP or IV 4 mg IVP once over 4 mins Route: IVP; Infused Over: 4 mins; jj7 Site: right antecubital; 05:00 Follow up: Response: Marked relief of symptoms; Pain is decreased j7 04:41 Drug: Ketorolac IVP 30 mg IVP once Route: IVP; Site: right antecubital; jj7 05:00 Follow up: Response: Marked relief of symptoms 7 04:41 Drug: NS 0.9% IV 1000 ml IV at 1 bolus Per protocol; 1000 mL bolus Route: IV; Rate: 1 jj7 bolus; Site: right antecubital; 05:50 Follow up: IV Status: Completed infusion j 04:42 Drug: Ondansetron IVP 4 mg IVP once; over 2 minutes Route: IVP; Site: right antecubital;jj7 05:00 Follow up: Response: Marked relief of symptoms jj7 Disposition Summary: 06/10/23 06:23 Discharge Ordered Notes: Location: Home sp4 Problem: new sp4 Symptoms: have improved sp4 Condition: Stable sp4 Diagnosis - Upper abdominal pain, unspecified sp4 - Right flank pain, Post operative pain sp4 Followup: sp4 - With: Private Physician - When: 7 - 10 days - Reason: Recheck today's complaints Discharge Instructions: - Discharge Summary Sheet sp4 - Cholecystostomy, Care After sp4 Forms: - Patient Portal Instructions sp4 Signatures: Dispatcher [employer] Salty Dawkins RN RN rv Johnson, Juwairiyah, RN RN jj7 Rene Khan MD MD sp4
--- NOTE | 2023-06-10 06:23 | ER ---
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 denies urinary symptoms. Coronavirus screen: At this time, the client does not indicate any symptoms associated with coronavirus-19. Ebola Screen: No symptoms or risks identified at this time. Initial Sepsis Screen: Does the patient meet any 2 criteria? No. Patient's initial sepsis screen is negative. Does the patient have a suspected source of infection? No. Patient's initial sepsis screen is negative. Risk Assessment: Do you want to hurt yourself or someone else? Patient reports no desire to harm self or others. Onset of symptoms was June 10, 2023. 03:58 Method Of Arrival: EMS: [facility] rv 03:58 Acuity: DONNA 3 rv Triage Assessment: 04:00 General: Appears uncomfortable, Behavior is calm, cooperative. Pain: Complains of pain rv in right upper quadrant and right lower quadrant Pain radiates to right flank Pain currently is 10 out of 10 on a pain scale. Quality of pain is described as burning, stabbing. Neuro: Level of Consciousness is awake, alert, obeys commands, Oriented to person, place, time, situation. Cardiovascular: Capillary refill < 3 seconds Patient's skin is warm and dry. Respiratory: Airway is patent Respiratory effort is even, unlabored. GI: Abdomen is round non-distended, Reports lower abdominal pain, nausea, Pain is 10 out of 10 on a pain scale. vomiting. : No signs and/or symptoms were reported regarding the genitourinary system. Derm: Skin is intact. Historical: - Allergies: 04:00 Amoxicillin; rv 04:00 Clindamycin; rv - PMHx: 04:00 Anxiety; COPD; hypotension; Migraines; Thyroid problem; Vertigo; rv - PSHx: 04:00 section; Cholecystectomy; rv - Immunization history:: Adult Immunizations up to date. - Social history:: Smoking status: Patient reports the use of cigarette tobacco products, smokes one-half pack cigarettes per day. - Family history:: not pertinent. Screenin:02 [facility] ED Fall Risk Assessment (Adult) History of falling in the last 3 months, rv including since admission No falls in past 3 months (0 pts) Score/Fall Risk Level 0 - 2 = Low Risk Oriented to surroundings, Maintained a safe environment, Educated pt \T\ family on fall prevention, incl call for assistance when getting out of bed, Assessed \T\ reinforced patient's understanding of fall precautions. Abuse screen: Denies threats or abuse. Denies injuries from another. Nutritional screening: No deficits noted. Tuberculosis screening: No symptoms or risk factors identified. Assessment: 04:00 General: Appears in no apparent distress. comfortable, Behavior is calm, cooperative, jj7 appropriate for age. Pain: Complains of pain in right lower quadrant Pain currently is 10 out of 10 on a pain scale. Vital Signs: 03:58 BP 168 / 96; Pulse 74; Resp 17; Temp 97.6; Pulse Ox 99% ; Weight 143.79 kg; Height 5 rv ft. 7 in. ; Pain 10/10; 05:00 BP 165 / 91; Pulse 80; Resp 19; Pulse Ox 98% ; jj7 06:00 BP 149 / 89; Pulse 83; Resp 17; Pulse Ox 99% ; Pain 0/10; jj7 03:58 Body Mass Index 49.65 (143.79 kg, 170.18 cm) rv 03:58 Pain Scale: Adult rv 06:00 Pain Scale: Adult jj7 ED Course: 03:58 Patient arrived in ED. rv 04:00 Triage completed. rv 04:00 Patient has correct armband on for positive identification. Bed in low position. Call jj7 light in reach. Side rails up X2. Adult w/ patient. Pillow given. 04:01 Arm band placed on right wrist. rv 04:02 No provider procedures requiring assistance completed. rv 04:15 Rene Khan MD is Attending Physician. sp4 04:27 Inserted saline lock: 22 gauge in right antecubital area, using aseptic technique. ty Blood collected. Missed attempt(s): 20 gauge in left antecubital area. 04:40 CBC with Diff Sent. jj7 04:40 CMP Sent. jj7 04:40 Lipase Sent. jj7 05:50 CT Abd/Pelvis - IV Contrast Only In Process Unspecified. EDMS 06:28 IV discontinued, intact, bleeding controlled, No redness/swelling at site. Pressure jj7 dressing applied. Administered Medications: 04:40 Drug: Famotidine IVP 20 mg IVP once; dilute with 10 mL 0.9% NaCl; give over 2 minutes jj7 Route: IVP; Site: right antecubital; 05:00 Follow up: Response: Marked relief of symptoms jj7 04:40 Drug: metoCLOPramide IVP 10 mg IVP once; over 1 to 2 minutes Route: IVP; Site: left [facility] antecubital; 05:00 Follow up: Response: Marked relief of symptoms jj7 04:41 Drug: morphine IVP or IV 4 mg IVP once over 4 mins Route: IVP; Infused Over: 4 mins; jj7 Site: right antecubital; 05:00 Follow up: Response: Marked relief of symptoms; Pain is decreased jj7 04:41 Drug: Ketorolac IVP 30 mg IVP once Route: IVP; Site: right antecubital; jj7 05:00 Follow up: Response: Marked relief of symptoms jj7 04:41 Drug: NS 0.9% IV 1000 ml IV at 1 bolus Per protocol; 1000 mL bolus Route: IV; Rate: 1 jj7 bolus; Site: right antecubital; 05:50 Follow up: IV Status: Completed infusion jj7 04:42 Drug: Ondansetron IVP 4 mg IVP once; over 2 minutes Route: IVP; Site: right antecubital;jj7 05:00 Follow up: Response: Marked relief of symptoms jj7 Medication: 04:02 VIS not applicable for this client. rv Outcome: 06:23 Discharge ordered by MD. haro 06:28 Discharged to home ambulatory, jj7 06:28 Condition: improved 06:28 Discharge instructions given to patient, Instructed on discharge instructions, Demonstrated understanding of instructions, 06:44 Patient left the ED. 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 rv
[2023-06-10 07:06] VITALS: BP 149/89; TEMP 97.6; O2SAT 99
--- NOTE | 2023-06-10 12:11 | RAD REPORT ---
EXAM DESCRIPTION: CT - Abdomen Pelvis W Contrast - 06/10/2023 6:52 am CLINICAL HISTORY: The patient is 47 years old and is Female; ABD PAIN TECHNIQUE: Axial computed tomography images of the abdomen and pelvis with intravenous contrast. S agittal and coronal reformatted images were created and reviewed. This CT exam was performed using one or more of the following dose reduction techniques: automated exposure control, adjustment of t he mA and/or kV according to patient size, and/or use of iterative reconstruction technique. COMPARISON: No relevant prior studies available. FINDINGS: Lung bases: Unremarkable. No mass. No consolidation. ABDOMEN: Liver: Unremarkable. No mass. Gallbladder and bile ducts: Gallbladder is surgically absent. No ductal dilation. Pancreas: Unremarkable. No mass. No ductal dilation. Spleen: Unremarkable. No splenomegaly. Adrenals: Unremarkable. No mass. Kidneys and ureters: Simple cyst in the left kidney. No follow-up imaging is recommended. No hydronephrosis. Stomach and bowel: There may be some mucosal thickening involving the sigmoid and left colon. No obstruction. PELVIS: Appendix: No findings to suggest acute appendicitis. Bladder: Unremarkable. Reproductive: 3.8 cm simple left ovarian cyst. No follow-up imaging is recommended. ABDOMEN and PELVIS: Intraperitoneal space: Unremarkable. No free air. No significant fluid collection. Bones/joints: No acute fracture. No dislocation. Soft tissues: Subcutaneous emphysema in the right abdominal wall which may be related to injectio n. Vasculature: Unremarkable. No abdominal aortic aneurysm. Lymph nodes: Unremarkable. No enlarged lymph nodes. IMPRESSION: 1. There may be some mucosal thickening involving the sigmoid and left colon. Correl ate with any concern for colitis. 2. Gallbladder is surgically absent. 3. Additional non-emergent findings as above. Electronically signed by: hTang Blevins MD 06/10/2023 06:09 AM STATISTICAL MACHINE MECHANIC Due to temporary technical issues with the PACS/Fluency reporting system, reports are being signed by the in house radiologist without review as a courtesy to ensure prompt reporting. The interpreting r adiologist is fully responsible for the content of the report.
== END ==
LOC: ER 03:54
DX: G89.18 Other acute postprocedural pain (principal); Z90.49 Acquired absence of other specified parts of digestive tract; F17.210 Nicotine dependence, cigarettes, uncomplicated; Z88.1 Allergy status to other antibiotic agents; Z88.3 Allergy status to other anti-infective agents
CPT/HCPCS: 85025; 36415; 83690; 80053; 74177; Q9967; J2765; J2405; J7030

== ENCOUNTER 2023-09-02 19:57 | Emergency (ER) | payer OTHER ==
--- OUTSIDE RECORDS SUMMARY | 2023-09-02 20:04 | XMS REPORT | Continuity of Care Document ---
Author Name Unknown Address [address] [facility] [place] [address] [facility] Address [address] [facility] [place] [address] Care Team Providers Care Class B Driver Name Role Phone ALEIDA SHEEHAN Polo Primary Care Physician Unavaila WAYNE Martin Attending Clinician Unavailable NEIL COLON Attending Clinician Unavailable MICHAEL MONTELONGO Attending Clinician Unavaila nae QUIROGA MD Attending Clinician Unavailab MICHAEL Monroy Attending Clinician Unavaila CRISTIAN Talbert Attending Clinician Unavailable VIET DOLL Attending Clinician Unavailable VIET DOLL Attending Clinician Unavailable Viet Doll DO Attending Clinician [phone] OSIEL PARIKH Attending Clinician Unavaila [place] Attending Clinician [phone] STAR MEADOWS Attending Clinician Unavailable Tayla Schmidt MD Attending Clinician [phone] TAYLA SCHMIDT Attending Clinician UnavailJAYLEEN Patel Attending Clinician Unavailab Jayleen Parker Attending Clinician Doctor Unassigned, [place] Attending Clinician U dev KRISS SHERIDAN Attending Clinician Unavail able Elisa Venegas Attending Clinician + [phone] ELISA LAGUNAS Attending Clinician Unavailab KAYLEN Alba Attending Clinician UnavailVIET Eubanks Admitting Clinician Unavailable JAYLEEN CAMEJO Admitting Clinician Unavailab ELISA Chaney Admitting Clinician Unavailab le Payers Payer Name Policy Type Policy Number Effective Date Expirati on Date Source [place] [facility] [id number] 00:00:00 [employer] MP [employer] MAIL [employer] 94 ON 9 [id number] 2023 00:00:00 [employer] 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 [id number] 2023 00:00:00 [place] [id number] 2022 00:00:00 MED[place] [id number] 2021 00:00:00 Problems Condition Name Condition Details Condition Category Status Onset Date Resolution Date Last Treatment Date Treating Clinician Comments Source History of bilateral ligation of fallopian tubes History of bilateral ligation of fallopian tubes Disease Active 07-31 00:00: 00 [facility] BMI 45.0-49.9, adult BMI 45.0-49.9, adult Disease Active 07-31 00:00: 00 [facility] Screening examinatio n for STD (sexually transmitte d disease) Screening examinatio n for STD (sexually transmitte d disease) Disease Active 09-15 00:00: 00 [facility] Class 3 severe obesity due to excess calories with body mass index (BMI) of 45.0 to 49.9 in adult, unspecifie d whether serious comorbidit y present Class 3 severe obesity due to excess calories with body mass index (BMI) of 45.0 to 49.9 in adult, unspecifie d whether serious comorbidit y present Disease Active 2015-04 00:00: 00 [facility] Allergies, Adverse Reactions, Alerts Allergy Name Allergy Type Status Severity Reaction(s) Onset Date Inactive Date Treating Clinician Comments Source AMOXICIL STEPHANIE DRUG INGREDI Active Hives 4 00:00: 00 [facility] CLINDAMY SHE DRUG INGREDI Active Hives 4 00:00: 00 [facility] Amoxicil stephanie Propensi ty to adverse reaction s Active Hives 4- 00:00: 00 [facility] Clindamy she Propensi ty to adverse reaction s Active Hives 4 00:00: 00 [facility] Social History Social Habit Start Date Stop Date Quantity Comments Source [facility] of tobacco use Cigarette Smoker [facility] History SDOH Alcohol Frequency [facility] History SDOH Alcohol Std Drinks [facility] History SDOH Alcohol Binge [facility] Alcohol intake 2023-05-20 00:00:00 2023-05-20 00:00:00 Current drinker of alcohol (finding) [facility] Exposure to SARS-CoV-2 (event) 2022-01-17 00:00:00 2022-01-27 14:37:00 Not sure [facility] History of Social function 2021-12-20 00:00:00 2021-12-20 00:00:00 [facility] Tobacco use and exposure 2021-12-20 00:00:00 2021-12-20 00:00:00 Smokeless tobacco non-user [facility] Tobacco Comment 2021-12-20 00:00:00 2021-12-20 00:00:00 5 cigarettes a day [facility] Alcohol Comment 2018-09-15 00:00:00 2018-09-15 00:00:00 occasional [facility] Sex Assigned At 1975 00:00:00 1975 00:00:00 [facility] Smoking Status Start Date Stop Date Source Smokes tobacco daily 2021-12-20 00:00:00 [facility] Medications Ordered Medication Name Filled Medication Name Start Date Stop Date Current Medication? Ordering Clinician Indication Dosage Frequency Signature (SIG) Comments Components Source morpHINE (2 mg/mL) injection 4 mg 05-21 04:45: 00 05-21 04:56 :00 No 4mg 4 mg, Slow IV Push, ONCE, 1 dose, On Thu05/20/23 at 2245, STAT [facility] iopamidol (ISOVUE 370-500 mL) injection 100 mL 05-21 02:00: 00 05-21 00:54 :00 No [id number] 100mL 100 mL, Intravenou s, ONCE, 1 dose, On Thu05/20/23 at 2000, Routine [facility] NaCl 0.9% (NS) bolus infusion 1,000 mL 05-21 00:45: 00 05-21 04:30 :00 No 1000mL at 999 mL/hr, 1,000 mL, IV Infusion, ONCE, 1 dose, On Thu05/20/23 at 1845, KAYLIN [facility] morpHINE (2 mg/mL) injection 4 mg 05-21 00:15: 00 05-21 00:22 :00 No 4mg 4 mg, Slow IV Push, ONCE, 1 dose, On Thu05/20/23 at 1815, STAT [facility] ondansetron (ZOFRAN (PF)) injection 4 mg 05-21 00:00: 00 05-21 00:19 :00 No 4mg 4 mg, Slow IV Push, ONCE, 1 dose, On Thu05/20/23 at 1800, KAYLIN [facility] ibuprofen 600 mg tablet 05-20 00:00: 00 Yes [id number] 600mg Take 1 tablet by mouth every 6 (six) hours as needed for Pain (scale 4-6). [facility] ondansetron (ZOFRAN) 4 mg tablet 05-20 00:00: 00 Yes [id number] 4mg Take 1 tablet by mouth every 6 (six) hours as needed for Nausea and Vomiting (N/V). [facility] HYDROcodone -acetaminop hen 5-325 mg tablet 05-20 00:00: 00 05-28 05:59 :00 No [id number] 1{tbl} Take 1 tablet by mouth every 4 (four) hours as needed for Pain (scale 1-3) for up to 7 days. Indication s: acute pain [facility] levothyroxi ne 175 mcg tablet 01-17 00:00: 00 Yes [facility] No known medications 12-27 10:00: 11 No No known medication s [facility] buPROPion SR 150 mg SR tablet 12-20 00:00: 00 Yes [facility] ibuprofen 800 mg tablet 11-19 00:00: 00 Yes 800mg Take 800 mg by mouth every 6 (six) hours as needed. [facility] Vital Signs Vital Name Observation Time Observation Value Comments S ource Systolic blood pressure 2023-05-21 05:11:00 136 mm[Hg] [facility] Diastolic blood pressure 2023-05-21 05:11:00 93 mm[Hg] [facility] Heart rate 2023-05-21 05:11:00 87 /min [facility] Respiratory rate 2023-05-21 05:11:00 18 /min [facility] Oxygen saturation in Arterial blood by Pulse oximetry 2023-05-21 05:11:00 99 /min [facility] Body temperature 2023-05-20 23:47:00 36.78 Veena [facility] Body weight 2023-05-20 23:47:00 142.883 kg [facility] BMI 2023-05-20 23:47:00 49.34 kg/m2 [facility] Body height 2022-01-27 19:50:00 170.2 cm [facility] Body weight 2022-01-27 19:50:00 137.44 kg [facility] BMI 2022-01-27 19:50:00 47.46 kg/m2 [facility] Systolic blood pressure 2021-12-27 14:59:00 132 mm[Hg] [facility] Diastolic blood pressure 2021-12-27 14:59:00 85 mm[Hg] [facility] f [facility] Heart rate 2021-12-27 14:59:00 92 /min [facility] Body height 2021-12-27 14:59:00 170.2 cm [facility] Body weight 2021-12-27 14:59:00 137.44 kg [facility] BMI 2021-12-27 14:59:00 47.46 kg/m2 [facility] Procedures Procedure Date / Time Performed Performing Clinicia n Source HEPATIC FUNCTION PANEL (58647) (ALB,T.PRO,BILI T,BU/BC,ALT,AST,ALK PHOS) 2023-05-21 01:23:00 [facility] BASIC METABOLIC PANEL (NA, K, CL, CO2, GLUCOSE, BUN, CREATININE, CA) 2023-05-21 01:23:00 Lavon [facility] CBC WITH DIFF 2023-05-21 01:23:00 [facility] POCT TEST 2023-05-21 00:23:00 [facility] LIPASE 2023-05-21 00:13:00 [facility] URINALYSIS 2023-05-21 00:13:00 [facility] CONSENT/REFUSAL FOR DIAGNOSIS AND TREATMENT 2023-05-20 23:37:52 Doctor Unassigned, Hettick [facility] Encounters Start Date/Time End Date/Time Encounter Type Admission Type Attending Clinicians Care Facility Care Department Encounter ID Source 2021-02-17 09:49:[address] [facility] [id number] [facility] 2021-02-15 17:30:[address] [facility] [id number] [facility] 2023-08-03 16:15:00 2023-08-03 16:15:00 Outpatient WAYNE FONG [id number] Radha Tsai 2023-07-08 00:00:00 2023-07-08 00:00:00 Outpatient MICHAEL MONTELONGO [facility] [id number] [facility]-23 14:45:00 2023-06-23 14:45:00 Outpatient MICHAEL MONTELONGO [facility] AND[facility] [id number] [facility] 2023-06-23 00:00:00 2023-06-23 00:00:00 Outpatient MICHAEL MONTELONGO RADHA ANDERSON [id number] [facility] 2023-06-22 00:00:00 2023-06-22 00:00:00 Outpatient MD RADHA HOWARD [id number] [facility] 2023-06-05 07:18:00 2023-06-05 13:43:00 Outpatient MICHAEL MONTELONGO [facility] BRIANNA [id number] [facility] 2023-06-05 07:30:00 2023-06-05 07:30:00 Outpatient MICHAEL MONTELONGO [facility] [id number] [facility] 2023-06-05 00:00:00 2023-06-05 00:00:00 Outpatient MICHAEL MONTELONGO RAD[facility] ANDERSON [id number] [facility] 2023-06-05 00:00:00 2023-06-05 00:00:00 Outpatient MICHAEL MONTELONGO RADHA ANDERSON [id number] [facility] 2023-06-04 11:15:00 2023-06-04 11:15:00 Outpatient RADHA ANDERSON [id number] [facility] 2023-06-04 11:10:00 2023-06-04 11:10:00 Outpatient RADHA ANDERSON [id number] [facility] 2023-06-04 00:00:00 2023-06-04 00:00:00 Outpatient MARY JO MONTELONGORenu ANDERSON [id number] Radha Seybold 2023-06-04 00:00:00 2023-06-04 00:00:00 Outpatient MICHAEL MONTELONGO RADHA ANDERSON [id number] [facility] 2023-06-01 00:00:00 2023-06-01 00:00:00 Outpatient MD RADHA HOWARD [id number] Radha Tsai 2023-05-26 11:40:00 2023-05-26 11:40:00 Outpatient RADHA ANDERSON [id number] Radha Tsai 2023-05-26 11:25:00 2023-05-26 11:25:00 Outpatient RADHA ANDERSON [id number] Radha Tsai 2023-05-26 09:45:00 2023-05-26 09:45:00 Outpatient MICHAEL MONTELONGO [id number] Radha Umanzorlynette 2023-05-26 00:00:00 2023-05-26 00:00:00 Outpatient MICHAEL MONTELONGO [id number] Radha Tsai 2023-05-25 10:00:00 2023-05-25 10:00:00 Outpatient CRISTIAN QUINTERO [facility] [id number] [facility] 2023-05-20 17:47:00 2023-05-20 23:16:00 Emergency X LAVON, [facility] ERT [id number] [facility] 2023-05-20 17:47:00 2023-05-20 23:16:00 Emergency [facility] 1..840.114 350.1.13.10 4.2.7.2.686 [id number] [facility] 2023-01-27 13:30:00 2023-01-27 13:30:[address] P[address]AN [facility] [id number] [facility] 2022-01-29 00:00:00 2022-01-29 00:00:00 [facility] 1..840.114 350.1.13.10 4.2.7.2.686 [id number] [facility] 2022-01-27 15:00:00 2022-01-27 15:15:00 Office Visit [facility] 1.2.840.114 350.1.13.10 4.2.7.2.686 [id number] [facility] 2022-01-27 14:50:00 2022-01-27 15:09:00 Outpatient Wanda MEADOWS STAR [facility] [id number] [facility] 2021-12-27 10:02:59 2021-12-27 23:59:00 Outpatient R DORI STAR [facility] [id number] [facility] 2021-12-27 10:00:00 2021-12-27 10:15:00 Office Visit [facility] 1.2.840.114 350.1.13.10 4.2.7.2.686 [id number] [facility] 2021-12-27 10:02:59 2021-12-27 10:02:59 Outpatient R DORI STAR [facility] [id number] [facility] 2021-12-20 10:15:00 2021-12-20 10:30:00 Office Visit [place] StarTayla Tobar [facility] 1.2.840.114 350.1.13.10 4.2.7.2.686 [id number] [facility] 2021-12-20 10:15:00 2021-12-20 10:15:00 Outpatient R TAYLA SCHMIDT [facility] [id number] [facility] 2021-12-16 18:20:00 2021-12-16 20:24:00 Emergency X JAYLEEN CAMEJO [facility] ERT [id number] [facility] 2021-12-16 18:20:00 2021-12-16 20:24:00 Emergency Jayleen Camejo [facility] 1.2.840.114 350.1.13.10 4.2.7.2.686 [id number] [facility] 2021-12-16 18:20:00 2021-12-16 20:24:00 Emergency X [facility]LEEN [facility] [id number] [facility] 2021-10-15 15:00:00 2021-10-15 15:00:00 Outpatient Wanda MEADOWS [facility] [id number] [facility] 2021-10-03 15:15:00 2021-10-03 15:15:00 Outpatient Wanda MEADOWS [facility] [id number] [facility] 2021-09-26 15:00:00 2021-09-26 15:00:00 Outpatient STAR CARSON [facility] [id number] [facility] 2021-09-04 00:00:00 2021-09-04 00:00:00 Orders Only Doctor Unassigned, [place]ettick [facility] 1.2.840.114 350.1.13.10 4.2.7.2.686 [id number] [facility] 2021-08-22 15:50:00 2021-08-22 23:59:00 Outpatient STAR CARSON [facility] [id number] [facility] 2021-08-22 15:00:00 2021-08-22 15:30:00 [facility] Visit [place] [facility] 1.2.840.114 350.1.13.10 4.2.7.2.686 [id number] [facility] 2021-08-22 15:00:00 2021-08-22 15:00:00 Outpatient STAR CARSON [facility] [id number] [facility] 2021-08-22 00:00:00 2021-08-22 00:00:00 Orders Only Doctor Unassigned, Hettick [facility] 1..840.114 350.1.13.10 4.2.7.2.686 [id number] [facility] 2021-06-12 15:00:00 2021-06-12 15:00:00 Outpatient R KRISS SHERIDAN [facility] [id number] [facility] 2021-05-17 09:15:00 2021-05-17 09:15:00 Outpatient R KRISS SHERIDAN [facility] [id number] [facility] 2020-08-20 06:56:46 2020-08-20 23:59:00 [facility] Elisa España [facility] 1..840.114 350.1.13.10 4.2.7.2.686 [id number] 2020-08-20 06:56:46 2020-08-20 23:59:00 Outpatient ELISA BRAGA [facility] [id number] [facility] 2020-08-20 00:00:00 2020-08-20 00:00:00 Outpatient R ELISA LAGUNAS [facility] [id number] [facility] 2020-07-31 15:57:09 2020-07-31 16:21:23 Office Visit Elisa Lagunas [facility] ..840.114 350.1.13.10 4.2.7.2.686 [id number] 2020-07-31 15:45:00 2020-07-31 15:45:00 Outpatient R ELISA LAGUNAS [facility] [id number] [facility] 2020-07-31 14:45:00 2020-07-31 14:45:[address]OB [facility] [id number] [facility] 2020-05-29 07:45:00 2020-05-29 07:45:00 Outpatient ELISA BRAGA [facility] [id number] [facility] 2020-05-25 10:15:00 2020-05-25 10:15:00 Out[address] KRISS LOUIE [facility] [id number] [facility] 2020-01-04 14:00:00 2020-01-04 14:00:00 Outpatient ELISA BRAGA [facility] [id number] [facility] Results Test Description Test Time Test Comments Results Result Co mments Source [facility]54721[facility] (ALB,T.PRO,BILI T,BU/BC,ALT,AST,ALK PHOS)2023-05-21 01:41:06* Test Item Value Reference Range Interpretation Comme nts TOTAL BILI (test code = 2325797310) 0.4 mg/dL 0.1-1.1 BILI UNCON (test code = 9908895118) 0.2 mg/dL 0.1-1.1 BILI CONJ (test code = 4762536667) 0.0 mg/dL 0.0-0.3 T PROTEIN (test code = 1712873279) 6.8 g/dL 6.3-8.2 ALBUMIN (test code = 7952027405) 3.4 g/dL 3.5-5.0 L ALK PHOS (test code = 2984609286) 84 U/L 34-122 ALTv (test code = 1742-6) 13 U/L 5-35 AST(SGOT) (test code = 9514151262) 21 U/L 13-40 Lab Interpretation (test cod e = 42780-1) [facility]normal [facility] [id number] 01:37:09* Test Item Value Reference Range Interpretation [...] 33.1 g/dL 31.6-35.1 RDW-SD (test code = 83510-3) 43.9 fL 39.0-49.9 RDW-CV (test code = 788-0) 13.4 % 12.0-15.5 PLT (test code = 777-3) 261 166-358 MPV (test code = 75575-0) 10.2 fL 9.5-12.9 NRBC/100 WBC (test code = 8850194593) 0.0 0.0-10.0 NRBC x10^3 (test code = 9732538941) See_Comment [Automated messa ge] The system which generated this result transmitted reference range: 10*3/?L. The reference range was not used to interpret this result as normal/abnormal. GRAN MAT (NEUT) % (test code = 770-8) 47.2 % IMM GRAN % (test code = 3742569312) 0.00 % LYMPH % (test code = 736-9) 42.2 % MONO % (test code = 5905-5) 6.9 % EOS % (test code = 713-8) 3.1 % BASO % (test code = 706-2) 0.6 % GRAN MAT x10^3(ANC) (test code = 5541728979) 2.55 10*3/uL 1.88-7.09 IMM GRAN x10^3 (test code = 2027111327) 0.00-0.06 LYMPH x10^3 (test code = 731-0) 2.28 10*3/uL 1.32-3.29 MONO x10^3 (test code = 742-7) 0.37 10*3/uL 0.33-0.92 EOS x10^3 (test code = 711-2) 0.17 10*3/uL 0.03-0.39 BASO x10^3 (test code = 704-7) 0.03 10*3/uL 0.01-0.07 Lab Interpretation (test code = 10471-7) [facility]normal [facility]35:00* Test Item Value Reference Range Interpretation Comme nts LIPASE (test code = 7218558107) 94 U/L 0-220 Lab Interpretation (test cod e = 27611-4) Normal [facility] [id number] 00:23:00* Test Item Value Reference Range Interpretation Comme nts POCT PREG (test code = 1605) Negative On board controls acceptable with C Line (test code = 3574) Yes POCT PREG LOT # (test code = 3575) [id number] POCT PREG TEST DATE ( test code = 3576) 07/26/2024 Lab Interpretation (test cod e = 77979-1) Normal [facility] Notes Date/Time Note Provider Source 2023-05-20 23:14:19 R76pHH/uragKu8v8K7IoRGdnxbZzQp0ZrV9 tgP1DsmCOR4NutzB9CakBNhqAeoXZ8302-0 3:14:19 RN and pt reviewed DC instructions. Pt verbalized understanding. Pt advised to follow up with PCP and given number for follow ups. Patient denied any remaining belongings in the ED. Pt wheeled to lobby by ED RN, daughter to picker/puller and drive pt home. NAD noted upon departure. 81897-2Crpuyvmsj department HcftYR3761-97-66D10:16:34[facility] NoteTXT1.2.840.334945.1.13.104.2.7. 2.975390|[id number] for patient mnyp61393-6FcvpFPNGJYJTDOIZbfgvcenl C-CDA narrative [id number] M Scott RNUTF[facility] [address] Vb[id number] 5QLHXPCVNFJKPWIQQUIJDYJ2937-28-01D7 3:16:341.2.840.333577.1.72.3.15|1.2 .840.608130.1.13.104.2.7.2.727879_2 [id number] Verenice Malik RN [facility] 2023-05-20 22:46:22 th8Vq6jGG9pgn3adYp8gxl5rFdBg4EOwiOO at/O8la2rGpftArwRBaNLe2CGAwRP1410-5 05-20T22:46:22 ED faculty at bedside 23335-5Nmasmrgsi department DicjLD3944-69-27C76:46:33[facility] NoteTXT1.2.840.201274.1.13.104.2.7. 2.169359|[id number] for patient rsfe75883-9QgpfPDNQPJMWXHLHvitxsgbk C-CDA narrative xpck552341984Nooxrzq Villarreal RN[address] Le[id number] 4RLAVQTPZQBGXTWNTVERZHZ8130-84-34X0 2:46:331.2.840.038705.1.72.3.15|1.2 .840.706652.1.13.104.2.7.2.727879_2 [id number] Sharon John RN [facility] 2023-05-20 20:14:46 McN2ZbyqRw9ZXcuPbgw4Utuh8wG6hFyuP0s uF5osKqcYs8dri7yUknOnEVx1h1WD3039-6 05-20T20:14:46 Patient to ultrasound in NAD 31748-1Herrcjkqb department VngbZW8632-72-97N00:14:54[facility] NoteTXT1.2.840.731439.1.13.104.2.7. 2.356581|[id number] for patient dpvk73147-0NvnsNAIYLIUVNSGDzfmthqau C-CDA narrative [id number] R Robinson RNUT[id number] 2FEYHLFWLRKUMGAEUGTAAUQ1666-06-63M9 0:14:541.2.840.437903.1.72.3.15|1.2 .840.752506.1.13.104.2.7.2.727879_2 [id number] Mary Valdez RN [facility] 2023-05-20 19:42:22 0eOORP4BN+ixV52asg5CeCxPaJoqjjTFijm YxMa1pHS4ndurlBwWIHcO50v/+f9i6073-7 05-20T19:42:22 Pt ambulatory to the restroom at this time. 38189-2Ugzjgbwoq department JpitTA0092-32-93C97:42:47Emergency department NoteTXT1.2.840.089094.1.13.104.2.7. 2.661093|[id number] for patient hase04717-3BrpxIPTLEADTBOTZemomefth C-CDA narrative textUT[id number] 1IDPQGXPXZUPPICBSXOJZDQ9912-13-63T0 9:42:471.2.840.198705.1.72.3.15|1.2 .840.274406.1.13.104.2.7.2.727879_2 [id number] [facility] 2023-05-20 19:23:00 XVI+qU/7vAP8HQRRUMmahJ1VTJGus/W8LaP Q4J0CVubi7Xm0+2X+WWgid/Of3emp3674-7 9:23:00 Specimens collected at this time, will notify that pt is ready for transport to imaging. 80607-4Eokijiwen department IgwiJQ8339-38-57C93:32:04[facility] NoteTXT1.2.840.163306.1.13.104.2.7. 2.782243|[id number] for patient wvoa00650-5KdpzPHJNMCOVIFCOmgejylif C-CDA narrative text[address] Xd[id number] 3PJUTGYJINSLSCVERZYXJKG1740-48-92P7 9:32:041.2.840.465013.1.72.3.15|1.2 .840.064933.1.13.104.2.7.2.727879_2 [id number] [facility] 2023-05-20 19:00:00 1l1z0vXxGvVq+Hu4TzmdXZwxevqCjJBapbr ZiojG808nwwbBHpZk2qus2f0MSNWe2071-7 9:00:00 Report received from SOLITARIO Chambers. Rns discussed plan of care and further recommendations.Introduced self to pt. Pt alert and oriented x4, RR even and unlabored, skin warm and dry, appropriate for color.Pt reports pain remains the same, pt pending blood work and US scan at this time. 80161-6Jkrvodmrv department LuumKN1641-08-46D64:31:25[facility] NoteTXT1.2.840.435507.1.13.104.2.7. 2.129739|[id number] for patient vcfu06223-2HvzeKWDECKTRMXJWepcynowh C-CDA narrative text[id number] 2EFPQIVUUXGLJZNITZKBKRO3638-39-72K7 9:31:251.2.840.841071.1.72.3.15|1.2 .840.495775.1.13.104.2.7.2.727879_2 [id number] [facility] 2023-05-20 18:46:54 AyJnXthZaIBsQJ26fCSrXhx8+D7n3Y3KpXV bqra9sXmPucQB6A4RndW0aBKmTQT10015-7 8:46:54 Pt sent to [facility] called to tell me they need a recollect. 34126-5Dgjqr AsoyFZ2753-33-25Q09:47:23Nurse NoteTXT1.2.840.279445.1.13.104.2.7. 2.297853|[id number] for patient cqda16990-2BvkwUZGWNJJKOZFBbqstskex C-CDA narrative [id number] K Bartels RNUT[id number] 3SHVVCXNNNODWHBMHSYAIMT5734-38-23T9 8:47:231.2.840.706995.1.72.3.15|1.2 .840.001459.1.13.104.2.7.2.727879_2 [id number] Trish Vizcaino RN [facility] 2023-05-20 17:44:02 Tonigc4NJQ3Vacmq/pkX/PNqz/YCzJCbWV3 EfElOouFAoYTFWzAZZaQ5cAVOvqqf3164-1 7:44:02 Kaylen Escudero is a 47 year old female Patient arrives via personal means with complaint of abdominal pain X 5 days N/V/D and frequent urination. Went to ED and was diagnosed with cyst on ovaries and gallstones. Pt reports she was told "seek further treatment. Patient is alert and oriented times X4, even and unlabored respiration. Roomed for further evaluation. 35106-8Qmqedldwh department Triage wtkmLR2857-26-46M30:47:18[facility] Triage [id number]. [id number] for patient [id number] department NoteLNNARRATIVEFormatted C-CDA narrative [id number] H Wark RN[address] Ja[id number] 7:47:181.2.840.603657.1.72.3.15|1.2 .[id number]_2 [id number] Dori Hall RN [facility] 2023-05-20 17:37:00 91Obt+NVRfurrp9OZyBtY+qMYpjqBLDEu2Y j/leDWDpH5rcfFe9PmuJ6bD3K97bP5309-5 7:37:00 Patient is feeling better.Ok to go [...] 8.5 (L) 8.6 - 10.6 mg/dLeGFR 108.6 mL/min/1.93i9SQSUMYN FUNCTION PANEL (28013) (ALB,T.PRO,BILI T,BU/BC,ALT,AST,ALK PHOS)Collection Time: 05/20/23 7:23 PMResult [...] main portal vein was evaluated with color Doppler.Chemical Waste Management Technician images were obtained for the record.COMPARISON: CT [...] main portal vein was evaluated with color Doppler.Chemical Waste Management Technician images were obtained for the record.COMPARISON: CT [...] Bill HutchisonbDx: Gallstones, biliary colic.Left ovarian cyst.CECILY Galvan PhysicianRTI Billing ID #[id number] DO05/20/239 [id number] Emergency department [id number]:38:41Physician Emergency department [id number]. [id number] for patient [id number] department NoteLNNARRATIVEFormatted C-CDA narrative text[address] [id number] 2:38:[id number]|1.2 .[id number] [facility]
[2023-09-02] MEDS ORDERED: ONDANSETRON 4 MG/2 ML VIAL ONE (20:26)
[2023-09-02 20:51] LABS: Absolute Eosinophils 0.3 K/uL (0-0.5); Absolute Lymphocytes (CBC) 2.4 K/uL (0.7-4.9); Absolute Monocytes 0.3 K/uL (0.1-1.3); Absolute Neutrophil 3.2 K/uL (1.8-8.0); Basophils % 0.7 % (0-1.3); Eosinophils % 4.8 % (0-4.4); Hematocrit 36.9 % (36.0-45.0); Hemoglobin 12.2 g/dL (12.0-15.0); Lymphocytes % 39.1 % (15.3-44.8); MCHC 32.9 g/dL (32.0-36.0); MCV 88.2 fL (80-100); Monocytes % 5.1 % (3.3-12.3); Neutrophils % 50.3 % (41.7-73.7); Nucleated Red Blood Cells % 0.4 % (0-0); Platelets 346 thou/uL (152-406); RBC Red Blood Cell Count 4.19 M/uL (3.86-4.86); Red Cell Distribution Width 14.5 % (12.1-15.2)
[2023-09-02 21:28] LABS: Albumin 3.2 g/dL (3.4-5.0); Albumin/Globulin Ratio 0.6 (1.1-1.8); Bilirubin Total 0.3 mg/dL (0.2-1.0); Protein, Total 8.2 g/dL (6.4-8.2)
--- NOTE | 2023-09-02 21:52 | ER ---
Nurse's Notes [facility] Name: Kaylen Benson Age: 48 yrs Sex: Female : 1975 Arrival Date: 09/02/2023 Time: 19:57 Bed 17 Private MD: Diagnosis: Nausea and vomiting;Diarrhea;Candidiasis;Lymphadenopathy Presentation: 09/01 20:10 Chief complaint: Patient states: n/v/d and a bump on the back of her head. Coronavirus as6 screen: At this time, the client does not indicate any symptoms associated with coronavirus-19. Ebola Screen: No symptoms or risks identified at this time. Initial Sepsis Screen: Does the patient meet any 2 criteria? No. Patient's initial sepsis screen is negative. Does the patient have a suspected source of infection? No. Patient's initial sepsis screen is negative. Risk Assessment: Do you want to hurt yourself or someone else? Patient reports no desire to harm self or others. Onset of symptoms was August 30, 2023. 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 - Infectious Disease History:: Denies. - Social history:: Smoking status: Patient reports the use of cigarette tobacco products, smokes one-half pack cigarettes per day. - Family history:: not pertinent. Screenin:15 [facility] ED Fall Risk Assessment (Adult) History of falling in the last 3 months, jw7 including since admission No falls in past 3 months (0 pts) Confusion or Disorientation No (0 pts) Intoxicated or Sedated No (0 pts) Impaired Gait No (0 pts) Mobility Assist Device Used No (0 pt) Altered Elimination No (0 pt) Score/Fall Risk Level 0 - 2 = Low Risk Oriented to surroundings, Maintained a safe environment, Educated pt \T\ family on fall prevention, incl call for assistance when getting out of bed. Abuse screen: Denies threats or abuse. Denies injuries from another. Nutritional screening: No deficits noted. Tuberculosis screening: No symptoms or risk factors identified. Assessment: 20:20 General: Appears in no apparent distress. comfortable, Behavior is calm, cooperative, jw7 appropriate for age. Pain: Complains of pain in abdomen Pain does not radiate. Pain currently is 1 out of 10 on a pain scale. Quality of pain is described as crampy, Pain began 2-3 days ago. Is intermittent. Neuro: Level of Consciousness is awake, alert, obeys commands, Oriented to person, place, time, situation. Cardiovascular: Heart tones S1 S2 present Capillary refill < 3 seconds Clubbing of nail beds is absent JVD is absent Patient's skin is warm and dry. Respiratory: Airway is patent Trachea midline Respiratory effort is even, unlabored, Respiratory pattern is regular, symmetrical, Breath sounds are clear bilaterally. GI: Abdomen is round non-distended, obese, Bowel sounds present X 4 quads. Abd is soft and non tender X 4 quads. : No deficits noted. No signs and/or symptoms were reported regarding the genitourinary system. EENT: No deficits noted. No signs and/or symptoms were reported regarding the EENT system. Derm: Skin is intact, is healthy with good turgor, Skin is dry, Skin is normal, Skin temperature is warm. Musculoskeletal: Circulation, motion, and sensation intact. Range of motion: intact in all extremities. 21:30 Reassessment: Patient appears in no apparent distress at this time. Patient and/or jw7 family updated on plan of care and expected duration. Pain level reassessed. Patient is alert, oriented x 3, equal unlabored respirations, skin warm/dry/pink. Patient states symptoms have improved. 22:00 Reassessment: Patient appears in no apparent distress at this time. No changes from jw7 previously documented assessment. Patient and/or family updated on plan of care and expected duration. Pain level reassessed. Patient is alert, oriented x 3, equal unlabored respirations, skin warm/dry/pink. Vital Signs: 20:10 BP 141 / 88; Pulse 93; Resp 18 S; Temp 97.7(TE); Pulse Ox 98% on R/A; Weight 142.88 kg as6 (R); Height 5 ft. 7 in. (R); Pain 7/10; 20:20 BP 136 / 91; Pulse 95; Resp 17 S; Pulse Ox 97% on R/A; jw7 21:30 BP 137 / 80; Pulse 82; Resp 17 S; Pulse Ox 98% on R/A; jw7 20:10 Body Mass Index 49.34 (142.88 kg, 170.18 cm) as6 20:10 Pain Scale: Adult as6 ED Course: 20:00 Patient arrived in ED. ra3 20:00 Abhishek Black MD is Attending Physician. rt 20:11 Triage completed. as6 20:12 Arm band placed on. as6 20:15 Patient has correct armband on for positive identification. Bed in low position. Call jw7 light in reach. Provided Education on: Use of Call Light. 20:19 Almaz Vizcarra RN is Primary Nurse. jw7 20:35 Initial lab(s) drawn, by fl, sent to lab. Inserted saline lock: 20 gauge in left jw7 antecubital area, using aseptic technique. Blood collected. 20:37 Lipase Sent. jw7 20:37 CMP Sent. jw7 20:37 CBC with Diff Sent. jw7 20:53 Lipase Sent. vk 20:53 CMP Sent. vk 20:53 CBC with Diff Sent. vk 22:00 No provider procedures requiring assistance completed. IV discontinued, intact, jw7 bleeding controlled, No redness/swelling at site. Pressure dressing applied. Administered Medications: 20:37 Drug: Ondansetron IVP 4 mg IVP once; over 2 minutes Route: IVP; Site: left antecubital; jw7 22:28 Follow up: Response: No adverse reaction; Marked relief of symptoms; Nausea is decreasedjw7 Medication: 22:28 VIS not applicable for this client. jw7 Outcome: 21:51 Discharge ordered by . rt 22:00 Discharged to home ambulatory, jw7 22:00 Condition: stable 22:00 Discharge instructions given to patient, Instructed on discharge instructions, follow up and referral plans. medication usage, Demonstrated understanding of instructions, follow-up care, medications, Prescriptions given X 2, 22:10 Patient left the ED. jw7 Signatures: Quan Buckley RN RN as6 Almaz Vizcarra RN RN jw7 Abhsihek Black MD MD rt Sandy Torres ra3 Florencia Norton vk Corrections: (The following items were deleted from the chart) : 22:00 Discharge instructions given to patient, Instructed on discharge instructions, jw7 follow up and referral plans. medication usage, Demonstrated understanding of instructions, follow-up care, medications, jw7 22: 22:29 Patient left the ED. jw7 jw7
--- NOTE | 2023-09-02 21:52 | EDPHYS ---
Physician Documentation [facility] Name: Kaylen Benson Age: 48 yrs Sex: Female : 1975 Arrival Date: 09/02/2023 Time: 19:57 Bed 17 Private MD: ED Physician Abhishek Black HPI: 09/01 22:23 This 48 yrs old Female presents to ER via Ambulatory with complaints of Diarrhea - rt x2days, Abscess - on head. 22:23 Patient presents to the ED with multiple complaints. States that she has a lump on the rt back of her neck for about 1 week. Started become somewhat painful today. Also developed nausea, vomiting, diarrhea starting today. Also reports having a rash to the pannus of the abdomen and at the back of the knee. Denies other acute complaints at this time including abdominal pain. Symptoms are moderate in severity, no other aggravating or alleviating factors.. 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 - Infectious Disease History:: Denies. - Social history:: Smoking status: Patient reports the use of cigarette tobacco products, smokes one-half pack cigarettes per day. - Family history:: not pertinent. ROS: 22:23 Constitutional: Negative for fever, chills, and weight loss, Cardiovascular: Negative rt for chest pain, palpitations, and edema, Respiratory: Negative for shortness of breath, cough, wheezing, and pleuritic chest pain, MS/Extremity: Negative for injury and deformity, Neuro: Negative for headache, weakness, numbness, tingling, and seizure, 22:23 Abdomen/GI: Positive for nausea, vomiting, and diarrhea, Negative for abdominal pain, 22:23 Skin: Positive for rash, Exam: 22:23 Constitutional: This is a well developed, well nourished patient who is awake, alert, rt and in no acute distress. Head/Face: Normocephalic, atraumatic. Chest/axilla: Normal chest wall appearance and motion. Nontender with no deformity. No lesions are appreciated. Cardiovascular: Regular rate and rhythm with a normal S1 and S2. No gallops, murmurs, or rubs. Normal PMI, no JVD. No pulse deficits. Respiratory: Lungs have equal breath sounds bilaterally, clear to auscultation and percussion. No rales, rhonchi or wheezes noted. No increased work of breathing, no retractions or nasal flaring. Abdomen/GI: Soft, non-tender, with normal bowel sounds. No distension or tympany. No guarding or rebound. No evidence of tenderness throughout. MS/ Extremity: Pulses equal, no cyanosis. Neurovascular intact. Full, normal range of motion. Neuro: Awake and alert, GCS 15, oriented to person, place, time, and situation. Cranial nerves II-XII grossly intact. Motor strength 5/5 in all extremities. Sensory grossly intact. Cerebellar exam normal. Normal gait. 22:23 Neck: Apparent posterior cervical lymphadenopathy is noted, about pea-sized, freely mobile, no overlying skin changes, 22:23 Skin: Apparent candidal rash to the abdomen, posterior knee. Vital Signs: 20:10 BP 141 / 88; Pulse 93; Resp 18 S; Temp 97.7(TE); Pulse Ox 98% on R/A; Weight 142.88 kg as6 (R); Height 5 ft. 7 in. (R); Pain 7/10; 20:20 BP 136 / 91; Pulse 95; Resp 17 S; Pulse Ox 97% on R/A; jw7 21:30 BP 137 / 80; Pulse 82; Resp 17 S; Pulse Ox 98% on R/A; jw7 20:10 Body Mass Index 49.34 (142.88 kg, 170.18 cm) as6 20:10 Pain Scale: Adult as6 MDM: 20:13 Patient medically screened. rt 22:23 Differential diagnosis: Gastroenteritis, candidiasis, abscess, lymphadenopathy. Data rt reviewed: vital signs, nurses notes, lab test result(s). Test considered but Not performed: CT: Patient has no abdominal pain, no focal abdominal tenderness, labs are benign, reassuring. Symptoms are improved with Zofran, do not believe that advanced imaging is indicated to rule out surgical pathology such as appendicitis, cholecystitis, bowel obstruction.. Care significantly affected by the following chronic conditions: Chronic Obstructive Pulmonary Disease. Counseling: I had a detailed discussion with the patient and/or guardian regarding the historical points, exam findings, and any diagnostic results supporting the discharge/admit diagnosis, lab results, the need for outpatient follow up, to return to the emergency department if symptoms worsen or persist or if there are any questions or concerns that arise at home. 09/01 20:21 Order name: CBC with Diff; Complete Time: :44 rt 09/01 20: Order name: CMP; Complete Time: :44 rt 09/01 20: Order name: Lipase; Complete Time: :44 rt Administered Medications: 20:37 Drug: Ondansetron IVP 4 mg IVP once; over 2 minutes Route: IVP; Site: left antecubital; jw7 22:28 Follow up: Response: No adverse reaction; Marked relief of symptoms; Nausea is decreasedjw7 Disposition Summary: 09/02/23 21:51 Discharge Ordered Notes: Location: Home rt Problem: new rt Symptoms: have improved rt Condition: Stable rt Diagnosis - Nausea and vomiting rt - Diarrhea rt - Candidiasis rt - Lymphadenopathy rt Followup: rt - With: Private Physician - When: 2 - 3 days - Reason: Discharge Instructions: - Discharge Summary Sheet rt - Viral Gastroenteritis, Adult rt - Lymphadenopathy rt - Skin Yeast Infection rt Forms: - Medication Reconciliation Form rt - Antibiotic Education rt - Prescription Opioid Use rt - Patient Portal Instructions rt - Leadership Thank You Letter rt Prescriptions: - ondansetron 4 mg Oral Tablet,disintegrating - take 1 tablet ORAL route every 6 hours; 18 tablet; Refills: 0, Product rt Selection Permitted - Nystatin-Triamcinolone 100,000-0.1 unit/g-% Topical cream - apply 1 application TOPICAL route 2 times per day; 1 Each; Refills: 0, Product rt Selection Permitted Signatures: Dispatcher [employer] Quan Mcgee RN RN as6 Almaz Vizcarra RN RN jw7 Abhishek Black MD MD rt Corrections: (The following items were deleted from the chart) 20:21 20:21 CBC+H.LAB.BRZ ordered. EDMS EDMS 20:21 20:21 COMPREHENSIVE METABOLIC PANEL+C.LAB.BRZ ordered. EDMS EDMS 20:21 20:21 LIPASE+C.LAB.BRZ ordered. EDMS EDMS
[2023-09-02 23:09] VITALS: BP 137/80; TEMP 97.7; O2SAT 98
== END 2023-09-02 22:29 | disposition home or self-care (01) ==
LOC: ER 19:57
DX: R11.2 Nausea with vomiting, unspecified (principal); R19.7 Diarrhea, unspecified; B37.9 Candidiasis, unspecified; R59.1 Generalized enlarged lymph nodes; Z88.1 Allergy status to other antibiotic agents; Z88.3 Allergy status to other anti-infective agents
CPT/HCPCS: 85025; 36415; 83690; 80053; J2405

== ENCOUNTER 2023-11-30 04:20 | Emergency (ER) | payer OTHER ==
--- OUTSIDE RECORDS SUMMARY | 2023-11-30 04:23 | XMS REPORT | Continuity of Care Document ---
Author Name Unknown Address [address] [place] [address] [facility] Address [address] [place] [address] Care Team Providers Care Professional Fee Coder Name Role Phone ALEIDA SHEEHAN Primary Care Physician UnavailWAYNE Marmolejo Attending Clinician Unavailable NEIL COLON Attending Clinician Unavailable MICHAEL MONTELONGO Attending Clinician Unavaila nae QUIROGA MD Attending Clinician Unavailab MICHAEL Monroy Attending Clinician Unavaila CRISTIAN Talbert Attending Clinician Unavailable VIET DOLL Attending Clinician Unavailable VIET DOLL Attending Clinician Unavailable Viet Doll DO Attending Clinician [phone] OSIEL PARIKH Attending Clinician UnavailStar Holder Attending Clinician [phone] STAR MEADOWS Attending Clinician Unavailable Tayla Schmidt MD Attending Clinician [phone] TAYLA SCHMIDT Attending Clinician Unavailabl e JAYLEEN CAMEJO Attending Clinician Unavailab le Jayleen Whitehead Attending Clinician [phone] Doctor Unassigned, [facility] Attending Clinician U dev KRISS SHERIDAN Attending Clinician Unavail able Elisa Venegas Attending Clinician + [phone] ELISA LAGUNAS Attending Clinician Unavailab KAYLEN Alba Attending Clinician Unavailanupama e VIET DOLL Admitting Clinician Unavailable JAYLEEN CAMEJO Admitting Clinician Unavailab le ELISA LAGUNAS Admitting Clinician Unavailab le Payers Payer Name Policy Type Policy Number Effective Date Expirati on Date Source [place] [place] [facility] [id number] 00:00:00 [employer] 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 94 ON 9 [id number] 2023 00:00:00 [employer] 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 [id number] 2023 00:00:00 [place] 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 [id number] 2022 00:00:00 MEDICAID OF [place] [id number] 2021 00:00:00 Problems Condition Name Condition Details Condition Category Status Onset Date Resolution Date Last Treatment Date Treating Clinician Comments Source History of bilateral ligation of fallopian tubes History of bilateral ligation of fallopian tubes Disease Active 07-31 00:00: 00 [facility] BMI 45.0-49.9, adult BMI 45.0-49.9, adult Disease Active 07-31 00:00: 00 [facility] Screening examinatio n for STD (sexually transmitte d disease) Screening examinatio n for STD (sexually transmitte d disease) Disease Active 09-15 00:00: 00 [facility] Class 3 severe obesity due to excess calories with body mass index (BMI) of 45.0 to 49.9 in adult, unspecifie d whether serious comorbidit y present Class 3 severe obesity due to excess calories with body mass index (BMI) of 45.0 to 49.9 in adult, unspecifie d whether serious comorbidit y present Disease Active 2015-04 00:00: 00 [facility] Allergies, Adverse Reactions, Alerts Allergy Name Allergy Type Status Severity Reaction(s) Onset Date Inactive Date Treating Clinician Comments Source AMOXICIL STEPHANIE DRUG INGREDI Active Hives 4- 00:00: 00 [facility] CLINDAMY SHE DRUG INGREDI Active Hives 4-13 00:00: 00 [facility] Amoxicil stephanie Propensi ty to adverse reaction s Active Hives 4- 00:00: 00 [facility] Clindamy she Propensi ty to adverse reaction s Active Hives - 00:00: 00 [facility] Social History Social Habit Start Date Stop Date Quantity Comments Source [facility] of [facility] use Cigarette Smoker [facility] History SDOH Alcohol Frequency [facility] History SDOH Alcohol Std Drinks [facility] History SDOH Alcohol Binge [facility] Alcohol intake 2023-05-20 00:00:00 2023-05-20 00:00:00 Current drinker of alcohol (finding) [facility] Exposure to SARS-CoV-2 (event) 2022-01-17 00:00:00 2022-01-27 14:37:00 Not sure [facility] History of Social function 2021-12-20 00:00:00 2021-12-20 00:00:00 [facility] Tobacco use and exposure 2021-12-20 00:00:00 2021-12-20 00:00:00 Smokeless tobacco non-user [facility] Tobacco Comment 2021-12-20 00:00:00 2021-12-20 00:00:00 5 cigarettes a day [facility] Alcohol Comment 2018-09-15 00:00:00 2018-09-15 00:00:00 occasional [facility] Sex Assigned At 1975 00:00:00 1975 00:00:00 [facility] Smoking Status Start Date Stop Date Source Smokes tobacco daily 2021-12-20 00:00:00 [facility] Medications Ordered Medication Name Filled Medication Name Start Date Stop Date Current Medication? Ordering Clinician Indication Dosage Frequency Signature (SIG) Comments Components Source morpHINE (2 mg/mL) injection 4 mg 05-21 04:45: 00 05-21 04:56 :00 No 4mg 4 mg, Slow IV Push, ONCE, 1 dose, On Thu05/20/23 at 2245, STAT [facility] iopamidol (ISOVUE 370-500 mL) injection 100 mL 05-21 02:00: 00 05-21 00:54 :00 No [id number] 100mL 100 mL, Intravenou s, ONCE, 1 dose, On Thu05/20/23 at 2000, Routine [facility] NaCl 0.9% (NS) bolus infusion 1,000 mL 05-21 00:45: 00 05-21 04:30 :00 No 1000mL at 999 mL/hr, 1,000 mL, IV Infusion, ONCE, 1 dose, [facility]05/20/23 [facility] 1845[facility] (2 mg/mL) injection 4 mg 05-21 00:15: 00 05-21 00:22 :00 No 4mg 4 mg, Slow IV Push, ONCE, 1 dose, On Thu05/20/23 at 1815, STAT [facility] ondansetron (ZOFRAN (PF)) injection 4 mg 05-21 00:00: 00 05-21 00:19 :00 No 4mg 4 mg, Slow IV Push, ONCE, 1 dose, On Thu05/20/23 at 1800, [facility] 600 mg tablet 05-20 00:00: 00 Yes [id number] 600mg Take 1 tablet by mouth every 6 (six) hours as needed for Pain (scale 4-6). [facility] ondansetron (ZOFRAN) 4 mg tablet 05-20 00:00: 00 Yes [id number] 4mg Take 1 tablet by mouth every 6 (six) hours as needed for Nausea and Vomiting (N/V). [facility] HYDROcodone -acetaminop hen 5-325 mg tablet 05-20 00:00: 00 05-28 05:59 :00 No [id number] 1{tbl} Take 1 tablet by mouth every 4 (four) hours as needed for Pain (scale 1-3) for up to 7 days. Indication s: acute pain [facility] levothyroxi ne 175 mcg tablet 01-17 00:00: 00 Yes [facility] No known medications 12-27 10:00: 11 No No known medication s [facility] buPROPion SR 150 mg SR tablet 12-20 00:00: 00 Yes [facility] ibuprofen 800 mg tablet 11-19 00:00: 00 Yes 800mg Take 800 mg by mouth every 6 (six) hours as needed. [facility] Vital Signs Vital Name Observation Time Observation Value Comments S ource Systolic blood pressure 2023-05-21 05:11:00 136 mm[Hg] [facility] Diastolic blood pressure 2023-05-21 05:11:00 93 mm[Hg] [facility] Heart rate 2023-05-21 05:11:00 87 /min [facility] Respiratory rate 2023-05-21 05:11:00 18 /min [facility] Oxygen saturation in Arterial blood by Pulse oximetry 2023-05-21 05:11:00 99 /min [facility] Body temperature 2023-05-20 23:47:00 36.78 Veena [facility] Body weight 2023-05-20 23:47:00 142.883 kg [facility] BMI 2023-05-20 23:47:00 49.34 kg/m2 [facility] Body height 2022-01-27 19:50:00 170.2 cm [facility] Body weight 2022-01-27 19:50:00 137.44 kg [facility] BMI 2022-01-27 19:50:00 47.46 kg/m2 [facility] Systolic blood pressure 2021-12-27 14:59:00 132 mm[Hg] [facility] Diastolic blood pressure 2021-12-27 14:59:00 85 mm[Hg] [facility] Heart rate 2021-12-27 14:59:00 92 /min [facility] Body height 2021-12-27 14:59:00 170.2 cm [facility] Body weight 2021-12-27 14:59:00 137.44 kg [facility] BMI 2021-12-27 14:59:00 47.46 kg/m2 [facility] Procedures Procedure Date / Time Performed Performing Clinicia n Source HEPATIC FUNCTION PANEL (24273) (ALB,T.PRO,BILI T,BU/BC,ALT,AST,ALK PHOS) 2023-05-21 01:23:00 [facility] BASIC METABOLIC PANEL (NA, K, CL, CO2, GLUCOSE, BUN, CREATININE, CA) 2023-05-21 01:23:00 Yaron Ken-Hermelindo [facility] CBC WITH DIFF 2023-05-21 01:23:00 [facility] POCT TEST 2023-05-21 00:23:00 Viet Doll [facility] LIPASE 2023-05-21 00:13:00 [facility] URINALYSIS 2023-05-21 00:13:00 [facility] CONSENT/REFUSAL FOR DIAGNOSIS AND TREATMENT 2023-05-20 23:37:52 Doctor Unassigned, [facility] Encounters Start Date/Time End Date/Time Encounter Type Admission Type Attending Clinicians Care Facility Care Department Encounter ID Source 2021-02-17 09:49:03 Emergency [facility] [id number] [facility] 2021-02-15 17:30:01 Emergency [facility] [id number] [facility] 2023-08-03 16:15:00 2023-08-03 16:15:00 Outpatient WAYNE FONG [id number] Radha Tsai 2023-07-08 00:00:00 2023-07-08 00:00:00 Outpatient MICHAEL MONTELONGO RADHA ANDERSON [id number] Rad[facility] 2023-06-23 14:45:00 2023-06-23 14:45:00 Outpatient MICHAEL MONTELONGO RADHA ANDERSON [id number] Rad[facility] 2023-06-23 00:00:00 2023-06-23 00:00:00 Outpatient MICHAEL MONTELONGO RADHA ANDERSON [id number] Rad[facility] 2023-06-22 00:00:00 2023-06-22 00:00:00 Outpatient MD [facility] [id number] [facility]23-[facility] 07:18:00 2023-06-05 13:43:00 Outpatient MICHAEL MONTELONGO [facility] BRI[facility] [id number] [facility] 2023-06-05 07:30:00 2023-06-05 07:30:00 Outpatient MICHAEL MONTELONGO RADHA ANDERSON [id number] [facility] 2023-06-05 00:00:00 2023-06-05 00:00:00 Outpatient MICHAEL MONTELONGO RADHA ANDERSON [id number] [facility] 2023-06-05 00:00:00 2023-06-05 00:00:00 Outpatient MARY JO MONTELONGORenu ANDERSON [id number] Rad[facility] 2023-06-04 11:15:00 2023-06-04 11:15:00 Outpatient RAD[facility] AND[facility] [id number] [facility] 2023-06-04 11:10:00 2023-06-04 11:10:00 Outpatient RADHA ANDERSON [id number] [facility] 2023-06-04 00:00:00 2023-06-04 00:00:00 Outpatient MARY JO MONTELONGORenu ANDERSON [id number] [facility] 2023-06-04 00:00:00 2023-06-04 00:00:00 Outpatient MICHAEL MONTELONGO RADHA ANDERSON [id number] [facility] 2023-06-01 00:00:00 2023-06-01 00:00:00 Outpatient MD RADHA HOWARD [id number] [facility] 2023-05-26 11:40:00 2023-05-26 11:40:00 Outpatient RADHA ANDERSON [id number] Radha [facility] 2023-05-26 11:25:00 2023-05-26 11:25:00 Outpatient RADHA ANDERSON [id number] Radha [facility] 2023-05-26 09:45:00 2023-05-26 09:45:00 Outpatient MICHAEL MONTELONGO [id number] Rad[facility] 2023-05-26 00:00:00 2023-05-26 00:00:00 Outpatient MICHAEL MONTELONGO [id number] [facility] 2023-05-25 10:00:00 2023-05-25 10:00:00 Outpatient CRISTIAN QUINTERO [facility] [id number] [facility] 2023-05-20 17:47:00 2023-05-20 23:16:00 Emergency X VIET DOLL HEE-KWANG [facility] ERT [id number] [facility] 2023-05-20 17:47:00 2023-05-20 23:16:00 Emergency Viet Doll [facility] ..840.114 350.1.13.10 4.2.7.2.686 [id number] [facility] 2023-01-27 13:30:00 2023-01-27 13:30:00 Outpatient OSIEL PAGAN [facility] [id number] [facility] 2022-01-29 00:00:00 2022-01-29 00:00:00 [facility]phone [place] [facility] 1..840.114 350.1.13.10 4.2.7.2.686 [id number] [facility] 2022-01-27 15:00:00 2022-01-27 15:15:00 Office Visit [facility] 1.2.840.114 350.1.13.10 4.2.7.2.686 [id number] [facility] 2022-01-27 14:50:00 2022-01-27 15:09:00 Outpatient R DORI [facility] [id number] [facility] 2021-12-27 10:02:59 2021-12-27 23:59:00 Outpatient R DORI STAR [facility] [id number] [facility] 2021-12-27 10:00:00 2021-12-27 10:15:00 Office Visit Dori [facility] MEDICAL OFFICE BUILD[facility] 1.2.840.114 350.1.13.10 4.2.7.2.686 [id number] [facility] 2021-12-27 10:02:59 2021-12-27 10:02:59 Outpatient R DORI [facility] [id number] [facility] 2021-12-20 10:15:00 2021-12-20 10:30:00 Office Visit [place] Craig L [facility] MEDICAL OFFICE BUILD[facility] 1.2.840.114 350.1.13.10 4.2.7.2.686 [id number] [facility] 2021-12-20 10:15:00 2021-12-20 10:15:00 Outpatient R TAYLA SCHMIDT [facility] [id number] [facility] 2021-12-16 18:20:00 2021-12-16 20:24:00 Emergency X JAYLEEN CAMEJO [facility] ERT [id number] [facility] 2021-12-16 18:20:00 2021-12-16 20:24:00 Emergency Jayleen Camejo [facility] 1.2.840.114 350.1.13.10 4.2.7.2.686 [id number] [facility] 2021-12-16 18:20:00 2021-12-16 20:24:00 Emergency X JAYLEEN CAMEJO [facility] [id number] [facility] 2021-10-15 15:00:00 2021-10-15 15:00:00 [id number] 2021-10-03 15:15:00 2021-10-03 15:15:00 Outpatient STAR CARSON [facility] [id number] [facility] 2021-09-26 15:00:00 2021-09-26 15:00:00 Outpatient STAR CARSON [facility] [id number] [facility] 2021-09-04 00:00:00 2021-09-04 00:00:00 Orders Only Doctor Unassigned, [facility] 1.2.840.114 350.1.13.10 4.2.7.2.686 [id number] [facility] 2021-08-22 15:50:00 2021-08-22 23:59:00 Outpatient STAR CARSON [facility] [id number] [facility] 2021-08-22 15:00:00 2021-08-22 15:30:00 Office [place] [facility] 1.2.840.114 350.1.13.10 4.2.7.2.686 [id number] [facility] 2021-08-22 15:00:00 2021-08-22 15:00:00 Outpatient STAR CARSON [facility] [id number] [facility] 2021-08-22 00:00:00 2021-08-22 00:00:00 Orders Only Doctor Unassigned, [facility] 1..840.114 350.1.13.10 4.2.7.2.686 [id number] [facility] 2021-06-12 15:00:00 2021-06-12 15:00:00 Outpatient R KRISS SHERIDAN [facility] [id number] [facility] 2021-05-17 09:15:00 2021-05-17 09:15:00 Outpatient R KRISS SHERIDAN [facility] [id number] [facility] 2020-08-20 06:56:46 2020-08-20 23:59:00 Hospital Encounter Elisa Lagunas [facility] 1..840.114 350.1.13.10 4.2.7.2.686 [id number] 2020-08-20 06:56:46 2020-08-20 23:59:00 Outpatient ELISA BRAGA [facility] [id number] [facility] 2020-08-20 00:00:00 2020-08-20 00:00:00 Outpatient ELISA BRAGA [facility] [id number] [facility] 2020-07-31 15:57:09 2020-07-31 16:21:23 Office Visit Elisa Lagunas [facility] 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 [facility] 1..840.114 350.1.13.10 4.2.7.2.686 [id number] 2020-07-31 15:45:00 2020-07-31 15:45:00 Outpatient ELISA BRAGA [facility] [id number] [facility] 2020-07-31 14:45:00 2020-07-31 14:45:00 Outpatient KAYLEN JACOB [facility] [id number] [facility] 2020-05-29 07:45:00 2020-05-29 07:45:00 Outpatient ELISA BRAGA [facility] [id number] [facility] 2020-05-25 10:15:00 2020-05-25 10:15:00 Outpatient KRISS LOUIE [facility] [id number] [facility] 2020-01-04 14:00:00 2020-01-04 14:00:00 Outpatient ELISA BRAGA [facility] [id number] [facility] Results Test Description Test Time Test Comments Results Result Co mments Source [facility]87134[facility] (ALB,T.PRO,BILI T,BU/BC,ALT,AST,ALK PHOS)2023-05-21 01:41:06* Test Item Value Reference Range Interpretation Comme nts TOTAL BILI (test code = 5668328834) 0.4 mg/dL 0.1-1.1 BILI UNCON (test code = 1431925566) 0.2 mg/dL 0.1-1.1 BILI CONJ (test code = 3579559290) 0.0 mg/dL 0.0-0.3 T PROTEIN (test code = 7302354989) 6.8 g/dL 6.3-8.2 ALBUMIN (test code = 8657568866) 3.4 g/dL 3.5-5.0 L ALK PHOS (test code = 7765932381) 84 U/L 34-122 ALTv (test code = 1742-6) 13 U/L 5-35 AST(SGOT) (test code = 9183645563) 21 U/L 13-40 Lab Interpretation (test cod e = 78490-1) Abnormal [facility] WITH [id number] 01:37:09* Test Item Value Reference Range Interpretation [...] 33.1 g/dL 31.6-35.1 RDW-SD (test code = 11671-4) 43.9 fL 39.0-49.9 RDW-CV (test code = 788-0) 13.4 % 12.0-15.5 PLT (test code = 777-3) 261 166-358 MPV (test code = 58936-5) 10.2 fL 9.5-12.9 NRBC/100 WBC (test code = 6339305673) 0.0 0.0-10.0 NRBC x10^3 (test code = 8882605704) See_Comment [Automated messa ge] The system which generated this result transmitted reference range: 10*3/?L. The reference range was not used to interpret this result as normal/abnormal. GRAN MAT (NEUT) % (test code = 770-8) 47.2 % IMM GRAN % (test code = 0816906471) 0.00 % LYMPH % (test code = 736-9) 42.2 % MONO % (test code = 5905-5) 6.9 % EOS % (test code = 713-8) 3.1 % BASO % (test code = 706-2) 0.6 % GRAN MAT x10^3(ANC) (test code = 9437624922) 2.55 10*3/uL 1.88-7.09 IMM GRAN x10^3 (test code = 7286125890) 0.00-0.06 LYMPH x10^3 (test code = 731-0) 2.28 10*3/uL 1.32-3.29 MONO x10^3 (test code = 742-7) 0.37 10*3/uL 0.33-0.92 EOS x10^3 (test code = 711-2) 0.17 10*3/uL 0.03-0.39 BASO x10^3 (test code = 704-7) 0.03 10*3/uL 0.01-0.07 Lab Interpretation (test code = 27402-4) [facility]normal [facility]35:00* Test Item Value Reference Range Interpretation Comme nts LIPASE (test code = 9379761467) 94 U/L 0-220 Lab Interpretation (test cod e = 98092-8) Normal [facility] [id number] 00:23:00* Test Item Value Reference Range Interpretation Comme nts POCT PREG (test code = 1605) Negative On board controls acceptable with C Line (test code = 3574) Yes POCT PREG LOT # (test code = 3575) [id number] POCT PREG TEST DATE ( test code = 3576) 07/26/2024 Lab Interpretation (test cod e = 91995-7) Normal [facility] Notes Date/Time Note Provider Source 2023-05-20 23:14:19 RN and pt reviewed DC instructions. Pt verbalized understanding. Pt advised to follow up with PCP and given number for follow ups. Patient denied any remaining belongings in the ED. Pt wheeled to lobby by ED RN, daughter to warp picker and drive pt home. NAD noted upon departure. R Malik RN [facility] 2023-05-20 22:46:22 ED faculty at bedside R John RN [facility] 2023-05-20 20:14:46 Patient to ultrasound in NAD R Valdez RN [facility] 2023-05-20 19:42:22 Pt ambulatory to the restroom at this time. [facility] 2023-05-20 19:23:00 Specimens collected at this time, will notify that pt is ready for transport to imaging. [facility] 2023-05-20 19:00:00 Report received from SOLITARIO Chambers. Rns discussed plan of care and further recommendations. Introduced self to pt. Pt alert and oriented x4, RR even and unlabored, skin warm and dry, appropriate for color. Pt reports pain remains the same, pt pending blood work and US scan at this time. [facility] 2023-05-20 18:46:[address] Lab called to tell me they need a recollect. [facility] Trish Vizcaino RN [facility] 2023-05-20 17:44:02 Kaylen Escudero is a 47 year old female Patient arrives via personal means with complaint of abdominal pain X 5 days N/V/D and frequent urination. Went to ED and was diagnosed with cyst on ovaries and gallstones. Pt reports she was told "seek further treatment. Patient is alert and oriented times X4, even and unlabored respiration. Roomed for further evaluation. [facility] Dori Hall RN [facility] 2023-05-20 17:37:00 Patient is feeling better. Ok to go home. Recent Results (from the past 24 hour(s)) URINALYSIS Collection Time: 05/20/23 6:13 PM Result Value Ref Range APPEARANCE Clear Clear COLOR Yellow Yellow PH 5.0 4.8 - 8.0 SP GRAVITY 1.023 1.003 - 1.030 GLU U QUAL Normal Normal BLOOD 3+ (A) Negative KETONES Negative Negative PROTEIN Negative Negative UROBILIN 2.0 mg/dL (A) Normal BILIRUBIN Negative Negative NITRITE Negative Negative LEUK LOIS Negative Negative RBC/HPF 38 (H) 0 - 3 HPF WBC/HPF <1 0 - 5 HPF BACTERIA Negative Negative MUCOUS Slight (A) Negative LPF SQ EPITH 1 <=2 HPF LIPASE Collection Time: 05/20/23 6:13 PM Result Value Ref Range LIPASE 94 0 - 220 U/L POCT TEST Collection Time: 05/20/23 6:23 PM Result Value Ref Range POCT PREG Negative On board controls acceptable with C Line Yes POCT PREG LOT # [id number] POCT PREG TEST DATE 07/26/2024 CBC WITH DIFF Collection Time: 05/20/23 7:23 PM Result Value Ref Range WBC 5.40 4.30 - 11.10 10*3/?L RBC 3.86 (L) 3.93 - 5.25 10*6/?L HGB 11.5 (L) 11.6 - 15.0 g/dL HCT 34.7 (L) 35.7 - 45.2 % MCV 89.9 80.6 - 95.5 fL MCH 29.8 25.9 - 32.8 pg MCHC 33.1 31.6 - 35.1 g/dL RDW-SD 43.9 39.0 - 49.9 fL RDW-CV 13.4 12.0 - 15.5 % PLT 261 166 - 358 10*3/?L MPV 10.2 9.5 - 12.9 fL NRBC/100 WBC 0.0 0.0 - 10.0 /100 WBCs NRBC x10 3 <0.01 10*3/?L GRAN MAT (NEUT) % 47.2 % IMM GRAN % 0.00 % LYMPH % 42.2 % MONO % 6.9 % EOS % 3.1 % BASO % 0.6 % GRAN MAT x10 3 (ANC) 2.55 1.88 - 7.09 10*3/uL IMM GRAN x10 3 <0.03 0.00 - 0.06 10*3/uL LYMPH x10 3 2.28 1.32 - 3.29 10*3/uL MONO x10 3 0.37 0.33 - 0.92 10*3/uL EOS x10 3 0.17 0.03 - 0.39 10*3/uL BASO x10 3 0.03 0.01 - 0.07 10*3/uL BASIC METABOLIC PANEL (NA, K, CL, CO2, GLUCOSE, BUN, CREATININE, CA) Collection Time: 05/20/23 7:23 PM Result Value Ref Range NA 135 135 - 145 mmol/L K 3.9 3.5 - 5.0 mmol/L CL 109 (H) 98 - 108 mmol/L CO2 TOTAL 24 23 - 31 mmol/L AGAP 2 2 - 16 BUN 16 7 - 23 mg/dL GLUCOSE 82 70 - 110 mg/dL CREATININE 0.67 0.50 - 1.04 mg/dL CALCIUM 8.5 (L) 8.6 - 10.6 mg/dL eGFR 108.6 mL/min/1.73m2 HEPATIC FUNCTION PANEL (20719) (ALB,T.PRO,BILI T,BU/BC,ALT,AST,ALK PHOS) Collection Time: 05/20/23 7:23 PM Result Value Ref Range TOTAL BILI 0.4 0.1 - 1.1 mg/dL BILI UNCON 0.2 0.1 - 1.1 mg/dL BILI CONJ 0.0 0.0 - 0.3 mg/dL T PROTEIN 6.8 6.3 - 8.2 g/dL ALBUMIN 3.4 (L) 3.5 - 5.0 g/dL ALK PHOS 84 34 - 122 U/L ALTv 13 5 - 35 U/L AST(SGOT) 21 13 - 40 U/L Hospital Encounter on 05/20/23 US GALL BLADDER Narrative EXAM: US GALL BLADDER HISTORY: 47 years-old Female; RUQ abdominal pain TECHNIQUE: Limited abdominal ultrasound focused on the gallbladder was performed. The main portal vein was evaluated with color Doppler. [employer] images were obtained for the record. COMPARISON: CT abdomen pelvis on 05/20/2023 FINDINGS: PANCREAS: The pancreas is unable to be visualized due to shadowing from bowel gas. BILE DUCTS: No intra- or extrahepatic biliary dilatation is visualized. The common duct diameter is normal and measures 0.5 cm. GALLBLADDER: Mobile and echogenic stones are seen. The gallbladder is physiologically distended. The gallbladder wall thickness is normal and measures 0.2 cm. No pericholecystic fluid is visualized. Jones's sign was negative. OTHER: None. Impression Cholelithiasis without acute cholecystitis Preliminary Report Dictated by Resident: Shasha Lazo CT ABDOMEN PELVIS W CONTRAST Narrative EXAM: CT ABDOMEN PELVIS W CONTRAST HISTORY: 47 years old Female with Abdominal pain, acute, nonlocalized COMPARISON: None. TECHNIQUE AND FINDINGS: Contiguous axial imaging from the level of the lung bases through the pubic symphysis was performed after the uncomplicated administration of intravenous contrast. Coronal and sagittal reconstructions were obtained. Auto mA and/or iterative reconstruction were used to reduce radiation dose. FINDINGS: LOWER THORAX: Calcified right lower lobe granuloma. A 5 mm groundglass opacity in the right lower lobe. No cardiomegaly. LIVER: No focal hepatic lesions. Normal contour. GALLBLADDER AND BILIARY TREE: No biliary ductal dilation. Radiopaque gallstones are present. No gallbladder wall thickening or pericholecystic fluid. SPLEEN: No splenomegaly. PANCREAS: No ductal dilation or masses. ADRENAL GLANDS: No adrenal nodules. KIDNEYS: No hydronephrosis, stones, or masses. A 2.4 cm left lower pole simple renal cyst. PERITONEUM AND RETROPERITONEUM: No free air or fluid. LYMPH NODES: No lymphadenopathy. GI TRACT: No dilation or wall thickening. Normal appendix. PELVIS/BLADDER: Anteverted, retroflexed uterus. The left ovary is significantly larger than the left ovary. VESSELS: Unremarkable. BONES AND SOFT TISSUES: No suspicious lytic or sclerotic bony lesions. Impression The left ovary is significantly larger than the right. Further evaluation with a dedicated pelvic US is recommended. Preliminary Report Dictated by Resident: Bill Morales Patient with no pain in LLQ. Patient with a large left ovarian cyst. No torsion on US. Hospital Encounter on 05/20/23 US GALL BLADDER Narrative EXAM: US GALL BLADDER HISTORY: 47 years-old Female; RUQ abdominal pain TECHNIQUE: Limited abdominal ultrasound focused on the gallbladder was performed. The main portal vein was evaluated with color Doppler. Senior Technical Recruiter images were obtained for the record. COMPARISON: CT abdomen pelvis on 05/20/2023 FINDINGS: PANCREAS: The pancreas is unable to be visualized due to shadowing from bowel gas. BILE DUCTS: No intra- or extrahepatic biliary dilatation is visualized. The common duct diameter is normal and measures 0.5 cm. GALLBLADDER: Mobile and echogenic stones are seen. The gallbladder is physiologically distended. The gallbladder wall thickness is normal and measures 0.2 cm. No pericholecystic fluid is visualized. Jones's sign was negative. OTHER: None. Impression Cholelithiasis without acute cholecystitis Preliminary Report Dictated by Resident: Shasha Lazo CT ABDOMEN PELVIS W CONTRAST Narrative EXAM: CT ABDOMEN PELVIS W CONTRAST HISTORY: 47 years old Female with Abdominal pain, acute, nonlocalized COMPARISON: None. TECHNIQUE AND FINDINGS: Contiguous axial imaging from the level of the lung bases through the pubic symphysis was performed after the uncomplicated administration of intravenous contrast. Coronal and sagittal reconstructions were obtained. Auto mA and/or iterative reconstruction were used to reduce radiation dose. FINDINGS: LOWER THORAX: Calcified right lower lobe granuloma. A 5 mm groundglass opacity in the right lower lobe. No cardiomegaly. LIVER: No focal hepatic lesions. Normal contour. GALLBLADDER AND BILIARY TREE: No biliary ductal dilation. Radiopaque gallstones are present. No gallbladder wall thickening or pericholecystic fluid. SPLEEN: No splenomegaly. PANCREAS: No ductal dilation or masses. ADRENAL GLANDS: No adrenal nodules. KIDNEYS: No hydronephrosis, stones, or masses. A 2.4 cm left lower pole simple renal cyst. PERITONEUM AND RETROPERITONEUM: No free air or fluid. LYMPH NODES: No lymphadenopathy. GI TRACT: No dilation or wall thickening. Normal appendix. PELVIS/BLADDER: Anteverted, retroflexed uterus. The left ovary is significantly larger than the left ovary. VESSELS: Unremarkable. BONES AND SOFT TISSUES: No suspicious lytic or sclerotic bony lesions. Impression The left ovary is significantly larger than the right. Further evaluation with a dedicated pelvic US is recommended. Preliminary Report Dictated by Resident: Bill Morales Dx: Gallstones, biliary colic. Left ovarian cyst. Viet Doll D.O. EM Physician RTI Billing ID #[id number] Viet Doll DO 05/20/23 [facility]
[2023-11-30] MEDS ORDERED: HYDROCODONE/APAP 5/325 MG TAB ONE (04:55)
--- NOTE | 2023-11-30 06:04 | ER ---
Nurse's Notes [facility] Name: Kaylen Benson Age: 48 yrs Sex: Female : 1975 Arrival Date: 11/30/2023 Time: 04:20 Bed 6 Private MD: Diagnosis: Dental infection;Right thumb pain Presentation: 11/29 04:25 Chief complaint: Patient states: i have had a toothache since Thursday and i did bm8 something to my right thumb. Coronavirus screen: At this time, the client does not indicate any symptoms associated with coronavirus-19. Ebola Screen: Patient negative for fever greater than or equal to 101.5 degrees Fahrenheit, and additional compatible Ebola Virus Disease symptoms Patient denies exposure to infectious person. Patient denies travel to an Ebola-affected area in the 21 days before illness onset. No symptoms or risks identified at this time. 04:25 Method Of Arrival: Ambulatory bm8 04:25 Initial Sepsis Screen: Does the patient meet any 2 criteria? No. Patient's initial bm8 sepsis screen is negative. Does the patient have a suspected source of infection? No. Patient's initial sepsis screen is negative. Risk Assessment: Do you want to hurt yourself or someone else? Patient reports no desire to harm self or others. Onset of symptoms was November 27, 2023 at 12:00. 04:25 Acuity: DONNA 3 bm8 Triage Assessment: 04:37 General: Appears in no apparent distress. uncomfortable, Behavior is calm, cooperative, bm8 appropriate for age. Pain: Complains of pain in left jaw and dorsal aspect of proximal phalanx of right thumb Pain at worst was 10 out of 10 on a pain scale. EENT: Poor dentition noted. Reports pain in left jaw Pain is 10 out of 10 on a pain scale. Neuro: Level of Consciousness is awake, alert, obeys commands, Oriented to person, place, time, situation, Appropriate for age. Cardiovascular: Denies chest pain, Capillary refill < 3 seconds Patient's skin is warm and dry. Respiratory: Airway is patent Respiratory effort is even, unlabored, Respiratory pattern is regular, symmetrical. GI: No signs and/or symptoms were reported involving the gastrointestinal system. : No signs and/or symptoms were reported regarding the genitourinary system. Derm: No signs and/or symptoms reported regarding the dermatologic system. Musculoskeletal: Capillary refill < 3 seconds, in bilateral fingers. toes. Range of motion: intact in all extremities, Reports pain in dorsal aspect of proximal phalanx of right thumb. 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 - Infectious Disease History:: Denies. - Social history:: Smoking status: Patient reports the use of cigarette tobacco products, Patient uses alcohol, Patient/guardian denies using street drugs. Screenin:41 [facility] ED Fall Risk Assessment (Adult) History of falling in the last 3 months, bm8 including since admission No falls in past 3 months (0 pts) Confusion or Disorientation No (0 pts) Intoxicated or Sedated No (0 pts) Impaired Gait No (0 pts) Mobility Assist Device Used No (0 pt) Altered Elimination No (0 pt) Score/Fall Risk Level 0 - 2 = Low Risk Oriented to surroundings, Maintained a safe environment, Educated pt \T\ family on fall prevention, incl call for assistance when getting out of bed, Assessed \T\ reinforced patient's understanding of fall precautions, Hourly rounding (assess needs \T\ fall precautionary measures) done, Used ambulatory aids as needed (educated on \T\ assisted with), Used gait belt as appropriate. Abuse screen: Denies threats or abuse. Nutritional screening: No deficits noted. Tuberculosis screening: No symptoms or risk factors identified. Assessment: 05:36 Reassessment: Patient appears in no apparent distress at this time. Patient and/or bm8 family updated on plan of care and expected duration. Pain level reassessed. Patient is alert, oriented x 3, equal unlabored respirations, skin warm/dry/pink. pt was using right hand and thumb to change channels on tv room remote before placing splint on. Patient states feeling better. Patient states symptoms have improved. Pain: Pain currently is 4 out of 10 on a pain scale. Vital Signs: 04:25 BP 164 / 118; Pulse 98; Resp 18; Temp 97.6; Pulse Ox 99% ; Weight 142.88 kg; Height 5 bm8 ft. 7 in. ; Pain 10/10; 05:36 BP 181 / 111; Pulse 78; Resp 17; Temp 97.6; Pulse Ox 99% ; Pain 4/10; bm8 06:10 BP 145 / 84; Pulse 74; Resp 18; Temp 97.6; Pulse Ox 99% ; cp4 04:25 Body Mass Index 49.34 (142.88 kg, 170.18 cm) bm8 04:25 Pain Scale: Adult bm8 05:36 Pain Scale: Adult bm8 Dike Coma Score: 05:36 Eye Response: spontaneous(4). Motor Response: obeys commands(6). Verbal Response: bm8 oriented(5). Total: 15. ED Course: 04:22 Patient arrived in ED. [email or web address] 04:26 Alexis Naidu DO is Attending Physician. ms3 04:34 Tono Castano, RN is Primary Nurse. bm8 04:37 Triage completed. bm8 04:41 Arm band placed on right wrist. bm8 04:41 Patient has correct armband on for positive identification. Bed in low position. Side bm8 rails up X 1. Adult w/ patient. Client placed on continuous cardiac and pulse oximetry monitoring. NIBP monitoring applied. Pulse ox on. NIBP on. Door closed. Noise minimized. Head of bed elevated. 04:41 No provider procedures requiring assistance completed. bm8 04:52 Finger-Thumb RIGHT XRAY In Process Unspecified. EDMS 05:36 Provided Education on: post er care. NEED FOR DENTIST. bm8 05:36 Patient did not have IV access during this emergency room visit. bm8 05:36 Velcro wrist splint applied to right wrist. bm8 06:03 Lobito Connolly DDS is Referral Physician. ms3 06:03 Miguel Chaparro MD is Referral Physician. ms3 Administered Medications: 04:58 Drug: HYDROcodone-acetaminophen PO 5 mg-325 mg 1 tabs PO once Route: PO; bm8 05:36 Follow up: Response: No adverse reaction bm8 Medication: 04:41 VIS not applicable for this client. bm8 Outcome: 06:03 Discharge ordered by . ms3 06:11 Discharged to home ambulatory, cp4 06:11 Condition: stable 06:11 Discharge instructions given to patient, Instructed on discharge instructions, follow up and referral plans. medication usage, Demonstrated understanding of instructions, follow-up care, medications, Prescriptions given X 2, 06:11 Patient left the ED. cp4 Signatures: Dispatcher [employer] EDMS Alexis Naidu DO DO ms3 Brittany Blankenshipj6 Jazzy Nash cp4 Tono Castano, RN RN bm8
--- NOTE | 2023-11-30 06:04 | EDPHYS ---
Physician Documentation [facility] Name: Kaylen Benson Age: 48 yrs Sex: Female : 1975 Arrival Date: 11/30/2023 Time: 04:20 Bed 6 Private MD: ED Physician Alexis Naidu HPI: 11/29 04:32 This 48 yrs old Female presents to ER via Unassigned with complaints of Toothache, ms3 Finger Injury. 04:32 48-year-old female with past medical history of hypothyroidism presents to the [facility] emergency department for left lower back tooth pain that began on Thursday. Patient rates pain a /10. Patient also states she is having right thumb pain that began today. Patient states she thinks she may have injured it falling. Patient denies nausea, vomiting, fevers, chills. 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 - Infectious Disease History:: Denies. - Social history:: Smoking status: Patient reports the use of cigarette tobacco products, Patient uses alcohol, Patient/guardian denies using street drugs. ROS: 04:32 Constitutional: Negative for fever, and chills. ms3 04:32 Cardiovascular: Negative for chest pain, and palpitations. Respiratory: Negative for shortness of breath, cough, wheezing, and pleuritic chest pain, Abdomen/GI: Negative for abdominal pain, nausea, vomiting, diarrhea, and constipation, Skin: Negative for injury, rash, and discoloration, 04:32 ENT: Positive for dental pain, Exam: 04:32 Constitutional: This is a well developed, well nourished patient who is awake, alert, ms3 and in no acute distress. Neck: Trachea midline, no cervical lymphadenopathy. Supple, full range of motion without nuchal rigidity, or vertebral point tenderness. No Meningismus. Chest/axilla: Normal chest wall appearance and motion. Nontender with no deformity. Cardiovascular: Regular rate and rhythm with a normal S1 and S2. No gallops, murmurs, or rubs. Normal PMI, no JVD. No pulse deficits. Respiratory: Lungs have equal breath sounds bilaterally, clear to auscultation and percussion. No rales, rhonchi or wheezes noted. No increased work of breathing, no retractions or nasal flaring. Abdomen/GI: Soft, non-tender, with normal bowel sounds. No distension or tympany. No guarding or rebound. No evidence of tenderness throughout. 04:40 ENT: Dental exam: dental caries, that is severe, specifically in the lower left first ms3 molar (#19), 04:40 Musculoskeletal/extremity: Extremities: noted in the right thumb: pain, swelling, ms3 tenderness, There is no evidence of contusion, Vital Signs: 04:25 BP 164 / 118; Pulse 98; Resp 18; Temp 97.6; Pulse Ox 99% ; Weight 142.88 kg; Height 5 bm8 ft. 7 in. ; Pain 10/10; 05:36 BP 181 / 111; Pulse 78; Resp 17; Temp 97.6; Pulse Ox 99% ; Pain 4/10; bm8 06:10 BP 145 / 84; Pulse 74; Resp 18; Temp 97.6; Pulse Ox 99% ; cp4 04:25 Body Mass Index 49.34 (142.88 kg, 170.18 cm) bm8 04:25 Pain Scale: Adult bm8 05:36 Pain Scale: Adult bm8 Piedad Coma Score: 05:36 Eye Response: spontaneous(4). Motor Response: obeys commands(6). Verbal Response: bm8 oriented(5). Total: 15. MDM: 04:40 Patient medically screened. ms3 04:40 Differential diagnosis: dental caries, dental abscess, Right thumb fracture. ms3 06:06 Data reviewed: vital signs, nurses notes, radiologic studies, and as a result, I will ms3 discharge patient. Independent interpretation of the following test(s) in the Emergency Department X-Ray: My interpretation is Right thumb x-ray images reviewed by me do not reveal fracture. Counseling: I had a detailed discussion with the patient and/or guardian regarding the historical points, exam findings, and any diagnostic results supporting the discharge/admit diagnosis, radiology results, the need for outpatient follow up, to return to the emergency department if symptoms worsen or persist or if there are any questions or concerns that arise at home. Special discussion: I discussed with the patient/guardian in detail that at this point there is no indication for admission to the hospital. It is understood, however, that if the symptoms persist or worsen the patient needs to return immediately for re-evaluation. ED course: Discussed x-ray results with patient. Patient given prescription for ibuprofen and doxycycline. Patient to follow-up Dr. Connolly for dental pain/infection and Dr. Chaparro for right thumb pain. Patient understands and agrees with plan. All questions were answered. Return precautions discussed include worsening symptoms, or any other concerns. 11/29 04:32 Order name: Finger-Thumb RIGHT XRAY ms3 11/29 04:59 Order name: Thumb Spica Splint: Pre-noam; Complete Time: 05:36 ms3 Administered Medications: 04:58 Drug: HYDROcodone-acetaminophen PO 5 mg-325 mg 1 tabs PO once Route: PO; bm8 05:36 Follow up: Response: No adverse reaction bm8 Disposition Summary: 11/30/23 06:03 Discharge Ordered Notes: Location: Home ms3 Condition: Stable ms3 Diagnosis - Dental infection ms3 - Right thumb pain ms3 Followup: ms3 - With: Lobito Connolly DDS - When: 1 - 2 days - Reason: Recheck today's complaints Followup: ms3 - With: Miguel Chaparro MD - When: 1 - 2 days - Reason: Recheck today's complaints Discharge Instructions: - Discharge Summary Sheet ms3 - Musculoskeletal Pain ms3 - Dental Pain, [id number] ms3 Forms: - Medication Reconciliation Form ms3 - Antibiotic Education ms3 - Prescription Opioid Use ms3 - Patient Portal Instructions ms3 - Leadership Thank You Letter ms3 Prescriptions: - Ibuprofen 600 mg Oral Tablet - take 1 tablet ORAL route every 6 hours As needed take with food; 30 tablet; ms3 Refills: 0, Product Selection Permitted - Doxycycline Hyclate 100 mg Oral Tablet - take 1 tablet ORAL route every 12 hours; 20 tablet; Refills: 0, Product ms3 Selection Permitted Signatures: Dispatcher [employer] EDMS Alexis Naidu DO DO ms3 Tono Castano, RN RN bm8 Corrections: (The following items were deleted from the chart) 04:32 04:32 Finger-Thumb Right+[id number].RAD.[email or web address] ordered. EDMS EDMS 04:41 04:32 Constitutional: This is a well developed, well nourished patient who is awake, ms3 alert, and in no acute distress. Neck: Trachea midline, no cervical lymphadenopathy. Supple, full range of motion without nuchal rigidity, or vertebral point tenderness. No Meningismus. Chest/axilla: Normal chest wall appearance and motion. Nontender with no deformity. Cardiovascular: Regular rate and rhythm with a normal S1 and S2. No gallops, murmurs, or rubs. Normal PMI, no JVD. No pulse deficits. Respiratory: Lungs have equal breath sounds bilaterally, clear to auscultation and percussion. No rales, rhonchi or wheezes noted. No increased work of breathing, no retractions or nasal flaring. Abdomen/GI: Soft, non-tender, with normal bowel sounds. No distension or tympany. No guarding or rebound. No evidence of tenderness throughout. ms3 04:41 04:32 Constitutional: This is a well developed, well nourished patient who is awake, ms3 alert, and in no acute distress. Neck: Trachea midline, no cervical lymphadenopathy. Supple, full range of motion without nuchal rigidity, or vertebral point tenderness. No Meningismus. Chest/axilla: Normal chest wall appearance and motion. Nontender with no deformity. Cardiovascular: Regular rate and rhythm with a normal S1 and S2. No gallops, murmurs, or rubs. Normal PMI, no JVD. No pulse deficits. Respiratory: Lungs have equal breath sounds bilaterally, clear to auscultation and percussion. No rales, rhonchi or wheezes noted. No increased work of breathing, no retractions or nasal flaring. Abdomen/GI: Soft, non-tender, with normal bowel sounds. No distension or tympany. No guarding or rebound. No evidence of tenderness throughout. ms3
[2023-11-30 06:16] VITALS: TEMP 97.6; O2SAT 99
[2023-11-30 06:19] VITALS: BP 145/84
--- NOTE | 2023-11-30 11:13 | RAD REPORT ---
EXAM DESCRIPTION: RAD - Finger-Thumb Right - 11/30/2023 4:50 am CLINICAL HISTORY: Pain COMPARISON: None TECHNIQUE: Right Thumb 3 Views FINDINGS: No fracture or dislocation. No significant sclerotic/lytic bone lesion. Joint spaces unremarkable. Soft tissues unremarkable. IMPRESSION: Unremarkable Right Thumb Radiographs. Electronically signed by: Alfonso Coles MD 11/30/2023 05:55 AM CDT RP Due to temporary technical issues with the PACS/Fluency reporting system, reports are being signed by the in house radiologist without review as a courtesy to ensure prompt reporting. The interpreting r adiologist is fully responsible for the content of the report.
== END 2023-11-30 06:11 | disposition home or self-care (01) ==
LOC: ER 04:20
DX: K04.7 Periapical abscess without sinus (principal); M79.644 Pain in right finger(s)
CPT/HCPCS: 99284